=== PATIENT | male | born 1940 | race Caucasian/White ===

== ENCOUNTER 2017-12-17 16:16 | Observation (INO) | payer MEDICARE ==
[2017-12-17 16:49] LABS: #Eosinphils 0.1 thou/uL (0.0-0.7); #Lymphocytes 1.1 thou/uL (1.20-3.40); #Monocytes 2.4 thou/uL (0.11-0.59); #Neutrophils 14.2 thou/uL (1.40-6.50); %Basophils 0.2 % (0.0-1.0); %Eosinophils 0.6 % (0.0-10.0); %Lymphocytes 6.3 % (21.0-51.0); %Monocytes 13.5 % (0.0-10.0); %Neutrophils 79.4 % (42.0-75.0); Hemoglobin 13.5 g/dL (14.0-18.0); Mean Corpuscular HGB CONC 34.4 g/dL (32.0-36.0); Mean Corpuscular Hemoglobin 30.6 pg (27.0-31.0); Mean Corpuscular Volume 89.1 fL (78.0-98.0); Mean Platelet Volume 7.2 fL (7.4-10.4); Platelet Count 219 thou/uL (130-400); RBC Distribution Width 12.1 % (11.5-14.5); White Blood Cell (WBC) Count 17.8 thou/uL (4.8-10.8)
--- NOTE | 2017-12-17 16:59 | RAD ---
CHEST ONE VIEW: 12/17/17 HISTORY: Fever. Chest pain. COMPARISON: 09/17/15. FINDINGS: The cardiac silhouette is magnified by projection. Pulmonary vasculature are unremarkable. Mediastinu m midline with postoperative changes and aortic calcification. No lobar consolidation or evidence of pneumothorax. IMPRESSION: Chronic type findings are stable. No evidence of pneumothorax. POS: [facility]
[2017-12-17 17:11] LABS: ALT (SGPT) 29 U/L (8-55); AST (SGOT) 22 U/L (5-34); Albumin 3.9 g/dL (3.4-4.8); Alkaline Phosphatase 93 U/L (40-150); Anion Gap 16 mmol/L (10-20); BUN (Urea Nitrogen) 36 mg/dL (8.4-25.7); Bilirubin, Total 1.2 mg/dL (0.2-1.2); Calc. Creatinine Clearance 0 mL/min (70-130); Calcium 9.5 mg/dL (7.8-10.44); Carbon Dioxide 24 mmol/L (23-31); Chloride 97 mmol/L (98-107); Estimated GFR-MDRD 31; Globulin 3.1 g/dL (2.4-3.5); Glucose 101 mg/dL (83-110); Potassium 4.8 mmol/L (3.5-5.1); Sodium 132 mmol/L (136-145)
[2017-12-17] MEDS ORDERED: Lidocaine 1% (PF) 30 ML VIAL ONE (18:01)
--- NOTE | 2017-12-17 18:37 | RAD ---
RIGHT KNEE FOUR VIEW 12/17/17 HISTORY: Pain and fever. COMPARISON: None. FINDINGS: There is a large joint effusion. No acute displaced fracture or malalignment. Moderate patellofemoral compartment osteophyte formation. Moderate vascular calcifications. Small osteophytes in the medial and lateral tibial spines. IMPRESSION: Large joint effusion greater than would be expected for the amount of degenerative changes can be see n with crystalline arthropathy such as gout. POS: [facility]
[2017-12-17] MEDS ORDERED: Piperacillin/Tazobactam 4.5 GM VIAL ONE (20:00)
[2017-12-17] MEDS ORDERED: Colchicine 0.6 MG TAB PO SCH (20:15)
[2017-12-17 20:23] LABS: Bilirubin Negative (Negative); Blood, Urine Negative (Negative); Clarity CLEAR (Clear); Glucose, Urine (Dipstick) Negative (Negative); Leukocyte Negative (Negative); Nitrite Negative (Negative); Protein, Urine (Dipstick) Trace mg/dL (Neg-Trace); Specific Gravity, Urine 1.009 (1.002-1.036); Urobilinogen 0.2 mg/dL (0.2-1.0)
[2017-12-17 23:40] VITALS: BMI 25.4
[2017-12-18] MEDS ORDERED: Vancomycin HCl 1.5 GM in Sodium Chloride 0.9% 250 ML 300 ML IVPB SCH (01:00)
[2017-12-18] MEDS: Piperacillin/Tazobactam 2.25 GM in Sodium Chloride 0.9% 100 ML IVPB SCH ×4 (03:39→21:20)
--- NOTE | 2017-12-18 05:32 | HP ---
DATE OF ADMISSION: 12/18/2017 TIME OF EVALUATION: 7:50 p.m. CODE STATUS: DNR. PRIMARY CARE PHYSICIAN: Dr. Max Burrell at [facility]. CHIEF COMPLAINT: Fever, right knee pain. HISTORY OF PRESENT ILLNESS: This is a 77-year-old male patient with past medical history of gout, the patient came to the hospital referred by his primary care doctor and the patient was having a fever of 102.9, with no clear triggers, and the only finding was a right knee swelling. As per patient, he reported that the symptoms from the knee are similar to when he gets a gout crisis, also he has associated tenderness on that knee, the patient reported that usually gets worse due to the change in diet. The patient has no other significant symptoms, no cough, sputum production, no chest pain, no burning with urination. In ER, the tap has been done, fluid has been sent for evaluation, has been started on broad spectrum antibiotics, also on colchicine, symptoms are reported as severe. REVIEW OF SYSTEMS: Constitutional: Fever, chills, generalized weakness. Respiratory: No cough, no sputum production, no shortness of breath. Cardiovascular: No chest pain, no palpitations. No shortness of breath. Gastrointestinal: No nausea, no vomiting, no diarrhea or abdominal pain. Central nervous system: No dizziness, headache, feeling lightheaded. Genitourinary: No burning with urination. Extremities: The patient has right knee swelling and tenderness, unable to bear weight due to the pain. All other systems were reviewed and negative except for the findings mentioned above. PAST MEDICAL HISTORY: The patient reported gout, coronary artery disease, status post previous stent, prostatitis, hyperlipidemia, hypertension, previous stroke, previous NH. PAST SURGICAL HISTORY: The patient reported cholecystectomy, 6 previous stents placed, appendectomy, CABG x3, tonsillectomy. PSYCHIATRIC HISTORY: No psych history. FAMILY HISTORY: The patient reported mother with aneurysm, father with kidney problems. SOCIAL HISTORY: No alcohol, no drugs, no cigarettes. KNOWN ALLERGIES: SIMVASTATIN, ZETIA. REPORTED MEDICATIONS: Isosorbide, gabapentin, Zetia, amlodipine, furosemide, Ocuvite, carvedilol. PHYSICAL EXAMINATION: VITAL SIGNS: On presentation, heart rate 73, respiratory rate 21, temperature 101.3, oxygen saturation 93, occasionally, blood pressure 171/62. GENERAL APPEARANCE: The patient is alert, oriented, no acute distress. HEENT: Eyes: Normal conjunctivae, moist oral mucosa. Anicteric. NECK: No JVD. RESPIRATORY: Bilateral air entry. No rales, no wheezing. Symmetrical expansion. CARDIOVASCULAR: Normal rate, regular rhythm, no murmurs, no gallop, no edema. ABDOMEN: Soft, normal bowel sounds. MUSCULOSKELETAL: Baseline range of motion and strength except for the right knee. He has decreased range of motion, tenderness, inability to bear weight with his extremity. SKIN: Warm and intact. No pallor, no rash except for right knee that is swollen and red. NEUROLOGIC: Baseline sensory. No evidence of any new focal weakness. Baseline speech. Cranial nerves seem to be intact. PSYCHIATRIC: The patient is in a good mood. No anxiety, oriented, optimal judgment. LABORATORY DATA: Reviewed. The patient has a white count of 17.8 with hemoglobin 13.5, platelet count 219, neutrophils 79. Sodium 132, potassium 4.8 , chloride 97, carbon dioxide 24, anion gap 16, BUN 36, creatinine 2.06, this is about his baseline seen on previous records that were reviewed. GFR 31, glucose 101. Lactic acid 1.8, uric acid 7.6, calcium 9.5. LFTs were normal. UA was reviewed and was negative. X-ray was reviewed. The patient has chronic type findings in the chest or any other reports seen. Knee x-ray, the patient has a large joint effusion greater than would be expected for the amount of degenerative changes can be seen crystalline arthropathy such as gout. EKG was discussed with performing physician from ER. The patient had normal sinus rhythm with a rate of 71, RBBB, no evidence of any acute findings. ASSESSMENT AND PLAN: 1. Gout, patient has right knee swelling, status post needle aspiration, results showed moderate white blood count; however, no organisms were seen, this does not exclude a septic joint; however, inflammatory fluids might be from gout, patient covered with antibiotics, will need to follow final results from culture. Orthopedics will need to be consulted. 2. Systemic inflammatory response syndrome. Given leukocytosis, fever, unclear if the right knee is the source of the infection, seems inflammatory fluid could be seen in gout also, the patient reported that the knee with gout as the same symptoms that he has every time he has a crisis. The patient already covered with antibiotics, cultures to be followed.orthopedic might to be consulted for assistance in further management. 3. History of coronary artery disease, this problem is chronic, seems to be stable, we will monitor, we will treat accordingly. 4. History of chronic kidney disease, creatinine of all the symptom in previous admissions, we will monitor, need for any acute intervention at this point. 5. Hyperlipidemia, reconcile home medications, low cholesterol diet is advised. 6. Uncontrolled hypertension, presented with systolic hypertension, reconcile home medications, adjust the treatment as needed. 7. Deep venous thrombosis prophylaxis. MTDD
[2017-12-18] MEDS: traMADol HCl 50 MG TAB PO PRN ×3 (06:45→21:17)
[2017-12-18] MEDS: Aspirin 81 mg Enteric Coated Tablet PO SCH (08:47)
[2017-12-18] MEDS: Gabapentin 300 MG CAP PO SCH (08:47)
[2017-12-18] MEDS: Colchicine 0.6 MG TAB PO SCH (08:47)
[2017-12-18] MEDS: Dutasteride 0.5 MG CAP PO SCH (08:47)
[2017-12-18] MEDS: Amlodipine 10 MG TAB PO SCH (08:48)
[2017-12-18] MEDS: Carvedilol 3.125 MG TAB PO SCH ×2 (08:48→21:17)
[2017-12-18] MEDS: Clopidogrel Bisulfate 75 MG TAB PO SCH (08:48)
[2017-12-18] MEDS ORDERED: DUTASTERIDE PO SCH (09:00)
[2017-12-18] MEDS ORDERED: TAMSULOSIN HCL PO SCH (09:00)
[2017-12-18] MEDS ORDERED: Tamsulosin HCl 0.4 MG CAP PO SCH ×2 (09:00→21:00)
[2017-12-18] MEDS: COLESEVELAM HCL 3.75 GM PO SCH (09:02)
--- NOTE | 2017-12-18 10:23 | CON ---
DATE OF CONSULTATION: 12/18/2017 REQUESTING PHYSICIAN: Dr. Corbett. CONSULTING PHYSICIAN: Dr. Maycol Cheung. REASON FOR CONSULTATION: Swelling, discomfort and right knee effusion. BRIEF CLINICAL HISTORY: Mr. Painter is a 77-year-old white male who was admitted to the emergency [facility] yesterday evening to the medicine service for pain in the right knee, which he has had before. Rupa arently, the patient believes he has gout in the knee and he has been treated for this for quite some time. He called his primary care doctor and explained to him about the knee swelling and also appar ently had a fever up to 102. Their recommendation at that time was to present to the emergency room, which he did. Dr. Buck performed arthrocentesis and has obtained a specimen, sent for culture, se nsitivity, and crystal analysis. He has been empirically started on Zosyn for broad spectrum coverag e. Our service was consulted for evaluation of right knee effusion, determination of sepsis versus g out. PAST MEDICAL HISTORY: Significant for gout, coronary atherosclerosis, prostatitis, hyperlipidemia, h ypertension, and a prior myocardial infarction. PAST SURGICAL HISTORY: Cholecystectomy, cardiac stent placement x2, coronary artery bypass graft x3, tonsillectomy. MEDICATIONS: Please see medication reconciliation form. PHYSICAL EXAMINATION: Visual inspection of the right knee demonstrates the patient to have a trace e ffusion at this point. Supralateral arthrocentesis sites identified. No erythema is noted. Range o f motion is limited secondary to discomfort. 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 He is neur ovascularly intact both lower extremities. He cannot walk, bear weight on the right knee and he sits comfortably with the knee flexed to 90 degree position. IMAGING STUDIES: X-ray has been dictated by Radiologist. LABORATORY DATA: Hemogram showed white blood cell 17.8, hemoglobin 13.5, hematocrit 39.2. Chemistry panel demonstrates sodium of 132, BUN 36, creatinine 2.06. His arthrocentesis, I cannot find result s, but I do know a crystal analysis has been ordered as well as a Gram stain culture and sensitivity, and Gram stain did not demonstrate any organisms. I also added a cell count with differential to th e arthrocentesis sample. IMPRESSION: A strong suspicion for gouty arthritis, right knee. PLAN: No intervention is warranted at this point, we will observe, agree with treatment for primary gout and we will await culture and crystal analysis, follow up in the morning.
[2017-12-18 11:09] LABS: BF Color Yellow; Body Fluid Source SYNOVIAL FLUID; Clarity Cloudy/Turbid (Clear); RBC Background Count 0.007; Tube # EDTA
[2017-12-18 11:10] LABS: RBC Count-Automated 28000 /cumm; WBC/NonHematic-Auto 24800 /cumm
[2017-12-18 12:14] LABS: BF Segmented Neutrophils 82 %; Cell Count Non Hematic 15 %; Lymphocytes 4 %
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
[2017-12-18 15:12] LABS: Anion Gap 12 mmol/L (10-20); BUN (Urea Nitrogen) 30 mg/dL (8.4-25.7); Calc. Creatinine Clearance 40 mL/min (70-130); Carbon Dioxide 24 mmol/L (23-31); Chloride 102 mmol/L (98-107); Estimated GFR-MDRD 38; Glucose 169 mg/dL (83-110); Potassium 4.4 mmol/L (3.5-5.1); Sodium 134 mmol/L (136-145)
[2017-12-18] MEDS ORDERED: predniSONE 20 MG TAB PO SCH (15:30)
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
[2017-12-18] MEDS ORDERED: Vancomycin HCl 1 GM in Premix Bag 1 BAG IVPB SCH (23:59)
[2017-12-19] MEDS: traMADol HCl 50 MG TAB PO PRN ×2 (01:03→06:43)
[2017-12-19] MEDS: Piperacillin/Tazobactam 2.25 GM in Sodium Chloride 0.9% 100 ML IVPB SCH ×2 (05:01→10:24)
[2017-12-19 05:03] LABS: Anion Gap 12 mmol/L (10-20); BUN (Urea Nitrogen) 29 mg/dL (8.4-25.7); Calc. Creatinine Clearance 42 mL/min (70-130); Calcium 8.9 mg/dL (7.8-10.44); Carbon Dioxide 22 mmol/L (23-31); Chloride 102 mmol/L (98-107); Estimated GFR-MDRD 40; Glucose 224 mg/dL (83-110); Sodium 132 mmol/L (136-145)
[2017-12-19 05:12] LABS: Band 13 % (5-11); Hemoglobin 12.1 g/dL (14.0-18.0); Lymphocytes 6 % (21-51); MDiff Complete? YES; Mean Corpuscular HGB CONC 34.2 g/dL (32.0-36.0); Mean Corpuscular Hemoglobin 30.6 pg (27.0-31.0); Mean Corpuscular Volume 89.4 fL (78.0-98.0); Mean Platelet Volume 7.7 fL (7.4-10.4); Monocytes 2 % (0-10); Neutrophil 79 % (42-75); Platelet Count 200 thou/uL (130-400); RBC Distribution Width 12.2 % (11.5-14.5); Red Blood Cell (RBC) Count 3.94 mill/uL (4.70-6.10); White Blood Cell (WBC) Count 15.2 thou/uL (4.8-10.8)
[2017-12-19] MEDS ORDERED: predniSONE 20 MG TAB PO SCH (08:00)
[2017-12-19] MEDS: Gabapentin 300 MG CAP PO SCH (08:50)
[2017-12-19] MEDS: Colchicine 0.6 MG TAB PO SCH (08:50)
[2017-12-19] MEDS: Dutasteride 0.5 MG CAP PO SCH (08:50)
[2017-12-19] MEDS: Aspirin 81 mg Enteric Coated Tablet PO SCH (08:51)
[2017-12-19] MEDS: Clopidogrel Bisulfate 75 MG TAB PO SCH (08:52)
[2017-12-19] MEDS: Carvedilol 3.125 MG TAB PO SCH (08:53)
[2017-12-19] MEDS: Amlodipine 10 MG TAB PO SCH (08:53)
[2017-12-19] MEDS: COLESEVELAM HCL 3.75 GM PO SCH (08:54)
--- NOTE | 2017-12-19 11:50 | PRG ---
DATE OF SERVICE: 12/19/2017 SUBJECTIVE: This is a 77-year-old gentleman being seen for acute kidney injury. The patient denies any nausea, vomiting, or chest pain. PHYSICAL EXAMINATION: GENERAL: Patient is awake, alert. VITAL SIGNS: Afebrile, pulse 60, breathing 16, blood pressure 112/56. HEAD/NECK: Normocephalic. Atraumatic. EYES: EOMI. No deformity. EARS: Clear. No ulcers. NOSE: Intact. No lesions. MOUTH: Clear. No discharge. THROAT: Clear. No exudate. LUNGS: Clear. No crackles. CARDIAC: S1, S2. No rub. ABDOMEN: Benign. BS+. GENITALIA/RECTUM: Shipley absent. BACK/EXTREMITIES: Edema 0+ Ulcer- NEUROLOGICAL: Alert and motor intact. SKIN: Rash- Bruise- LYMPHATICS: Edema- Ulcer- LABORATORY DATA: Show hemoglobin 12.1, potassium 4, creatinine 1.6. ASSESSMENT AND RECOMMENDATIONS: 1. Acute kidney injury, improved. 2. Hypertension, stable. 3. Anemia, stable. 4. Medication based on glomerular filtration rate are appropriate. No indication for dialysis. We will sign off on this patient. Please reconsult as needed.
[2017-12-19 13:42] VITALS: BP 156/76; TEMP 97.5
--- NOTE | 2017-12-19 19:51 | DIS ---
DATE OF ADMISSION: 12/17/2017 DATE OF DISCHARGE: 12/19/2017 DISCHARGE DIAGNOSES: 1. Acute gouty arthropathy of the right knee, improved. 2. Systemic inflammatory response syndrome, noninfectious. 3. Chronic kidney disease stage 3. 4. Neutrophilic leukocytosis improved. 5. Acute kidney injury on chronic kidney disease stage 3. CONSULTATIONS: Dr. Yancey with Nephrology Service and Orthopedic Surgery service. PERTINENT LABORATORY DATA AND X-RAY FINDINGS: Sodium ranged between 132-134, creatinine ranged betwe en 1.67-2.06. Estimated GFR ranged between 31-40. Uric acid level 7.6. Lactic acid level 1.8, calc ium 9. LFTs within normal limits. CBC showed white blood cell count ranging between 15.2-17.8, hemo globin ranged between 12.1-13.5. Blood cultures x2 from 12/17/2017 showed no growth at 48 hours. Ri ght knee aspirate dated 12/17/2017 showed no growth at 48 hours. Urine culture dated 12/17/2017 show ed no growth at 24 hours. Portable chest x-ray dated 12/17/2017 showed chronic changes without acute process. Four views of the right knee dated 12/17/2017 showed large joint effusion with associated degenerative joint disease. HOSPITAL COURSE: The patient was observed on the medical floor after initially presenting with right knee pain with associated edema and fever. The patient underwent extensive evaluation including daisha in radiographs of the right knee showing a large effusion of the joint space. The patient was placed on broad spectrum IV antibiotic therapy after concern for systemic inflammatory response syndrome in a potential septic knee. The patient underwent evaluation by the Orthopedic Surgery Service, [facility] right knee aspiration showing no evidence of infectious process. The patient was noted with alessio vated uric acid level with concern for a gouty arthropathy. The patient was initiated on colchicine. In addition, he was given prednisone 40 mg daily. The patient had overall improvement and pain, de creased swelling and increased range of motion with the above therapy. The patient remained afebrile throughout the hospital course with stable vital signs noted. The patient was also noted with mild acute kidney injury in the context of known chronic kidney disease stage 3 with modification to his c urrent chronic medication regimen and overall improved renal function by the time of discharge. I frazier ve examined the patient at the time of discharge and discussed followup instructions. The patient ve rbalizes understanding and agreement, ready for discharge on 12/19/2017. DISCHARGE MEDICATIONS: 1. Amlodipine 10 mg 1 tab p.o. daily. 2. Enteric-coated aspirin 81 mg 1 tab p.o. daily. 3. Baclofen 10 mg p.o. b.i.d. 4. Carvedilol 3.125 mg p.o. b.i.d. 5. Colchicine 0.6 mg p.o. daily. 6. Ezetimibe 10 mg p.o. daily. 7. Lasix 20 mg 1 tab p.o. daily. 8. Gabapentin 600 mg p.o. b.i.d. 9. Isosorbide mononitrate 60 mg p.o. daily. 10. Childs 3 fatty acids 1 gram p.o. daily. 11. Prednisone 20 mg 2 tabs p.o. daily x 3 days, followed by 1 tab p.o. daily x 3 days, followed by half a tab p.o. daily x3 days. 12. Flomax 0.4 mg p.o. at bedtime. 13. Multivitamin 1 tab p.o. b.i.d. 14. Ambien 10 mg p.o. at bedtime. FOLLOWUP: The patient may follow up with his primary care provider, Dr. Thomas Burrell within 7 day s of discharge. CONDITION ON DISCHARGE: Stable. ACTIVITY: Ad cris, rolling walker for ambulation. DIET: Heart healthy. CODE STATUS: FULL. DISPOSITION: Home, 12/19/2017.
--- NOTE | 2017-12-21 15:50 | EKG ---
Test Reason : SEPIS Blood Pressure : / mmHG Vent. Rate : 071 BPM Atrial Rate : 071 BPM P-R Int : 160 ms QRS Dur : 152 ms QT Int : 424 ms P-R-T Axes : 032 -82 025 degrees QTc Int : 460 ms Normal sinus rhythm Left axis deviation Right bundle branch block Abnormal ECG Confirmed by RASHAWN WEEKS, TRAM ([id number]), editor magazine HECTOR MCCORMICK ([id number]) on 12/21/2017 3:49:31 PM Referred By: RASHAWN Confirmed By:TRAM MOROCHO MD
== END 2017-12-19 14:08 | disposition home or self-care (01) ==
LOC: ERS 16:16 → T4-A 23:18
PROVIDERS: ADMIT Hospitalist; ATTEND Hospitalist
DX: M10.9 Gout, unspecified (principal); R65.10 Systemic inflammatory response syndrome (SIRS) of non-infectious origin without acute organ dysfunction; I25.10 Atherosclerotic heart disease of native coronary artery without angina pectoris; E78.5 Hyperlipidemia, unspecified; I25.2 Old myocardial infarction; N41.9 Inflammatory disease of prostate, unspecified; I12.9 Hypertensive chronic kidney disease with stage 1 through stage 4 chronic kidney disease, or unspecified chronic kidney disease; N18.3 Chronic kidney disease, stage 3 (moderate); N17.9 Acute kidney failure, unspecified; D63.1 Anemia in chronic kidney disease; D72.9 Disorder of white blood cells, unspecified; Z86.73 Personal history of transient ischemic attack (TIA), and cerebral infarction without residual deficits; Z79.82 Long term (current) use of aspirin; Z79.899 Other long term (current) drug therapy; Z88.8 Allergy status to other drugs, medicaments and biological substances; Z95.5 Presence of coronary angioplasty implant and graft; Z95.1 Presence of aortocoronary bypass graft; Z66 Do not resuscitate
CPT/HCPCS: 71045; 73564; 80048 ×2; 80053; 81003; 83605; 84550; 85007; 85025; 85027; 87040; 87070; 87086; 87205; 89051; 89060; 93005; 94760; 96361; 96365; 96366 ×2; 96367; 99285; G0378; 36415; 85060; J2001; J2543; J3370; J7050; J7506

== ENCOUNTER 2018-01-06 10:18 | Inpatient (IN) | payer MEDICARE ==
[2018-01-06 11:53] LABS: Hemoglobin 13.9 g/dL (14.0-18.0); Mean Corpuscular HGB CONC 33.1 g/dL (32.0-36.0); Mean Corpuscular Hemoglobin 29.6 pg (27.0-31.0); Mean Corpuscular Volume 89.3 fL (78.0-98.0); Mean Platelet Volume 6.8 fL (7.4-10.4); Platelet Count 245 thou/uL (130-400); RBC Distribution Width 13.2 % (11.5-14.5); Red Blood Cell (RBC) Count 4.68 mill/uL (4.70-6.10); White Blood Cell (WBC) Count 18.1 thou/uL (4.8-10.8)
[2018-01-06 12:09] LABS: Acetaminophen Less than 6.0 mcg/mL (10.0-30.0); Alcohol Less than 10 mg/dL (Less than 10); CK (CPK) 614 U/L (30-200); Salicylate Less than 8.0 mg/dL (15.0-30.0)
[2018-01-06 12:11] LABS: CKMB 1.8 ng/mL (0-6.6); Troponin I 0.023 ng/mL (< 0.028)
[2018-01-06 12:13] LABS: ALT (SGPT) 68 U/L (8-55); AST (SGOT) 83 U/L (5-34); Albumin 3.7 g/dL (3.4-4.8); Alkaline Phosphatase 208 U/L (40-150); Anion Gap 13 mmol/L (10-20); BUN (Urea Nitrogen) 54 mg/dL (8.4-25.7); Bilirubin, Total 2.1 mg/dL (0.2-1.2); Calc. Creatinine Clearance 0 mL/min (70-130); Calcium 9.8 mg/dL (7.8-10.44); Carbon Dioxide 25 mmol/L (23-31); Chloride 99 mmol/L (98-107); Estimated GFR-MDRD 27; Globulin 3.7 g/dL (2.4-3.5); Glucose 193 mg/dL (83-110); Potassium 4.7 mmol/L (3.5-5.1); Protein, Total 7.4 g/dL (5.8-8.1); Sodium 132 mmol/L (136-145)
[2018-01-06 12:38] LABS: Band 3 % (5-11); Lymphocytes 10 % (21-51); MDiff Complete? YES; Monocytes 10 % (0-10); Neutrophil 77 % (42-75); RBC Morphology Normal
[2018-01-06 13:07] LABS: Bilirubin Negative (Negative); Blood, Urine Trace (Negative); Clarity CLEAR (Clear); Glucose, Urine (Dipstick) 100 mg/dL (Negative); Leukocyte Trace (Negative); Nitrite Negative (Negative); Protein, Urine (Dipstick) 100 mg/dL (Neg-Trace); Specific Gravity, Urine 1.021 (1.002-1.036)
[2018-01-06 13:15] LABS: Bacteria/HPF None Seen HPF (None Seen); Hyaline Casts/LPF 0-3 HYALINE CAST LPF (0-3 Hyaline); Pathc Cast-AUWi Flag 0.58 (0-2.49); RBC/HPF 0-3 HPF (0-3); Squamous Epithelial 0-3 HPF (0-3); WBC/HPF None Seen HPF (0-3)
[2018-01-06 13:16] LABS: Amphetamine Not Detected (NotDetected); Barbiturates Screen Not Detected (NotDetected); Benzodiazepine Screen Not Detected (NotDetected); Cocaine Metabolite Screen Not Detected (NotDetected); Medtox Control Line Valid? VALID (VALID); Medtox Reader # READER 1; Methadone Not Detected (NotDetected); Methamphetamine Not Detected (NotDetected); Opiate Screen Detected (NotDetected); Oxycodone Screen Not Detected (NotDetected); Phencyclidine (PCP) Not Detected (NotDetected); THC/Cannabinoid Screen Not Detected (NotDetected); Tricyclic Screen Not Detected (NotDetected)
[2018-01-06] MEDS ORDERED: cefTRIAXone\\ROCEPHIN 1 GM VIAL ONE (13:16)
[2018-01-06 13:18] LABS: Yeast-AUWi Flag 33.5 (0-25.0)
[2018-01-06 13:25] LABS: Yeast-All Forms None Seen HPF (None Seen)
--- NOTE | 2018-01-06 13:32 | RAD ---
PORTABLE CHEST: HISTORY: Mental status post change. COMPARISON: 12/17/17. FINDINGS: Lungs appear well aerated and clear. NO infiltrate or vascular congestion. Heart size upper normal and stable. Postop sternotomy changes are again noted. IMPRESSION: No acute process or interval change. POS: [facility]
--- NOTE | 2018-01-06 13:38 | CT ---
NONCONTRAST CT HEAD: DATE: 01/06/18. HISTORY: Altered mental status. COMPARISON: 03/17/15. FINDINGS: Again noted is decreased attenuation of the periventricular white matter which is nonspecific but lik victor m reflective of chronic small-vessel ischemic changes. There is a low-density focus again seen in the right basal ganglia likely related to remote lacunar infarction. Encephalomalacia is again seen in each occipital lobe likely related to remote areas of infarction. Remote infarctions are seen in e ach cerebellar hemisphere. There is o evidence of an acute cortical infarction, hemorrhage, mass effect, or midline shift. Diff use cerebral volume loss is present. Ventricular system is normal in size, shape, and position for t he degree of sulcal atrophy. There is mild ex vacuo dilatation of the occipital horn right lateral v entricle. Visualized paranasal sinuses and mastoid air cells are clear. Calvarial structures are intact. There has been no significant interval change when compared to the prior exam. IMPRESSION: 1. No acute intracranial abnormality is demonstrated. 2. Chronic small-vessel ischemic changes and cerebral volume los, similar to the prior exam. 3. Focal areas of encephalomalacia in each occipital lobe likely related to remote areas of infarcti on. 4. Remote lacunar infarction right basal ganglia with remote infarctions in each cerebellar hemisphe re. POS: [facility]
[2018-01-06 15:47] LABS: CO2 Tension 33.3 mmHg (35.0-45.0); O2 Tension (PaO2) 65.5 mmHg (> 70.0); pH, Arterial 7.45 (7.35-7.45)
[2018-01-06 15:48] LABS: Actual Bicarbonate (HCO3a) 22.5 mEq/L (22-28); Base Excess (BEa) -0.9 mEq/L (-2.0 to +3.0); Hemoglobin (Hb) 13.1 g/dL (14.0-18.0)
[2018-01-06 15:49] LABS: ALV-art Gradient 41.765 (0-20); Analyzer IN Cardio ER; Calcium, Ionized 1.2 mmol/L (1.12-1.30); Puncture Site LRA
[2018-01-06] MEDS ORDERED: Sodium Chloride 0.9% 1,000 ML IV SCH (16:08)
[2018-01-06] MEDS ORDERED: Acetaminophen 325 MG TAB PO PRN (16:08)
[2018-01-06] MEDS ORDERED: Ondansetron ODT 4 MG TAB SL PRN (16:08)
[2018-01-06] MEDS ORDERED: Ondansetron HCl/PF 4 MG/2 ML Vial IVP PRN (16:08)
[2018-01-06] MEDS: Ketorolac Tromethamine 30 MG/ML VIAL IVP SCH (17:15)
[2018-01-06] MEDS: Sodium Chloride 0.9% 1,000 ML IV SCH (17:16)
[2018-01-06 17:20] LABS: HBCM Index 0.06 S/CO (0-0.79); HBSAg Index 0.16 S/CO (0-0.99); Hep A IgM AB Non-Reactive (NonReactive); Hep A IgM S/CO 0.07 S/CO (0-0.79); Hep B Surf Ag Non-Reactive S/CO (NonReactive); Hep C IgG Ab Non-Reactive (NonReactive); Hep C Index 0.11 S/CO (0-0.79); Hepatitis B Core IGM Abs Non-Reactive (NonReactive)
--- NOTE | 2018-01-06 20:17 | ULT ---
ABDOMEN ULTRASOUND: HISTORY: Elevated liver function tests. COMPARISON: 05/05/2015 TECHNIQUE: Utilizing a Multi-Hertz transducer, sonographic imaging of the abdomen is performed in the longitudin al and transverse planes. FINDINGS: The examination is limited by body habitus and bowel gas. Limited evaluation of the pancreas, IVC, spleen, and kidneys. Grossly, no hydronephrosis. Both kidn eys appear to have a thinning of the cortex. The main portal vein is patent. Appropriate directional flow. Suboptimal evaluation of the aorta. The distal aorta may be prominent, measuring 2.4 cm x 1.8 cm x 2 .1 cm. The gallbladder is not assessed. Increased echogenicity to the liver may be due to hepatic steatosis or hepatocellular disease. Limit ed evaluation for hepatic masses and intrahepatic biliary dilatation. IMPRESSION: 1. Suboptimal evaluation due to bowel gas and body habitus. 2. Increased echogenicity of the liver, as described above. 3. Possible mild focal prominence of the infrarenal abdominal aorta. Better interrogation of the liver and abdomen with CT may be beneficial. POS: [facility]
[2018-01-06] MEDS ORDERED: Vancomycin HCl 1 GM in Premix Bag 1 BAG IVPB SCH ×2 (21:00→21:45)
--- NOTE | 2018-01-06 22:18 | HP ---
PRIMARY CARE PHYSICIAN: Dr. Burrell. CHIEF COMPLAINT: Altered mental status and knee and ankle pain. HISTORY OF PRESENT ILLNESS: Mr. Ureña is a pleasant 77-year-old gentleman who was brought in via EMS at his 's request after she noticed over the past few days he has been sleeping all the time and she also noted that he was having difficulty controlling his urine. She says that he also had been complaining of pain in his knees and ankles which has been fairly severe. She says that he was recen tly hospitalized about 3 weeks ago for a gout flare. At that time, he had high fever and was having pain in his knee. He was evaluated and found to have urate crystals in the joint and it was felt thanh t it was a gout flare. He was treated and released from the hospital. She also was concerned kalani leger he was given colchicine and his primary care physician changed his medications and placed him on Ul oric in place of the colchicine and she was concerned that this may have something to do with his pre sent state. Otherwise, she has not really noticed anything different. She says he has not been chec lauro his temperatures, but he did not notice any fevers or chills. He has not been having any other specific complaints other than the pain. REVIEW OF SYSTEMS: Essentially unobtainable as the patient is more or less obtunded. PAST MEDICAL HISTORY: Significant for gout, hypertension, macular degeneration and coronary artery d isease. She thinks he may be diabetic, but she is not sure. PAST SURGICAL HISTORY: He has had a coronary artery bypass. He has had several skin cancers removed . ALLERGIES: STATINS. FAMILY HISTORY: Significant for chronic kidney disease and macular degeneration as well as alcohol a buse in several family members. SOCIAL HISTORY: He is . He is a former smoker. He quit 20 years ago. He used to drink. Hi s says she thinks he used to drink too much and she says that he felt like he drinks too much as well and said it was affecting his brain and that is why he wanted to quit. He used to drink about three hard liquor drinks a day and he did this for at least 50 years. CURRENT MEDICATIONS: Include fish oil, isosorbide mononitrate extended release 60 mg daily, gabapent in 300 mg 3 tablets twice a day, Zetia 10 mg daily, amlodipine 10 mg daily, carvedilol 3.125 mg twice a day and furosemide 20 mg daily. PHYSICAL EXAMINATION: GENERAL: He is obtunded. He is arousable to severe pain, but when he is awake, he does not seem to make much sense. He appears confused. VITAL SIGNS: Blood pressure was 161/66, heart rate 87, respiratory rate of 22, temperature was 98.9. HEENT: His pupils are actually small pinpoint and slightly sluggish to reactive, unable to assess ex traocular muscles. His sclerae are somewhat pale and mildly icteric. Throat, his mucous membranes a re slightly dry. NECK: There is no adenopathy, no bruits. LUNGS: Clear to auscultation. There was no wheezing, no rales. CARDIOVASCULAR: He had a normal S1, S2. I did not appreciate an S3 or S4. No murmurs, clicks, no r ubs. ABDOMEN: Soft, positive for bowel sounds. He did have some mottled appearance of his skin. EXTREMITIES: He had swelling on dorsum of both feet up into the ankle. The right was worse than the left. There was some cyanosis on the first and second toes. He did have palpable dorsalis pedis pu lses bilaterally. NEUROLOGIC: Unable to assess. He does appear to move all of his extremities. There was no facial d ofelia and we were not able to assess for asterixis. He did have some spider angiomata on his face. LABORATORY RESULTS: His white blood cell count was 18.1, hemoglobin 13.9, hematocrit is 41.8, platel et count was 248. He had a left shift. The sodium was 132, potassium 4.7, chloride is 99, CO2 is 25 , BUN of 54, creatinine of 2.3, glucose is 193. He had a urinalysis which was essentially negative. ABG: pH was 7.447, pCO2 of 33, pO2 of 65.5. He had a urine drug screen which showed there were opi ates detected as well as acetaminophen. Plasma alcohol level was less than 10. He had a CT scan of the brain in which there were no acute abnormalities and also chest x-ray did not show any acute infi ltrates or effusions. ASSESSMENT AND PLAN: This is a 77-year-old gentleman who presents to the emergency room with two johanna or complaints. 1. Severe pain in his ankles, knees, and feet which is likely as a result of a gout flare. He has l eukocytosis; however, in review of his previous hospital admission, he had a leukocytosis as well as a fever at that time and it was proven gout flare. Therefore, it is likely that the leukocytosis on this occasion is related to gout. 2. Altered mental status. This is a little bit more unclear. It is unlikely that a gout flare woul d cause an alteration in the patient's mental status. The area on his feet again appears to be a gou t, although there is some concern that it could be cellulitis which could possibly contribute to some metabolic encephalopathy; however, the area on his feet does not appear to be severe enough to cause a metabolic encephalopathy related to a superficial cellulitis. He has a history of heavy alcohol u se in the past and his liver function test suggest that he has some ongoing or residual liver disease with his elevated transaminases and elevated bilirubin. He did have some stigmata on physical that could be associated with alcohol disease. Therefore, alcoholic encephalopathy comes in the different ial for his confused and somnolent state. Therefore, we will get a serum ammonia level to help us to sort this out. We will also get an ultrasound of the liver to look at the liver architecture. If t his proves to be nonrevealing, then the next step would be to consider a neurological evaluation and possibly getting a contrast that MRI to look at possible acute encephalitis type picture. Going forw katerin, we will continue with the antibiotics and likely this will take more than 24 hours to sort out a nd therefore we will admit him as a full admit.
[2018-01-06] MEDS: Carvedilol 3.125 MG TAB PO SCH (22:19)
[2018-01-07] MEDS ORDERED: VANCOMYCIN IVPB PRN (00:37)
[2018-01-07] MEDS ORDERED: Acetaminophen 1,000 MG in Premix Bag 1 BAG IVPB SCH (00:45)
[2018-01-07 04:24] LABS: #Eosinphils 0.1 thou/uL (0.0-0.7); #Monocytes 1.7 thou/uL (0.11-0.59); #Neutrophils 12.3 thou/uL (1.40-6.50); %Basophils 0.1 % (0.0-1.0); %Eosinophils 0.9 % (0.0-10.0); %Lymphocytes 6.8 % (21.0-51.0); %Monocytes 11.3 % (0.0-10.0); %Neutrophils 80.9 % (42.0-75.0); Hemoglobin 11.3 g/dL (14.0-18.0); Mean Corpuscular HGB CONC 34.2 g/dL (32.0-36.0); Mean Corpuscular Volume 90.5 fL (78.0-98.0); Mean Platelet Volume 6.8 fL (7.4-10.4); Platelet Count 205 thou/uL (130-400); RBC Distribution Width 13.2 % (11.5-14.5); Red Blood Cell (RBC) Count 3.67 mill/uL (4.70-6.10); White Blood Cell (WBC) Count 15.3 thou/uL (4.8-10.8)
[2018-01-07 05:28] LABS: Anion Gap 14 mmol/L (10-20); BUN (Urea Nitrogen) 59 mg/dL (8.4-25.7); Calc. Creatinine Clearance 39 mL/min (70-130); Calcium 8.9 mg/dL (7.8-10.44); Carbon Dioxide 22 mmol/L (23-31); Chloride 103 mmol/L (98-107); Estimated GFR-MDRD 26; Glucose 148 mg/dL (83-110); Potassium 4.5 mmol/L (3.5-5.1); Sodium 134 mmol/L (136-145)
[2018-01-07] MEDS: Sodium Chloride 0.9% 1,000 ML IV SCH ×2 (06:15→07:37)
[2018-01-07] MEDS: Enoxaparin Sodium 30 MG/0.3 ML SYRINGE SC SCH (07:35)
[2018-01-07] MEDS: Carvedilol 3.125 MG TAB PO SCH ×2 (07:36→20:30)
[2018-01-07] MEDS: Colchicine 0.6 MG TAB PO SCH (07:36)
[2018-01-07] MEDS: Famotidine/PF 20 mg/2ml Vial SLOW IVP SCH (09:41)
--- NOTE | 2018-01-07 12:28 | EKG ---
Test Reason : STAT Blood Pressure : / mmHG Vent. Rate : 071 BPM Atrial Rate : 071 BPM P-R Int : 166 ms QRS Dur : 146 ms QT Int : 428 ms P-R-T Axes : 033 -75 -01 degrees QTc Int : 465 ms Sinus rhythm with Premature atrial complexes Left axis deviation Right bundle branch block Abnormal ECG When compared with ECG of 17-DEC-2017 16:28, Premature atrial complexes are now Present Confirmed by HEAVEN WEEKS, SDanny ([id number]) on 01/07/2018 12:28:13 PM Referred By: [place] Confirmed By:DR. Esmer COLLADO MD
[2018-01-07] MEDS: cefTRIAXone\\ROCEPHIN 1 GM in Sodium Chloride 0.9% 100 ML IVPB SCH (12:44)
--- NOTE | 2018-01-07 16:19 | PDOC.PN ---
- Subjective Encounter Start Date: 01/07/18 Encounter Start Time: 16:17 Mr. Foster was seen today in follow-up of Altered mental status, and foot pain. He is back to his baseline level of functioning. He does not remember much from yesterday. He is still having fairly sevre pain in both ankles and feet. - Objective Resuscitation Status: Resuscitation Status FULL:Full Resuscitation MAR Reviewed: Yes Vital Signs & Weight: Vital Signs (12 hours) Temp Pulse Resp BP Pulse Ox 01/07/18 12:20 99.0 F 72 20 165/88 H 96 01/07/18 08:00 98.0 F 59 L 20 131/62 97 01/07/18 04:56 97.8 F 59 L 18 125/70 97 Weight Weight 249 lb 1.957 oz Result Diagrams: 01/07/18 04:10 01/07/18 04:10 Additional Labs: Accuchecks 01/06/18 19:52 POC Glucose 177 H Phys Exam - Physical Examination HEENT: PERRLA Respiratory: no wheezing, no rales, no rhonchi, clear to auscultation bilateral Cardiovascular: RRR, no significant murmur, no rub Gastrointestinal: soft, non-tender, positive bowel sounds Musculoskeletal: no edema + edema on both feet, and exquisite temnderness bilaterally Dx/Plan (1) Metabolic encephalopathy Code(s): G93.41 - METABOLIC ENCEPHALOPATHY Status: Acute (2) Acute gouty arthropathy Code(s): M10.9 - GOUT, UNSPECIFIED Status: Acute Comment: Continue Colchicine 0.6mg daily, continue Zosyn and Vancomycin, start Prednisone 40mg daily (3) SIRS (systemic inflammatory response syndrome) Code(s): R65.10 - SIRS OF NON-INFECTIOUS ORIGIN W/O ACUTE ORGAN DYSFUNCTION Status: Acute Comment: Continue Zosyn and Vancomycin, await final blood cx results (4) Acute kidney injury superimposed on chronic kidney disease Code(s): N17.9 - ACUTE KIDNEY FAILURE, UNSPECIFIED; N18.9 - CHRONIC KIDNEY DISEASE, UNSPECIFIED Status: Acute - Plan * Metabolic encephalopathy- ? due to severe pain, and Opiod medication- this has resolved * SIRS- I suspect this is more from Gout than cellulitis- will continue Colchicine, but due to renal insufficiency will have to monitor the dose, and unable to give Indocin or Toradol * Will de-escalate antibiotics tomorrow * I have recommended outpatient Rheumatology follow-up given the severity of his Gout * Acute on chronic kidney disease- ? etiology- His billing assistant has been consulted.
[2018-01-07] MEDS: Vancomycin HCl 1.25 GM in Sodium Chloride 0.9% 250 ML 250 ML IVPB SCH (17:13)
[2018-01-07] MEDS: Ketorolac Tromethamine 30 MG/ML VIAL IVP SCH (18:19)
[2018-01-07] MEDS ORDERED: traMADol HCl 50 MG TAB PO PRN (19:18)
[2018-01-07] MEDS: Acetaminophen 325 MG TAB PO PRN (20:30)
--- NOTE | 2018-01-08 03:22 | CON ---
DATE OF CONSULTATION: 01/07/2018 REASON FOR CONSULTATION: Acute kidney injury and chronic kidney disease and altered mentation HISTORY OF PRESENT ILLNESS: This is a 78-year-old white male with history of gout, hypertension, hea rt disease, who came to the hospital with altered mentation and knee pain and Nephrology is consulted for acute kidney injury. His baseline creatinine is around 1.7 and was found to be 2.3 and this mor deandre 2.4. The patient is getting admitted for cellulitis and getting on vancomycin. No fever, chill s, feeling slightly better. Swelling is better. PAST MEDICAL HISTORY: 1. Gout. 2. Hypertension. 3. Coronary artery disease. PAST SURGICAL HISTORY: Coronary artery bypass graft, skin cancer removal. HOME MEDICATIONS: Fish oil, isosorbide mononitrate, gabapentin, Zetia, amlodipine, carvedilol, furos emide. ALLERGIES: STATINS. SOCIAL HISTORY: No smoking, alcohol, or illicit drug abuse, a former smoker. FAMILY HISTORY: Positive for heart disease. REVIEW OF SYSTEMS: The following complete review of systems was negative, unless otherwise mentioned in the HPI or below: Constitutional: Weight loss or gain, abil ity to conduct usual activities. Skin: Rash, itching. Eyes: Double vision, pain. ENT/Mouth: Nose bleeding, neck stiffness, pain, tenderness. Cardiovascular: Palpitations, dyspnea on exertion, ort hopnea. Respiratory: Shortness of breath, wheezing, cough, hemoptysis, fever or night sweats. Judith rointestinal: Poor appetite, abdominal pain, heartburn, nausea, vomiting, constipation, or diarrhea. Genitourinary: Urgency, frequency, dysuria, nocturia. Musculoskeletal: Pain, swelling. Neurologi c/Psychiatric: Anxiety, depression. Allergy/Immunologic: Skin rash, bleeding tendency. PHYSICAL EXAMINATION: GENERAL: This is an elderly white male in no apparent distress. VITAL SIGNS: Temperature 98.0, pulse 70, respiratory rate 18, blood pressure 150/60. HEENT: Atraumatic, normocephalic. Oral mucosa is moist. NECK: Supple, no masses. CARDIOVASCULAR: S1, S2 heard. Rate and rhythm regular. RESPIRATORY: Clear. MUSCULOSKELETAL: 1+ edema. DERMATOLOGIC: No rash. NEUROLOGIC: Alert, awake. PSYCHIATRIC: Mood and affect normal. PERTINENT LABS: Hemoglobin is 11.3, potassium 4.5, BUN is 59, creatinine is 2.1. ASSESSMENT AND PLAN: 1. Acute kidney injury on chronic kidney disease stage 3. Renal function with slight worsening. Av oid NSAIDs and agree with hydration. We will monitor renal function, avoid nephrotoxins. Medically renally dose all medications. 2. Edema, controlled. 3. Hypertension. 4. Mild hyperalbuminemia. 5. Anemia, rule out any bleed. 6. Hyponatremia, mild. Plan is to monitor renal function. Avoid nephrotoxins. If not getting better we will recommend maryann l ultrasound. Continue supportive care including antibiotics and we will follow.
[2018-01-08 05:15] LABS: #Eosinphils 0.2 thou/uL (0.0-0.7); #Monocytes 1.4 thou/uL (0.11-0.59); #Neutrophils 9.9 thou/uL (1.40-6.50); %Basophils 0.2 % (0.0-1.0); %Eosinophils 1.7 % (0.0-10.0); %Lymphocytes 8.2 % (21.0-51.0); %Monocytes 10.9 % (0.0-10.0); Hemoglobin 12.1 g/dL (14.0-18.0); Mean Corpuscular Hemoglobin 27.9 pg (27.0-31.0); Mean Corpuscular Volume 90.1 fL (78.0-98.0); Mean Platelet Volume 7.4 fL (7.4-10.4); Platelet Count 260 thou/uL (130-400); RBC Distribution Width 13.3 % (11.5-14.5); Red Blood Cell (RBC) Count 4.33 mill/uL (4.70-6.10); White Blood Cell (WBC) Count 12.6 thou/uL (4.8-10.8)
[2018-01-08 05:22] LABS: Anion Gap 16 mmol/L (10-20); BUN (Urea Nitrogen) 53 mg/dL (8.4-25.7); Calc. Creatinine Clearance 48 mL/min (70-130); Calcium 9.3 mg/dL (7.8-10.44); Carbon Dioxide 20 mmol/L (23-31); Chloride 103 mmol/L (98-107); Estimated GFR-MDRD 33; Glucose 144 mg/dL (83-110); Potassium 4.2 mmol/L (3.5-5.1); Sodium 135 mmol/L (136-145)
[2018-01-08] MEDS: Enoxaparin Sodium 30 MG/0.3 ML SYRINGE SC SCH (07:59)
[2018-01-08] MEDS: Colchicine 0.6 MG TAB PO SCH (07:59)
[2018-01-08] MEDS: Carvedilol 3.125 MG TAB PO SCH ×2 (07:59→20:25)
[2018-01-08] MEDS: Sodium Chloride 0.9% 1,000 ML IV SCH ×2 (08:00→21:32)
[2018-01-08] MEDS: Famotidine/PF 20 mg/2ml Vial SLOW IVP SCH (08:31)
--- NOTE | 2018-01-08 12:15 | PDOC.PN ---
- Subjective Encounter Start Date: 01/08/18 Encounter Start Time: 12:13 Mr. Yoder was seen - Objective Resuscitation Status: Resuscitation Status FULL:Full Resuscitation Vital Signs & Weight: Vital Signs (12 hours) Temp Pulse Resp BP Pulse Ox 01/08/18 08:00 98.3 F 73 20 169/70 H 96 Weight Weight 249 lb 1.957 oz I&O: 01/07/18 01/08/18 01/09/18 06:59 06:59 06:59 Intake Total 1313 360 Output Total 150 Balance 1163 360 Result Diagrams: 01/08/18 04:15 01/08/18 04:15 Phys Exam - Physical Examination Respiratory: no wheezing, no rales, no rhonchi, clear to auscultation bilateral Cardiovascular: RRR, no significant murmur, no rub Gastrointestinal: soft, non-tender, positive bowel sounds Musculoskeletal: edema present + swelling on the dorum of the right foot, and milfd erythema, and warmth + good distal pulses Dx/Plan (1) Metabolic encephalopathy Code(s): G93.41 - METABOLIC ENCEPHALOPATHY Status: Acute (2) Acute gouty arthropathy Code(s): M10.9 - GOUT, UNSPECIFIED Status: Acute Comment: Continue Colchicine 0.6mg daily, continue Zosyn and Vancomycin, start Prednisone 40mg daily (3) SIRS (systemic inflammatory response syndrome) Code(s): R65.10 - SIRS OF NON-INFECTIOUS ORIGIN W/O ACUTE ORGAN DYSFUNCTION Status: Acute Comment: Continue Zosyn and Vancomycin, await final blood cx results (4) Acute kidney injury superimposed on chronic kidney disease Code(s): N17.9 - ACUTE KIDNEY FAILURE, UNSPECIFIED; N18.9 - CHRONIC KIDNEY DISEASE, UNSPECIFIED Status: Acute - Plan * Gout Flair- improving * Delirium- he had an episode of confusion again this morning. I suspect it is due to Tramadol- this has been discontinued * Acute on chronic kidney disease- improving * HTN- blood pressure is a bit elevated now- will re-start his home blood pressure medications.
[2018-01-08] MEDS: cefTRIAXone\\ROCEPHIN 1 GM in Sodium Chloride 0.9% 100 ML IVPB SCH (13:50)
[2018-01-08] MEDS: Vancomycin HCl 1.25 GM in Sodium Chloride 0.9% 250 ML 250 ML IVPB SCH (18:02)
[2018-01-08 18:11] LABS: Vancomycin, Trough 20.3 ug/mL
[2018-01-08] MEDS: Tamsulosin HCl 0.4 MG CAP PO SCH (20:25)
[2018-01-09] MEDS: Acetaminophen 325 MG TAB PO PRN ×4 (00:05→21:49)
[2018-01-09 05:16] LABS: #Eosinphils 0.1 thou/uL (0.0-0.7); #Lymphocytes 1.2 thou/uL (1.20-3.40); #Monocytes 1.5 thou/uL (0.11-0.59); #Neutrophils 8.8 thou/uL (1.40-6.50); %Basophils 0.1 % (0.0-1.0); %Eosinophils 1.1 % (0.0-10.0); %Lymphocytes 10.3 % (21.0-51.0); %Neutrophils 75.6 % (42.0-75.0); Hemoglobin 11.3 g/dL (14.0-18.0); Mean Corpuscular HGB CONC 33.2 g/dL (32.0-36.0); Mean Corpuscular Hemoglobin 30.4 pg (27.0-31.0); Mean Corpuscular Volume 91.6 fL (78.0-98.0); Mean Platelet Volume 7.3 fL (7.4-10.4); Platelet Count 231 thou/uL (130-400); RBC Distribution Width 13.4 % (11.5-14.5); Red Blood Cell (RBC) Count 3.71 mill/uL (4.70-6.10); White Blood Cell (WBC) Count 11.6 thou/uL (4.8-10.8)
[2018-01-09 05:27] LABS: Anion Gap 14 mmol/L (10-20); BUN (Urea Nitrogen) 38 mg/dL (8.4-25.7); Calc. Creatinine Clearance 63 mL/min (70-130); Calcium 9.1 mg/dL (7.8-10.44); Carbon Dioxide 21 mmol/L (23-31); Chloride 106 mmol/L (98-107); Estimated GFR-MDRD 44; Glucose 134 mg/dL (83-110); Potassium 3.9 mmol/L (3.5-5.1); Sodium 137 mmol/L (136-145)
[2018-01-09] MEDS: Carvedilol 3.125 MG TAB PO SCH ×2 (08:38→21:48)
[2018-01-09] MEDS: Enoxaparin Sodium 30 MG/0.3 ML SYRINGE SC SCH (08:38)
[2018-01-09] MEDS: Amlodipine 10 MG TAB PO SCH (08:38)
[2018-01-09] MEDS: Colchicine 0.6 MG TAB PO SCH (08:38)
[2018-01-09] MEDS: Famotidine/PF 20 mg/2ml Vial SLOW IVP SCH (08:59)
[2018-01-09] MEDS: Sodium Chloride 0.9% 1,000 ML IV SCH (10:30)
[2018-01-09] MEDS: cefTRIAXone\\ROCEPHIN 1 GM in Sodium Chloride 0.9% 100 ML IVPB SCH (12:47)
--- NOTE | 2018-01-09 13:27 | PDOC.PN ---
- Subjective Encounter Start Date: 01/09/18 Encounter Start Time: 13:24 Mr. Ureña is confused again. He is awake and alert, but when talking to you, he thoughts are confused, and he is not making sense. - Objective Resuscitation Status: Resuscitation Status FULL:Full Resuscitation MAR Reviewed: Yes Vital Signs & Weight: Vital Signs (12 hours) Temp Pulse Resp BP BP BP Pulse Ox 01/09/18 10:54 98.3 F 80 18 153/72 H 96 01/09/18 08:38 74 178/75 H 01/09/18 08:00 98.4 F 74 14 178/75 H 95 01/09/18 04:00 99.6 F 69 18 173/74 H 94 L Weight Weight 249 lb 1.957 oz I&O: 01/08/18 01/09/18 01/10/18 06:59 06:59 06:59 Intake Total 1313 1590 240 Output Total 150 700 Balance 1163 890 240 Result Diagrams: 01/10/18 04:06 01/10/18 04:06 Phys Exam - Physical Examination HEENT: PERRLA Respiratory: no wheezing, no rales, no rhonchi, clear to auscultation bilateral Cardiovascular: RRR, no significant murmur, no rub Gastrointestinal: soft, non-tender, positive bowel sounds Musculoskeletal: no edema Dx/Plan (1) Metabolic encephalopathy Code(s): G93.41 - METABOLIC ENCEPHALOPATHY Status: Acute (2) Acute gouty arthropathy Code(s): M10.9 - GOUT, UNSPECIFIED Status: Acute Comment: Continue Colchicine 0.6mg daily, continue Zosyn and Vancomycin, start Prednisone 40mg daily (3) SIRS (systemic inflammatory response syndrome) Code(s): R65.10 - SIRS OF NON-INFECTIOUS ORIGIN W/O ACUTE ORGAN DYSFUNCTION Status: Acute Comment: Continue Zosyn and Vancomycin, await final blood cx results (4) Acute kidney injury superimposed on chronic kidney disease Code(s): N17.9 - ACUTE KIDNEY FAILURE, UNSPECIFIED; N18.9 - CHRONIC KIDNEY DISEASE, UNSPECIFIED Status: Acute - Plan * Metabolic encephalopathy- ? etiology- the leukocytosis and renal function is improving. He has not received any Ultram, or other sedating drugs- ? early Dementia with some delirium? - Will check an MRI of the brain, and will consult Neurology * Gout flair- improved * Acute renal failure- improved * HTN- blood pressure is slightly elevated-.
--- NOTE | 2018-01-09 16:30 | PRG ---
DATE OF SERVICE: 01/09/2018 SUBJECTIVE: Patient was seen and examined at bedside and overnight events noted. Patient denies any shortness of breath or chest pain or palpitation. No history of nausea or vomitin g or diarrhea or fever or chills or cramps. OBJECTIVE: GENERAL: This is an elderly white male, in no apparent distress. VITAL SIGNS: Temperature 98.3, pulse 80, respiratory rate 18, blood pressure 153/72. HEENT: Atraumatic, normocephalic. Oral mucosa is moist. NECK: Supple. CARDIOVASCULAR: S1 and S2 heard. Rate and rhythm regular. RESPIRATORY: Clear to auscultation. GASTROINTESTINAL: Abdomen is soft. MUSCULOSKELETAL: No tenderness. No edema. DERMATOLOGIC: No skin rash. NEUROLOGIC: Alert and awake and oriented x3. No focal neurologic deficits. Moving all the extremit ies. PSYCHIATRIC: Mood and affect normal. LABORATORY DATA: Potassium is 3.9, BUN 38, creatinine is 1.5. ASSESSMENT AND PLAN: 1. Acute kidney injury on chronic kidney disease stage 3. Renal function better. 2. Edema, controlled. 3. Hypertension, stable. 4. Anemia. 5. Hyponatremia, stable. Overall, renal function is better. Avoid nephrotoxins. We will follow.
[2018-01-09 17:02] VITALS: BMI 24.0
[2018-01-09 17:24] LABS: Vancomycin, Trough 20.8 ug/mL
[2018-01-09] MEDS: Vancomycin HCl 1.25 GM in Sodium Chloride 0.9% 250 ML 250 ML IVPB SCH (18:36)
[2018-01-09] MEDS: Vancomycin HCl 1 GM in Premix Bag 1 BAG IVPB SCH (21:48)
[2018-01-09] MEDS: Tamsulosin HCl 0.4 MG CAP PO SCH (21:49)
--- NOTE | 2018-01-09 22:52 | CON ---
DATE OF CONSULTATION: 01/09/2018 CONSULTING PHYSICIAN: Hospitalist Service. REASON FOR CONSULTATION: Toxic-metabolic encephalopathy. PLAN: 1. Seroquel 100 mg at bedtime. 2. Check ammonia level and cortisol for completeness. 3. Continue current treatment of his infection and renal insufficiency. HISTORY OF PRESENT ILLNESS: Mr. Ureña is a 78-year-old gentleman with a known history of some past s troke damage. He was complaining of severe joint pain prior to admission. His noted that he wa s sleeping excessively compared to his baseline. He brought him into the hospital and he was found t o have acute renal insufficiency with a BUN of 59, creatinine 2.43. His white blood cell count was 1 8.1 with a left shift. He has been placed on broad-spectrum antibiotics. His CT scan of the brain s howed chronic ischemic changes involving the periventricular white matter as well as focal areas of e ncephalomalacia on each occipital lobe. No acute changes were noted. His vital signs have been stab le since admission. He has been afebrile. He has had some persistent confusion. He has had some vi sual hallucinations as well. His reports he is not sleeping at night since he got in the hospit al on the . PAST MEDICAL HISTORY: Hypertension, prior strokes, glaucoma, prostate enlargement. ALLERGIES: STATINS. MEDICATIONS: List was reviewed. SOCIAL HISTORY: He is , lives at home with his . Does not smoke or drink. FAMILY HISTORY: Noncontributory. REVIEW OF SYSTEMS: The patient complains of joint pain in his legs. He has no complaints of headach e, nausea, vomiting, chest pain, or shortness of breath. PHYSICAL EXAMINATION: GENERAL: He is a well-nourished elderly man lying in bed in no acute distress. VITAL SIGNS: Blood pressure 153/72, pulse 80, respirations 18, temperature 98.3. HEENT: Pupils equal. Conjunctivae clear. Oropharynx clear. Cranium, normocephalic and atraumatic. NECK: Supple. EXTREMITIES: No cyanosis present. The patient reports fairly extreme pain with manipulation of the joints of the legs. NEUROLOGIC: He was awake and cooperative. He followed commands appropriately. His speech is fluent and clear. He was only oriented to person, other than he did not know his correct age. Cranial ner ve exam did not show any focal deficits. Motor exam showed symmetric strength in the upper extremiti es. No asterixis was present. Gait was not testable. Sensation was intact to touch. Imaging and lab work were reviewed. SUMMARY: This is an elderly man who has been a bit encephalopathic since admission. He has not been sleeping, which contributes to the level of confusion. I not think that it is all reversible. Cont inue your current treatment.
[2018-01-10 04:47] LABS: #Eosinphils 0.4 thou/uL (0.0-0.7); #Lymphocytes 1.3 thou/uL (1.20-3.40); #Monocytes 1.1 thou/uL (0.11-0.59); #Neutrophils 5.6 thou/uL (1.40-6.50); %Basophils 0.5 % (0.0-1.0); %Eosinophils 4.6 % (0.0-10.0); %Lymphocytes 15.3 % (21.0-51.0); %Monocytes 12.6 % (0.0-10.0); %Neutrophils 66.9 % (42.0-75.0); Mean Corpuscular HGB CONC 34.4 g/dL (32.0-36.0); Mean Corpuscular Hemoglobin 31.2 pg (27.0-31.0); Mean Corpuscular Volume 90.7 fL (78.0-98.0); Platelet Count 273 thou/uL (130-400); RBC Distribution Width 13.6 % (11.5-14.5); Red Blood Cell (RBC) Count 3.52 mill/uL (4.70-6.10); White Blood Cell (WBC) Count 8.3 thou/uL (4.8-10.8)
[2018-01-10 04:56] LABS: Anion Gap 12 mmol/L (10-20); BUN (Urea Nitrogen) 36 mg/dL (8.4-25.7); Calc. Creatinine Clearance 42 mL/min (70-130); Carbon Dioxide 23 mmol/L (23-31); Chloride 108 mmol/L (98-107); Estimated GFR-MDRD 42; Glucose 127 mg/dL (83-110); Potassium 3.6 mmol/L (3.5-5.1); Sodium 139 mmol/L (136-145)
[2018-01-10] MEDS: Amlodipine 10 MG TAB PO SCH (07:53)
[2018-01-10] MEDS: Carvedilol 3.125 MG TAB PO SCH ×2 (07:53→21:28)
[2018-01-10] MEDS: Enoxaparin Sodium 30 MG/0.3 ML SYRINGE SC SCH (07:53)
[2018-01-10] MEDS: Colchicine 0.6 MG TAB PO SCH (07:53)
[2018-01-10] MEDS: Famotidine/PF 20 mg/2ml Vial SLOW IVP SCH (08:51)
--- NOTE | 2018-01-10 13:07 | PRG ---
DATE OF SERVICE: 01/08/2018 NEPHROLOGY PROGRESS NOTE SUBJECTIVE: Patient was seen and examined at bedside and overnight events noted. Patient denies any shortness of breath or chest pain or palpitation. No history of nausea or vomiting or diarrhea or f ever or chills or cramps. OBJECTIVE: GENERAL: This is a well-built male in no apparent distress. VITAL SIGNS: Temperature 98.3, pulse 73, respiratory rate 12, blood pressure 116/70. HEENT: Atraumatic, normocephalic. Oral mucosa is moist. NECK: Supple. CARDIOVASCULAR: S1, S2 heard. Rate and rhythm regular. RESPIRATORY: Clear to auscultation. GASTROINTESTINAL: Abdomen is soft. MUSCULOSKELETAL: No tenderness. No edema. DERMATOLOGIC: No skin rash. NEUROLOGIC: Alert and awake and oriented x3. No focal neurologic deficits. Moving all the extremiti es. PSYCHIATRIC: Mood and affect normal. LABORATORY DATA: Potassium 4.2, BUN is 53, creatinine is 1.9. ASSESSMENT AND PLAN: 1. Acute kidney injury on chronic kidney disease, better, creatinine is better. 2. Edema, controlled. 3. Hypertension. 4. Hypoalbuminemia. 5. Anemia. 6. Hyponatremia, stable. Overall, renal function is stable. Avoid nephrotoxins. We will follow. Continue supportive care.
[2018-01-10] MEDS: cefTRIAXone\\ROCEPHIN 1 GM in Sodium Chloride 0.9% 100 ML IVPB SCH (13:41)
--- NOTE | 2018-01-10 17:07 | PDOC.PN ---
- Subjective Encounter Start Date: 01/10/18 Encounter Start Time: 17:06 Mr. Ureña was seen today in follow-up. He is still confused off and on. - Objective Resuscitation Status: Resuscitation Status FULL:Full Resuscitation MAR Reviewed: Yes Vital Signs & Weight: Vital Signs (12 hours) Temp Pulse Resp BP BP Pulse Ox 01/10/18 12:00 98.0 F 70 20 147/74 H 94 L 01/10/18 07:53 77 164/72 H 01/10/18 07:46 98 F 77 20 164/72 H 95 01/10/18 07:45 98 F 77 20 95 Weight Weight 172 lb 1.6 oz I&O: 01/09/18 01/10/18 01/11/18 06:59 06:59 06:59 Intake Total 1590 1770 120 Output Total 700 Balance 890 1770 120 Result Diagrams: 01/10/18 04:06 01/10/18 04:06 Phys Exam - Physical Examination HEENT: PERRLA Respiratory: no wheezing, no rales, no rhonchi, clear to auscultation bilateral Cardiovascular: RRR, no significant murmur, no rub Gastrointestinal: soft, non-tender, positive bowel sounds Musculoskeletal: no edema Dx/Plan (1) Metabolic encephalopathy Code(s): G93.41 - METABOLIC ENCEPHALOPATHY Status: Acute (2) Acute gouty arthropathy Code(s): M10.9 - GOUT, UNSPECIFIED Status: Acute Comment: Continue Colchicine 0.6mg daily, continue Zosyn and Vancomycin, start Prednisone 40mg daily (3) SIRS (systemic inflammatory response syndrome) Code(s): R65.10 - SIRS OF NON-INFECTIOUS ORIGIN W/O ACUTE ORGAN DYSFUNCTION Status: Acute Comment: Continue Zosyn and Vancomycin, await final blood cx results (4) Acute kidney injury superimposed on chronic kidney disease Code(s): N17.9 - ACUTE KIDNEY FAILURE, UNSPECIFIED; N18.9 - CHRONIC KIDNEY DISEASE, UNSPECIFIED Status: Acute - Plan * Patient is still encephalopathic- Neurology input appreciated * Continue Seroquel in the evenings * Gout- flair has improved * Acute renal failure- improved. * HTN- blood pressure is a bit elevated, but will continue to monitor, and PRN medications as needed
[2018-01-10] MEDS: Vancomycin HCl 1 GM in Premix Bag 1 BAG IVPB SCH (21:28)
[2018-01-10] MEDS: Tamsulosin HCl 0.4 MG CAP PO SCH (21:28)
[2018-01-11] MEDS: Colchicine 0.6 MG TAB PO SCH (09:22)
[2018-01-11] MEDS: Enoxaparin Sodium 30 MG/0.3 ML SYRINGE SC SCH (09:23)
[2018-01-11] MEDS: Amlodipine 10 MG TAB PO SCH (09:23)
[2018-01-11] MEDS: Carvedilol 3.125 MG TAB PO SCH ×2 (09:23→20:15)
[2018-01-11] MEDS: Famotidine 20 MG TAB PO SCH (09:23)
--- NOTE | 2018-01-11 11:29 | EKG ---
Test Reason : Blood Pressure : / mmHG Vent. Rate : 085 BPM Atrial Rate : 085 BPM P-R Int : 154 ms QRS Dur : 144 ms QT Int : 402 ms P-R-T Axes : 024 -87 036 degrees QTc Int : 478 ms Normal sinus rhythm with sinus arrhythmia Possible Left atrial enlargement Left axis deviation Right bundle branch block Abnormal ECG Confirmed by GINGER SNYDER DO ([id number]), television news video editor HECTOR MCCORMICK ([id number]) on 01/11/2018 11:28:49 AM Referred By: Confirmed By:GINGER SNYDER DO
--- NOTE | 2018-01-11 16:07 | PDOC.PN ---
- Subjective Encounter Start Date: 01/11/18 Encounter Start Time: 16:01 Mr. Ureña was seen today in follow-up. He still has some confusion. His family believes he is a little better. - Objective Resuscitation Status: Resuscitation Status FULL:Full Resuscitation MAR Reviewed: Yes Vital Signs & Weight: Vital Signs (12 hours) Temp Pulse Resp BP BP Pulse Ox 01/11/18 11:32 121/75 01/11/18 09:23 75 169/78 H 01/11/18 08:00 98.1 F 75 20 169/78 H 94 L Weight Weight 172 lb 1.6 oz I&O: 01/10/18 01/11/18 01/12/18 06:59 06:59 06:59 Intake Total 1770 1040 Balance 1770 1040 Result Diagrams: 01/10/18 04:06 01/10/18 04:06 Phys Exam - Physical Examination HEENT: PERRLA Respiratory: no wheezing, no rales, no rhonchi, clear to auscultation bilateral Cardiovascular: RRR, no significant murmur, no rub Gastrointestinal: soft, non-tender, positive bowel sounds Musculoskeletal: no edema decreased swelling Dx/Plan (1) Metabolic encephalopathy Code(s): G93.41 - METABOLIC ENCEPHALOPATHY Status: Acute (2) Acute gouty arthropathy Code(s): M10.9 - GOUT, UNSPECIFIED Status: Acute Comment: Continue Colchicine 0.6mg daily, continue Zosyn and Vancomycin, start Prednisone 40mg daily (3) SIRS (systemic inflammatory response syndrome) Code(s): R65.10 - SIRS OF NON-INFECTIOUS ORIGIN W/O ACUTE ORGAN DYSFUNCTION Status: Acute Comment: Continue Zosyn and Vancomycin, await final blood cx results (4) Acute kidney injury superimposed on chronic kidney disease Code(s): N17.9 - ACUTE KIDNEY FAILURE, UNSPECIFIED; N18.9 - CHRONIC KIDNEY DISEASE, UNSPECIFIED Status: Acute - Plan * Gout flair- improved * Acute renal failure- improved * Will re-check BMP in AM * He is still having some difficulty walking, and his mental status has not returned to baseline- will therefore consider fpc placement vs. Rehab.
--- NOTE | 2018-01-11 17:59 | PRG ---
DATE OF SERVICE: 01/11/2018 SUBJECTIVE: Patient was seen and examined at bedside and overnight events noted. Patient denies any shortness of breath or chest pain or palpitation. No history of nausea or vomiting or diarrhea or fever or chills or cramps. OBJECTIVE: GENERAL: This is a well-built male in no apparent distress. VITAL SIGNS: Temperature 98.1, pulse 74, respiratory rate 18, blood pressure 121/75. HEENT: Atraumatic, normocephalic. Oral mucosa is moist. NECK: Supple. CARDIOVASCULAR: S1 and S2 heard. Rate and rhythm regular. RESPIRATORY: Clear to auscultation. GASTROINTESTINAL: Abdomen is soft. MUSCULOSKELETAL: No tenderness. No edema. DERMATOLOGIC: No skin rash. NEUROLOGIC: Alert and awake and oriented x3. No focal neurologic deficits. Moving all the extremit ies. PSYCHIATRIC: Mood and affect normal. LABORATORY DATA: Not done today. ASSESSMENT AND PLAN: 1. Acute kidney injury on chronic renal disease. Renal function is stable. 2. Edema. 3. Hypertension. 4. Mild hyperalbuminemia. 5. Hyponatremia, stable. Renal function is stable.
[2018-01-11 19:26] LABS: Vancomycin, Trough 19.8 ug/mL
[2018-01-11] MEDS: Vancomycin HCl 1 GM in Premix Bag 1 BAG IVPB SCH (20:14)
[2018-01-11] MEDS: Docusate 100 MG CAP PO SCH (20:15)
[2018-01-11] MEDS: Tamsulosin HCl 0.4 MG CAP PO SCH (20:15)
--- NOTE | 2018-01-11 20:21 | PRG ---
DATE OF SERVICE: 01/10/2018 SUBJECTIVE: Patient was seen and examined at bedside and overnight events noted. Patient denies any shortness of breath or chest pain or palpitation. No history of nausea or vomiting or diarrhea or fever or chills or cramps. OBJECTIVE: GENERAL: This is an elderly male, in no apparent distress. VITAL SIGNS: Temperature 99.0, pulse 77, respiratory rate 20, blood pressure 164/72. HEENT: Atraumatic, normocephalic. Oral mucosa is moist. NECK: Supple. CARDIOVASCULAR: S1, S2 heard. Rate and rhythm regular. RESPIRATORY: Clear to auscultation. GASTROINTESTINAL: Abdomen is soft. MUSCULOSKELETAL: No tenderness. No edema. DERMATOLOGIC: No skin rash. NEUROLOGIC: Alert and awake and oriented x3. No focal neurologic deficits. Moving all the extremities. PSYCHIATRIC: Mood and affect normal. LABORATORY DATA: BUN is 36, creatinine is 1.5. ASSESSMENT AND PLAN: 1. Acute kidney injury on chronic kidney disease stage 3, stable, close to his baseline. Avoid NSAIDs and nephrotoxins and monitor closely. 2. Edema, controlled. 3. Hypertension 4. Anemia fo chronic disease Overall, renal function is stable. We will follow. MTDD
[2018-01-12 06:46] LABS: #Basophils 0.1 thou/uL (0.0-0.2); #Eosinphils 0.4 thou/uL (0.0-0.7); #Lymphocytes 1.6 thou/uL (1.20-3.40); #Monocytes 1.1 thou/uL (0.11-0.59); #Neutrophils 4.8 thou/uL (1.40-6.50); %Eosinophils 4.7 % (0.0-10.0); %Lymphocytes 20.1 % (21.0-51.0); %Monocytes 13.9 % (0.0-10.0); %Neutrophils 60.3 % (42.0-75.0); Hemoglobin 12.5 g/dL (14.0-18.0); Mean Corpuscular HGB CONC 32.4 g/dL (32.0-36.0); Mean Corpuscular Hemoglobin 29.6 pg (27.0-31.0); Mean Corpuscular Volume 91.2 fL (78.0-98.0); Mean Platelet Volume 6.7 fL (7.4-10.4); Platelet Count 442 thou/uL (130-400); RBC Distribution Width 13.9 % (11.5-14.5); Red Blood Cell (RBC) Count 4.24 mill/uL (4.70-6.10); White Blood Cell (WBC) Count 7.9 thou/uL (4.8-10.8)
[2018-01-12 06:55] LABS: Anion Gap 13 mmol/L (10-20); BUN (Urea Nitrogen) 31 mg/dL (8.4-25.7); Calc. Creatinine Clearance 40 mL/min (70-130); Calcium 9.8 mg/dL (7.8-10.44); Carbon Dioxide 27 mmol/L (23-31); Chloride 105 mmol/L (98-107); Estimated GFR-MDRD 40; Glucose 123 mg/dL (83-110); Sodium 140 mmol/L (136-145)
--- NOTE | 2018-01-12 08:31 | PDOC.PN ---
- Subjective Encounter Start Date: 01/12/18 Encounter Start Time: 08:30 Mr. Ureña was seen in follow-up. He does not have any complaints. He is still a bit confused. - Objective Resuscitation Status: Resuscitation Status FULL:Full Resuscitation MAR Reviewed: Yes Vital Signs & Weight: Vital Signs (12 hours) Temp Pulse Resp BP Pulse Ox 01/12/18 08:00 98.6 F 83 20 157/85 H 96 Weight Weight 172 lb 1.6 oz I&O: 01/11/18 01/12/18 01/13/18 06:59 06:59 06:59 Intake Total 1040 1040 Balance 1040 1040 Result Diagrams: 01/12/18 05:56 01/12/18 05:56 Phys Exam - Physical Examination HEENT: PERRLA Respiratory: no wheezing, no rales, no rhonchi, clear to auscultation bilateral Cardiovascular: RRR, no significant murmur, no rub Gastrointestinal: soft, non-tender, positive bowel sounds Musculoskeletal: no edema Dx/Plan (1) Metabolic encephalopathy Code(s): G93.41 - METABOLIC ENCEPHALOPATHY Status: Acute (2) Acute gouty arthropathy Code(s): M10.9 - GOUT, UNSPECIFIED Status: Acute Comment: Continue Colchicine 0.6mg daily, continue Zosyn and Vancomycin, start Prednisone 40mg daily (3) SIRS (systemic inflammatory response syndrome) Code(s): R65.10 - SIRS OF NON-INFECTIOUS ORIGIN W/O ACUTE ORGAN DYSFUNCTION Status: Acute Comment: Continue Zosyn and Vancomycin, await final blood cx results (4) Acute kidney injury superimposed on chronic kidney disease Code(s): N17.9 - ACUTE KIDNEY FAILURE, UNSPECIFIED; N18.9 - CHRONIC KIDNEY DISEASE, UNSPECIFIED Status: Acute - Plan * Encephalopathy- slow to improve * Gout- improved- continue Colchicine * Acute on chronic kidney disease- his renal function has remained relatively stable- he is close to his baseline * Continue to encourage oral intake * PT/OT eval * [facility] screen..
[2018-01-12] MEDS: Docusate 100 MG CAP PO SCH ×2 (08:32→21:05)
[2018-01-12] MEDS: Carvedilol 3.125 MG TAB PO SCH ×2 (08:32→21:05)
[2018-01-12] MEDS: Colchicine 0.6 MG TAB PO SCH (08:32)
[2018-01-12] MEDS: Enoxaparin Sodium 30 MG/0.3 ML SYRINGE SC SCH (08:32)
[2018-01-12] MEDS: Amlodipine 10 MG TAB PO SCH (08:32)
[2018-01-12] MEDS: Famotidine 20 MG TAB PO SCH (08:32)
--- NOTE | 2018-01-12 12:27 | PRG ---
DATE OF SERVICE: 01/12/2018 SUBJECTIVE: Patient was seen and examined at bedside and overnight events noted. Patient denies any shortness of breath or chest pain or palpitation. No history of nausea or vomiting or diarrhea or f ever or chills or cramps. OBJECTIVE: GENERAL: This is a well-built male in no apparent distress. VITAL SIGNS: Temperature 96, pulse 83, respiratory rate 20, and blood pressure 157/85. HEENT: Atraumatic, normocephalic, Oral mucosa is moist. Neck: Supple. Cardiovascular: S1 and S2 heard. Rate and rhythm regular. Respiratory: Clear to auscultation. Gastrointestinal: Abdomen is soft. Musculoskeletal: No tenderness, No edema. Dermatologic: No skin rash. Neurologic: Alert and awake and oriented x3. No focal neurologic deficits. Moving all the extremit ies. Psychiatric: Mood and affect normal. LABORATORY DATA: Potassium is 5.0, BUN is 31, creatinine is 1.6. ASSESSMENT AND PLAN: 1. Acute kidney injury on chronic kidney stage 3. Renal function is stable. Advised to have good h ydration. 2. Mild hyperkalemia. Limit potassium. 3. Edema, controlled. 4. Hypertension, stable. 5. Hyponatremia, better. 6. Renal function is stable. Increase oral hydration.
[2018-01-12] MEDS: Vancomycin HCl 1 GM in Premix Bag 1 BAG IVPB SCH (20:51)
[2018-01-12] MEDS: Tamsulosin HCl 0.4 MG CAP PO SCH (21:06)
[2018-01-13] MEDS: Carvedilol 3.125 MG TAB PO SCH ×2 (08:28→20:55)
[2018-01-13] MEDS: Colchicine 0.6 MG TAB PO SCH (08:28)
[2018-01-13] MEDS: Famotidine 20 MG TAB PO SCH (08:28)
[2018-01-13] MEDS: Amlodipine 10 MG TAB PO SCH (08:28)
[2018-01-13] MEDS: Docusate 100 MG CAP PO SCH ×2 (08:28→20:55)
[2018-01-13] MEDS: Enoxaparin Sodium 30 MG/0.3 ML SYRINGE SC SCH (08:28)
--- NOTE | 2018-01-13 10:53 | PRG ---
DATE OF SERVICE: 01/13/2018 SUBJECTIVE: This is a 78-year-old gentleman being seen for acute kidney injury. The patient denied any nausea, vomiting, or chest pain. PHYSICAL EXAMINATION: GENERAL: Patient is awake, alert. VITAL SIGNS: Afebrile, pulse 75, breathing 16, blood pressure 141/79. OBJECTIVE: See above. Awake, alert, in no acute distress. GENERAL APPEARANCE AND MENTAL STATUS: Fair. HEAD/NECK: Normocephalic. Atraumatic. EYES: EOMI. No deformity. EARS: Clear. No ulcers. NOSE: Intact. No lesions. MOUTH: Clear. No discharge. THROAT: Clear. No exudate. LUNGS: Clear. No crackles. CARDIAC: S1, S2. No rub. ABDOMEN: Benign. BS+. GENITALIA/RECTUM: Shipley absent. BACK/EXTREMITIES: Edema 0+ Ulcer- NEUROLOGICAL: Alert and motor intact. SKIN: Rash- Bruise- LYMPHATICS: Edema- Ulcer- LABORATORY: Creatinine 1.6. ASSESSMENT AND RECOMMENDATIONS: 1. Acute kidney injury with chronic kidney disease, stage 3, creatinine at baseline. 2. Hypertension, stable. 3. Anemia, stable. I will sign off on this patient. Please reconsult as needed.
--- NOTE | 2018-01-13 14:30 | PDOC.PN ---
- Subjective Encounter Start Date: 01/13/18 Encounter Start Time: 14:28 Mr. Ureña was seen today in follow-up of Gout flair. He is still a bit confused , it comes and goes, but much better than on admission. - Objective Resuscitation Status: Resuscitation Status FULL:Full Resuscitation MAR Reviewed: Yes Vital Signs & Weight: Vital Signs (12 hours) Temp Pulse Resp BP Pulse Ox 01/13/18 08:28 75 01/13/18 08:00 98.6 F 75 20 94 L 01/13/18 07:55 98.6 F 75 20 158/83 H 94 L Weight Weight 172 lb 1.6 oz I&O: 01/12/18 01/13/18 01/14/18 06:59 06:59 06:59 Intake Total 1040 1410 360 Balance 1040 1410 360 Result Diagrams: 01/12/18 05:56 01/12/18 05:56 Phys Exam - Physical Examination HEENT: PERRLA Respiratory: no wheezing, no rales, no rhonchi, clear to auscultation bilateral Cardiovascular: RRR, no significant murmur, no rub Gastrointestinal: soft, non-tender, positive bowel sounds Musculoskeletal: no edema Dx/Plan (1) Metabolic encephalopathy Code(s): G93.41 - METABOLIC ENCEPHALOPATHY Status: Acute (2) Acute gouty arthropathy Code(s): M10.9 - GOUT, UNSPECIFIED Status: Acute Comment: Continue Colchicine 0.6mg daily, continue Zosyn and Vancomycin, start Prednisone 40mg daily (3) SIRS (systemic inflammatory response syndrome) Code(s): R65.10 - SIRS OF NON-INFECTIOUS ORIGIN W/O ACUTE ORGAN DYSFUNCTION Status: Acute Comment: Continue Zosyn and Vancomycin, await final blood cx results (4) Acute kidney injury superimposed on chronic kidney disease Code(s): N17.9 - ACUTE KIDNEY FAILURE, UNSPECIFIED; N18.9 - CHRONIC KIDNEY DISEASE, UNSPECIFIED Status: Acute - Plan * Gout Flair- much improved * Acute on chronic kidney injury- stable. * Continue PT/OT- he has sarah participating according to his family * Awaiting longterm transfer
[2018-01-13 19:29] LABS: Vancomycin, Trough 23.5 ug/mL
[2018-01-13] MEDS: Acetaminophen 325 MG TAB PO PRN (20:54)
[2018-01-13] MEDS: Vancomycin HCl 1 GM in Premix Bag 1 BAG IVPB SCH (20:54)
[2018-01-13] MEDS: Tamsulosin HCl 0.4 MG CAP PO SCH (20:55)
[2018-01-13] MEDS ORDERED: Vancomycin HCl 750 GM in Sodium Chloride 0.9% 250 ML 250 ML IVPB SCH (21:00)
[2018-01-14] MEDS: Famotidine 20 MG TAB PO SCH (08:13)
[2018-01-14] MEDS: Colchicine 0.6 MG TAB PO SCH (08:13)
[2018-01-14] MEDS: Amlodipine 10 MG TAB PO SCH (08:13)
[2018-01-14] MEDS: Enoxaparin Sodium 30 MG/0.3 ML SYRINGE SC SCH (08:13)
[2018-01-14] MEDS: Docusate 100 MG CAP PO SCH ×2 (08:13→20:47)
[2018-01-14] MEDS: Carvedilol 3.125 MG TAB PO SCH ×2 (08:13→20:47)
--- NOTE | 2018-01-14 14:26 | PDOC.PN ---
- Subjective Encounter Start Date: 01/14/18 Encounter Start Time: 14:23 Mr. Ureña was seen today in follow-up. He is almost back to his baseline mental status. His feet are much less painful. He stood with physical therapy. - Objective Resuscitation Status: Resuscitation Status FULL:Full Resuscitation MAR Reviewed: Yes Vital Signs & Weight: Vital Signs (12 hours) Temp Pulse Pulse Resp BP BP BP 01/14/18 11:20 70 109/70 01/14/18 08:13 70 170/84 H 01/14/18 08:00 97.6 F 70 16 01/14/18 07:35 97.6 F 70 16 170/84 H Pulse Ox 01/14/18 11:20 01/14/18 08:13 01/14/18 08:00 96 01/14/18 07:35 96 Weight Weight 172 lb 1.6 oz I&O: 01/13/18 01/14/18 01/15/18 06:59 06:59 06:59 Intake Total 1410 860 Balance 1410 860 Result Diagrams: 01/12/18 05:56 01/12/18 05:56 Phys Exam - Physical Examination HEENT: PERRLA Respiratory: no wheezing, no rales, no rhonchi, clear to auscultation bilateral Cardiovascular: RRR, no significant murmur, no rub Gastrointestinal: soft, non-tender, positive bowel sounds Musculoskeletal: no edema Dx/Plan (1) Metabolic encephalopathy Code(s): G93.41 - METABOLIC ENCEPHALOPATHY Status: Acute (2) Acute gouty arthropathy Code(s): M10.9 - GOUT, UNSPECIFIED Status: Acute Comment: Continue Colchicine 0.6mg daily, continue Zosyn and Vancomycin, start Prednisone 40mg daily (3) SIRS (systemic inflammatory response syndrome) Code(s): R65.10 - SIRS OF NON-INFECTIOUS ORIGIN W/O ACUTE ORGAN DYSFUNCTION Status: Acute Comment: Continue Zosyn and Vancomycin, await final blood cx results (4) Acute kidney injury superimposed on chronic kidney disease Code(s): N17.9 - ACUTE KIDNEY FAILURE, UNSPECIFIED; N18.9 - CHRONIC KIDNEY DISEASE, UNSPECIFIED Status: Acute - Plan * Gout flair- improved * Acute renal failure- resolved- will check a BMP in the AM * Metabolic encephalopathy- resolving * The patient's daughter was concerned that he was sleeping too much- will discontinue Seroquel * Awaiting Insurance Approval for Custodial.
[2018-01-14] MEDS: Tamsulosin HCl 0.4 MG CAP PO SCH (20:47)
[2018-01-14] MEDS ORDERED: Vancomycin HCl 750 MG in Sodium Chloride 0.9% 250 ML 250 ML IVPB SCH (21:00)
[2018-01-15 07:55] LABS: Anion Gap 16 mmol/L (10-20); BUN (Urea Nitrogen) 33 mg/dL (8.4-25.7); Calc. Creatinine Clearance 40 mL/min (70-130); Calcium 9.3 mg/dL (7.8-10.44); Carbon Dioxide 22 mmol/L (23-31); Chloride 104 mmol/L (98-107); Estimated GFR-MDRD 41; Glucose 122 mg/dL (83-110); Potassium 4.4 mmol/L (3.5-5.1); Sodium 138 mmol/L (136-145)
[2018-01-15 07:58] LABS: Band 2 % (5-11); Eosinophils 2 % (0-10); Hemoglobin 12.3 g/dL (14.0-18.0); Lymphocytes 20 % (21-51); MDiff Complete? YES; Mean Corpuscular HGB CONC 33.6 g/dL (32.0-36.0); Mean Corpuscular Hemoglobin 30.6 pg (27.0-31.0); Mean Corpuscular Volume 91.2 fL (78.0-98.0); Mean Platelet Volume 6.6 fL (7.4-10.4); Monocytes 13 % (0-10); Neutrophil 62 % (42-75); PLT Morphology Comment Appears Increased; Platelet Count 501 thou/uL (130-400); RBC Distribution Width 13.6 % (11.5-14.5); RBC Morphology Normal; Reactive Lymphocytes 1 % (0-10); Red Blood Cell (RBC) Count 4.01 mill/uL (4.70-6.10); White Blood Cell (WBC) Count 7.4 thou/uL (4.8-10.8)
[2018-01-15] MEDS: Colchicine 0.6 MG TAB PO SCH (08:33)
[2018-01-15] MEDS: Famotidine 20 MG TAB PO SCH (08:33)
[2018-01-15] MEDS: Carvedilol 3.125 MG TAB PO SCH (08:34)
[2018-01-15] MEDS: Docusate 100 MG CAP PO SCH (08:34)
[2018-01-15] MEDS: Amlodipine 10 MG TAB PO SCH (08:34)
[2018-01-15] MEDS: Enoxaparin Sodium 30 MG/0.3 ML SYRINGE SC SCH (08:35)
[2018-01-15 12:10] VITALS: BP 128/76; TEMP 98.8
--- NOTE | 2018-01-15 14:04 | DIS ---
DATE OF ADMISSION: 01/06/2018 DATE OF DISCHARGE: 01/15/2018 CALL CENTER RECRUITER: Dr. Yancey of Nephrology. FINAL DIAGNOSES: 1. Toxic metabolic encephalopathy. 2. Acute kidney injury, resolved in the context of chronic kidney disease stage 3. 3. Mildly elevated LFTs. 4. Systemic inflammatory response syndrome criteria, no infection found. 5. Gout flare. 6. Hypertension. 7. Coronary artery disease. 8. Macular degeneration. 9. Presbycusis. 10. Dyslipidemia. 11. Benign prostatic hypertrophy. 12. Remote infarctions based on brain CT and chronic small vessel ischemic changes. HISTORY OF PRESENT ILLNESS: Mr. Ureña is a 77-year-old male who presented to the emergency room by EMS due to a change in mental status. The patient had also been complaining of pain in his knees and ankles which had been fairly severe. In the emergency room, patient's presentation is concerning for SIRS, possible sepsis and encephalopathy and hospitalist called for admission. HOSPITAL COURSE: The patient was continued on broad spectrum antibiotics while following the cultures. Both blood and urine cultures were negative. During this hospitalization, it became clear that this was another gout flare, attributed to the toxic metabolic encephalopathy. The gout was treated, the flare has calmed and his mentation has improved. Patient will be discharged back to [facility] to a swing bed for rehabilitation with PT and OT. The patient is at his baseline according to his and daughter. The patient has been kept on his usual medications for elevated cholesterol, hypertension, BPH and coronary artery disease. The patient at home is on Ambien at night. He was on Seroquel while here; however, he was too somnolent. His daughter and thinks that he is sleeping well, we will hold on ordering this medication at time of transfer. It can be added back if needed. The patient reports having some diarrhea; however, none has been visualized today. He was on antibiotics, so if there is diarrhea, testing for C. difficile should be considered. MEDICATIONS: Reconciled at discharge. DISCONTINUED MEDICATIONS 1. Ambien discontinued as patient is sleeping well. 2. Prednisone discontinued as this is no longer needed. MEDICATIONS ARE CONTINUED: 1. Amlodipine 10 mg once daily. 2. Aspirin 81 mg daily. 3. Baclofen 10 mg b.i.d. 4. Carvedilol 3.125 mg b.i.d. 5. Colchicine 0.6 mg daily. 6. Zetia 10 mg daily. 7. Furosemide 20 mg daily. 8. Gabapentin 300 mg tablets 2 tablets b.i.d. 9. Isosorbide 60 mg daily. 10. Lovaza 1 gram daily. 11. Flomax 0.4 mg in the evening. 12. Ocuvite twice daily along with an Ocuvite soft gel once daily. PHYSICAL EXAMINATION: VITAL SIGNS: On day of discharge, blood pressure 158/83, temperature 98.6, pulse 75, respirations 20, saturations 94% on room air. GENERAL: He is awake, alert, responsive, in no apparent distress. LUNGS: Clear to auscultation bilateral. HEART: Normal S1, S2, regular rate and rhythm, no audible murmurs. ABDOMEN: Soft. Present bowel sounds. Nontender and nondistended. EXTREMITIES: No pitting edema. SKIN: No erythema. MUSCULOSKELETAL: No erythema of his knees or ankles. NEUROLOGIC: No focal deficits. SAMAYOA FINDINGS AND TEST RESULTS: 1. CBC; 7.4, 12.3, 36.5, 501. 2. Chemistry; 138, 4.4, 104, 22, 33, 1.64, 122. 3. Cortisol was 14.8. 4. LFTs on admission, total bilirubin 2.1, AST 83, ALT 68, alkaline phosphatase 208, total protein 7.4, albumin 3.7. 5. Urinalysis 1.021 percent protein, glucose, trace blood and leukocyte esterase. 6. Urine drug screen positive for opiates, negative for alcohol, acetaminophen , and salicylate. 7. Hepatitis panel was negative. 8. CT of the brain performed on 01/06/2018 shows no acute abnormality, chronic small vessel ischemic changes and cerebral volume loss, focal areas of encephalomalacia in the occipital lobe, likely related to remote areas of infarction, remote lacunar infarction of the right basil ganglia with remote infarctions in each cerebellar hemisphere. 9. Chest x-ray on 01/06/2018 negative for an acute process. 10. Abdominal ultrasound 01/06/2018, suboptimal evaluation, increased echogenicity of the liver. 11. Blood cultures x2 negative at 5 days. 12. Urine culture negative. FOLLOW UP: 1. Follow up with Dr. Yancey in 2 weeks for reevaluation of renal function. 2. Follow up with the primary care provider after discharge from the swing bed. DIET: Heart healthy. ACTIVITIES: As tolerated with PT and OT. CODE STATUS: FULL. DISCHARGE DISPOSITION: To swing bed at [facility]. I reviewed this hospitalization, the plan for transfer and no further antibiotics are needed, with the patient, and daughter. There were no questions or further needs at end of evaluation. Total time coordinating discharge is 35 minutes. MTDD
== END 2018-01-15 16:37 | DRG 71 ==
LOC: ERS 10:18 → OBSVTOIN 14:15 → T4-B 14:15
PROVIDERS: ADMIT Internal Medicine; ATTEND Internal Medicine
DX: G93.41 Metabolic encephalopathy (principal); R65.10 Systemic inflammatory response syndrome (SIRS) of non-infectious origin without acute organ dysfunction; N17.9 Acute kidney failure, unspecified; E87.1 Hypo-osmolality and hyponatremia; M10.9 Gout, unspecified; T40.4X5A Adverse effect of other synthetic narcotics, initial encounter; N40.0 Benign prostatic hyperplasia without lower urinary tract symptoms; I12.9 Hypertensive chronic kidney disease with stage 1 through stage 4 chronic kidney disease, or unspecified chronic kidney disease; N18.3 Chronic kidney disease, stage 3 (moderate); H91.10 Presbycusis, unspecified ear; E78.5 Hyperlipidemia, unspecified; I25.10 Atherosclerotic heart disease of native coronary artery without angina pectoris; H35.30 Unspecified macular degeneration; D63.1 Anemia in chronic kidney disease; E87.5 Hyperkalemia; I25.2 Old myocardial infarction; Z86.73 Personal history of transient ischemic attack (TIA), and cerebral infarction without residual deficits
CPT/HCPCS: 36415; 36416; 51701; 70450; 71045; 76700; 80048; 80053; 80074; 80202; 80306; 80307; 81003; 81015; 82140; 82533; 82550; 82553; 82805; 84484; 85025; 87040; 87086; 93005; 93010; 96365; 96367; A4216; G8978-GP-CL; G8979-GP-CJ; G8987-GO-CL; G8988-GO-CI; J0131; J0696; J1650; J1885; J3370; J7050; S0028

== ENCOUNTER 2018-06-04 12:23 | Inpatient (IN) | payer MEDICARE ==
[2018-06-04] MEDS ORDERED: Morphine 2 MG/ML SYRINGE ONE ×2 (13:08→21:17)
[2018-06-04] MEDS ORDERED: Lidocaine 1% (PF) 30 ML VIAL ONE (13:08)
[2018-06-04 13:11] LABS: #Lymphocytes 1.3 thou/uL (1.20-3.40); #Monocytes 2.9 thou/uL (0.11-0.59); #Neutrophils 15.2 thou/uL (1.40-6.50); %Basophils 0.1 % (0.0-1.0); %Eosinophils 0.2 % (0.0-10.0); %Lymphocytes 6.5 % (21.0-51.0); %Monocytes 14.9 % (0.0-10.0); %Neutrophils 78.4 % (42.0-75.0); Hemoglobin 14.8 g/dL (14.0-18.0); Mean Corpuscular HGB CONC 32.9 g/dL (32.0-36.0); Mean Corpuscular Hemoglobin 29.4 pg (27.0-31.0); Mean Corpuscular Volume 89.4 fL (78.0-98.0); Mean Platelet Volume 6.6 fL (7.4-10.4); Platelet Count 380 thou/uL (130-400); RBC Distribution Width 12.3 % (11.5-14.5); Red Blood Cell (RBC) Count 5.03 mill/uL (4.70-6.10); White Blood Cell (WBC) Count 19.4 thou/uL (4.8-10.8)
--- NOTE | 2018-06-04 13:22 | RAD ---
3 VIEWS RIGHT ELBOW: Date: 06/04/18 COMPARISON: None. HISTORY: Pain with no history of trauma. FINDINGS: A nonspecific elbow joint effusion is present with anterior and posterior joint capsular distention. There is no displaced fracture or evidence of dislocation seen. IMPRESSION: Nonspecific elbow joint effusion. Joint fluid can be seen on the basis of an infectious process, infl ammatory arthropathy, and/or hemorrhage. Radio-occult fracture could not be excluded if there is any history of trauma. Clinical correlation is required. POS: QIAN
[2018-06-04 13:41] LABS: ALT (SGPT) 26 U/L (8-55); Alkaline Phosphatase 98 U/L (40-150); BUN (Urea Nitrogen) 45 mg/dL (8.4-25.7); Bilirubin, Total 0.7 mg/dL (0.2-1.2); Calc. Creatinine Clearance 0 mL/min (70-130); Carbon Dioxide 21 mmol/L (23-31); Chloride 101 mmol/L (98-107); Estimated GFR-MDRD 29; Glucose 193 mg/dL (83-110); Sodium 135 mmol/L (136-145)
[2018-06-04 13:57] LABS: Potassium 4.6 mmol/L (3.5-5.1)
[2018-06-04 13:58] LABS: Globulin 4.1 g/dL (2.4-3.5); Protein, Total 8.1 g/dL (5.8-8.1)
[2018-06-04 14:04] LABS: AST (SGOT) 31 U/L (5-34)
[2018-06-04 14:10] LABS: Anion Gap 18 mmol/L (10-20)
[2018-06-04 15:12] LABS: BF Color Pink; Body Fluid Source SYNOVIAL FLUID; Clarity Cloudy/Turbid (Clear); Tube # EDTA
[2018-06-04 15:13] LABS: RBC Background Count 0.004; RBC Count-Automated 124000 /cumm; WBC/NonHematic-Auto 93200 /cumm
[2018-06-04 15:35] LABS: BF Segmented Neutrophils 92 %; Cell Count Non Hematic 8 %
[2018-06-04] MEDS ORDERED: Piperacillin/Tazobactam 4.5 GM VIAL ONE (15:41)
[2018-06-04] MEDS ORDERED: Ondansetron PF 4 MG/2 ML Vial IVP PRN (19:00)
[2018-06-04] MEDS ORDERED: Senokot S 8.6-50 MG TAB PO PRN (19:00)
[2018-06-04] MEDS ORDERED: Acetaminophen 650 MG Suppository PR PRN (19:00)
[2018-06-04 20:09] LABS: Lactic Acid 1.7 mmol/L (0.5-2.2)
--- NOTE | 2018-06-04 20:30 | HP ---
PRIMARY CARE PROVIDER Max Burrell DO CHIEF COMPLAINT: Pain. HISTORY OF PRESENT ILLNESS: Mr. Ureña is a pleasant 78-year-old gentleman, who was seen at [facility] on June 04, 2018. He reports that he has been feeling sick over the last 2 days. He reports that he is hurting all over. The pain is worse in his right elbow. He describes it as sharp, 11/10, worse with movement, accompanied by nausea. He has not been eating or drinking well over the last couple of days. He denies any fevers or chills. He denies any abdominal pain. The pain is nonradiating. REVIEW OF SYSTEMS: All other systems reviewed and found to be negative. PAST MEDICAL HISTORY: Hypertension, coronary artery disease, stroke, dyslipidemia, diet-controlled diabetes mellitus, gout, chronic kidney disease, macular degeneration, benign prostatic hypertrophy, and history of elevated liver function tests. SURGICAL HISTORY: Skin cancer excision and coronary artery bypass. ALLERGIES: STATINS. FAMILY HISTORY: Significant for chronic kidney disease and macular degeneration. SOCIAL HISTORY: The patient denies tobacco use, alcohol use, or recreational drug use. CURRENT MEDICATIONS: Doses need to be clarified, these include; 1. Isosorbide. 2. Furosemide. 3. Iron. 4. Aspirin. 5. Baclofen. 6. Gabapentin. 7. Tamsulosin. 8. Biotin. 9. Zolpidem. 10. Amlodipine. 11. Carvedilol. 12. Baclofen. 13. Gabapentin. 14. Uloric. 15. Zetia. CODE STATUS: I discussed his code status. He is DNR. PHYSICAL EXAMINATION: GENERAL: On examination, Mr. Ureña is awake and alert, not in acute distress. VITAL SIGNS: Blood pressure is 131/57, pulse 67, respiratory rate 16, and oxygen saturation 96% on 1 L of oxygen. T-max in the emergency room is 99.4 degrees Fahrenheit. EYES: No scleral icterus, no conjunctival pallor. ENT: Moist mucosal membranes, no oropharyngeal tumor or exudates. NECK: Supple, nontender, trachea is midline. RESPIRATORY: Accessory muscles of breathing are not active. Chest wall movements are symmetric bilaterally. Lungs are clear to auscultation without wheeze, rhonchi, or crepitations. CARDIOVASCULAR: S1 and S2 are heard, regular. Peripheral pulses palpable. No carotid bruit, no pericardial rub. ABDOMEN: Soft and nontender. Bowel sounds heard, no hepatomegaly, no splenomegaly. NEUROLOGIC: Cranial nerves 2 through 12 intact, deep tendon reflexes 2+. MUSCULOSKELETAL: The right elbow is swollen, tender, and erythematous. Decreased range of movement. SKIN: No rashes or subcutaneous nodules. LYMPHATIC: No cervical lymphadenopathy. PSYCHIATRIC: Normal mood, normal affect. The patient is oriented to person, place, and time. LABORATORY DATA: Mr. Ureña's labs and investigations were reviewed. He has leukocytosis with 19,400 white cells, of which 78.4% are neutrophils, normal hemoglobin, and normal platelet count. Decreased sodium of 135, normal potassium , elevated blood urea nitrogen of 45, elevated creatinine of 2.18, last known creatinine 1.49 on February 05, 2018. Unremarkable liver profile, normal lactic acid, and synovial fluid, which is cloudy with 93,200 white cells and 124,000 rbc's. Differential is pending. ASSESSMENT AND PLAN: Mr. Ureña is a pleasant 78-year-old gentleman, who was seen at [facility] on June 04, 2018. His problem list includes: 1. Arthritis: Mr. Ureña is presenting with arthritis of the right elbow. His findings are more indicative of septic arthritis. He was seen by Orthopedic Surgery Service in the emergency room and was advised surgical procedure. The patient and family did not want to have surgery at this time. In the past, there was suspicion for septic arthritis, which turned out to be gout. They would therefore like to wait and see. I will continue him on vancomycin and Zosyn, which have been started by the emergency room physician. I will also consult Infectious Disease Service for opinion and help with management. I will continue him on his colchicine at this time. 2. Hypertension: We will resume home medications once clarified, monitor vital signs and titrate antihypertensives as needed. 3. Dyslipidemia: We will continue home medications. 4. Coronary artery disease: Appears stable. 5. Acute on chronic stage 3 kidney disease: The patient is clinically dehydrated. We ill provide gentle hydration and recheck creatinine. Many thanks for allowing me to participate in your patient's care. Please feel free to contact me with any questions or concerns. LEVEL OF RISK: Moderate. LEVEL OF COMPLEXITY: Moderate. Job ID: [id number] [facility]
[2018-06-05] MEDS: Colchicine 0.6 MG TAB PO SCH ×3 (01:17→20:18)
[2018-06-05] MEDS: Heparin 5,000 UNITS/ML VIAL SC SCH ×4 (01:17→20:18)
[2018-06-05] MEDS: Sodium Chloride 0.9% 1,000 ML IV SCH ×3 (01:17→22:37)
[2018-06-05 01:20] VITALS: BMI 25.1
[2018-06-05] MEDS: Piperacillin/Tazobactam 3.375 GM in Sodium Chloride 0.9% 100 ML IVPB SCH ×4 (02:51→20:19)
[2018-06-05] MEDS: Acetaminophen 325 MG TAB PO PRN (03:52)
[2018-06-05 09:11] LABS: Anion Gap 17 mmol/L (10-20); BUN (Urea Nitrogen) 35 mg/dL (8.4-25.7); Calc. Creatinine Clearance 37 mL/min (70-130); Calcium 9.4 mg/dL (7.8-10.44); Carbon Dioxide 18 mmol/L (23-31); Chloride 107 mmol/L (98-107); Estimated GFR-MDRD 34; Glucose 156 mg/dL (83-110); Potassium 4.3 mmol/L (3.5-5.1); Sodium 138 mmol/L (136-145)
[2018-06-05 09:58] LABS: Hemoglobin 14.3 g/dL (14.0-18.0); Mean Corpuscular HGB CONC 33.1 g/dL (32.0-36.0); Mean Corpuscular Hemoglobin 29.2 pg (27.0-31.0); Mean Corpuscular Volume 88.1 fL (78.0-98.0); Mean Platelet Volume 7.4 fL (7.4-10.4); Platelet Count 330 thou/uL (130-400); RBC Distribution Width 12.2 % (11.5-14.5); Red Blood Cell (RBC) Count 4.89 mill/uL (4.70-6.10); White Blood Cell (WBC) Count 27.5 thou/uL (4.8-10.8)
[2018-06-05 09:59] LABS: Band 5 % (5-11); Lymphocytes 5 % (21-51); MDiff Complete? YES; Monocytes 15 % (0-10); Neutrophil 75 % (42-75); RBC Morphology Normal
[2018-06-05] MEDS: Morphine 2 MG/ML SYRINGE SLOW IVP PRN (13:03)
--- NOTE | 2018-06-05 13:21 | PDOC.PN ---
- Subjective Encounter Start Date: 06/05/18 Encounter Start Time: 09:20 Pt seen for followup re: right elbow arthritis. Feels better. - Objective Resuscitation Status - Order Detail: 06/04/18 19:00 Resuscitation Status Routine Resuscitation Status: DNAR: NO Resuscitation Discussed with: patient and daughter BABAR Reviewed: Yes Vital Signs & Weight: Vital Signs (12 hours) Temp Pulse Resp BP BP Pulse Ox 06/05/18 08:00 94 L 06/05/18 07:24 99.2 F 68 19 130/73 90 L 06/05/18 06:01 145/75 H 06/05/18 05:40 100 F H 06/05/18 03:00 101.3 F H 90 20 95 06/05/18 01:30 94 L Weight Weight 185 lb 1.6 oz I&O: 06/04/18 06/05/18 06/06/18 06:59 06:59 06:59 Intake Total 240 Balance 240 Result Diagrams: 06/06/18 06:26 06/06/18 08:36 Additional Labs: Labs reviewed by me Phys Exam - Physical Examination Constitutional: NAD HEENT: moist MMs, sclera anicteric, oral pharynx no lesions, 2+ tonsils Neck: no nodes, no JVD, supple, full ROM Respiratory: clear to auscultation bilateral Cardiovascular: RRR, no rub S1, S2 Gastrointestinal: soft, non-tender, no distention, positive bowel sounds R elbow swollen, erythematous Neurological: moves all 4 limbs Psychiatric: normal affect Dx/Plan (1) Arthritis of right elbow Code(s): M19.021 - PRIMARY OSTEOARTHRITIS, RIGHT ELBOW Status: Acute Comment : septic arthritis vs gout. Continue Colchicine, Uloric and IV antibiotics as below. (2) Stage 3 chronic kidney disease due to benign hypertension Code(s): I12.9 - HYPERTENSIVE CHRONIC KIDNEY DISEASE W STG 1-4/UNSP CHR KDNY; N18.3 - CHRONIC KIDNEY DISEASE, STAGE 3 (MODERATE) Status: Chronic Comment: stable (3) HTN (hypertension) Code(s): I10 - ESSENTIAL (PRIMARY) HYPERTENSION Status: Chronic Comment: controlled (4) Dyslipidemia Code(s): E78.5 - HYPERLIPIDEMIA, UNSPECIFIED Status: Chronic Comment: pt is on Praluent - Plan * . Review of Systems - Review of Systems Constitutional: fever. negative: chills, sweats, weakness, malaise Respiratory: negative: Cough, Shortness of Breath, SOB with Excertion, Pleuritic Pain, Wheezing Cardiovascular: negative: chest pain, palpitations, orthopnea, paroxysmal nocturnal dyspnea, edema, light headedness Gastrointestinal: negative: Nausea, Vomiting, Abdominal Pain, Diarrhea, Constipation, Melena, Hematochezia Musculoskeletal: Other. negative: Neck Pain, Shoulder Pain, Arm Pain, Back Pain , Hand Pain, Leg Pain, Foot Pain (right elbow pain) - Medications/Allergies Allergies/Adverse Reactions: Allergies Allergy/AdvReac Type Severity Reaction Status Date / Time Hpbdryi-Mux-Vxp Reductase Allergy Severe Verified 02/02/18 08:19 Inhibitor Medications: Current Medications Acetaminophen (Tylenol) 650 mg PO Q4H PRN PRN Reason: Headache/Fever/Mild Pain (1-3) Last Admin: 06/05/18 03:52 Dose: 650 mg Acetaminophen (Tylenol) 650 mg NC Q4H PRN PRN Reason: Headache/Fever/Mild Pain (1-3) Amlodipine Besylate (Norvasc) 10 mg PO DAILY [facility] Aspirin (Ecotrin) 81 mg PO DAILY [facility] Baclofen (Lioresal) mg PO DAILY [facility] Carvedilol (Coreg) 3.125 mg PO BID [facility] Colchicine (Colcrys) 0.6 mg PO BID [facility] Last Admin: 06/05/18 07:51 Dose: 0.6 mg Ezetimibe (Zetia) 10 mg PO DAILY [facility] Febuxostat (Uloric) mg PO DAILY [facility] Furosemide (Lasix) 20 mg PO DAILY [facility] Gabapentin (Neurontin) 900 mg PO TID [facility] Heparin Sodium (Porcine) (Heparin) 5,000 units SC TID [facility] Last Admin: 06/05/18 07:50 Dose: 5,000 units Vancomycin HCl 1 gm/ Device 200 mls @ 200 mls/hr IVPB 1700 [facility] Piperacillin Sod/Tazobactam (Sod 3.375 gm/ Sodium Chloride) 100 mls @ 200 mls/ hr IVPB 0300,0900,1500,2100 [facility] Last Admin: 06/05/18 07:51 Dose: 100 mls Sodium Chloride (Normal Saline 0.9%) 1,000 mls @ 75 mls/hr IV .[id number] [facility] Last Admin: 06/05/18 07:51 Dose: 1,000 mls Isosorbide Mononitrate (Imdur) 60 mg PO DAILY [facility] Miscellaneous Medication (Pharmacy To Dose) 1 each IVPB ONE PRN PRN Reason: Pharmacy to dose Stop: 06/14/18 19:00 Morphine Sulfate (Morphine) 2 mg SLOW IVP Q6H PRN PRN Reason: Pain Last Admin: 06/05/18 13:03 Dose: 2 mg Multivitamins/Minerals (Ocuvite With Lutein) 1 tab PO BID [facility] Non-Formulary Medication (Alirocumab [Praluent Pen]) 75 mg SQ ROUTINE [facility] Non-Formulary Medication (Biotin [Biotin]) 1 tab PO DAILY [facility] Non-Formulary Medication (Walnut-3 Acid Ethyl Esters [Lovaza]) 1 gm PO DAILY [facility] Non-Formulary Medication (Zolpidem Tartrate [Ambien]) 1 tab PO HS [facility] Ondansetron HCl (Zofran) 4 mg IVP Q6H PRN PRN Reason: Nausea/Vomiting Senna/Docusate Sodium (Senokot S) 2 tab PO BID PRN PRN Reason: Constipation Tamsulosin HCl (Flomax) mg PO HS [facility]
[2018-06-05] MEDS ORDERED: ALIROCUMAB 75 MG SQ SCH (13:30)
[2018-06-05] MEDS: Vancomycin HCl 1 GM in Premix Bag 1 BAG IVPB SCH (17:05)
[2018-06-05] MEDS: Gabapentin 300 MG CAP PO SCH (20:18)
[2018-06-05] MEDS: Vit A,C & E/Lutein/Minerals Tablet PO SCH (20:19)
[2018-06-05] MEDS: Zolpidem Tartrate 5 MG TAB PO SCH (20:19)
[2018-06-05] MEDS: Tamsulosin HCl 0.4 MG CAP PO SCH (20:19)
[2018-06-05] MEDS: Carvedilol 3.125 MG TAB PO SCH (20:19)
[2018-06-06] MEDS: Acetaminophen 325 MG TAB PO PRN (00:47)
--- NOTE | 2018-06-06 02:09 | CON ---
DATE OF CONSULTATION: REASON FOR CONSULTATION: Monoarticular arthritis. HISTORY OF PRESENT ILLNESS: A 78-year-old, who has a history of hypertension, coronary artery disease, prior CVA, type 2 diabetes, and gout with frequent flares, who was brought in due to polyarticular pain and pain in the right elbow for the past few days. No cough. No shortness of breath or chest pain. No back pain. No abdominal symptoms. No diarrhea. No genitourinary symptoms. No neurological symptoms. PAST MEDICAL HISTORY: Hypertension, coronary artery disease, CVA, dyslipidemia, type 2 diabetes, gout, polyarticular involvement, renal insufficiency, macular degeneration, BPH, and LFT elevation. ALLERGIES: STATINS. FAMILY HISTORY: Renal insufficiency. SOCIAL HISTORY: Never smoker. I think he lives in [place]. CURRENT MEDICATIONS: 1. Tylenol. 2. Norvasc. 3. Ecotrin. 4. Lioresal. 5. Coreg. 6. Colchicine. 7. Zetia. 8. Uloric. 9. Gabapentin. 10. Heparin. 11. Imdur. 12. Morphine. 13. Alirocumab. 15. Zosyn. 16. Vancomycin. PHYSICAL EXAMINATION: VITAL SIGNS: T-max 101.3, blood pressure 170/70, pulse 78, respirations 17, and O2 saturation 92%. SKIN: Not remarkable. No lymphadenopathy. Ocular movements conjugate. Oral cavity unremarkable. NECK: Supple. No jugular venous distention. LUNGS: Symmetric. Clear breath sounds. HEART: S1 and S2. Regular rate. No S3 or S4. ABDOMEN: Soft, nondistended, nontender. No ascites. No bladder distention. EXTREMITIES: Some limitation of range of motion in right elbow with moderate swelling, some tenderness in the right and left ankles as well. His strength in the extremities is symmetric. NEUROLOGIC: His cognitive function appears to be intact. LABORATORY DATA: White cell count 19.4 and now 27.5, hemoglobin 14, platelets 330, and 75% neutrophils. Chemistry with a creatinine of 1.9, which is down from admission. Liver profile normal. Albumin 4.0. Synovial fluid from the elbow with 93,[address] The path review with urate crystals, numerous acute inflammatory cells, and the cultures are still pending. The Gram stain from the joint fluid showed no organisms seen. ASSESSMENT: 1. Hypertension. 2. Coronary artery disease, cerebrovascular accident, and type 2 diabetes. 3. Gout, polyarticular. 4. Neutrophilia. 5. Fever. DISCUSSION: Differential diagnosis includes polyarticular gout, which can be associated with fever and neutrophilia, mostly mature neutrophils versus a superimposed infection. The presence of gout has been documented by the presence of crystals in the synovial fluid, but he may have superimposed infection, although I believe that he has a case of polyarticular gout without superimposed infectious process. If the cultures are negative by tomorrow, we will discharge on colchicine plus a tapering dose of corticosteroids. Job ID: [id number] [facility]
[2018-06-06] MEDS: Piperacillin/Tazobactam 3.375 GM in Sodium Chloride 0.9% 100 ML IVPB SCH ×4 (02:19→22:06)
[2018-06-06 07:25] LABS: #Lymphocytes 1.5 thou/uL (1.20-3.40); #Monocytes 2.9 thou/uL (0.11-0.59); #Neutrophils 20.1 thou/uL (1.40-6.50); %Basophils 0.1 % (0.0-1.0); %Eosinophils 0.1 % (0.0-10.0); %Monocytes 11.6 % (0.0-10.0); %Neutrophils 82.1 % (42.0-75.0); Hemoglobin 12.8 g/dL (14.0-18.0); Mean Corpuscular HGB CONC 33.9 g/dL (32.0-36.0); Mean Corpuscular Hemoglobin 29.6 pg (27.0-31.0); Mean Corpuscular Volume 87.5 fL (78.0-98.0); Mean Platelet Volume 7.6 fL (7.4-10.4); Platelet Count 343 thou/uL (130-400); Red Blood Cell (RBC) Count 4.31 mill/uL (4.70-6.10); White Blood Cell (WBC) Count 24.5 thou/uL (4.8-10.8)
[2018-06-06] MEDS: Vit A,C & E/Lutein/Minerals Tablet PO SCH ×2 (08:33→22:05)
[2018-06-06] MEDS: Gabapentin 300 MG CAP PO SCH ×2 (08:33→22:05)
[2018-06-06] MEDS: Furosemide 20 MG TAB PO SCH (08:33)
[2018-06-06] MEDS: Baclofen 10 MG TAB PO SCH (08:33)
[2018-06-06] MEDS: Fish Oil 1,000 MG CAP PO SCH (08:33)
[2018-06-06] MEDS: Aspirin 81 mg Enteric Coated Tablet PO SCH (08:33)
[2018-06-06] MEDS: Ezetimibe 10 MG TAB PO SCH (08:33)
[2018-06-06] MEDS: Colchicine 0.6 MG TAB PO SCH ×2 (08:33→22:05)
[2018-06-06] MEDS: Amlodipine 10 MG TAB PO SCH (08:34)
[2018-06-06] MEDS: Heparin 5,000 UNITS/ML VIAL SC SCH ×3 (08:34→22:06)
[2018-06-06] MEDS: Carvedilol 3.125 MG TAB PO SCH ×2 (08:34→22:06)
[2018-06-06] MEDS ORDERED: BIOTIN PO SCH (09:00)
[2018-06-06 10:03] LABS: Chloride 105 mmol/L (98-107); Sodium 135 mmol/L (136-145)
[2018-06-06 10:04] LABS: Calcium 9.4 mg/dL (7.8-10.44); Glucose 140 mg/dL (83-110)
[2018-06-06 10:06] LABS: Anion Gap 16 mmol/L (10-20); Carbon Dioxide 18 mmol/L (23-31)
[2018-06-06 10:08] LABS: Calc. Creatinine Clearance 43 mL/min (70-130); Estimated GFR-MDRD 40
[2018-06-06 10:09] LABS: BUN (Urea Nitrogen) 33 mg/dL (8.4-25.7)
[2018-06-06] MEDS: Febuxostat 40 MG TAB PO SCH (11:09)
[2018-06-06] MEDS: Sodium Chloride 0.9% 1,000 ML IV SCH ×2 (11:13→15:10)
--- NOTE | 2018-06-06 12:51 | PDOC.PN ---
- Subjective Encounter Start Date: 06/06/18 Encounter Start Time: 08:20 Pt seen for followup re: acute metabolic encephalopathy. Denies chest pain or shortness of breath. Right elbow pain improved. Pt mildly confused. - Objective Resuscitation Status - Order Detail: 06/04/18 19:00 Resuscitation Status Routine Resuscitation Status: DNAR: NO Resuscitation Discussed with: patient and daughter BABAR Reviewed: Yes Vital Signs & Weight: Vital Signs (12 hours) Temp Pulse Resp BP BP Pulse Ox 06/06/18 08:34 73 172/83 H 06/06/18 07:37 97.5 F L 73 18 172/83 H 90 L 06/06/18 05:02 98.1 F Weight Weight 185 lb 1.6 oz I&O: 06/05/18 06/06/18 06/07/18 06:59 06:59 06:59 Intake Total 480 Balance 480 Result Diagrams: 06/06/18 06:26 06/06/18 08:36 Additional Labs: labs reviewed by me Phys Exam - Physical Examination Constitutional: NAD HEENT: moist MMs Neck: supple Respiratory: clear to auscultation bilateral Cardiovascular: RRR Gastrointestinal: soft R elbow and R knee swelling Neurological: moves all 4 limbs Psychiatric: normal affect, A&O x 3 Deviation from normal: Pt oriented x3 but also confused, reports he was in an office last night Dx/Plan (1) Acute metabolic encephalopathy Code(s): G93.41 - METABOLIC ENCEPHALOPATHY Status: Acute Comment: Etiology unclear, ? infection vs other causes. (2) Arthritis of right elbow Code(s): M19.021 - PRIMARY OSTEOARTHRITIS, RIGHT ELBOW Status: Acute Comment : Continue Colchicine, Uloric and IV antibiotics. (3) Stage 3 chronic kidney disease due to benign hypertension Code(s): I12.9 - HYPERTENSIVE CHRONIC KIDNEY DISEASE W STG 1-4/UNSP CHR KDNY; N18.3 - CHRONIC KIDNEY DISEASE, STAGE 3 (MODERATE) Status: Chronic Comment: stable (4) HTN (hypertension) Code(s): I10 - ESSENTIAL (PRIMARY) HYPERTENSION Status: Chronic Comment: controlled (5) Dyslipidemia Code(s): E78.5 - HYPERLIPIDEMIA, UNSPECIFIED Status: Chronic Comment: continue Praluent - Plan * . Review of Systems - Review of Systems Respiratory: negative: Cough, Shortness of Breath, SOB with Excertion, Pleuritic Pain, Wheezing Cardiovascular: negative: chest pain, palpitations, orthopnea, paroxysmal nocturnal dyspnea, edema, light headedness - Medications/Allergies Allergies/Adverse Reactions: Allergies Allergy/AdvReac Type Severity Reaction Status Date / Time Zcibirt-Cjd-Acu Reductase Allergy Severe Verified 02/02/18 08:19 Inhibitor Medications: Current Medications Acetaminophen (Tylenol) 650 mg PO Q4H PRN PRN Reason: Headache/Fever/Mild Pain (1-3) Last Admin: 06/06/18 00:47 Dose: 650 mg Acetaminophen (Tylenol) 650 mg MT Q4H PRN PRN Reason: Headache/Fever/Mild Pain (1-3) Amlodipine Besylate (Norvasc) 10 mg PO DAILY [facility] Last Admin: 06/06/18 08:34 Dose: 10 mg Aspirin (Ecotrin) 81 mg PO DAILY [facility] Last Admin: 06/06/18 08:33 Dose: 81 mg Baclofen (Lioresal) 10 mg PO DAILY [facility] Last Admin: 06/06/18 08:33 Dose: 10 mg Carvedilol (Coreg) 3.125 mg PO BID [facility] Last Admin: 06/06/18 08:34 Dose: 3.125 mg Colchicine (Colcrys) 0.6 mg PO BID [facility] Last Admin: 06/06/18 08:33 Dose: 0.6 mg Ezetimibe (Zetia) 10 mg PO DAILY [facility] Last Admin: 06/06/18 08:33 Dose: 10 mg Febuxostat (Uloric) 40 mg PO DAILY [facility] Last Admin: 06/06/18 11:09 Dose: 40 mg Fish Oil (Fish Oil) 1,000 mg PO DAILY [facility] Last Admin: 06/06/18 08:33 Dose: 1,000 mg Furosemide (Lasix) 20 mg PO DAILY [facility] Last Admin: 06/06/18 08:33 Dose: 20 mg Gabapentin (Neurontin) 900 mg PO BID [facility] Last Admin: 06/06/18 08:33 Dose: 900 mg Heparin Sodium (Porcine) (Heparin) 5,000 units SC TID [facility] Last Admin: 06/06/18 08:34 Dose: 5,000 units Vancomycin HCl 1 gm/ Device 200 mls @ 200 mls/hr IVPB 1700 [facility] Last Admin: 06/05/18 17:05 Dose: 200 mls Piperacillin Sod/Tazobactam (Sod 3.375 gm/ Sodium Chloride) 100 mls @ 200 mls/ hr IVPB 0300,0900,1500,2100 [facility] Last Admin: 06/06/18 08:34 Dose: 100 mls Sodium Chloride (Normal Saline 0.9%) 1,000 mls @ 75 mls/hr IV .[id number] [facility] Last Admin: 06/06/18 11:13 Dose: Not Given Isosorbide Mononitrate (Imdur) 60 mg PO DAILY [facility] Last Admin: 06/06/18 08:34 Dose: 60 mg Miscellaneous Medication (Pharmacy To Dose) 1 each IVPB ONE PRN PRN Reason: Pharmacy to dose Stop: 06/14/18 19:00 Morphine Sulfate (Morphine) 2 mg SLOW IVP Q6H PRN PRN Reason: Pain Last Admin: 06/05/18 13:03 Dose: 2 mg Multivitamins/Minerals (Ocuvite With Lutein) 1 tab PO BID [facility] Last Admin: 06/06/18 08:33 Dose: 1 tab Non-Formulary Medication (Alirocumab [Praluent Pen]) 75 mg SQ Q14D [facility] Ondansetron HCl (Zofran) 4 mg IVP Q6H PRN PRN Reason: Nausea/Vomiting Senna/Docusate Sodium (Senokot S) 2 tab PO BID PRN PRN Reason: Constipation Tamsulosin HCl (Flomax) 0.4 mg PO [facility] Last Admin: 06/05/18 20:19 Dose: 0.4 mg Zolpidem Tartrate (Ambien) 10 mg PO [facility] Last Admin: 06/05/18 20:19 Dose: 10 mg
[2018-06-06 16:11] LABS: Vancomycin, Trough 6.8 ug/mL
[2018-06-06] MEDS: Vancomycin HCl 1 GM in Premix Bag 1 BAG IVPB SCH (17:41)
[2018-06-06] MEDS: Vancomycin HCl 1.5 GM in Sodium Chloride 0.9% 250 ML 300 ML IVPB SCH (18:07)
[2018-06-06] MEDS: Zolpidem Tartrate 5 MG TAB PO SCH (22:05)
[2018-06-06] MEDS: Tamsulosin HCl 0.4 MG CAP PO SCH (22:06)
--- NOTE | 2018-06-07 00:26 | CON ---
DATE OF CONSULTATION: NEPHROLOGY CONSULTATION REASON FOR CONSULTATION: Elevated creatinine. The patient was seen for . HISTORY OF PRESENT ILLNESS: The patient is a very pleasant 78-year-old gentleman being seen in the [facility], who was admitted for monoarticular arthritis and was treated with antibiotics. The patient's creatinine runs in the 1.6 to 1.7 and increased to 2.1 and is dragging 2 to 1.6. The patient denies headache, numbness, tingling, fever, or chills. PAST MEDICAL HISTORY: Significant for hypertension, coronary artery disease, CVA, chronic kidney disease stage 3, macular degeneration, BPH, LFT elevation. MEDICATIONS: Home medication list reviewed. Hospital medication list reviewed. ALLERGIES: REVIEWED. REVIEW OF SYSTEMS: A 15-point review of systems was performed and was negative except for positives noted above. NECK: No swelling or lumps. NOSE: No epistaxis or discharge. EYES: No diplopia or pain. MUSCULOSKELETAL: No joint pain. NEUROPSYCHIATRIC SYSTEMS: No suicidal ideation. No ideation. SKIN: Denies any rash or ulcer. CONSTITUTIONAL: No fever or chills. OBJECTIVE: GENERAL: The patient is awake, alert, in no acute distress. VITAL SIGNS: Afebrile, pulse 70, breathing 16, and blood pressure 137/70. GENERAL APPEARANCE AND MENTAL STATUS: Fair. HEAD/NECK: Normocephalic. Atraumatic. EYES: EOMI. No deformity. EARS: Clear. No ulcers. NOSE: Intact. No lesions. MOUTH: Clear. No discharge. THROAT: Clear. No exudate. LUNGS: Clear. No crackles. CARDIAC: S1, S2. No rub. ABDOMEN: Benign. Bowel sounds positive. GENITALIA/RECTUM: Shipley absent. BACK/EXTREMITIES: Edema 0+. NEUROLOGICAL: Alert and motor intact. LABORATORY: Labs show creatinine 1.6. ASSESSMENT AND PLAN: 1. Acute kidney injury with chronic kidney disease 2. 2. Hypertension, stable. 3. Anemia, stable. 4. Chronic kidney disease stage 3, no indication for dialysis. 5. I will follow this patient as an outpatient. Job ID: [id number]
[2018-06-07] MEDS: Piperacillin/Tazobactam 3.375 GM in Sodium Chloride 0.9% 100 ML IVPB SCH ×4 (03:07→20:05)
[2018-06-07 06:15] LABS: #Eosinphils 0.2 thou/uL (0.0-0.7); #Lymphocytes 1.4 thou/uL (1.20-3.40); #Monocytes 1.6 thou/uL (0.11-0.59); #Neutrophils 12.5 thou/uL (1.40-6.50); %Basophils 0.1 % (0.0-1.0); %Eosinophils 1.3 % (0.0-10.0); %Lymphocytes 8.7 % (21.0-51.0); %Neutrophils 79.9 % (42.0-75.0); Hemoglobin 12.6 g/dL (14.0-18.0); Mean Corpuscular HGB CONC 32.2 g/dL (32.0-36.0); Mean Corpuscular Hemoglobin 28.4 pg (27.0-31.0); Mean Corpuscular Volume 88.1 fL (78.0-98.0); Mean Platelet Volume 7.2 fL (7.4-10.4); Platelet Count 372 thou/uL (130-400); Red Blood Cell (RBC) Count 4.43 mill/uL (4.70-6.10); White Blood Cell (WBC) Count 15.7 thou/uL (4.8-10.8)
[2018-06-07 06:37] LABS: Anion Gap 12 mmol/L (10-20); BUN (Urea Nitrogen) 34 mg/dL (8.4-25.7); Calc. Creatinine Clearance 45 mL/min (70-130); Calcium 8.9 mg/dL (7.8-10.44); Carbon Dioxide 22 mmol/L (23-31); Chloride 107 mmol/L (98-107); Estimated GFR-MDRD 42; Glucose 117 mg/dL (83-110); Potassium 3.8 mmol/L (3.5-5.1); Sodium 137 mmol/L (136-145)
[2018-06-07] MEDS: Gabapentin 300 MG CAP PO SCH ×2 (08:15→20:06)
[2018-06-07] MEDS: Furosemide 20 MG TAB PO SCH (08:15)
[2018-06-07] MEDS: Heparin 5,000 UNITS/ML VIAL SC SCH ×3 (08:16→20:07)
[2018-06-07] MEDS: Ezetimibe 10 MG TAB PO SCH (08:16)
[2018-06-07] MEDS: Aspirin 81 mg Enteric Coated Tablet PO SCH (08:16)
[2018-06-07] MEDS: Baclofen 10 MG TAB PO SCH (08:16)
[2018-06-07] MEDS: Amlodipine 10 MG TAB PO SCH (08:16)
[2018-06-07] MEDS: Colchicine 0.6 MG TAB PO SCH ×2 (08:16→20:06)
[2018-06-07] MEDS: Fish Oil 1,000 MG CAP PO SCH (08:16)
[2018-06-07] MEDS: Carvedilol 3.125 MG TAB PO SCH ×2 (08:16→20:06)
[2018-06-07] MEDS: Vit A,C & E/Lutein/Minerals Tablet PO SCH ×2 (08:16→20:06)
[2018-06-07] MEDS: Febuxostat 40 MG TAB PO SCH ×2 (10:33→12:18)
--- NOTE | 2018-06-07 13:06 | PDOC.PN ---
- Subjective Encounter Start Date: 06/07/18 Encounter Start Time: 13:04 Patient seen and examined, no new issues or complaints, at bedside, all questions answered. - Objective Resuscitation Status - Order Detail: 06/04/18 19:00 Resuscitation Status Routine Resuscitation Status: DNAR: NO Resuscitation Discussed with: patient and daughter Vital Signs & Weight: Vital Signs (12 hours) Temp Pulse Resp BP BP Pulse Ox 06/07/18 09:00 99 06/07/18 08:20 98.4 F 72 18 138/74 99 06/07/18 08:16 67 138/74 06/07/18 05:35 94 L Weight Weight 185 lb 1.6 oz I&O: 06/06/18 06/07/18 06/08/18 06:59 06:59 06:59 Intake Total 480 1200 Output Total 850 Balance 480 350 Result Diagrams: 06/07/18 05:50 06/07/18 05:50 Phys Exam - Physical Examination Constitutional: NAD HEENT: PERRLA, moist MMs, sclera anicteric Neck: no nodes, no JVD, supple Respiratory: no wheezing, no rales, no rhonchi Cardiovascular: RRR, no significant murmur, no rub Gastrointestinal: soft, non-tender, no distention Musculoskeletal: pulses present, edema present (trace) Dx/Plan (1) Acute metabolic encephalopathy Code(s): G93.41 - METABOLIC ENCEPHALOPATHY Status: Acute Comment: Etiology unclear, ? infection vs other causes. (2) Arthritis of right elbow Code(s): M19.021 - PRIMARY OSTEOARTHRITIS, RIGHT ELBOW Status: Acute Comment : Continue Colchicine, Uloric and IV antibiotics. (3) HTN (hypertension) Code(s): I10 - ESSENTIAL (PRIMARY) HYPERTENSION Status: Chronic Comment: controlled (4) Stage 3 chronic kidney disease due to benign hypertension Code(s): I12.9 - HYPERTENSIVE CHRONIC KIDNEY DISEASE W STG 1-4/UNSP CHR KDNY; N18.3 - CHRONIC KIDNEY DISEASE, STAGE 3 (MODERATE) Status: Chronic Comment: stable (5) Stroke Code(s): I63.9 - CEREBRAL INFARCTION, UNSPECIFIED Status: Acute - Plan * continue current plan of care no changes * consults to CM to arrange for inpatient rehab * DC plans in 24-48hrs once inpatient rehab arranged and patient cleared form renal and ID perspective * case and plan d/w patient and at length, they understand and agree with this plan.
[2018-06-07] MEDS: Sodium Chloride 0.9% 1,000 ML IV SCH ×2 (13:16→14:29)
--- NOTE | 2018-06-07 14:17 | PRG ---
DATE OF SERVICE: 06/07/2018 SUBJECTIVE: A 78-year-old gentleman being seen for acute kidney injury. The patient denies any nausea, vomiting, or chest pain. OBJECTIVE: CONSTITUTIONAL: On examination, the patient is awake and alert. VITAL SIGNS: Temperature afebrile, pulse 72, breathing is 16, and blood pressure 132/74. GENERAL APPEARANCE AND MENTAL STATUS: Fair. HEAD/NECK: Normocephalic. Atraumatic. EYES: EOMI. No deformity. EARS: Clear. No ulcers. NOSE: Intact. No lesions. MOUTH: Clear. No discharge. THROAT: Clear. No exudate. LUNGS: Clear. No crackles. CARDIAC: S1, S2. No rub. ABDOMEN: Benign. Bowel sounds positive. GENITALIA/RECTUM: Shipley absent. BACK/EXTREMITIES: Edema 0+. NEUROLOGICAL: Alert and motor intact. LABORATORY DATA: Hemoglobin 12.6. Creatinine 1.5. ASSESSMENT AND PLAN: 1. Acute kidney injury, . 2. Hypertension, stable. 3. Anemia, stable. 4. I will sign off on this patient. Please reconsult as needed. Job ID: [id number]
[2018-06-07] MEDS: Vancomycin HCl 1.5 GM in Sodium Chloride 0.9% 250 ML 300 ML IVPB SCH (17:33)
[2018-06-07] MEDS: Morphine 2 MG/ML SYRINGE SLOW IVP PRN (17:35)
[2018-06-07] MEDS: Zolpidem Tartrate 5 MG TAB PO SCH (20:06)
[2018-06-07] MEDS: Tamsulosin HCl 0.4 MG CAP PO SCH (20:06)
[2018-06-08] MEDS: Piperacillin/Tazobactam 3.375 GM in Sodium Chloride 0.9% 100 ML IVPB SCH ×5 (03:37→20:30)
[2018-06-08] MEDS: Sodium Chloride 0.9% 1,000 ML IV SCH ×3 (03:43→16:16)
[2018-06-08] MEDS: Amlodipine 10 MG TAB PO SCH (08:11)
[2018-06-08] MEDS: Ezetimibe 10 MG TAB PO SCH (08:11)
[2018-06-08] MEDS: Vit A,C & E/Lutein/Minerals Tablet PO SCH ×2 (08:11→20:30)
[2018-06-08] MEDS: Colchicine 0.6 MG TAB PO SCH ×2 (08:11→20:30)
[2018-06-08] MEDS: Furosemide 20 MG TAB PO SCH (08:11)
[2018-06-08] MEDS: Gabapentin 300 MG CAP PO SCH ×2 (08:11→20:30)
[2018-06-08] MEDS: Heparin 5,000 UNITS/ML VIAL SC SCH ×3 (08:12→20:31)
[2018-06-08] MEDS: Fish Oil 1,000 MG CAP PO SCH (08:12)
[2018-06-08] MEDS: Aspirin 81 mg Enteric Coated Tablet PO SCH (08:12)
[2018-06-08] MEDS: Carvedilol 3.125 MG TAB PO SCH ×2 (08:12→20:31)
[2018-06-08] MEDS: Baclofen 10 MG TAB PO SCH (08:12)
[2018-06-08] MEDS: Febuxostat 40 MG TAB PO SCH ×2 (09:51→11:20)
--- NOTE | 2018-06-08 09:56 | PDOC.PN ---
- Subjective Encounter Start Date: 06/08/18 Encounter Start Time: 09:54 Patient seen and examined, no major events overnight, no family at bedside. - Objective Resuscitation Status - Order Detail: 06/04/18 19:00 Resuscitation Status Routine Resuscitation Status: DNAR: NO Resuscitation Discussed with: patient and daughter Vital Signs & Weight: Vital Signs (12 hours) Temp Pulse Resp BP BP Pulse Ox 06/08/18 09:03 98.3 F 66 20 165/75 H 95 06/08/18 09:00 95 06/08/18 08:11 65 165/75 H Weight Weight 185 lb 1.6 oz I&O: 06/07/18 06/08/18 06/09/18 06:59 06:59 06:59 Intake Total 3585 Output Total 2950 Balance 635 Result Diagrams: 06/07/18 05:50 06/07/18 05:50 Phys Exam - Physical Examination Constitutional: NAD HEENT: PERRLA, moist MMs, sclera anicteric Neck: no nodes, no JVD, supple Respiratory: no wheezing, no rales, no rhonchi Cardiovascular: no significant murmur, no rub tachycardic Gastrointestinal: soft, non-tender, no distention Musculoskeletal: pulses present, edema present Dx/Plan (1) Acute metabolic encephalopathy Code(s): G93.41 - METABOLIC ENCEPHALOPATHY Status: Acute Comment: Etiology unclear, ? infection vs other causes. (2) Arthritis of right elbow Code(s): M19.021 - PRIMARY OSTEOARTHRITIS, RIGHT ELBOW Status: Acute Comment : Continue Colchicine, Uloric and IV antibiotics. (3) HTN (hypertension) Code(s): I10 - ESSENTIAL (PRIMARY) HYPERTENSION Status: Chronic Comment: controlled (4) Stage 3 chronic kidney disease due to benign hypertension Code(s): I12.9 - HYPERTENSIVE CHRONIC KIDNEY DISEASE W STG 1-4/UNSP CHR KDNY; N18.3 - CHRONIC KIDNEY DISEASE, STAGE 3 (MODERATE) Status: Chronic Comment: stable (5) Stroke Code(s): I63.9 - CEREBRAL INFARCTION, UNSPECIFIED Status: Acute - Plan * continue current plan of care * pending placement at [facility] * DC once arranged * case and plan d/w patient at length, he understood and agreed with this plan, no family at bedside.
--- NOTE | 2018-06-08 13:45 | PDOC.EVN ---
Event Note - Event Note Event Note: DC summary dictated #[id number]
[2018-06-08] MEDS: Morphine 2 MG/ML SYRINGE SLOW IVP PRN (13:51)
[2018-06-08] MEDS: Vancomycin HCl 1.5 GM in Sodium Chloride 0.9% 250 ML 300 ML IVPB SCH (17:39)
[2018-06-08] MEDS: Zolpidem Tartrate 5 MG TAB PO SCH (20:31)
[2018-06-08] MEDS: Tamsulosin HCl 0.4 MG CAP PO SCH (20:31)
--- NOTE | 2018-06-08 21:15 | DIS ---
DATE OF ADMISSION: 06/04/2018 DATE OF DISCHARGE: 06/08/2018 ADMITTING DIAGNOSES: The patient's admitting complaints are: 1. Pain in the right elbow. 2. History of hypertension. 3. History of coronary artery disease. 4. History of stroke. 5. History of dyslipidemia. 6. History of diabetes. 7. History of gout. 8. History of chronic kidney disease. 9. History of macular degeneration. 10. History of benign prostatic hypertrophy. 11. History of elevated liver function test. DISCHARGE DIAGNOSES: 1. Right elbow pain due to gouty arthritis flare. 2. Otherwise, history of hypertension. 3. Coronary artery disease. 4. Stroke. 5. Dyslipidemia. 6. Diabetes mellitus. 7. Gout. 8. Chronic kidney disease. 9. Macular degeneration. 10. Benign prostatic hypertrophy. 11. History of elevated liver function test, stable. HOSPITAL COURSE: This is a 78-year-old male, who is admitted to the Internal Medicine team, who is also very closely followed by Nephrology as well as ID to have him evaluated for his pain in his right elbow. The patient had workup done with joint fluid analysis drainage and was found to have gouty arthritis and likely to be septic arthritis. The patient at point of time of discharge was prepared for discharge to [facility]. Once arrangements were made, the patient at point of time of discharge and white count was trending downwards as well as renal function that was improving. The patient was given colchicine at point of time of discharge and was advised to follow up within 1 week with his PCP and take all medications as directed. CONDITION: Stable. Arrangements were made, unable to go home, so he is going to go to [facility] for further management, care, and treatment. Case and plan discussed with the patient at length, he understood and agreed with this plan. No family at bedside. DISPOSITION: [facility]. MEDICATIONS: See MAR. ACTIVITY: As tolerated with assistance as appropriate or needed. DIET: Low-fat, low-calorie, high-fiber diet. CONDITION: Stable. PROGNOSIS: Guarded. FOLLOWUP: Follow up with PCP within 1 week. Case and plan again discussed with the patient at length, he understood and agreed with this plan. Job ID: [id number]
[2018-06-09] MEDS: Piperacillin/Tazobactam 3.375 GM in Sodium Chloride 0.9% 100 ML IVPB SCH ×2 (03:09→09:00)
[2018-06-09] MEDS: Sodium Chloride 0.9% 1,000 ML IV SCH ×2 (06:11→09:00)
[2018-06-09] MEDS: Baclofen 10 MG TAB PO SCH (08:56)
[2018-06-09] MEDS: Vit A,C & E/Lutein/Minerals Tablet PO SCH (08:57)
[2018-06-09] MEDS: Gabapentin 300 MG CAP PO SCH (08:57)
[2018-06-09] MEDS: Febuxostat 40 MG TAB PO SCH (08:57)
[2018-06-09] MEDS: Furosemide 20 MG TAB PO SCH (08:57)
[2018-06-09] MEDS: Fish Oil 1,000 MG CAP PO SCH (08:58)
[2018-06-09] MEDS: Colchicine 0.6 MG TAB PO SCH (08:58)
[2018-06-09] MEDS: Ezetimibe 10 MG TAB PO SCH (08:58)
[2018-06-09] MEDS: Amlodipine 10 MG TAB PO SCH (08:59)
[2018-06-09] MEDS: Aspirin 81 mg Enteric Coated Tablet PO SCH (08:59)
[2018-06-09] MEDS: Carvedilol 3.125 MG TAB PO SCH (08:59)
[2018-06-09] MEDS: Heparin 5,000 UNITS/ML VIAL SC SCH ×2 (09:00→15:05)
[2018-06-09] MEDS: Morphine 2 MG/ML SYRINGE SLOW IVP PRN (09:16)
--- NOTE | 2018-06-09 14:25 | PDOC.PN ---
- Subjective Encounter Start Date: 06/09/18 Encounter Start Time: 09:40 Doing fairly well. He still has some pain in the left elbow and left hand/ fingers. Ready to transfer to rehab facility. - Objective Resuscitation Status - Order Detail: 06/04/18 19:00 Resuscitation Status Routine Resuscitation Status: DNAR: NO Resuscitation Discussed with: patient and daughter Vital Signs & Weight: Vital Signs (12 hours) Temp Pulse Resp BP BP Pulse Ox 06/09/18 09:20 92 L 06/09/18 08:59 62 162/75 H 06/09/18 07:31 98.9 F 62 18 162/75 H 92 L Weight Weight 185 lb 1.6 oz I&O: 06/08/18 06/09/18 06/10/18 06:59 06:59 06:59 Intake Total 3585 3280 Output Total 2950 750 Balance 635 2530 Result Diagrams: 06/07/18 05:50 06/07/18 05:50 Phys Exam - Physical Examination Constitutional: NAD Respiratory: no wheezing, no rales, no rhonchi, clear to auscultation bilateral Cardiovascular: RRR, no significant murmur, no rub Gastrointestinal: soft, non-tender, no distention, positive bowel sounds Musculoskeletal: no edema Right elbow inflammation and right index MCP joint inflammation. Psychiatric: normal affect, A&O x 3 Dx/Plan (1) Acute gouty arthropathy Code(s): M10.9 - GOUT, UNSPECIFIED Status: Resolved Comment: Continue Colchicine 0.6mg daily, continue Zosyn and Vancomycin, start Prednisone 40mg daily (2) History of stroke Code(s): Z86.73 - PRSNL HX OF TIA (TIA), AND CEREB INFRC W/O RESID DEFICITS Status: Acute (3) Dyslipidemia Code(s): E78.5 - HYPERLIPIDEMIA, UNSPECIFIED Status: Chronic Comment: continue Praluent (4) HTN (hypertension) Code(s): I10 - ESSENTIAL (PRIMARY) HYPERTENSION Status: Chronic Comment: controlled (5) CKD (chronic kidney disease), stage III Code(s): N18.3 - CHRONIC KIDNEY DISEASE, STAGE 3 (MODERATE) Status: Chronic Comment: Avoid nephrotoxic meds and limit contrast exposure (6) Physical deconditioning Code(s): R53.81 - OTHER MALAISE Status: Chronic - Plan * Continue colchicine. Appears to be helping. * Stop abx as there is not evidence of infection. * Change to oral pain meds (Tramadol) * Stable for transfer to SNF rehab, but now awaiting insurance approval.
[2018-06-09] MEDS ORDERED: traMADol HCl 50 MG TAB PO PRN (14:29)
[2018-06-09 18:02] VITALS: BP 161/71; TEMP 98.2
--- NOTE | 2018-06-10 23:27 | CON ---
DATE OF CONSULTATION: 06/04/2018 BRIEF HISTORY OF PRESENT ILLNESS: Mr. Ureña is a pleasant 78-year-old gentleman, who is examined in the emergency room at [facility] with his daughter at bedside. The patient reports not feeling well for approximately 2 days prior to presenting to the emergency room with worsening pain in the right elbow, as well as pain in his ankles. The patient does have an extensive history of gout and at this time does feel as though his musculoskeletal symptoms are consistent with gout. While in the emergency room, the ER physician performed an aspirate of the elbow and labs were obtained. These labs were remarkable for a white count of 19.4 and on fluid inspection from the aspirate, it was found to have 93,000 white cells. With these findings, it was felt that he probably had a septic elbow and as such, Orthopedic consultation requested. The patient reports that 2 days ago, he had a diet that he believes set off his gout. He reports that he has been hospitalized previously with high white blood cell counts and fevers and has only proven to be gout with no evidence of septic joint. PAST MEDICAL HISTORY: Remarkable for history of gout, hypertension, coronary artery disease, stroke, dyslipidemia, macular degeneration, BPH. PAST SURGICAL HISTORY: Includes skin cancer and coronary artery bypass. MEDICATIONS: Include, 1. Isosorbide. 2. Furosemide. 3. Iron. 4. Aspirin. 5. Baclofen. 6. Gabapentin. 7. Tamsulosin. 8. Biotin. 9. Zolpidem. 10. Amlodipine. 11. Carvedilol. 12. Zetia. ALLERGIES: TO STATINS. FAMILY HISTORY: Noncontributory. SOCIAL HISTORY: Denies tobacco, alcohol, or drug use. REVIEW OF SYSTEMS: He does report some low-grade fevers over the last two days. He denies chest pain or shortness of breath. Denies numbness or tingling in the upper extremity. PHYSICAL EXAMINATION: VITAL SIGNS: The patient's temperature in the emergency room is 99.4 with a heart rate of 67, respiratory rate of 16, and blood pressure 131/57. HEENT: Atraumatic, normocephalic. HEART: Shows a regular rate and rhythm without murmur. LUNGS: Clear to auscultation with good breath sounds. ABDOMEN: Benign. MUSCULOSKELETAL: Remarkable for a right elbow with range of motion from 30 degrees to approximately 80 degrees with pain. He was found to have increased warmth, but no obvious redness. Distal neurovascular exam is intact in this extremity. Also of note, both ankles are sore with range of motion from neutral to approximately 20 degrees of plantar flexion but with this motion, he does have some discomfort as well as some increased warmth within the joints. LABORATORY DATA: He was found to have a white count of 19.4, hematocrit of 45, and 380,000 platelets. The elbow is remarkable for 93,000 white cells. Crystal analysis is pending. ASSESSMENT: A 78-year-old gentleman with subacute onset of right elbow pain with 93,000 white cells on aspirin, as well as an elevated peripheral white count. PLAN: Today, I have had a lengthy discussion with the patient and his daughter. They are firmly of the belief that this is a gouty flare that he has had similar episodes in the past. I discussed with the patient and his daughter that I am very concerned given the elevated white blood cell count, as well as the elevated white cells in the aspirate that this might indeed be a septic joint. At this time, they really do not wish to proceed with any surgical intervention. As such, we will start the patient empirically on antibiotics, now that aspirin has been obtained and we will follow him closely. He will be n.p.o. after midnight. If we get any cultures back that are positive, we will then be able to more acutely and quickly proceed to the operating room. Today, I discussed with the patient and his daughter that if indeed this is a septic joint and we delay treatment, it could result in further degenerative changes within the elbow. They appear to understand and are comfortable with our plan of waiting for final culture results. Job ID: [id number]
--- NOTE | 2018-06-11 00:34 | DIS ---
DATE OF ADMISSION: 06/04/2018 DATE OF DISCHARGE: 06/09/2018 DISCHARGE DIAGNOSES: 1. Acute gouty arthropathy of the right elbow. 2. Hypertension. 3. Chronic kidney disease, stage 3. 4. History of cerebrovascular accident. 5. Dyslipidemia. 6. Physical deconditioning. HISTORY OF PRESENT ILLNESS: This patient is a 78-year-old male, who presents to the emergency department reporting fairly severe generalized pain with localization primarily in the right elbow area. There was some evidence of substantial inflammation, some leukocytosis and fever concerning for the possibility of infection. The patient was seen in the emergency room by Orthopedics, who also was concerned about possible infection and recommended drainage of the area. The patient had similar episodes previously that were thought to be infectious and turned out only to be gouty arthropathy. Therefore, he opted to wait. HOSPITAL COURSE: The patient was admitted and started on broad-spectrum antibiotics. Infectious Disease was consulted, as well as Nephrology. The Infectious Disease doctor felt that the patient most likely had acute gouty arthropathy without an infectious component. Cultures were watched for 48 hours and once those resulted as negative, the patient was felt to be stable for discharge off antibiotics. The patient's arthritis had caused some substantial debility and he felt as though he would benefit from some rehab. The patient had requested out for a rehab bed and was ultimately accepted to the [facility] swing bed program. The patient will be transferred to that facility. For more details on the discharge plan, see the dictated discharge summary from 06/08/2018. PHYSICAL EXAMINATION: VITAL SIGNS: On the day of discharge, temperature 98.2, pulse 68, respirations 18, O2 saturation 94% on room air, and BP 161/71. GENERAL APPEARANCE: Age-appropriate male, in no distress. He is awake, alert, oriented, pleasant, and cooperative. HEART: Regular rate and rhythm. LUNGS: Clear. EXTREMITIES: Right elbow has appropriate superficial dressing. Extremities are warm and dry. DISCHARGE ACTIVITY: As tolerated. He will be on a heart-healthy diet. DISCHARGE MEDICATIONS: Include, 1. Colchicine 0.6 mg b.i.d. 2. We will resume his usual home Lasix, amlodipine, Imdur, Lovaza, gabapentin, carvedilol, aspirin, Ocuvite, ezetimibe, tamsulosin, biotin, baclofen, zolpidem, Uloric, Praluent. FOLLOWUP: He will see the physician at the [facility] bed program and he should follow up with his PCP after discharge from there. He can return to the hospital should he have any problems prior to that followup. Job ID: [id number]
[2018-06-18] MEDS ORDERED: ALIROCUMAB 75 MG SQ SCH (09:00)
== END 2018-06-09 16:51 | DRG 554 ==
LOC: ERS 12:23 → ERHOLD 17:15 → T4-B 06-05 00:52
PROVIDERS: ADMIT Internal Medicine; ATTEND Internal Medicine
DX: M10.021 Idiopathic gout, right elbow (principal); N17.9 Acute kidney failure, unspecified; M19.021 Primary osteoarthritis, right elbow; I12.9 Hypertensive chronic kidney disease with stage 1 through stage 4 chronic kidney disease, or unspecified chronic kidney disease; N18.3 Chronic kidney disease, stage 3 (moderate); E78.5 Hyperlipidemia, unspecified; I25.10 Atherosclerotic heart disease of native coronary artery without angina pectoris; E11.22 Type 2 diabetes mellitus with diabetic chronic kidney disease; M10.9 Gout, unspecified; N40.0 Benign prostatic hyperplasia without lower urinary tract symptoms; D72.0 Genetic anomalies of leukocytes; D63.1 Anemia in chronic kidney disease; Z86.73 Personal history of transient ischemic attack (TIA), and cerebral infarction without residual deficits
CPT/HCPCS: 20605; 36415; 80048; 80053; 80202; 82945; 83605; 84157; 84560; 85025; 85060; 85652; 87040; 87070; 87205; 89051; 96361; 96365; 96367; 96372; 96375; 96376; G8978-GP-CM; G8979-GP-CK; J0131; J1644; J2001; J2270; J2543; J3370; J7050

== ENCOUNTER 2018-08-26 00:27 | Emergency (ER) | payer MEDICARE ==
[2018-08-26 01:41] LABS: Bilirubin Negative (Negative); Blood, Urine Negative (Negative); Clarity CLOUDY (Clear); Glucose, Urine (Dipstick) Negative (Negative); Leukocyte Negative (Negative); Nitrite Negative (Negative); Protein, Urine (Dipstick) 100 mg/dL (Neg-Trace); Specific Gravity, Urine 1.011 (1.002-1.036)
[2018-08-26 01:43] LABS: Bacteria/HPF None Seen HPF (None Seen); Hyaline Casts/LPF 0-3 HYALINE CAST LPF (0-3 Hyaline); RBC/HPF 0-3 HPF (0-3); Squamous Epithelial None Seen HPF (0-3); WBC/HPF None Seen HPF (0-3)
[2018-08-26 01:50] LABS: Eosinophils 2 % (0-10); Hemoglobin 11.8 g/dL (14.0-18.0); Lymphocytes 20 % (21-51); MDiff Complete? YES; Mean Corpuscular HGB CONC 32.9 g/dL (32.0-36.0); Mean Corpuscular Hemoglobin 29.7 pg (27.0-31.0); Mean Corpuscular Volume 90.2 fL (78.0-98.0); Mean Platelet Volume 7.4 fL (7.4-10.4); Monocytes 9 % (0-10); Neutrophil 68 % (42-75); Platelet Count 281 thou/uL (130-400); Platelet Morphology Comment Appears Adequate; RBC Distribution Width 14.7 % (11.5-14.5); Red Blood Cell (RBC) Count 3.97 mill/uL (4.70-6.10); White Blood Cell (WBC) Count 15.8 thou/uL (4.8-10.8)
[2018-08-26 01:53] LABS: ALT (SGPT) 33 U/L (8-55); AST (SGOT) 36 U/L (5-34); Albumin 3.6 g/dL (3.4-4.8); Alkaline Phosphatase 129 U/L (40-150); Anion Gap 13 mmol/L (10-20); BUN (Urea Nitrogen) 35 mg/dL (8.4-25.7); Bilirubin, Total 0.9 mg/dL (0.2-1.2); Calc. Creatinine Clearance 0 mL/min (70-130); Calcium 9.1 mg/dL (7.8-10.44); Carbon Dioxide 21 mmol/L (23-31); Chloride 100 mmol/L (98-107); Estimated GFR-MDRD 39; Globulin 2.8 g/dL (2.4-3.5); Glucose 128 mg/dL (83-110); Potassium 4.3 mmol/L (3.5-5.1); Protein, Total 6.4 g/dL (5.8-8.1); Sodium 130 mmol/L (136-145)
[2018-08-26] MEDS ORDERED: Acetaminophen 500 MG TAB ONE (02:50)
[2018-08-26] MEDS ORDERED: cefTRIAXone\\ROCEPHIN 1 GM VIAL ONE (03:46)
--- NOTE | 2018-08-26 08:21 | RAD ---
CHEST 1 VIEW: Date: 08/26/18 HISTORY: Altered mental status. COMPARISON: Radiograph dated 06/24/18. FINDINGS: Lungs are hypoinflated with vascular crowding. No pneumothorax. No large effusion. No acute osseous a bnormality. Multiple midline sternotomy wires. IMPRESSION: Low lung volumes with vascular crowding and bibasilar atelectasis. No acute intrathoracic abnormality . POS: [facility]
--- NOTE | 2018-08-26 09:06 | CT ---
PRELIMINARY REPORT/[facility]/EMERGENTY AFTER-HOURS PROCEDURE CT Abdomen and Pelvis With Contrast EXAM DATE/TIME: 08/26/2018 2:35 AM CLINICAL HISTORY: 78 years old, male; Pain; Abdominal pain; Generalized; Prior surgery; Patient HX: Er 10; M78 presents to ed for fall/ams. PT complains of dysuria, hematuria, urinary frequency. PT also complains of abdo butch pain (generalized). Surgical history of cholecystectomy, surgical history of appendectomy TECHNIQUE: Axial computed tomography images of the abdomen and pelvis with intravenous contrast. Coronal reforma tted images were created and reviewed. COMPARISON: No relevant prior studies available. FINDINGS: Lower thorax: Mild posterior dependent atelectasis. ABDOMEN: Liver: Normal. Gallbladder and bile ducts: Gallbladder is surgically absent. Pancreas: Normal. Spleen: Normal. Adrenals: Normal. Kidneys and ureters: Bilateral simple renal cysts. Nonobstructive right nephrolithiasis. Stomach and bowel: Normal. Appendix: Appendix is surgically absent. PELVIS: Bladder: Moderate urinary bladder distention. Reproductive: Prostate gland is enlarged, measuring approximately 4.8 cm in AP diameter. ABDOMEN and PELVIS: Intraperitoneal space: Normal. No free air. No significant fluid collection. Bones/joints: Changes of prior sternotomy. Soft tissues: Small fat containing umbilical hernia. Vasculature: Atherosclerotic disease of the visualized distal thoracic aorta. Atherosclerotic disease of the abdominal aorta and iliac arteries, with 3 cm saccular infrarenal abdominal aortic aneurysm, without leakage or rupture. Lymph nodes: Normal. No enlarged lymph nodes. IMPRESSION: No acute abdominal or pelvic abnormality. Thank you for allowing us to participate in the care of your patient. Dictated and Authenticated by: Ru Williamson MD 08/26/2018 2:50 AM Central Time ([place] & [place]) FINAL REPORT CT ABDOMEN AND PELVIS WITH CONTRAST: Date: 08/26/18 HISTORY: Diverticulitis. COMPARISON: CT abdomen and pelvis from 2016. FINDINGS/IMPRESSION: Findings and impression are concordant with the preliminary report by Kaleb. 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 POS: [facility]
--- NOTE | 2018-08-26 09:12 | CT ---
PRELIMINARY REPORT/[facility]/EMERGENTY AFTER-HOURS PROCEDURE CT Head Without Contrast EXAM DATE/TIME: 08/26/2018 1:36 AM CLINICAL HISTORY: 78 years old, male; Signs and symptoms; Altered mental status/memory loss; Patient HX: Er 10; PT with transient episodes of confusion x 2 months. Worse tonight than usual. Fall yesterday, hit head, no l oc. TECHNIQUE: Axial computed tomography images of the head/brain without contrast. COMPARISON: No relevant prior studies available. FINDINGS: Brain: Scattered areas of hypoattenuation, likely chronic small vessel ischemic change, demyelination , or gliosis. Areas of encephalomalacia within the occipital lobes bilaterally as well as the bilater al cerebellum. Old lacunar infarctions within the basal ganglia bilaterally. No mass, hemorrhage, or acute infarction. Ventricles: Normal. Bones/joints: Normal. Sinuses: Normal as visualized. Mastoid air cells: Normal as visualized. Soft tissues: Unremarkable. Vasculature: Atherosclerotic vascular calcifications. IMPRESSION: No acute intracranial abnormality. Thank you for allowing us to participate in the care of your patient. Dictated and Authenticated by: Ru Williamson MD 08/26/2018 2:46 AM Central Time ([place] & [place]) FINAL REPORT CT BRAIN WITHOUT CONTRAST: I agree with the preliminary report given by Dr. Ru Williamson of [facility]. No significant interval change is seen since exam of 02-01-18. POS: OFF
[2018-08-26] MEDS ORDERED: ISOVUE-370 76%-LOCM 1 ML ONE (11:23)
--- NOTE | 2018-08-30 09:27 | EKG ---
Test Reason : AMS Blood Pressure : / mmHG Vent. Rate : 076 BPM Atrial Rate : 076 BPM P-R Int : 176 ms QRS Dur : 152 ms QT Int : 424 ms P-R-T Axes : 033 -86 017 degrees QTc Int : 477 ms Normal sinus rhythm Left axis deviation Right bundle branch block Abnormal ECG Confirmed by NU MARQUEZ ([id number]), newspaper or periodical editor HECTOR MCCORMICK ([id number]) on 08/30/2018 9:27:04 AM Referred By: Confirmed By:NU MARQUEZ
== END 2018-08-26 04:10 | disposition home or self-care (01) ==
LOC: ERS 00:27
DX: J18.9 Pneumonia, unspecified organism (principal); I25.10 Atherosclerotic heart disease of native coronary artery without angina pectoris; E78.5 Hyperlipidemia, unspecified; M10.9 Gout, unspecified; I12.0 Hypertensive chronic kidney disease with stage 5 chronic kidney disease or end stage renal disease; N18.6 End stage renal disease; I25.2 Old myocardial infarction; Z87.891 Personal history of nicotine dependence; Z79.82 Long term (current) use of aspirin; Z79.891 Long term (current) use of opiate analgesic; Z79.899 Other long term (current) drug therapy; W19.XXXA Unspecified fall, initial encounter
CPT/HCPCS: 36415; 70450; 71045; 74177; 80053; 81003; 81015; 82140; 83605; 83880; 84484; 85025; 87040; 87086; 87804; 93005; 96361; 96365; J0696; Q9966

== ENCOUNTER 2019-04-04 22:30 | Inpatient (IN) | payer MEDICARE ==
[~2019-04-04 22:30] MED LIST: ISOVUE-370 76%-LOCM 1 ML ONE
[2019-04-05 00:02] LABS: Anion Gap 18 mmol/L (10-20); BUN (Urea Nitrogen) 29 mg/dL (8.4-25.7); Calc. Creatinine Clearance 0 mL/min (70-130); Calcium 9.2 mg/dL (7.8-10.44); Carbon Dioxide 18 mmol/L (23-31); Chloride 90 mmol/L (98-107); Estimated GFR-MDRD 36; Glucose 138 mg/dL (83-110); Potassium 4.1 mmol/L (3.5-5.1); Sodium 122 mmol/L (136-145)
[2019-04-05] MEDS ORDERED: Acetaminophen 650 MG/20.3 ML UDCUP PO PRN (01:47)
[2019-04-05] MEDS ORDERED: Bisacodyl 5 MG TAB PO PRN (01:47)
[2019-04-05] MEDS ORDERED: CCU Electrolyte Replacement 1 EACH IVPB ONE (01:47)
[2019-04-05] MEDS ORDERED: Insulin Regular 300 UNITS/3 ML VIAL SC PRN (01:47)
[2019-04-05] MEDS ORDERED: PHOS-NAK 1 PKT PACK PO PRN ×2 (01:49)
[2019-04-05] MEDS ORDERED: Potassium Chloride 20 MEQ TAB PO PRN (01:49)
[2019-04-05] MEDS ORDERED: Magnesium 2 GM/50 ML 2 GM in Premix Bag 1 BAG IVPB PRN (01:49)
[2019-04-05] MEDS ORDERED: Magnesium Oxide 400 MG TAB PO PRN ×2 (01:49)
[2019-04-05] MEDS ORDERED: Potassium Phosphate 12 MMOL in Sodium Chloride 0.9% 250 ML 250 ML IV PRN (01:49)
[2019-04-05] MEDS ORDERED: Potassium Chloride 40 MEQ in Premix Bag 1 BAG IVPB PRN (01:49)
[2019-04-05] MEDS ORDERED: Potassium Phosphate 9 MMOL in Sodium Chloride 0.9% 100 ML IVPB PRN (01:49)
[2019-04-05] MEDS ORDERED: Potassium Phosphate 15 MMOL in Sodium Chloride 0.9% 250 ML 250 ML IV PRN (01:49)
[2019-04-05] MEDS ORDERED: Potassium Chloride 40 MEQ in Sodium Chloride 0.9% 250 ML 250 ML IVPB PRN (01:49)
[2019-04-05] MEDS ORDERED: CCU ELECTROLYTE REPLACEMENT PROTOCOL FS PRN (01:49)
[2019-04-05] MEDS ORDERED: Sodium Chloride 3% 100 ML IVPB SCH ×2 (02:30→03:00)
[2019-04-05] MEDS ORDERED: cefTRIAXone\\ROCEPHIN 2 GM in Sodium Chloride 0.9% 100 ML IVPB SCH (03:00)
[2019-04-05] MEDS ORDERED: Vancomycin HCl 1.5 GM in Sodium Chloride 0.9% 250 ML 300 ML IVPB SCH (03:00)
[2019-04-05] MEDS: cefTRIAXone\\ROCEPHIN 2 GM in Sodium Chloride 0.9% 100 ML IVPB SCH ×2 (03:20→15:51)
--- NOTE | 2019-04-05 04:18 | HP ---
CHIEF COMPLAINT: Altered mental status. HISTORY OF PRESENT ILLNESS: The patient is an 79-year-old male, who initially presented to [facility] with slurred speech and change in mental status. According to the patient's , the patient has been feeling well and has not been having any issues. However, today, they went to a school reunion, had some [place] food, came home, felt tired, so and took a nap and around 45 minutes later, when the woke up, he was slurring and appeared very confused than what he was before going into his nap. At this time, the patient was brought into the [facility] ER and given his symptoms of slurred speech and based on his NIH score, he was given tPA. The patient was then also found to have a sodium of 124. Per the notes, there was communication between the [facility] physician, and Neurosurgery was on-call for intervention at that time. They decided to transfer the patient over to our facility for further evaluation. The patient continues to be completely altered. We went ahead and did a CTA and at this time also the on-call intervention Neurosurgery reviewed the scans and stated no intervention. The patient's labs were checked and noted to have worsening sodium of 122 from the baseline of 124. At this time, Nephrology was consulted in regard to possibly starting the patient on 3% given his change in mental status. PAST MEDICAL HISTORY: The patient has a history of CVAs; however, has never received tPA. He has significant history of gout. He has macular degeneration, BPH, chronic kidney disease stage 3, dyslipidemia, CAD, hypertension, and diabetes. PAST SURGICAL HISTORY: He has had skin cancer excisions and CABG. ALLERGIES: HE IS ALLERGIC TO STATINS. FAMILY HISTORY: Chronic kidney disease and macular degeneration. MEDICATIONS: Currently, the family does not have his medications list. SOCIAL HISTORY: There is no history of smoking, alcohol, or drug use per family. However, the family states that he does have a living will, which states he is a DNR. However, at this time, they wanted to see how he does for 24 hours, keep him as a full code for now. REVIEW OF SYSTEMS: Unable to obtain. PHYSICAL EXAMINATION: VITAL SIGNS: Are as of the following; his temperature is 98.8, his heart rate is 99, his blood pressure is 180/70, respirations are 18. GENERAL: He is awake. He is nonresponsive. Earlier, he was saying words such as "I am sorry"; however, upon my evaluation, he is nonverbal. HEENT: Pupils are equal and reactive to light. CV: S1 and S2 present. No murmurs, rubs, or gallops. LUNGS: Clear to auscultation. No rhonchi or wheezes noted. ABDOMEN: Soft and nontender. Bowel sounds are present x2. EXTREMITIES: No edema. Pedal pulses are present x2. NEUROLOGIC: The patient is able to move all 4 extremities. However, mentally he is unable to verbalize anything or follow commands. He has very nonpurposeful movements. SKIN: He has significant bruising into bilateral upper extremities. LABORATORY RESULTS: WBCs of 8.5, hemoglobin of 12.04, hematocrit of 35.0, platelets of 241. Chemistry; sodium of initially 124, now at 122, potassium of 4.1, BUN of 29, creatinine of 1.83. His bicarb is 18. Urine collection is still pending. DIAGNOSTIC STUDIES: He did have a chest x-ray and a CT brain. The official reads are not yet available. The CT head initially was negative and the CTA did not show any acute thrombus. ASSESSMENT AND PLAN: The patient is a very unfortunate 79-year-old male, who presents to the hospital initially with slurred speech. 1. Acute metabolic encephalopathy. The patient is completely altered at this time, unknown etiology. This happened very abruptly. He has not been feeling unwell for the past week. There is no new addition of any medications. There was no travel, nothing that could explain his current presentation. I did ask the family who was at the bedside. I had extensive detailed conversations and they stated that he has been doing well; however, today after his nap, he just was very very altered, and was slurring. Stroke is definitely a possibility. We will get an MRI brain, CTA was negative. CT brain was negative; however, given the patient's symptoms, he was given tPA at [facility]. We will do an MRI brain. We will consult Neurosurgery. Infectious etiology is also a possibility; however, the patient has had no fevers and also the patient has no leukocytosis. However, I will just prophylactically give him some antibiotics to cover for possible meningitis. I am unable to do any additional testing given his recent tPA. I have explained to the family that my testing are limited given the fact that he received tPA. 2. Hyponatremia. This could also be contributing to his acute metabolic encephalopathy. His baseline is around 135 to 130. His current one was 122. This definitely could be causing his change in mentation; however, so abruptly is unlikely. I have spoken with the Nephrology and has started the patient on 3%, which he will get; however, again we radio station engineer the dilemma of rechecking his BMP given the fact that he recently received tPA. I have conveyed this to the patient's family. 3. Chronic kidney disease. We will continue to monitor. 4. Mild acidosis. He is probably hyperventilating. However, in this case, again, I cannot get an ABG given his recent tPA use. We will put him on some nasal cannula and Pulmonology has been consulted. 5. Deep venous thrombosis prophylaxis. The patient recently got tPA. Unable to do so. The patient's overall prognosis is very guarded. I have talked with the family, they stated that he does have a living will that states that he is a DNAR. However, they would like to monitor the patient for the next 24 hours and see if his outcomes or his mental status changes. Job ID: [id number]
[2019-04-05 05:42] LABS: Bacteria/HPF None Seen HPF (None Seen); Bilirubin Negative (Negative); Blood, Urine 2+ (Negative); Clarity Clear (Clear); Glucose, Urine (Dipstick) Normal (Negative); Leukocyte Negative Leu/uL (Negative); Nitrite Negative (Negative); Protein, Urine (Dipstick) 100 mg/dL (Neg-Trace); Squamous Epithelial None Seen HPF (0-3); Urobilinogen Normal mg/dL (Less than 2); WBC/HPF 0-3 HPF (0-3)
[2019-04-05 05:45] LABS: Urine Culture Reflex No No
[2019-04-05] MEDS: Ampicillin 2 GM in Sodium Chloride 0.9% 100 ML IVPB SCH ×3 (06:24→17:37)
[2019-04-05 07:10] LABS: Anion Gap 17 mmol/L (10-20); BUN (Urea Nitrogen) 37 mg/dL (8.4-25.7); Calc. Creatinine Clearance 29 mL/min (70-130); Calcium 8.5 mg/dL (7.8-10.44); Carbon Dioxide 15 mmol/L (23-31); Chloride 96 mmol/L (98-107); Estimated GFR-MDRD 31; Glucose 186 mg/dL (83-110); Potassium 5.3 mmol/L (3.5-5.1); Sodium 123 mmol/L (136-145)
[2019-04-05] MEDS: Acyclovir Sodium 1,000 MG in Sodium Chloride 0.9% 250 ML 250 ML IVPB SCH ×3 (07:23→22:46)
[2019-04-05] MEDS ORDERED: Admixture Fee 1 EACH in Sodium Chloride 3% 100 ML FS SCH (08:45)
[2019-04-05] MEDS ORDERED: FLU VACC TS2019-20(65YR UP)/PF 180 MCG/0.5 ML SYRINGE IM ONE (09:00)
--- NOTE | 2019-04-05 09:31 | RAD ---
RADIOGRAPH CHEST 1 VIEW: DATE: 04/05/2019 HISTORY: 79-year-old male with altered mental status. Concern for aspiration. FINDINGS: There are no airspace densities, pulmonary edema, pneumothorax, or cardiomegaly. The lateral costophr enic angles are sharp. Mild chronic changes at left base. Sternotomy wires. No interval change compared to 08/25/2018. IMPRESSION: 1. No acute cardiopulmonary findings. 2. Previous open-heart surgery.
--- NOTE | 2019-04-05 09:49 | CT ---
PRELIMINARY REPORT/[facility]/EMERGENCY AFTER HOURS PROCEDURE: PROCEDURE INFORMATION: Exam: CT Angiography Head Without And With Contrast Exam date and time: 04/05/2019 12:49 AM Clinical history: 79 years old, male; Other: AMS; Patient HX: Er 4. M79 presents to the ED from [facility] ED for evaluation of CVA. Per the pt's medical record tpa was administered at [facility]. Pt's w akhil reports he woke up from a nap at approximately 1730 today and was confused. reports he has h ad several previous strokes but has never received tpa before. reports he takes a baby asa daily but denies taking any other blood thinners. ; Additional info: *pt combative for scan, constantly mo ving TECHNIQUE: Imaging protocol: Computed tomographic angiography of the head without and with intravenous contrast. 3D rendering: MIP reconstructed images were created and reviewed. COMPARISON: No relevant prior studies available. FINDINGS: Right internal carotid artery: Unremarkable. Intracranial segment is patent with no significant steno sis. No aneurysm. Right anterior cerebral artery: Unremarkable. No occlusion or significant stenosis. No aneurysm. Right middle cerebral artery: Unremarkable. No occlusion or significant stenosis. No aneurysm. Right posterior cerebral artery: Unremarkable. No occlusion or significant stenosis. No aneurysm. Right vertebral artery: Unremarkable. No occlusion or significant stenosis. No aneurysm. Left internal carotid artery: Unremarkable. Intracranial segment is patent with no significant stenos is. No aneurysm. Left anterior cerebral artery: Unremarkable. No occlusion or significant stenosis. No aneurysm. Left middle cerebral artery: Unremarkable. No occlusion or significant stenosis. No aneurysm. Left posterior cerebral artery: Unremarkable. No occlusion or significant stenosis. No aneurysm. Left vertebral artery: Unremarkable. No occlusion or significant stenosis. No aneurysm. Basilar artery: Unremarkable. No occlusion or significant stenosis. No aneurysm. HEAD: Brain: Old infarcts seen in the bilateral cerebellum, bilateral occipital lobes and bilateral basal ganglia. Ventricles: Normal. No ventriculomegaly. Bones/joints: Unremarkable. No acute fracture. Sinuses: Visualized sinuses are normal. No fluid levels. Mastoid air cells: Visualized mastoids are normal. No mastoid effusion. Soft tissues: Unremarkable. IMPRESSION: Multiple old infarcts. No acute findings. FINDINGS: VASCULATURE: Right common carotid artery: Unremarkable. No stenosis. No dissection or occlusion. Right internal carotid artery: Unremarkable extracranial segment. No stenosis. No dissection or occlusion. Right external carotid artery: Unremarkable. No occlusion or stenosis of the origin. Right vertebral artery: Unremarkable. No stenosis. No dissection or occlusion. Left common carotid artery: Unremarkable. No stenosis. No dissection or occlusion. Left internal carotid artery: Unremarkable extracranial segment. No stenosis. No dissection or occlusion. Left external carotid artery: Unremarkable. No occlusion or stenosis of the origin. Left vertebral artery: Unremarkable. No stenosis. No dissection or occlusion. Subclavian arteries: There is an aberrant right subclavian artery. No stenosis. NECK: Bones/joints: Multilevel advanced facet arthropathy. Soft tissues: Normal. No significant soft tissue swelling. IMPRESSION: No evidence of hemodynamically significant carotid stenosis based on NASCET imaging crite maria fernanda. COMMENT: Reference per NASCET criteria for degree of stenosis: Mild: less than 50% stenosis. Moderate: 50- 69% stenosis. Severe: 70-94% stenosis. Near occlusion: 95-99% stenosis. Thank you for allowing us to participate in the care of your patient. Dictated and Authenticated by: Annelise Canseco MD 04/05/2019 1:31 AM Central Time ([place] & [place]) FINAL REPORT CTA HEAD AND NECK WITH AND WITHOUT CONTRAST: Axial tomograms obtianed through the head iwthout contrast. CTA of head and neck performed with mult iplanar reconstructions and 3D postprocessing. No significant stenosis or occlusion identified. Noncontrast CT head shows old infarcts and ischemic change. I am in agreement with the preliminary report.
--- NOTE | 2019-04-05 09:49 | CON ---
DATE OF CONSULTATION: 04/05/2019 CONSULTING PHYSICIAN: Rosamaria Garcia MD REASON FOR CONSULTATION: Hyponatremia. REASON FOR ADMISSION: Altered mentation. HISTORY OF PRESENT ILLNESS: This is an 79-year-old male with history of CVAs, macular degeneration, CKD, hyperlipidemia, and hypertension, came to the hospital with altered mentation. The patient was doing well and apparently went to eat out and came back to have a nap and woke up with slurred speech and confusion and was brought to the hospital, was found to have sodium of 122, outside. There was also concern for stroke and he was given tPA and he was also started on IV fluids. Repeat sodium dropped to 122 from 124 and I was consulted. The patient remains confused, not able to give a good history. No family members are available. PAST MEDICAL HISTORY: Positive for CVA, BPH, CKD, hyperlipidemia, hypertension, and diabetes. PAST SURGICAL HISTORY: Skin cancer removal and CABG. HOME MEDICATIONS: 1. Uloric. 2. Flomax. 3. Lovaza. 4. Imdur. 5. Carvedilol. 6. Aspirin. ALLERGIES: TO STATIN. SOCIAL HISTORY: No smoking, alcohol, or illicit drug abuse. FAMILY HISTORY: No history of any kidney disease. REVIEW OF SYSTEMS: Could not be obtained due to altered mentation. PHYSICAL EXAMINATION: GENERAL: Reveals a well-built male, in mild distress. VITAL SIGNS: Temperature 101.5, pulse 91, respiratory rate 20, and blood pressure 160/61. HEENT: Atraumatic. NECK: Supple. CARDIOVASCULAR: S1 and S2 heard. RESPIRATORY: Clear. GASTROINTESTINAL: Abdomen is soft. MUSCULOSKELETAL: No edema. DERMATOLOGIC: No skin rash. NEUROLOGICAL: Confusion, altered mentation. LABORATORY DATA: Sodium is 123, potassium 5.3, BUN is 37, and creatinine is 2.1. ASSESSMENT AND PLAN: 1. Acute kidney injury. We will monitor for now. Avoid nephrotoxins. 2. Hyponatremia. Plan is to give 3% saline, but we were not able to have frequent monitoring of sodium due to his tPA and cannot have lab sticks for next 24 hours, which complicates the case. 3. Recent tPA use, which complicate his case. 4. Hypochloremia. 5. Acidosis. 6. Elevated BUN. 7. Altered mentation. 8. 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 We will check urine studies and we will follow. 9. Hyperkalemia. Limit potassium intake, most likely from hemolysis. Job ID: [id number]
--- NOTE | 2019-04-05 09:58 | CON ---
DATE OF CONSULTATION: HISTORY OF PRESENT ILLNESS: Inocencio Ureña, who was brought in yesterday from [facility] after he presented there with altered mental status. Somewhere down the line, he was given tPA after his CT head and his CT angio did not show apparently any evidence of ongoing obvious hemorrhage. , who brought him to the ER in [facility] states he was getting more confused, though I reviewed several of his medical records in the hospital, he had confusion before. He has had several CAT scans in the past, which had been negative. His blood pressure was 177/100 in the ER and saturations are 98% on room air and respiratory rate 18. Unable to give any verbal communication. He was given tPA and bolus and transferred here. Apparently, according to his , he has had multiple strokes in the past. Never had tPA. He takes aspirin every day. PAST MEDICAL HISTORY: His past medical history is outlined pertinent for chronic renal failure, CVA, arthritis, probably dementia, visual problems, and degeneration. PAST SURGICAL HISTORY: Previous surgeries; gallbladder, multiple stents, appendix, bypass surgery, and tonsillectomy. SOCIAL HISTORY: No alcohol or tobacco abuse. MEDICATIONS: His list of medicine from home includes; 1. Aspirin. 2. Coreg 3.125. 3. ISMO 60. 4. Amlodipine 5. 5. Flomax. 6. Ambien. 7. Uloric. ALLERGIES: STATINS APPARENTLY. PHYSICAL EXAMINATION: GENERAL: He is lying on his left side. He has some blood dripping out of his mouth. Unresponsive. He is stiff. VITAL SIGNS: Temperature is 101.5, blood pressure 162/65, respirations 18, and pulse 80. CHEST: No wheezing or crackles. CARDIAC: Normal S1 and S2. No gallops. ABDOMEN: No masses. LABORATORY DATA: White count 8000, H and H 12 and 35, and platelet count is 241. Sodium is 124 and BUN and creatinine at 37 and 2.1. Urine is negative. He had some mar cultures done. ASSESSMENT AND PLAN: Metabolic encephalopathy, status post tPA for presumed stroke. Febrile illness, admitting doctor has started on multiple antibiotics for possibly meningitis, though he is unable to have LP done because of his recent tPA. Chronic renal failure, previous cerebrovascular accident and previous coronary artery disease. No tobacco abuse. At this stage, comfort care. I agree with trying to get a lumbar puncture. Though, I doubt this is meningitis. He has always had history of confusion, which is getting worse, probably he has evidence of worsening dementia. His CSF shows pleocytosis. Consider Infectious Disease. Pulmonary/Critical Care will follow while in the ICU. We will discuss with family as they arrive. A 70 minutes consultation, 50 minutes direct patient care. Job ID: [id number]
--- NOTE | 2019-04-05 11:32 | PDOC.HOSPP ---
- Subjective Encounter Date: 04/05/19 Encounter Time: 11:30 Subjective: Mr. Ureña was seen today in follow-up of encephalopathy, and acute CVA. He is awake but does not follow commands. He is a bit fidgety. - Objective Vital Signs & Weight: Vital Signs (12 hours) Temp Pulse Resp Pulse Ox 04/05/19 11:00 99.0 F 04/05/19 07:00 101.5 F H 04/05/19 06:00 100.5 F H 04/05/19 05:00 102.2 F H 04/05/19 04:00 94 L 04/05/19 03:09 95 04/05/19 02:50 102.1 F H 100 22 H 94 L 04/05/19 01:47 95 Weight Weight 162 lb 0.636 oz Most Recent Monitor Data Heart Rate from ECG 92 NIBP 128/78 NIBP BP-Mean 94 Respiration from ECG 19 SpO2 95 I&O: 04/04/19 04/05/19 04/06/19 06:59 06:59 06:59 Intake Total 433.5 Output Total 125 280 Balance 308.5 -280 Result Diagrams: 04/05/19 06:45 Hospitalist ROS - Medication Medications: Active Medications Generic Name Dose Route Start Last Admin Trade Name Freq PRN Reason Stop Dose Admin Ceftriaxone Sodium 2 gm/ 100 mls @ 200 mls/hr 04/05/19 03:00 04/05/19 03:20 Sodium Chloride IVPB 100 mls 0300,1500 ERASTO Administration Acyclovir Sodium 1,000 mg/ 270 mls @ 269.925 mls/hr 04/05/19 07:00 04/05/19 07:23 Sodium Chloride IVPB 270 mls 0700,1500,2300 ERASTO Administration Ampicillin Sodium 2 gm/ Sodium 100 mls @ 200 mls/hr 04/05/19 06:00 04/05/19 06:24 Chloride IVPB 100 mls Q6HR ERASTO Administration Miscellaneous Medication 1 100 mls @ 25 mls/hr 04/05/19 08:45 04/05/19 09:39 each/ Sodium Chloride FS 04/05/19 12:44 100 mls .Q4H ERASTO Administration Sodium Chloride 10 ml 04/05/19 09:00 04/05/19 10:28 Flush - Normal Saline IVF Not Given Q12HR ERASTO - Exam Eye: PERRL, anicteric sclera Heart: RRR, no murmur, no gallops, no rubs, normal peripheral pulses Respiratory: CTAB, no wheezes, no rales, no ronchi, normal chest expansion Gastrointestinal: soft, non-tender, non-distended, normal bowel sounds Extremities: 1+ LE edema (bruising in both upper extremities, and edema in both upper extremities) Neurological: no weakness, speech deficit (aphasic) Psychiatric: not oriented Hosp A/P (1) Acute CVA (cerebrovascular accident) Code(s): I63.9 - CEREBRAL INFARCTION, UNSPECIFIED Status: Acute (2) CKD (chronic kidney disease), stage III Code(s): N18.3 - CHRONIC KIDNEY DISEASE, STAGE 3 (MODERATE) Status: Chronic (3) Dyslipidemia Code(s): E78.5 - HYPERLIPIDEMIA, UNSPECIFIED Status: Chronic (4) HTN (hypertension) Code(s): I10 - ESSENTIAL (PRIMARY) HYPERTENSION Status: Chronic (5) Hyponatremia Code(s): E87.1 - HYPO-OSMOLALITY AND HYPONATREMIA Status: Acute - Plan * Acute CVA s/p TPA- he has not demonstrated any clinical evidence of neurological decline * Due to agitation and recent TPA ( fear for head injury) may need to postpone the MRI until tomorrow * Fever and Encephalopathy- he is on antibiotic coverage to Meningitis- will consult ID * HTN- blood pressure is beginning to stabilize * DM- continue SSI * Hyponatremia- work-up is in progress- Nephrology managing- he is currently on hypertonic saline infusion * Chronic kidney disease- will monitor
--- NOTE | 2019-04-05 11:50 | CON ---
DATE OF TELEMEDICINE CONSULTATION: 04-05-19 CHIEF COMPLAINT: Acute stroke. HISTORY OF PRESENT ILLNESS: Most of the history was obtained from the chart and the patient is completely unresponsive to give us any medical history. Per chart, the patient went to [facility] ED for evaluation of CVA and he became agitated. He received IV tPA, where he had an advanced scoring of NIH Stroke Scale and the ED physician contacted Dr. Horton and the patient was not considered an interventional candidate at that time and he was given IV tPA. The patient currently is resting, has been in the CCU since admission and the patient was unable to get CT angiogram and he also had hyponatremia and CT angiogram here did not show any thrombus and therefore not a candidate for interventional procedure. The patient has some skin bleeding since administration of tPA per nursing staff. PREVIOUS MEDICAL HISTORY: As per chart is positive for CVA, benign prostatic hypertrophy, chronic kidney disease, hyperlipidemia, hypertension, diabetes, and macular degeneration. PAST SURGICAL HISTORY: Skin cancer removal and coronary artery bypass graft. MEDICATIONS: He is on at home; 1. Uloric. 2. Flomax. 3. Lovaza. 4. Imdur. 5. Carvedilol. 6. Aspirin. ALLERGIES: HE IS ALLERGIC TO STATIN. SOCIAL HISTORY: Nonsmoker. No alcohol. Lives with his . FAMILY HISTORY: Negative for any stroke per chart. REVIEW OF SYSTEMS: Unable to obtain due to his mental status. PHYSICAL EXAMINATION: VITAL SIGNS: Blood pressure 136/77, temperature 99, and heart rate 92. GENERAL: There was just limited examination due to patient's lack of awareness of his surroundings. He had significant bruising and bleeding from his arms due to thinning of skin and the patient is turned to the right side and sleeping, curled up, refuses to move and he is also unable to cooperate. CHEST: Clear. CARDIOVASCULAR: S1 and S2 heard. NEUROLOGICAL: Limited neurological examination due to mental status. Higher intellectual functions. He is not oriented. He is unable to follow any commands. He is not interactive at all and curls up and sleeps. It is difficult to work with him due to lack of interaction with surroundings. He does have spontaneous movement bilaterally in upper and lower extremities, right side moves more than the left. DTRs are also difficult to assess due to flexed positioning of the patient. LABORATORY DATA: White count 8.5, hemoglobin 12.4, hematocrit 35, and platelet count 241. ESR 62. Chemistry; sodium 123, potassium 5.3, chloride 96, bicarb 15, BUN 37, creatinine 2.10, and glucose 186. TSH is 0.86. Urinalysis is negative. Urine tox screen was not tested at this time. IMAGING DATA: The patient's CT upper [place] was performed yesterday on 04/04/2019. Findings show no stenosis in the arterial circulation, no occlusion was detected. IMPRESSION AND PLAN: The patient is an 79-year-old man with acute stroke. CT angiogram is negative. He is pending MRI, but stays curled up to the right. It is difficult to interact with the patient and also position him per nurses. His examination shows poor mental status and he is somewhat obtunded. He has bleeding from his arms, likely secondary to tPA. At this time, he is hyponatremic and hyponatremia is likely contributing to his mental status. At this time, it is difficult to assess the degree of weakness from the CVA. I will request Dr. Ortez again to come back and see him tomorrow. Treatment recommendations, please follow an acute CVA IV tPA protocol. He also needs full stroke workup including echocardiogram. I am hoping once his sodium levels are normalized, he will have improvement in his mental status. Job ID: [id number] [facility]
[2019-04-05] MEDS: Sodium Chloride 0.9% 1,000 ML IV SCH ×2 (14:06→18:34)
[2019-04-05] MEDS ORDERED: Pantoprazole 40 MG VIAL IVP SCH (21:45)
[2019-04-05 22:50] LABS: INR-International Normal Ratio 1.2
[2019-04-05 23:08] LABS: ALT (SGPT) 55 U/L (8-55); AST (SGOT) 138 U/L (5-34); Albumin 3.5 g/dL (3.4-4.8); Alkaline Phosphatase 70 U/L (40-110); Anion Gap 14 mmol/L (10-20); BUN (Urea Nitrogen) 45 mg/dL (8.4-25.7); Bilirubin, Total 0.5 mg/dL (0.2-1.2); Calc. Creatinine Clearance 24 mL/min (70-130); Calcium 8.5 mg/dL (7.8-10.44); Carbon Dioxide 19 mmol/L (23-31); Chloride 97 mmol/L (98-107); Estimated GFR-MDRD 25; Globulin 2.3 g/dL (2.4-3.5); Glucose 146 mg/dL (83-110); Protein, Total 5.8 g/dL (5.8-8.1); Sodium 126 mmol/L (136-145)
[2019-04-05 23:12] LABS: Band 8 % (5-11); Hemoglobin 15.2 g/dL (14.0-18.0); Lymphocytes 3 % (21-51); MDiff Complete? YES; Mean Corpuscular HGB CONC 35.5 g/dL (32.0-36.0); Mean Corpuscular Hemoglobin 31.4 pg (27.0-31.0); Mean Corpuscular Volume 88.5 fL (78.0-98.0); Mean Platelet Volume 7.1 fL (7.4-10.4); Monocytes 4 % (0-10); Neutrophil 85 % (42-75); Platelet Count 201 thou/uL (130-400); Platelet Morphology Comment Appears Adequate; RBC Distribution Width 13.3 % (11.5-14.5); RBC Morphology Normal; Red Blood Cell (RBC) Count 4.85 mill/uL (4.70-6.10)
[2019-04-06] MEDS: Ampicillin 2 GM in Sodium Chloride 0.9% 100 ML IVPB SCH ×4 (00:54→19:22)
[2019-04-06] MEDS: cefTRIAXone\\ROCEPHIN 2 GM in Sodium Chloride 0.9% 100 ML IVPB SCH ×2 (03:23→15:49)
[2019-04-06] MEDS: Vancomycin HCl 1 GM in Premix Bag 1 BAG IVPB SCH (04:28)
[2019-04-06 06:10] LABS: ALT (SGPT) 56 U/L (8-55); AST (SGOT) 137 U/L (5-34); Albumin 3.4 g/dL (3.4-4.8); Alkaline Phosphatase 74 U/L (40-110); Anion Gap 20 mmol/L (10-20); BUN (Urea Nitrogen) 46 mg/dL (8.4-25.7); Bilirubin, Total 0.4 mg/dL (0.2-1.2); Calc. Creatinine Clearance 24 mL/min (70-130); Calcium 8.1 mg/dL (7.8-10.44); Carbon Dioxide 12 mmol/L (23-31); Chloride 99 mmol/L (98-107); Estimated GFR-MDRD 24; Globulin 2.4 g/dL (2.4-3.5); Glucose 166 mg/dL (83-110); Potassium 4.5 mmol/L (3.5-5.1); Protein, Total 5.8 g/dL (5.8-8.1); Sodium 126 mmol/L (136-145)
[2019-04-06 06:21] LABS: Hemoglobin 15.4 g/dL (14.0-18.0)
[2019-04-06 06:25] LABS: INR-International Normal Ratio 1.1; Prothrombin Time 14.5 SEC (12.0-14.7)
[2019-04-06 09:03] LABS: #Basophils 0.1 thou/uL (0.0-0.2); #Eosinphils 0.1 thou/uL (0.0-0.7); #Lymphocytes 0.7 thou/uL (1.20-3.40); #Monocytes 1.8 thou/uL (0.11-0.59); #Neutrophils 21.2 thou/uL (1.40-6.50); %Basophils 0.3 % (0.0-1.0); %Eosinophils 0.4 % (0.0-10.0); %Lymphocytes 3.1 % (21.0-51.0); %Monocytes 7.6 % (0.0-10.0); %Neutrophils 88.7 % (42.0-75.0); Hemoglobin 14.6 g/dL (14.0-18.0); Mean Corpuscular HGB CONC 34.9 g/dL (32.0-36.0); Mean Corpuscular Hemoglobin 31.1 pg (27.0-31.0); Mean Corpuscular Volume 89.2 fL (78.0-98.0); Mean Platelet Volume 7.3 fL (7.4-10.4); Platelet Count 188 thou/uL (130-400); RBC Distribution Width 13.2 % (11.5-14.5); White Blood Cell (WBC) Count 23.9 thou/uL (4.8-10.8)
[2019-04-06] MEDS: Acyclovir Sodium 1,000 MG in Sodium Chloride 0.9% 250 ML 250 ML IVPB SCH (09:28)
[2019-04-06] MEDS: Pantoprazole 40 MG VIAL IVP SCH ×2 (09:30→22:03)
--- NOTE | 2019-04-06 09:34 | CT ---
PRELIMINARY REPORT/[facility]/EMERGENCY AFTER HOURS PROCEDURE: PROCEDURE INFORMATION: Exam: CT Head Without Contrast Exam date and time: 04/06/2019 5:58 AM Clinical history: 79 years old, male; Screening exam; Patient HX: S/P tpa TECHNIQUE: Imaging protocol: Computed tomography of the head without contrast. COMPARISON: CTA Angio Head W WO Con 04/05/2019 12:49 AM FINDINGS: Brain: Multifocal areas of encephalomalacia bilateral occipital and cerebellar are not significantly changed. There are multiple small hypodensities in the basal ganglia, consistent with remote lacunar infarctions. No evidence of mass, hemorrhage, or acute infarction. Ventricles: No ventriculomegaly. Bones/joints: No acute fracture. Sinuses: Visualized sinuses are unremarkable. No fluid levels. Mastoid air cells: Visualized mastoid air cells are well aerated. Soft tissues: Unremarkable. IMPRESSION: No acute intracranial abnormality. Thank you for allowing us to participate in the care of your patient. Dictated and Authenticated by: Emmie Vincent MD 04/06/2019 6:19 AM Central Time ([place] & [place]) FINAL REPORT HEAD CT WITHOUT CONTRAST: Date: 04/06/19 COMPARISON: 08/26/18. HISTORY: Status post TPA. FINDINGS: No parenchymal hemorrhage or extra-axial hematoma. No midline shift. Stable encephalomalacia and glio sis and bilateral occipital lobes and bilateral cerebellar hemispheres. IMPRESSION: This report is in agreement with the preliminary report by Kaleb. No acute intracranial process. POS: DAVID
--- NOTE | 2019-04-06 10:13 | PRG ---
DATE OF SERVICE: 04/06/2019 SUBJECTIVE: An 79-year-old gentleman being seen for acute kidney injury. The patient remains confused. OBJECTIVE: See above. On examination, the patient is resting. VITAL SIGNS: Afebrile, pulse 83, breathing 16, blood pressure 138/70. GENERAL APPEARANCE AND MENTAL STATUS: Fair. HEAD/NECK: Normocephalic. Atraumatic. EYES: EOMI. No deformity. EARS: Clear. No ulcers. NOSE: Intact. No lesions. MOUTH: Clear. No discharge. THROAT: Clear. No exudate. LUNGS: Clear. No crackles. CARDIAC: S1, S2. No rub. ABDOMEN: Benign. Bowel sounds positive. GENITALIA/RECTUM: Shipley absent. BACK/EXTREMITIES: Edema 0+. NEUROLOGICAL: The patient has altered mentation. SKIN: LYMPHATICS: LABORATORY DATA: Labs show sodium 126, creatinine 2.5. ASSESSMENT AND PLAN: 1. Acute kidney injury with chronic kidney disease stage 4, multifactorial. 2. Hypertension, stable. 3. Hyponatremia due to renal failure. I would recommend stopping IV fluids if the sodium goes . 4. Medication based on GFR appropriate. 5. History of cerebrovascular accident. Job ID: [id number]
[2019-04-06] MEDS ORDERED: Aspirin 300 MG Suppository PR SCH (11:00)
[2019-04-06] MEDS: hydrALAZINE 20 MG/ML VIAL SLOW IVP PRN ×2 (11:28→16:21)
[2019-04-06 12:36] LABS: Hemoglobin 13.9 g/dL (14.0-18.0)
[2019-04-06 14:56] LABS: T4 6.2 ug/dL (4.87-11.72)
[2019-04-06] MEDS: Sodium Chloride 0.9% 1,000 ML IV SCH (15:46)
--- NOTE | 2019-04-06 17:55 | PDOC.HOSPP ---
- Subjective Encounter Date: 04/06/19 Encounter Time: 11:00 Subjective: Mr. Ureña was seen today in follow-up of metabolic encephalopathy. He is much more alert, and answering some simple questions appropriately. He is following commands. - Objective Vital Signs & Weight: Vital Signs (12 hours) Temp Pulse Resp BP Pulse Ox 04/06/19 17:00 97.4 F L 185/78 H 04/06/19 16:21 90 04/06/19 15:41 90 20 196/117 H 95 04/06/19 14:15 96 F L 04/06/19 12:23 95.7 F L 04/06/19 11:33 76 16 209/100 H 98 04/06/19 11:28 76 04/06/19 07:50 83 16 160/78 H 98 Weight Weight 162 lb 0.636 oz Most Recent Monitor Data Heart Rate from ECG 82 NIBP 118/93 NIBP BP-Mean 101 Respiration from ECG 21 SpO2 95 I&O: 04/05/19 04/06/19 04/07/19 06:59 06:59 06:59 Intake Total 433.5 1209 Output Total 125 183 Balance 308.5 1026 Result Diagrams: 04/06/19 12:28 04/06/19 05:12 Additional Labs: Accuchecks 04/06/19 04/06/19 04/06/19 13:44 12:34 05:49 POC Glucose 198 H 215 H 197 H 04/06/19 00:55 POC Glucose 131 H Hospitalist ROS - Medication Medications: Active Medications Generic Name Dose Route Start Last Admin Trade Name Freq PRN Reason Stop Dose Admin Hydralazine HCl 10 mg 04/06/19 10:41 04/06/19 16:21 Apresoline SLOW IVP 10 mg Q4H PRN Administration SBP Greater Than 170 Ceftriaxone Sodium 2 gm/ 100 mls @ 200 mls/hr 04/05/19 03:00 04/06/19 15:49 Sodium Chloride IVPB 100 mls 0300,1500 ERASTO Administration Vancomycin HCl 1 gm/ Device 200 mls @ 200 mls/hr 04/06/19 04:00 04/06/19 04: 28 IVPB 200 mls Q24HR@0400 ERASTO Administration Ampicillin Sodium 2 gm/ Sodium 100 mls @ 200 mls/hr 04/05/19 06:00 04/06/19 13:53 Chloride IVPB 100 mls Q6HR ERASTO Administration Sodium Chloride 1,000 mls @ 50 mls/hr 04/05/19 14:00 04/06/19 15:46 Normal Saline 0.9% IV Not Given .Q20H ERASTO Acyclovir Sodium 700 mg/ 114 mls @ 113.968 mls/hr 04/06/19 12:00 04/06/19 12: 07 Sodium Chloride IVPB 114 mls 1200,2359 ERASTO Administration Pantoprazole Sodium 40 mg 04/06/19 09:00 04/06/19 09:30 Protonix IVP 40 mg Q12HR ERASTO Administration Sodium Chloride 10 ml 04/05/19 09:00 04/06/19 09:29 Flush - Normal Saline IVF 10 ml Q12HR ERASTO Administration - Exam Eye: PERRL, anicteric sclera Heart: RRR, no murmur, no gallops, no rubs, normal peripheral pulses Respiratory: CTAB, no wheezes, no rales, no ronchi, normal chest expansion, no tachypnea, normal percussion Gastrointestinal: soft, non-tender, non-distended, normal bowel sounds, no palpable masses, no hepatomegaly, no splenomegaly Extremities: no cyanosis, no clubbing, no edema Skin: normal turgor Hosp A/P (1) Acute CVA (cerebrovascular accident) Code(s): I63.9 - CEREBRAL INFARCTION, UNSPECIFIED Status: Acute (2) CKD (chronic kidney disease), stage III Code(s): N18.3 - CHRONIC KIDNEY DISEASE, STAGE 3 (MODERATE) Status: Chronic (3) Dyslipidemia Code(s): E78.5 - HYPERLIPIDEMIA, UNSPECIFIED Status: Chronic (4) HTN (hypertension) Code(s): I10 - ESSENTIAL (PRIMARY) HYPERTENSION Status: Chronic (5) Hyponatremia Code(s): E87.1 - HYPO-OSMOLALITY AND HYPONATREMIA Status: Acute - Plan * Acute CVA s/p TPA- no significant change overnight * Await further recommendations from Neurology * Fever and Encephalopathy- he is on antibiotic coverage to Meningitis- ID has bee consulted * HTN- blood pressure is elevated- will add a catapres patch, and continue PRN medication * DM- continue SSI * Hyponatremia- work-up is in progress- Nephrology managing- he is currently on hypertonic saline infusion * Chronic kidney disease- will monitor
[2019-04-06 18:11] LABS: Hemoglobin 13.4 g/dL (14.0-18.0)
[2019-04-06] MEDS ORDERED: cloNIDine 0.2mg/24 Hour PATCH TD SCH (20:00)
[2019-04-06] MEDS: Dextrose 5 % And 0.9 % NaCl 1,000 ML IV SCH (20:03)
[2019-04-07] MEDS: Ampicillin 2 GM in Sodium Chloride 0.9% 100 ML IVPB SCH ×3 (01:40→12:49)
[2019-04-07] MEDS: cefTRIAXone\\ROCEPHIN 2 GM in Sodium Chloride 0.9% 100 ML IVPB SCH ×3 (02:58→18:52)
[2019-04-07 04:16] LABS: #Eosinphils 0.2 thou/uL (0.0-0.7); #Lymphocytes 0.9 thou/uL (1.20-3.40); #Monocytes 2.4 thou/uL (0.11-0.59); #Neutrophils 15.6 thou/uL (1.40-6.50); %Basophils 0.2 % (0.0-1.0); %Eosinophils 1.2 % (0.0-10.0); %Lymphocytes 4.7 % (21.0-51.0); %Monocytes 12.4 % (0.0-10.0); %Neutrophils 81.5 % (42.0-75.0); Hemoglobin 12.3 g/dL (14.0-18.0); Mean Corpuscular HGB CONC 35.1 g/dL (32.0-36.0); Mean Corpuscular Hemoglobin 31.3 pg (27.0-31.0); Mean Corpuscular Volume 89.1 fL (78.0-98.0); Mean Platelet Volume 7.6 fL (7.4-10.4); Platelet Count 144 thou/uL (130-400); RBC Distribution Width 13.5 % (11.5-14.5); Red Blood Cell (RBC) Count 3.95 mill/uL (4.70-6.10); White Blood Cell (WBC) Count 19.2 thou/uL (4.8-10.8)
[2019-04-07 04:53] LABS: Vancomycin, Trough 21.8 ug/mL
[2019-04-07 04:55] LABS: ALT (SGPT) 45 U/L (8-55); AST (SGOT) 76 U/L (5-34); Alkaline Phosphatase 69 U/L (40-110); Anion Gap 17 mmol/L (10-20); BUN (Urea Nitrogen) 45 mg/dL (8.4-25.7); Bilirubin, Total 0.5 mg/dL (0.2-1.2); Calc. Creatinine Clearance 23 mL/min (70-130); Calcium 8.5 mg/dL (7.8-10.44); Carbon Dioxide 17 mmol/L (23-31); Chloride 104 mmol/L (98-107); Estimated GFR-MDRD 23; Globulin 2.3 g/dL (2.4-3.5); Glucose 109 mg/dL (83-110); Potassium 3.7 mmol/L (3.5-5.1); Protein, Total 5.3 g/dL (5.8-8.1); Sodium 134 mmol/L (136-145)
[2019-04-07] MEDS: Vancomycin HCl 1 GM in Premix Bag 1 BAG IVPB SCH (05:05)
[2019-04-07] MEDS ORDERED: Lorazepam 2 MG/ML VIAL SLOW IVP SCH (08:45)
[2019-04-07] MEDS: Dextrose 5 % And 0.9 % NaCl 1,000 ML IV SCH ×2 (09:34→21:54)
[2019-04-07] MEDS: Pantoprazole 40 MG VIAL IVP SCH ×2 (09:34→21:54)
[2019-04-07] MEDS: Aspirin 300 MG Suppository PR SCH (09:34)
--- NOTE | 2019-04-07 10:24 | PRG ---
DATE OF SERVICE: 04/07/2019 SUBJECTIVE: An 79-year-old gentleman, being seen for acute kidney injury. The patient is confused. OBJECTIVE: CONSTITUTIONAL: The patient is resting. VITAL SIGNS: Afebrile, pulse 83, breathing 16, and blood pressure 159/82. GENERAL APPEARANCE AND MENTAL STATUS: Fair. HEAD/NECK: Normocephalic. Atraumatic. EYES: EOMI. No deformity. EARS: Clear. No ulcers. NOSE: Intact. No lesions. MOUTH: Clear. No discharge. THROAT: Clear. No exudate. LUNGS: Clear. No crackles. CARDIAC: S1, S2. No rub. ABDOMEN: Benign. Bowel sounds positive. GENITALIA/RECTUM: Shipley absent. BACK/EXTREMITIES: Edema 0+. NEUROLOGICAL: The patient is confused. SKIN: LYMPHATICS: LABORATORY DATA: Labs show creatinine 2.6. ASSESSMENT AND PLAN: 1. Acute kidney injury with chronic kidney disease, stage 4. No indication for dialysis. 2. Hypertension, stable. 3. Anemia, stable. 4. Altered mentation. Management per primary team. Job ID: [id number]
[2019-04-07] MEDS ORDERED: Vancomycin HCl 750 MG in Sodium Chloride 0.9% 250 ML 250 ML IVPB SCH ×3 (12:00→18:00)
--- NOTE | 2019-04-07 13:15 | MRI ---
MRI OF BRAIN WITHOUT CONTRAST: INDICATION: Mental status change. Possible stroke. COMPARISON: Correlation is made to a CT performed yesterday. Correlation is also made to a prior MRI from 018. FINDINGS: Cortical volume loss. Moderately severe chronic ischemic white matter changes are again noted. Ther e is no evidence of restricted diffusion. No evidence of acute infarct or mass. Areas of old infarcts with encephalomalacia are again noted in both cerebellar hemispheres and both o ccipital lobes. There is surrounding gliosis at these sites similar to the prior exam. Intracranial internal carotid arteries and cerebral arteries show flow voids. IMPRESSION: 1. No evidence of acute infarct. 2. Cortical atrophy and moderately severe chronic ischemic change with areas of old infarcts. No ac nury change from the prior MRI. POS: DAVID
--- NOTE | 2019-04-07 13:17 | PDOC.HOSPP ---
- Subjective Encounter Date: 04/07/19 Encounter Time: 11:00 Subjective: Mr. Ureña was seen today in follow-up of encephalopathy. He is a bit more alert , but still not able to speak clearly, nor follow commands. - Objective Vital Signs & Weight: Vital Signs (12 hours) Temp Pulse Pulse Resp BP BP Pulse Ox 04/07/19 12:47 97.5 F L 86 18 200/92 H 99 04/07/19 09:45 84 189/119 H 04/07/19 09:43 84 189/119 H 04/07/19 08:07 97.8 F 83 16 202/95 H 93 L 04/07/19 08:00 93 L 04/07/19 06:48 95 04/07/19 03:45 98.4 F 92 18 159/80 H 95 Weight Admit Weight 162 lb 0.636 oz Weight 164 lb 8 oz Most Recent Monitor Data Heart Rate from ECG 82 NIBP 118/93 NIBP BP-Mean 101 Respiration from ECG 21 SpO2 95 I&O: 04/06/19 04/07/19 04/08/19 06:59 06:59 06:59 Intake Total 1209 800 Output Total 183 Balance 1026 800 Result Diagrams: 04/07/19 04:09 04/07/19 04:09 Additional Labs: Accuchecks 04/07/19 04/07/19 04/06/19 06:36 00:01 18:49 POC Glucose 122 H 123 H 142 H 04/06/19 13:44 POC Glucose 198 H Hospitalist ROS - Medication Medications: Active Medications Generic Name Dose Route Start Last Admin Trade Name Abigail PRN Reason Stop Dose Admin Aspirin 300 mg 04/07/19 09:00 04/07/19 09:34 Aspirin [place] 300 mg DAILY ERASTO Administration Clonidine 0.2 mg 04/06/19 20:00 04/06/19 22:02 Iggdpytf-Aro-9 TD 0.2 mg Q7DAYS@2000 ERASTO Administration Hydralazine HCl 10 mg 04/06/19 10:41 04/06/19 16:21 Apresoline SLOW IVP 10 mg Q4H PRN Administration SBP Greater Than 170 Ceftriaxone Sodium 2 gm/ 100 mls @ 200 mls/hr 04/05/19 03:00 04/07/19 02:58 Sodium Chloride IVPB 100 mls 0300,1500 ERASTO Administration Dextrose/Sodium Chloride 1,000 mls @ 75 mls/hr 04/06/19 18:00 04/07/19 09:34 D5 0.9% Ns IV 1,000 mls .[id number] ERASTO Administration Pantoprazole Sodium 40 mg 04/06/19 09:00 04/07/19 09:34 Protonix IVP 40 mg Q12HR ERASTO Administration Sodium Chloride 10 ml 04/05/19 09:00 04/07/19 10:11 Flush - Normal Saline IVF 10 ml Q12HR ERASTO Administration - Exam Eye: PERRL, anicteric sclera Heart: RRR, no murmur, no gallops, no rubs, normal peripheral pulses Respiratory: CTAB, no wheezes, no rales, no ronchi, normal chest expansion Gastrointestinal: soft, non-tender, non-distended, normal bowel sounds, no palpable masses, no hepatomegaly, no splenomegaly Neurological: no weakness, speech deficit (aphasic, unable to assess orientation , and a bit agitated) Hosp A/P (1) Acute CVA (cerebrovascular accident) Code(s): I63.9 - CEREBRAL INFARCTION, UNSPECIFIED Status: Acute (2) CKD (chronic kidney disease), stage III Code(s): N18.3 - CHRONIC KIDNEY DISEASE, STAGE 3 (MODERATE) Status: Chronic (3) Dyslipidemia Code(s): E78.5 - HYPERLIPIDEMIA, UNSPECIFIED Status: Chronic (4) HTN (hypertension) Code(s): I10 - ESSENTIAL (PRIMARY) HYPERTENSION Status: Chronic (5) Hyponatremia Code(s): E87.1 - HYPO-OSMOLALITY AND HYPONATREMIA Status: Acute - Plan * Acute CVA s/p TPA- no evidence of bleed by CT scan * Fever and Encephalopathy- he is on antibiotic coverage to Meningitis- ID has bee consulted- plan is for LP today * HTN- blood pressure is elevated- continue Catapres patch and will add Labeatolol * DM- continue SSI - blood glucose is stable * Hyponatremia- resolved * Acute kidney injury- discussed with Dr. Yancey
[2019-04-07] MEDS ORDERED: Ampicillin 2 GM in Sodium Chloride 0.9% 100 ML IVPB SCH (14:00)
--- NOTE | 2019-04-07 14:04 | RAD ---
LUMBAR PUNCTURE WITH FLUOROSCOPIC GUIDANCE: HISTORY: Altered mental status. EXPOSURE: 0.4 minutes, 61.6 mcg/m2. FINDINGS: Initial judge clerk radiograph demonstrates 5 lumbar type vertebra. The L2-L3 level was deemed appropriate. The skin was prepped and draped in sterile fashion. 1% lidocaine, buffered with sodium bicarbonate, was used for local anesthesia. Under fluoroscopic guidance, 22-gauge spinal needle was a dvanced into the CSF space. A total 5 cc of clear CSF was administered. TECHNIQUE: Consent was obtained to perform a lumbar puncture with fluoroscopic guidance. The L2-L3 level was kalani med appropriate. Skin was prepped in sterile fashion. 1% lidocaine, buffered with sodium bicarbonate used for local anesthesia. Using a 22-gauge spinal needle, a total of 5 cc of clear CSF w as collected. Patient tolerated the procedure well. No immediate or postprocedure complications. IMPRESSION: Successful lumbar puncture with fluoroscopic guidance. Transcribed Date/Time: 04/07/2019 2:16 PM
--- NOTE | 2019-04-07 14:11 | EEG ---
Referring Physician: No LOPEZ EEG # [id number] TEST TYPE: ROUTINE PORTABLE INPATIENT REPORT: AN EEG USING THE INTERNATIONAL TEN-TWENTY SYSTEM OF ELECTRODE PLACEMENT WAS PERFORMED. The best waking background is a low amplitude 7 hertz theta frequency. Muscle and movement artifact were present through large portions of the record. No epileptiform features were seen. Photic stimulation was unremarkable. IMPRESSION: THIS IS AN ABNORMAL STUDY FOR THE FINDINGS OF MILD DIFFUSE SLOWING. Beet Topper: HANG Director Of Acquisitions: EEG.DIAN ROD
[2019-04-07 14:57] LABS: CSF Source CSF; Clarity Clear (Clear); Tube # 4
[2019-04-07] MEDS: Labetalol HCl 100 MG/20 ML VIAL SLOW IVP PRN (15:42)
--- NOTE | 2019-04-07 18:41 | CT ---
CT CHEST WITHOUT CONTRAST CLINICAL INDICATION: Fever and altered mental status. Abnormal lung exam. COMPARISON: None FINDINGS: Aorta: Prominent vascular calcifications are seen in the thoracic aorta as well as involving the carmine nary arteries. 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 Lack of intravenous contrast does limit sensitivity for evaluation of the vascular structures. Lungs: Trace bilateral pleural effusions are present. Patchy parenchymal densities are seen at each l [place] base posteriorly greater on the left. While these findings could be related to atelectasis, developing pneumonia or aspiration pneumonitis at the left lung base is a possibility. A calcified gr anuloma is seen in the right middle lobe and right upper lobe. No noncalcified pulmonary nodule or mass is visualized. Mediastinum: Limited by lack of intravenous contrast, but no definite enlarged lymph nodes are seen. Thyroid gland: Grossly normal nonenhanced CT appearance. Osseous structures: Multilevel degenerative changes are seen in the thoracic spine. Postsurgical chen ges related to median sternotomy and CABG are noted. Chest wall: No abnormality visualized. Upper abdomen: Postcholecystectomy changes are noted. Vascular calcifications are seen in the upper a bdomen. A nonobstructing calculus is seen in the superior pole and midportion right kidney each measuring approximately 3 mm. There is suggestion of mild renal cortical scarring as well. IMPRESSION: 1. Patchy bibasilar densities most likely attributable to atelectasis. However, pneumonia or aspirati on pneumonitis left lung base cannot be entirely excluded, and clinical correlation is recommended. Follow-up evaluation is also suggested to ensure resolution. 2. Prominent vascular calcifications with evidence of prior CABG. 3. Nonobstructing right renal calculi.
--- NOTE | 2019-04-07 22:19 | CON ---
DATE OF CONSULTATION: 04/07/2019 CONSULTING PHYSICIAN: Hospitalist Service. IMPRESSION: Persistent encephalopathy of uncertain etiology. PLAN: 1. Continue supportive measures. 2. Discontinue acyclovir. 3. Seroquel 25 mg at night as needed for agitation. HISTORY OF PRESENT ILLNESS: Mr. Ureña is an 79-year-old gentleman who presented with an acute confusional state. He has had this in the past associated with urinary tract infection. He was initially evaluated by Neurology on admission and workup was undertaken. His initial CT scan of the brain showed old areas of ischemia involving the right occipital lobe and left cerebellar hemisphere. He had elevated white count as well as an elevated BUN and creatinine. He was started on broad-spectrum antibiotics. He has not had any fever. No seizure activity was witnessed. He had an EEG done which showed some diffuse slowing without any epileptiform features. MRI of the brain was done, which did not reveal any acute abnormalities. He had a followup MRI done today which again only showed some chronic white matter and cortical ischemic changes. He had a lumbar puncture done yesterday which was essentially normal. He received some sedation prior to my evaluation. He continued to be lethargic and poorly responsive to stimulation. PAST MEDICAL HISTORY: Otherwise positive for stroke and confusional states. ALLERGIES: STATINS AND SOME TYPES OF BLOOD PRESSURE MEDICATION. SOCIAL HISTORY: No tobacco or alcohol. FAMILY HISTORY: Unremarkable. REVIEW OF SYSTEMS: Not obtainable. PHYSICAL EXAMINATION: GENERAL: He is a tall, elderly man, lying in bed, in no acute distress. HEENT: Pupils are equal. Conjunctivae are clear. Oropharynx is clear. NECK: Supple. SKIN: Multiple areas of ecchymosis are present. NEUROLOGIC: He is lethargic and partially opens his eyes to stimulation. He remains nonverbal. He has a symmetric appearing face. The tone appears to be symmetric in the extremities. No unusual movements are noted. SUMMARY: This is an 79-year-old gentleman with some persistent encephalopathy for the last several days. Definitive cause has not been identified. I would start weaning antibiotics and antiviral medication to rule that out as potential confounding factor. He otherwise appears to be without any acute neurologic deficit that would preclude him from improving. Job ID: [id number]
--- NOTE | 2019-04-08 00:15 | CON ---
DATE OF CONSULTATION: 04/07/2019 REASON FOR CONSULTATION: Altered mental status. HISTORY OF PRESENT ILLNESS: This is an 79-year-old patient, who has a history of coronary artery disease, prior stents, hyperlipidemia, hypertension, whom I had seen in the past because of gout. He also had a CVA x2 and stage 4 to 5 renal disease. The patient was brought because of facial droop on April 04 on the right side. He had difficulty with ambulation and speech was impaired. The symptoms were more localized to the right side of the face and right arm as well as right leg. He was alert, but could not speak. The symptom onset was sudden. The patient had administration of Activase per protocol after CT scan and after the bolus, there was more movement in the right arm and right leg, but he did have profound neglect and persistent aphasia. Here in the hospital, he is receiving insulin and pantoprazole. He developed a temperature elevation of 102 on April 05 and he was started on broad-spectrum antimicrobial coverage. He had a brain MRI performed on 04/07, but it showed no evidence of acute infarct. There was evidence of cortical atrophy and severe chronic ischemic change in areas of old infarcts, but no change from prior MRI. He had a chest x-ray on the , which showed no acute cardiopulmonary findings. The patient had a CT angio with contrast and it did not show any areas of obstruction. He has been seen by Dr. Makc, Neurology and the impression was hyponatremia contributing to mental status, difficult to assess the weakness from acute CVA. TPA protocol was recommended and a full stroke evaluation recommended. The patient's white cell count was 8.5 on April 04, has gone up to 19.2. Creatinine was 1.83 and is up to 2.67 at this time. BUN is up to 45 and sodium is up to 134. Albumin 3.0. Currently, Mr. Ureña is obtunded. He will establish eye contact briefly, but does not answer questions and does not follow commands. He will fall asleep immediately following stimulation. According to the nurse, he had some soft stool, but not much. No seizure activity witnessed. PAST MEDICAL HISTORY: Prior CVAs, coronary artery disease with prior stenting, hyperlipidemia, hypertension, gout, macular degeneration, and CKD, stage 4. PAST SURGICAL HISTORY: Cholecystectomy, appendectomy, bypass graft surgery. SOCIAL HISTORY: No alcoholic beverage use. No drug use. Former smoker, quit about 10 years before. FAMILY HISTORY: Abdominal aneurysm. ALLERGIES: STATINS. CURRENT MEDICATIONS: Include the broad-spectrum antimicrobial coverage, labetalol p.r.n., pantoprazole, insulin, ceftriaxone, acyclovir. PHYSICAL EXAMINATION: VITAL SIGNS: T-max 102.2 on the . He has been afebrile since. Blood pressure 195/128, pulse 88, respirations 12, O2 saturation 95%. SKIN: No areas of skin breakdown. The patient has a peripheral IV access. He is voiding in the diaper. No lymphadenopathy. HEENT: His ocular movements are conjugate. Slight conjunctival hyperemia. Nasal passages are patent. Oral cavity difficult to examine due to the lack of cooperation. NECK: Supple. No jugular vein distention. LUNGS: Diminished breath sounds at bases, S1, S2. Regular rate. Soft aortic murmur. No S3. ABDOMEN: Soft, not distended or tender. No ascites. No bladder distention. MUSCULOSKELETAL: No joint inflammatory activity noted. He withdraws upon plantar stimulation right side, but no clonus is noted. LABORATORY DATA: Sodium 134, creatinine 2.67, AST 76, ALT 45, alkaline phosphatase 69. Urinalysis 0 to 3 wbc's. CSF with nucleated cells. No differential was done. Protein was only 60. ASSESSMENT: Coronary artery disease and prior cerebrovascular accidents with acute onset of right-sided paresis, having been treated with tPA elsewhere and then transferred here. There was no conclusive evidence of a new cerebrovascular accident, although that was a possibility. He developed fever following admission and the differential diagnosis includes pneumonia, thromboembolism. The intraabdominal inflammatory process appears to be less likely. No evidence of peripheral IV access inflammatory change. CUSHION ASSEMBLER infection is unlikely. Discontinue the antiviral drug. Consider a CT of chest without contrast to evaluate for possible pneumonia. He is at risk for development of C difficile and lying complications, mostly peripheral IV access complications, but not apparent at this time. Duplex ultrasound of lower extremities. Job ID: [id number] [facility]
[2019-04-08] MEDS: Labetalol HCl 100 MG/20 ML VIAL SLOW IVP PRN ×4 (00:17→23:10)
[2019-04-08] MEDS: Dextrose 5 % And 0.9 % NaCl 1,000 ML IV SCH ×2 (04:34→22:53)
[2019-04-08 04:49] LABS: ALT (SGPT) 40 U/L (8-55); AST (SGOT) 57 U/L (5-34); Albumin 2.8 g/dL (3.4-4.8); Alkaline Phosphatase 70 U/L (40-110); Anion Gap 12 mmol/L (10-20); BUN (Urea Nitrogen) 40 mg/dL (8.4-25.7); Bilirubin, Total 0.5 mg/dL (0.2-1.2); Calc. Creatinine Clearance 26 mL/min (70-130); Calcium 8.5 mg/dL (7.8-10.44); Carbon Dioxide 20 mmol/L (23-31); Chloride 109 mmol/L (98-107); Estimated GFR-MDRD 27; Globulin 2.3 g/dL (2.4-3.5); Glucose 141 mg/dL (83-110); Potassium 3.4 mmol/L (3.5-5.1); Protein, Total 5.1 g/dL (5.8-8.1); Sodium 138 mmol/L (136-145)
[2019-04-08] MEDS: cefTRIAXone\\ROCEPHIN 2 GM in Sodium Chloride 0.9% 100 ML IVPB SCH ×2 (05:36→19:15)
--- NOTE | 2019-04-08 07:58 | ULT ---
BILATERAL UPPER EXTREMITY VENOUS DOPPLER ULTRASOUND: HISTORY: Fever, hypoxemia, CVA, bilateral lower extremity edema TECHNIQUE: Grayscale color-flow and spectral Doppler imaging of the deep venous systems of the upper extremities was performed bilaterally. FINDINGS: There is good flow, compression and normal spectral waveforms in the internal jugular, subclavian, ax illary, brachial, radial, ulnar, basilic and cephalic veins on both sides. IMPRESSION: No evidence of DVT in either upper extremity.
--- NOTE | 2019-04-08 08:30 | PRG ---
DATE OF SERVICE: 04/08/2019 SUBJECTIVE: An 79-year-old gentleman, being seen for acute kidney injury. The patient denies any nausea, vomiting, or chest pain. The patient is still nonverbal. OBJECTIVE: See above. The patient is resting. VITAL SIGNS: Afebrile, pulse 71, breathing 16, and blood pressure 174/84. GENERAL APPEARANCE AND MENTAL STATUS: Fair. HEAD/NECK: Normocephalic. Atraumatic. EYES: EOMI. No deformity. EARS: Clear. No ulcers. NOSE: Intact. No lesions. MOUTH: Clear. No discharge. THROAT: Clear. No exudate. LUNGS: Clear. No crackles. CARDIAC: S1, S2. No rub. ABDOMEN: Benign. Bowel sounds positive. GENITALIA/RECTUM: Shipley absent. BACK/EXTREMITIES: Edema 0+. NEUROLOGICAL: Alert and motor intact. SKIN: LYMPHATICS: LABORATORY DATA: Labs reviewed. ASSESSMENT AND PLAN: 1. Chronic kidney disease, stage 4 with acute kidney injury, stable. 2. Acute tubular necrosis, stable. 3. Hypertension, stable. 4. Hypokalemia. Recommend 20 mEq of potassium. 5. Metabolic acidosis, improved. No indication for dialysis. Job ID: [id number]
[2019-04-08] MEDS: Sodium Chloride 0.9% (PF) 10 ML VIAL FS PRN (09:19)
[2019-04-08] MEDS: Aspirin 300 MG Suppository PR SCH (09:19)
[2019-04-08] MEDS: Pantoprazole 40 MG VIAL IVP SCH ×2 (09:20→21:08)
[2019-04-08 11:25] LABS: #Eosinphils 0.9 thou/uL (0.0-0.7); #Monocytes 1.5 thou/uL (0.11-0.59); #Neutrophils 9.5 thou/uL (1.40-6.50); %Basophils 0.4 % (0.0-1.0); %Eosinophils 6.7 % (0.0-10.0); %Lymphocytes 7.9 % (21.0-51.0); %Monocytes 11.5 % (0.0-10.0); %Neutrophils 73.5 % (42.0-75.0); Hemoglobin 11.4 g/dL (14.0-18.0); Mean Corpuscular HGB CONC 34.2 g/dL (32.0-36.0); Mean Corpuscular Volume 90.7 fL (78.0-98.0); Mean Platelet Volume 7.9 fL (7.4-10.4); Platelet Count 133 thou/uL (130-400); RBC Distribution Width 13.6 % (11.5-14.5); Red Blood Cell (RBC) Count 3.69 mill/uL (4.70-6.10); White Blood Cell (WBC) Count 12.9 thou/uL (4.8-10.8)
--- NOTE | 2019-04-08 11:47 | PDOC.HOSPP ---
- Subjective Encounter Date: 04/08/19 Encounter Time: 11:46 Subjective: Mr. Ureña was seen today in follow-up of metabolic encephalopathy. He has not improved much in the past few days. - Objective Vital Signs & Weight: Vital Signs (12 hours) Temp Pulse Resp BP BP Pulse Ox 04/08/19 07:59 94 L 04/08/19 07:34 97.4 F L 71 18 174/84 H 94 L 04/08/19 05:12 165/101 H 04/08/19 04:26 180/79 H 04/08/19 04:24 81 196/130 H 04/08/19 04:00 98.3 F 77 15 94 L 04/08/19 03:04 202/93 H 04/08/19 00:17 81 196/130 H 04/08/19 00:00 98.2 F 79 13 196/130 H 93 L Weight Admit Weight 162 lb 0.636 oz Weight 162 lb 9.6 oz Most Recent Monitor Data Heart Rate from ECG 82 NIBP 118/93 NIBP BP-Mean 101 Respiration from ECG 21 SpO2 95 I&O: 04/07/19 04/08/19 04/09/19 06:59 06:59 06:59 Intake Total 800 700 Output Total 2 Balance 800 698 Result Diagrams: 04/08/19 11:09 04/08/19 04:10 Additional Labs: Accuchecks 04/08/19 04/08/19 04/07/19 05:53 00:04 17:21 POC Glucose 138 H 113 H 125 H Hospitalist ROS - Medication Medications: Active Medications Generic Name Dose Route Start Last Admin Trade Name Abigail PRN Reason Stop Dose Admin Aspirin 300 mg 04/07/19 09:00 04/08/19 09:19 Aspirin [place] 300 mg DAILY ERASTO Administration Clonidine 0.2 mg 04/06/19 20:00 04/06/19 22:02 Zozaugrs-Jus-2 TD 0.2 mg Q7DAYS@2000 ERASTO Administration Dextrose/Sodium Chloride 1,000 mls @ 75 mls/hr 04/06/19 18:00 04/08/19 04:34 D5 0.9% Ns IV 1,000 mls .[id number] ERASTO Administration Ceftriaxone Sodium 2 gm/ 100 mls @ 200 mls/hr 04/07/19 18:00 04/08/19 05:36 Sodium Chloride IVPB 100 mls 0600,1800 ERASTO Administration Labetalol HCl 20 mg 04/07/19 13:19 04/08/19 04:24 Normodyne SLOW IVP 4 ml Q4H PRN Administration SBP Greater Than 170 Pantoprazole Sodium 40 mg 04/06/19 09:00 04/08/19 09:20 Protonix IVP 40 mg Q12HR ERASTO Administration Sodium Chloride 10 ml 04/05/19 09:00 04/08/19 09:20 Flush - Normal Saline IVF 10 ml Q12HR ERASTO Administration Sodium Chloride 10 ml 04/05/19 21:44 04/08/19 09:19 Normal Saline Pf FS 10 ml PRN PRN Administration RECONSTITUTION - Exam Eye: PERRL Heart: RRR, no murmur, no gallops, no rubs, normal peripheral pulses Respiratory: CTAB, no wheezes, no rales, no ronchi, normal chest expansion Gastrointestinal: soft, non-tender, non-distended, normal bowel sounds, no palpable masses, no hepatomegaly Extremities: no cyanosis, no edema Hosp A/P (1) Acute CVA (cerebrovascular accident) Code(s): I63.9 - CEREBRAL INFARCTION, UNSPECIFIED Status: Acute (2) CKD (chronic kidney disease), stage III Code(s): N18.3 - CHRONIC KIDNEY DISEASE, STAGE 3 (MODERATE) Status: Chronic (3) Dyslipidemia Code(s): E78.5 - HYPERLIPIDEMIA, UNSPECIFIED Status: Chronic (4) HTN (hypertension) Code(s): I10 - ESSENTIAL (PRIMARY) HYPERTENSION Status: Chronic (5) Hyponatremia Code(s): E87.1 - HYPO-OSMOLALITY AND HYPONATREMIA Status: Acute (6) Gout Code(s): M10.9 - GOUT, UNSPECIFIED Status: Chronic - Plan * Fever and Encephalopathy- Unclear etiology- ID has been consulted and 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 It is interested that he had a similar presentation about a year ago which was due to a gout flare. Will check a uric acid level, and consider placing him on a short course of Colchine * Will also start a low dose Gabapentin, as he could be withdrawing from this * HTN- now that he has been cleared for a diet, will re-start some of his home medications * DM- continue SSI - blood glucose is stable * Hyponatremia- resolved * Acute kidney injury- discussed with Dr. Yancey
[2019-04-08] MEDS ORDERED: Colchicine 0.6 MG TAB PO SCH (21:00)
[2019-04-08] MEDS: Carvedilol 3.125 MG TAB PO SCH (21:07)
[2019-04-08] MEDS: Tamsulosin HCl 0.4 MG CAP PO SCH (21:07)
[2019-04-08] MEDS: Gabapentin 100 MG CAP PO SCH (21:07)
[2019-04-08] MEDS ORDERED: Colchicine 0.3 MG TAB PO SCH (21:15)
[2019-04-09] MEDS: Labetalol HCl 100 MG/20 ML VIAL SLOW IVP PRN (04:03)
[2019-04-09 06:55] LABS: ALT (SGPT) 48 U/L (8-55); AST (SGOT) 49 U/L (5-34); Albumin 2.7 g/dL (3.4-4.8); Alkaline Phosphatase 77 U/L (40-110); Anion Gap 9 mmol/L (10-20); BUN (Urea Nitrogen) 35 mg/dL (8.4-25.7); Bilirubin, Total 0.5 mg/dL (0.2-1.2); Calc. Creatinine Clearance 31 mL/min (70-130); Calcium 8.3 mg/dL (7.8-10.44); Carbon Dioxide 23 mmol/L (23-31); Chloride 112 mmol/L (98-107); Estimated GFR-MDRD 32; Globulin 2.3 g/dL (2.4-3.5); Glucose 147 mg/dL (83-110); Potassium 3.2 mmol/L (3.5-5.1); Sodium 141 mmol/L (136-145)
[2019-04-09] MEDS: cefTRIAXone\\ROCEPHIN 2 GM in Sodium Chloride 0.9% 100 ML IVPB SCH ×2 (07:21→18:14)
[2019-04-09] MEDS: Colchicine 0.3 MG TAB PO SCH ×2 (09:11→22:10)
[2019-04-09] MEDS: Aspirin 81 mg Enteric Coated Tablet PO SCH (09:12)
[2019-04-09] MEDS: Pantoprazole 40 MG VIAL IVP SCH ×2 (09:12→22:12)
[2019-04-09] MEDS: Gabapentin 100 MG CAP PO SCH ×2 (09:12→22:11)
[2019-04-09] MEDS: Carvedilol 3.125 MG TAB PO SCH ×2 (09:12→22:12)
[2019-04-09] MEDS: Amlodipine 10 MG TAB PO SCH (09:12)
--- NOTE | 2019-04-09 10:24 | PDOC.HOSPP ---
- Subjective Encounter Date: 04/09/19 Encounter Time: 10:22 Subjective: Mr. Ureña was seen today in follow-up of encephalopathy. He is awake and alert today, and answering questions. He tells me today that his knee is hurting on the right. He also says that he is very thirsty. - Objective Vital Signs & Weight: Vital Signs (12 hours) Temp Pulse Resp BP BP Pulse Ox 04/09/19 09:12 61 193/78 H 04/09/19 07:52 98.2 F 61 16 175/75 H 93 L 04/09/19 06:00 158/79 H 04/09/19 04:03 65 189/81 H 04/09/19 03:50 98.1 F 65 14 184/82 H 95 04/09/19 00:00 61 161/80 H 04/08/19 23:35 99.2 F 86 12 186/80 H 94 L 04/08/19 23:10 67 186/84 H Weight Admit Weight 162 lb 0.636 oz Weight 160 lb 9.6 oz Most Recent Monitor Data Heart Rate from ECG 82 NIBP 118/93 NIBP BP-Mean 101 Respiration from ECG 21 SpO2 95 I&O: 04/08/19 04/09/19 04/10/19 06:59 06:59 06:59 Intake Total 700 1190 Output Total 2 Balance 698 1190 Result Diagrams: 04/08/19 11:09 04/09/19 06:17 Additional Labs: Accuchecks 04/09/19 04/08/19 04/08/19 06:02 23:53 17:10 POC Glucose 142 H 163 H 144 H 04/08/19 11:44 POC Glucose 140 H Hospitalist ROS - Medication Medications: Active Medications Generic Name Dose Route Start Last Admin Trade Name Freq PRN Reason Stop Dose Admin Amlodipine Besylate 5 mg 04/09/19 09:00 04/09/19 09:12 Norvasc PO 5 mg DAILY ERASTO Administration Aspirin 81 mg 04/09/19 09:00 04/09/19 09:12 Ecotrin PO 81 mg DAILY ERASTO Administration Carvedilol 3.125 mg 04/08/19 21:00 04/09/19 09:12 Coreg PO 3.125 mg BID ERASTO Administration Clonidine 0.2 mg 04/06/19 20:00 04/06/19 22:02 Dtghoxkb-Kdl-6 TD 0.2 mg Q7DAYS@2000 ERASTO Administration Colchicine 0.3 mg 04/09/19 09:00 04/09/19 09:11 Colcrys PO 0.3 mg BID ERASTO Administration Gabapentin 100 mg 04/08/19 21:00 04/09/19 09:12 Neurontin PO 100 mg BID ERASTO Administration Dextrose/Sodium Chloride 1,000 mls @ 75 mls/hr 04/06/19 18:00 04/08/19 22:53 D5 0.9% Ns IV 1,000 mls .[id number] ERASTO Administration Ceftriaxone Sodium 2 gm/ 100 mls @ 200 mls/hr 04/07/19 18:00 04/09/19 07:21 Sodium Chloride IVPB 100 mls 0600,1800 ERASTO Administration Isosorbide Mononitrate 60 mg 04/09/19 09:00 04/09/19 09:12 Imdur PO 60 mg DAILY ERASTO Administration Labetalol HCl 20 mg 04/07/19 13:19 04/09/19 04:03 Normodyne SLOW IVP 4 ml Q4H PRN Administration SBP Greater Than 170 Pantoprazole Sodium 40 mg 04/06/19 09:00 04/09/19 09:12 Protonix IVP 40 mg Q12HR ERASTO Administration Sodium Chloride 10 ml 04/05/19 09:00 04/09/19 09:13 Flush - Normal Saline IVF 10 ml Q12HR ERASTO Administration Sodium Chloride 10 ml 04/05/19 02:48 04/09/19 04:05 Flush - Normal Saline IVF 10 ml PRN PRN Administration Saline Flush Sodium Chloride 10 ml 04/05/19 21:44 04/08/19 09:19 Normal Saline Pf FS 10 ml PRN PRN Administration RECONSTITUTION Tamsulosin HCl 0.4 mg 04/08/19 21:00 04/08/19 21:07 Flomax PO 0.4 mg HS ERASTO Administration - Exam Eye: PERRL, anicteric sclera Heart: RRR, no murmur, no gallops, no rubs Respiratory: CTAB, no wheezes, no rales, no ronchi, normal chest expansion, no tachypnea, normal percussion Gastrointestinal: soft, non-tender, non-distended, normal bowel sounds, no palpable masses Extremities: no cyanosis, no edema (except on the right knee, which is erythematous and swollen, and tender to palpation) Hosp A/P (1) Acute CVA (cerebrovascular accident) Code(s): I63.9 - CEREBRAL INFARCTION, UNSPECIFIED Status: Acute (2) CKD (chronic kidney disease), stage III Code(s): N18.3 - CHRONIC KIDNEY DISEASE, STAGE 3 (MODERATE) Status: Chronic (3) Dyslipidemia Code(s): E78.5 - HYPERLIPIDEMIA, UNSPECIFIED Status: Chronic (4) HTN (hypertension) Code(s): I10 - ESSENTIAL (PRIMARY) HYPERTENSION Status: Chronic (5) Hyponatremia Code(s): E87.1 - HYPO-OSMOLALITY AND HYPONATREMIA Status: Acute (6) Gout Code(s): M10.9 - GOUT, UNSPECIFIED Status: Chronic - Plan * Fever and Encephalopathy- Possibly due to a gout flare. He had a similar presentation a year ago,- will continue Colchicine * Gout- continue Colchicine, and will re-start Uloric in a day or two * Continue a low dose of Gabapentin * HTN- will re-start his blood pressure medications * DM- continue SSI - blood glucose is stable * Hyponatremia- resolved * Acute kidney injury- improving
--- NOTE | 2019-04-09 11:23 | PRG ---
DATE OF SERVICE: 04/09/2019 SUBJECTIVE: This is an 79-year-old gentleman, being seen for acute kidney injury. The patient denied any nausea, vomiting, or chest pain. OBJECTIVE: See above. The patient is awake and alert. GENERAL APPEARANCE AND MENTAL STATUS: Fair. VITAL SIGNS: Afebrile, pulse 61, breathing 16, and blood pressure 158/79. HEAD/NECK: Normocephalic. Atraumatic. EYES: EOMI. No deformity. EARS: Clear. No ulcers. NOSE: Intact. No lesions. MOUTH: Clear. No discharge. THROAT: Clear. No exudate. LUNGS: Clear. No crackles. CARDIAC: S1, S2. No rub. ABDOMEN: Benign. Bowel sounds positive. GENITALIA/RECTUM: Shipley absent. BACK/EXTREMITIES: Edema 0+. NEUROLOGICAL: Alert and motor intact. SKIN: LYMPHATICS: LABORATORY DATA: Reviewed. ASSESSMENT AND PLAN: 1. Stage 3, chronic kidney disease, stable. 2. Acute kidney injury, due to acute tubular necrosis, improved. 3. Hypertension, stable. 4. Hypokalemia. Recommend aggressive potassium replacement. 5. Medication based on GFR appropriate. Job ID: [id number]
[2019-04-09] MEDS ORDERED: Dextrose 5 % And 0.9 % NaCl 1,000 ML IV SCH (17:47)
[2019-04-09] MEDS: Dextrose 5 % And 0.9 % NaCl 1,000 ML IV SCH (17:59)
[2019-04-09] MEDS: Tamsulosin HCl 0.4 MG CAP PO SCH (22:11)
[2019-04-10 04:58] LABS: #Lymphocytes 1.2 thou/uL (1.20-3.40); #Monocytes 1.5 thou/uL (0.11-0.59); #Neutrophils 6.8 thou/uL (1.40-6.50); %Basophils 0.4 % (0.0-1.0); %Eosinophils 9.1 % (0.0-10.0); %Lymphocytes 11.4 % (21.0-51.0); %Monocytes 14.1 % (0.0-10.0); %Neutrophils 65.1 % (42.0-75.0); Hemoglobin 9.7 g/dL (14.0-18.0); Mean Corpuscular HGB CONC 34.4 g/dL (32.0-36.0); Mean Corpuscular Hemoglobin 31.6 pg (27.0-31.0); Mean Corpuscular Volume 91.6 fL (78.0-98.0); Mean Platelet Volume 7.7 fL (7.4-10.4); Platelet Count 155 thou/uL (130-400); RBC Distribution Width 13.7 % (11.5-14.5); Red Blood Cell (RBC) Count 3.07 mill/uL (4.70-6.10); White Blood Cell (WBC) Count 10.5 thou/uL (4.8-10.8)
[2019-04-10 05:25] LABS: ALT (SGPT) 90 U/L (8-55); AST (SGOT) 84 U/L (5-34); Albumin 2.7 g/dL (3.4-4.8); Alkaline Phosphatase 113 U/L (40-110); Anion Gap 12 mmol/L (10-20); BUN (Urea Nitrogen) 33 mg/dL (8.4-25.7); Bilirubin, Total 0.5 mg/dL (0.2-1.2); Calc. Creatinine Clearance 31 mL/min (70-130); Calcium 8.4 mg/dL (7.8-10.44); Carbon Dioxide 22 mmol/L (23-31); Chloride 116 mmol/L (98-107); Estimated GFR-MDRD 34; Globulin 2.4 g/dL (2.4-3.5); Glucose 107 mg/dL (83-110); Potassium 3.9 mmol/L (3.5-5.1); Protein, Total 5.1 g/dL (5.8-8.1); Sodium 146 mmol/L (136-145)
[2019-04-10] MEDS: cefTRIAXone\\ROCEPHIN 2 GM in Sodium Chloride 0.9% 100 ML IVPB SCH (05:51)
[2019-04-10] MEDS ORDERED: Dextrose 5% in Water 1,000 ML IV SCH (08:30)
[2019-04-10] MEDS: Amlodipine 10 MG TAB PO SCH (09:14)
[2019-04-10] MEDS: Carvedilol 3.125 MG TAB PO SCH (09:19)
[2019-04-10] MEDS: Aspirin 81 mg Enteric Coated Tablet PO SCH (09:19)
[2019-04-10] MEDS: Gabapentin 100 MG CAP PO SCH (09:20)
[2019-04-10] MEDS: Sodium Chloride 0.9% (PF) 10 ML VIAL FS PRN (09:24)
[2019-04-10] MEDS: Pantoprazole 40 MG VIAL IVP SCH (09:24)
[2019-04-10] MEDS: Colchicine 0.3 MG TAB PO SCH (09:32)
[2019-04-10 12:03] VITALS: BMI 23.0
[2019-04-10] MEDS ORDERED: methylPREDNISolone Sod Succ 40 MG VIAL IVP SCH (14:30)
--- NOTE | 2019-04-10 14:51 | PRG ---
DATE OF SERVICE: 04/10/2019 SUBJECTIVE: This is an 79-year-old gentleman, being seen for acute kidney injury. The patient denied any nausea, vomiting, or chest pain. OBJECTIVE: CONSTITUTIONAL: On exam, the patient is awake and alert. VITAL SIGNS: Afebrile, pulse 58, breathing 16, and blood pressure 150/62. GENERAL APPEARANCE AND MENTAL STATUS: Fair. HEAD/NECK: Normocephalic. Atraumatic. EYES: EOMI. No deformity. EARS: Clear. No ulcers. NOSE: Intact. No lesions. MOUTH: Clear. No discharge. THROAT: Clear. No exudate. LUNGS: Clear. No crackles. CARDIAC: S1, S2. No rub. ABDOMEN: Benign. Bowel sounds positive. GENITALIA/RECTUM: Shipley absent. BACK/EXTREMITIES: Edema 0+. NEUROLOGICAL: Alert and motor intact. SKIN: LYMPHATICS: LABORATORY DATA: Hemoglobin 9.7. Creatinine 1.9. ASSESSMENT AND PLAN: 1. Acute kidney injury, improved. 2. Hypertension, stable. 3. Anemia, stable. 4. Hypernatremia. We will start free water. Recheck sodium at 1:00 p.m. Medications based on glomerular filtration rate are appropriate. No indication for dialysis. Job ID: [id number]
[2019-04-10 14:58] LABS: Anion Gap 12 mmol/L (10-20); BUN (Urea Nitrogen) 31 mg/dL (8.4-25.7); Calc. Creatinine Clearance 32 mL/min (70-130); Carbon Dioxide 22 mmol/L (23-31); Chloride 112 mmol/L (98-107); Estimated GFR-MDRD 35; Glucose 137 mg/dL (83-110); Potassium 3.6 mmol/L (3.5-5.1); Sodium 142 mmol/L (136-145)
[2019-04-10 15:36] VITALS: TEMP 98.4
--- NOTE | 2019-04-10 17:46 | PDOC.HOSPP ---
- Subjective Encounter Date: 04/10/19 Encounter Time: 11:00 Subjective: Mr. Ureña continues to improve. He was seen in follow-up of encephalopathy. He does complain of pain in his right knee. - Objective Vital Signs & Weight: Vital Signs (12 hours) Temp Pulse Resp BP BP Pulse Ox 04/10/19 15:35 98.4 F 65 18 154/71 H 94 L 04/10/19 12:00 97.8 F 58 L 18 150/62 H 92 L 04/10/19 09:14 69 176/82 H 04/10/19 08:45 93 L 04/10/19 07:57 98.9 F 69 16 176/82 H 93 L Weight Admit Weight 162 lb 0.636 oz Weight 160 lb 9.6 oz Most Recent Monitor Data Heart Rate from ECG 82 NIBP 118/93 NIBP BP-Mean 101 Respiration from ECG 21 SpO2 95 I&O: 04/09/19 04/10/19 04/11/19 06:59 06:59 06:59 Intake Total 1190 Output Total 300 Balance 1190 -300 Result Diagrams: 04/10/19 04:28 04/10/19 14:20 Additional Labs: Accuchecks 04/10/19 04/10/19 04/09/19 12:08 06:05 23:20 POC Glucose 140 H 105 134 H 04/09/19 18:42 POC Glucose 144 H Hospitalist ROS - Medication Medications: Active Medications Generic Name Dose Route Start Last Admin Trade Name Freq PRN Reason Stop Dose Admin Amlodipine Besylate 5 mg 04/09/19 09:00 04/10/19 09:14 Norvasc PO 5 mg DAILY ERASTO Administration Aspirin 81 mg 04/09/19 09:00 04/10/19 09:19 Ecotrin PO 81 mg DAILY ERASTO Administration Carvedilol 3.125 mg 04/08/19 21:00 04/10/19 09:19 Coreg PO 3.125 mg BID ERASTO Administration Clonidine 0.2 mg 04/06/19 20:00 04/06/19 22:02 [id number] TD 0.2 mg [id number] ERASTO Administration Colchicine 0.3 mg 04/09/19 09:00 04/10/19 09:32 Colcrys PO 0.3 mg BID ERASTO Administration Gabapentin 100 mg 04/08/19 21:00 04/10/19 09:20 Neurontin PO 100 mg BID ERASTO Administration Ceftriaxone Sodium 2 gm/ 100 mls @ 200 mls/hr 04/07/19 18:00 04/10/19 05:51 Sodium Chloride IVPB 100 mls 0600,1800 ERASTO Administration Dextrose/Water 1,000 mls @ 75 mls/hr 04/10/19 08:30 04/10/19 09:44 D5w IV 1,000 mls .[id number] ERASTO Administration Isosorbide Mononitrate 60 mg 04/09/19 09:00 04/10/19 09:22 Imdur PO 60 mg DAILY ERASTO Administration Labetalol HCl 20 mg 04/07/19 13:19 04/09/19 04:03 Normodyne SLOW IVP 4 ml Q4H PRN Administration SBP Greater Than 170 Sodium Chloride 10 ml 04/05/19 09:00 04/10/19 09:44 Flush - Normal Saline IVF 10 ml Q12HR ERASTO Administration Sodium Chloride 10 ml 04/05/19 21:44 04/10/19 09:24 Normal Saline Pf FS 10 ml PRN PRN Administration RECONSTITUTION Tamsulosin HCl 0.4 mg 04/08/19 21:00 04/09/19 22:11 Flomax PO 0.4 mg HS ERASTO Administration - Exam Eye: PERRL Heart: RRR, no murmur, no gallops, no rubs, normal peripheral pulses Respiratory: CTAB, no wheezes, no rales, no ronchi, normal chest expansion Gastrointestinal: soft, non-tender, non-distended, normal bowel sounds, no palpable masses Extremities: no cyanosis, no clubbing, no edema (+ erythema on the right knee, no induration, + tender to palpation) Psychiatric: normal affect, oriented to person, oriented to place Hosp A/P (1) Acute CVA (cerebrovascular accident) Code(s): I63.9 - CEREBRAL INFARCTION, UNSPECIFIED Status: Acute (2) CKD (chronic kidney disease), stage III Code(s): N18.3 - CHRONIC KIDNEY DISEASE, STAGE 3 (MODERATE) Status: Chronic (3) Dyslipidemia Code(s): E78.5 - HYPERLIPIDEMIA, UNSPECIFIED Status: Chronic (4) HTN (hypertension) Code(s): I10 - ESSENTIAL (PRIMARY) HYPERTENSION Status: Chronic (5) Hyponatremia Code(s): E87.1 - HYPO-OSMOLALITY AND HYPONATREMIA Status: Acute (6) Gout Code(s): M10.9 - GOUT, UNSPECIFIED Status: Chronic - Plan * Encephalopathy- improving * Gout- continue Colchicine, and will re-start Uloric in a day or two * Continue a low dose of Gabapentin- and titrate up as his mental status improves * HTN- will re-start his blood pressure medications * DM- continue SSI - blood glucose is stable * Hyponatremia- resolved * Acute kidney injury- stable * He is stable for transfer to group home
[2019-04-10 18:19] VITALS: BP 163/74
[2019-04-13] MEDS ORDERED: cloNIDine 0.2mg/24 Hour PATCH TD SCH (18:30)
--- NOTE | 2019-04-14 07:53 | DIS ---
DATE OF ADMISSION: 04/05/2019 DATE OF DISCHARGE: 04/10/2019 DISCHARGE DISPOSITION: custodial facility. DISCHARGE DIAGNOSES: 1. Acute metabolic encephalopathy thought to be due to a gout flare. 2. Hyponatremia. 3. Coronary artery disease. 4. Hypertension. 5. Diabetes mellitus type 2. 6. Chronic kidney disease stage 3. 7. History of previous cerebrovascular accident. 8. Gout. DISCHARGE MEDICATIONS: 1. Gabapentin 300 mg twice daily. 2. Colchicine 0.3 mg daily. 3. Ambien 5 mg at bedtime. 4. Flomax 0.4 mg at bedtime. 5. Imdur 60 mg daily. 6. Uloric 40 mg daily. 7. Carvedilol 3.125 mg twice a day. 8. Baclofen 10 mg daily. 9. Aspirin 81 mg daily. 10. Amlodipine 5 mg daily. 11. Praluent 75 mg as directed. IMAGING AND PROCEDURES DURING THE ADMISSION: The patient had tPA administration. The patient had a CT scan of the abdomen and pelvis, which was negative for any acute abnormalities. The patient had an MRI of the brain showing no acute infarct. There was some cortical atrophy and ischemic changes consistent with old infarct. The patient had a CT scan of the chest showing some patchy basilar infiltrates, which was thought to be atelectasis. CODE STATUS: Full code. ALLERGIES: STATINS. HOSPITAL COURSE: Mr. Ureña is a pleasant 79-year-old gentleman who was admitted to the hospital after he had presented to the emergency room with confusion and slurred speech. He was brought in by family. There was concern that he may have an acute stroke; therefore, tPA was given. He was then transferred to our facility post tPA. He continued to remain encephalopathic. He also developed a fever. For this reason, ID was consulted. Neurology was also consulted due to the concern for acute CVA. Given his fever and confusion, an LP was done once it was safe to be done post tPA. This was essentially negative for any evidence of cerebral infection. Infection was completely ruled out and he was taken off all antibiotics by Dr. Evans. In review of his records, it was noted that he had a similar presentation where infection was suspected and he had confusion and that had actually been due to a gout flare. For this reason, colchicine was started and the patient actually improved the following day and this is when it was noted that he developed a painful, swollen, red knee. The patient also had hyponatremia which was corrected during this hospital stay as well and was seen by his grizzlyman. At the time of discharge, the patient was much more awake, alert, oriented to person and place. He was able to converse with simple conversations, had been up with physical therapy and following commands and is being discharged to the senior living facility for further treatment. Job ID: [id number]
== END 2019-04-10 18:05 | DRG 64 ==
LOC: ERS 22:30 → CCU 04-05 03:06 → 2SE 04-05 22:28
PROVIDERS: ADMIT Internal Medicine; ATTEND Internal Medicine
PROC: 009U3ZX Drainage of Spinal Canal, Percutaneous Approach, Diagnostic (ICD-10-PCS; principal; 2019-04-07)
PROC: B01BZZZ Fluoroscopy of Spinal Cord (ICD-10-PCS; 2019-04-07)
DX: I63.9 Cerebral infarction, unspecified (principal); G93.41 Metabolic encephalopathy; N17.0 Acute kidney failure with tubular necrosis; R40.2123 Coma scale, eyes open, to pain, at hospital admission; R40.2213 Coma scale, best verbal response, none, at hospital admission; E87.1 Hypo-osmolality and hyponatremia; E87.0 Hyperosmolality and hypernatremia; N18.4 Chronic kidney disease, stage 4 (severe); E87.2 Acidosis; I25.10 Atherosclerotic heart disease of native coronary artery without angina pectoris; D64.9 Anemia, unspecified; E78.00 Pure hypercholesterolemia, unspecified; E87.6 Hypokalemia; N40.0 Benign prostatic hyperplasia without lower urinary tract symptoms; E11.22 Type 2 diabetes mellitus with diabetic chronic kidney disease; E87.8 Other disorders of electrolyte and fluid balance, not elsewhere classified; R40.2353 Coma scale, best motor response, localizes pain, at hospital admission; E87.5 Hyperkalemia; I12.9 Hypertensive chronic kidney disease with stage 1 through stage 4 chronic kidney disease, or unspecified chronic kidney disease; R47.81 Slurred speech; H35.30 Unspecified macular degeneration; M10.9 Gout, unspecified; Z90.49 Acquired absence of other specified parts of digestive tract; Z86.73 Personal history of transient ischemic attack (TIA), and cerebral infarction without residual deficits; Z95.5 Presence of coronary angioplasty implant and graft; Z95.1 Presence of aortocoronary bypass graft; I25.2 Old myocardial infarction; Z90.89 Acquired absence of other organs; Z88.8 Allergy status to other drugs, medicaments and biological substances; Z92.82 Status post administration of tPA (rtPA) in a different facility within the last 24 hours prior to admission to current facility; Z79.82 Long term (current) use of aspirin; Z79.899 Other long term (current) drug therapy
CPT/HCPCS: 36415; 36416; 62270; 70450; 70496; 70498; 70551; 71045; 71250; 80048; 80053; 80202; 81001; 82274; 82533; 82607; 82945; 83930; 83935; 84157; 84300; 84436; 84550; 85014; 85018; 85025; 85610; 86850; 86900; 86901; 87070; 87205; 89051; 93970; 95816; 95819; C9113; J0133; J0290; J0360; J0696; J2060; J2920; J2997; J3370; J3490; J7050; J7131; Q9966

== ENCOUNTER 2019-04-19 11:13 | Inpatient (IN) | payer MEDICARE ==
[~2019-04-19 11:13] MED LIST changes: +Heparin 10,000 UNITS/1 ML VIAL ONE; -ISOVUE-370 76%-LOCM 1 ML ONE
[2019-04-19] MEDS ORDERED: Ondansetron PF 4 MG/2 ML Vial IVP PRN (13:22)
[2019-04-19] MEDS ORDERED: HYDROcodone/Acetaminophen 5/325 mg Tablet PO PRN (13:22)
[2019-04-19] MEDS ORDERED: Calcium Carbonate 500 MG ChewTAB PO PRN (13:22)
[2019-04-19] MEDS ORDERED: Ondansetron ODT 4 MG TAB PO PRN (13:22)
[2019-04-19] MEDS ORDERED: Loperamide HCl 2 MG CAP PO PRN (13:22)
[2019-04-19] MEDS ORDERED: HYDROcodone/Acetaminophen 7.5/325 mg Tablet PO PRN (13:22)
[2019-04-19] MEDS ORDERED: diphenhydrAMINE 25 MG CAP PO PRN (13:29)
[2019-04-19] MEDS ORDERED: Labetalol HCl 100 MG/20 ML VIAL SLOW IVP PRN (13:29)
[2019-04-19] MEDS ORDERED: Benzonatate 100 MG CAP PO PRN (13:29)
[2019-04-19] MEDS ORDERED: Docusate 100 MG CAP PO PRN (13:29)
[2019-04-19] MEDS ORDERED: Heparin 5,000 UNITS/ML VIAL SC SCH (15:00)
[2019-04-19] MEDS: Sodium Chloride 0.9% 1,000 ML IV SCH ×2 (16:17→20:39)
--- NOTE | 2019-04-19 17:05 | PDOC.HHP ---
Hospitalist HPI - History of Present Illness GEORGIA on CKD History of Present Illness: 79-year-old gentleman with past medical history of chronic kidney disease, CAD with CABG, multiple strokes, hypertension, hyperlipidemia, gout, and diabetes mellitus presents with acute kidney injury. Patient was recently discharged from [facility] on 04/11/2019 to swing bed for long term facility in [facility]. Over the past several days patient has been feeling more dehydrated. Confused at times. Lab work revealed that the patient had a profound kidney injury with a creatinine escalating from his baseline level of 1.8/2 up to a level of 4.8. Patient was transferred for higher level of care and nephrology consultation. I find the patient on the medical unit with telemetry he is laying flat embed in no apparent distress. Patient's and family are at bedside and able to aid in history. Patient is alert and oriented to self, he knows he is in [facility], he knows the hospital by name, he knows the year, however he is not sure why he is in the hospital. I inform the patient that he is in the hospital for worsening of kidney function and he states oh yes that's correct. Patient denies pain. He is breathing well on room air. There is no acute distress and vitals are stable. Patient was before having symptoms of gout with the right knee, though he states that gout is no longer bothering him, though he does have osteoarthritis in this knee as well. The right knee has no erythema, no cellulitis, no swelling or joint effusion. I discussed the case with nephrology who started IV fluids, renal ultrasound to rule out obstruction, and maximum medical management. If the patient does not respond to maximum medical management the next step would be hemodialysis. 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: reports: CVA, TIA Musculoskeletal: reports: Osteoarthritis, Other (Gout) Renal/: reports: Chronic renal insuff, Acute renal failure Endocrine: reports: Diabetes Dermatology: reports: Other (Skin cancer excision) - Past Surgical History Past Surgical History: reports: CABG - Family History Family History: reports: hypertension - Social History Smoking Status: Former smoker Tobacco Type: cigarettes Alcohol: reports: None (Former daily etoh for 50 years) Drugs: reports: none Living Situation: With Family Domestic Violence: Negative Activity level: uses cane/walker - Exam General Appearance: NAD, awake alert Eye: PERRL, anicteric sclera ENT: normocephalic atraumatic, moist mucosa Neck: supple, symmetric, no lymphadenopathy Heart: no murmur, no gallops, no rubs Respiratory: CTAB, no wheezes, no rales, no ronchi, normal chest expansion Gastrointestinal: soft, non-tender, non-distended, no guarding, no rigidity Extremities: 1+ LE edema Skin: no lesions, no rashes Neurological: cranial nerve grossly intact, normal sensation to touch, no focal deficits Musculoskeletal: generalized weakness Psychiatric: normal affect, A&O x 3 Hospitalist Results - Radiology Interpretation CT scan - head Status: image reviewed by la Hospitalist H&P A/P - Problem (1) [place] (acute kidney injury) Code(s): N17.9 - ACUTE KIDNEY FAILURE, UNSPECIFIED Status: Acute (2) Dehydration Code(s): E86.0 - DEHYDRATION Status: Acute (3) History of stroke Code(s): Z86.73 - PRSNL HX OF TIA (TIA), AND CEREB INFRC W/O RESID DEFICITS Status: Chronic (4) CKD (chronic kidney disease), stage III Code(s): N18.3 - CHRONIC KIDNEY DISEASE, STAGE 3 (MODERATE) Status: Chronic (5) Dyslipidemia Code(s): E78.5 - HYPERLIPIDEMIA, UNSPECIFIED Status: Chronic (6) Gout Code(s): M10.9 - GOUT, UNSPECIFIED Status: Chronic (7) HTN (hypertension) Code(s): I10 - ESSENTIAL (PRIMARY) HYPERTENSION Status: Chronic (8) Muscular deconditioning Code(s): R29.898 - OTH SYMPTOMS AND SIGNS INVOLVING THE MUSCULOSKELETAL SYSTEM Status: Chronic (9) Physical deconditioning Code(s): R53.81 - OTHER MALAISE Status: Chronic (10) Stage 3 chronic kidney disease due to benign hypertension Code(s): I12.9 - HYPERTENSIVE CHRONIC KIDNEY DISEASE W STG 1-4/UNSP CHR KDNY; N18.3 - CHRONIC KIDNEY DISEASE, STAGE 3 (MODERATE) Status: Chronic (11) Acute gouty arthropathy Code(s): M10.9 - GOUT, UNSPECIFIED Status: Resolved (12) Acute kidney injury superimposed on chronic kidney disease Code(s): N17.9 - ACUTE KIDNEY FAILURE, UNSPECIFIED; N18.9 - CHRONIC KIDNEY DISEASE, UNSPECIFIED Status: Resolved - Plan Plan: Plan: admit to medical unit with telemetry nephrology consultation, recommendations appreciated IV fluid resuscitation renal ultrasound to rule out obstruction baseline creatinine 1.8/2.0, has now trended up to 4.8 if patient does not respond to medical management the next step will be hemodialysis CT scan of the head recently demonstrated no acute intracranial pathology though there is evidence of old CVA and encephalon relation continue home medications as able blood pressure control blood sugar control
[2019-04-19 17:28] LABS: Creatinine, Urine 83.16 mg/dL (63-166)
[2019-04-19] MEDS ORDERED: HumaLOG 300 UNITS/3 ML VIAL SC PRN ×2 (17:34)
[2019-04-19] MEDS ORDERED: Dextrose 50% Abboject 50 ML SYRINGE SLOW IVP PRN (17:34)
[2019-04-19] MEDS ORDERED: Dextrose 5% in Water 1,000 ML IV PRN (17:34)
[2019-04-19] MEDS: Zolpidem Tartrate 5 MG TAB PO SCH (20:40)
[2019-04-19] MEDS: Vit A,C & E/Lutein/Minerals Tablet PO SCH (20:40)
[2019-04-19] MEDS: Tamsulosin HCl 0.4 MG CAP PO SCH (20:40)
[2019-04-19] MEDS: Heparin 5,000 UNITS/ML VIAL SC SCH (20:40)
[2019-04-19] MEDS: Carvedilol 3.125 MG TAB PO SCH (20:41)
[2019-04-19] MEDS ORDERED: Gabapentin 300 MG CAP PO SCH (21:00)
[2019-04-19] MEDS ORDERED: Colchicine 0.3 MG TAB PO SCH (21:00)
[2019-04-19] MEDS ORDERED: Famotidine 20 MG TAB PO SCH (21:00)
[2019-04-20 04:59] LABS: #Basophils 0.1 thou/uL (0.0-0.2); #Eosinphils 0.8 thou/uL (0.0-0.7); #Lymphocytes 2.1 thou/uL (1.20-3.40); #Monocytes 1.1 thou/uL (0.11-0.59); #Neutrophils 4.5 thou/uL (1.40-6.50); %Basophils 1.1 % (0.0-1.0); %Eosinophils 9.9 % (0.0-10.0); %Lymphocytes 24.1 % (21.0-51.0); %Monocytes 12.3 % (0.0-10.0); %Neutrophils 52.7 % (42.0-75.0); Hemoglobin 9.4 g/dL (14.0-18.0); Mean Corpuscular HGB CONC 32.4 g/dL (32.0-36.0); Mean Corpuscular Hemoglobin 31.1 pg (27.0-31.0); Platelet Count 462 thou/uL (130-400); RBC Distribution Width 15.4 % (11.5-14.5); Red Blood Cell (RBC) Count 3.03 mill/uL (4.70-6.10); White Blood Cell (WBC) Count 8.5 thou/uL (4.8-10.8)
[2019-04-20] MEDS: Sodium Chloride 0.9% 1,000 ML IV SCH (05:16)
[2019-04-20 06:30] LABS: Anion Gap 16 mmol/L (10-20); BUN (Urea Nitrogen) 42 mg/dL (8.4-25.7); Calc. Creatinine Clearance 13 mL/min (70-130); Carbon Dioxide 16 mmol/L (23-31); Chloride 111 mmol/L (98-107); Estimated GFR-MDRD 11; Glucose 110 mg/dL (83-110); Potassium 4.1 mmol/L (3.5-5.1); Sodium 139 mmol/L (136-145)
--- NOTE | 2019-04-20 08:15 | CON ---
DATE OF CONSULTATION: 04/19/2019 CONSULTING PHYSICIAN: Dr. Perez. REASON FOR CONSULT: Acute kidney injury on chronic kidney disease. REASON FOR ADMISSION: Abnormal labs. HISTORY OF PRESENT ILLNESS: This is an 79-year-old white male with history of hypertension, CKD, CVA, diabetes, hyponatremia, who was recently discharged from the hospital and was monitored at the [facility] and was found to have elevated creatinine. The patient's creatinine was around 1.8 on 04/10/2019. In one week, it increased up to 4.9, 4.8. Per family, the patient was not having good p.o. intake and was probably dehydrated. He was given IV fluids yesterday, but no improvement in renal function and he was sent back over here. The patient denies any problem with urination. No nausea or vomiting. No abdominal pain. No chest pain. No fever or chills. PAST MEDICAL HISTORY: Positive for hypertension, CKD, coronary artery disease, CVA, hyperlipidemia, diabetes, gout, acute kidney injury, hypokalemia, macular degeneration, BPH. PAST SURGICAL HISTORY: Coronary artery bypass, skin cancer removal. HOME MEDICATIONS: Multiple and include Flomax, biotin, amlodipine, Ambien, Uloric ALLERGIES: STATIN. SOCIAL HISTORY: No smoking, alcohol, or illicit drug abuse. FAMILY HISTORY: No history of kidney disease. REVIEW OF SYSTEMS: CONSTITUTIONAL: Negative for weight loss or gain, ability to conduct usual activities. SKIN: Negative for rash, itching. EYES: Negative for double vision, pain. ENT/MOUTH: Negative for nose bleeding, neck stiffness, pain, tenderness. CARDIOVASCULAR: Negative for palpitations, dyspnea on exertion, orthopnea. RESPIRATORY: Negative for shortness of breath, wheezing, cough, hemoptysis, fever or night sweats. GASTROINTESTINAL: Negative for poor appetite, abdominal pain, heartburn, nausea, vomiting, constipation, or diarrhea. GENITOURINARY: Negative for urgency, frequency, dysuria, nocturia. MUSCULOSKELETAL: Negative for pain, swelling. NEUROLOGIC/PSYCHIATRIC: Negative for anxiety, depression. ALLERGY/IMMUNOLOGIC: Negative for skin rash, bleeding tendency. PHYSICAL EXAMINATION: GENERAL: This is a well-built male, in no apparent distress. VITAL SIGNS: Temperature 96.2, pulse 65, respiratory rate 17, blood pressure 150/72. HEENT: Atraumatic, normocephalic. Oral mucosa is moist. NECK: Supple. CVS: S1 and S2 heard, rate and rhythm regular. RESPIRATORY: Clear. GI: Abdomen is soft. MUSCULOSKELETAL: No tenderness. No edema. DERMATOLOGIC: No skin rash. NEUROLOGIC: Alert and awake. PSYCHIATRIC: Mood and affect normal. LABORATORY DATA: Sodium is 130, potassium 4.6, BUN is 43, creatinine is 4.9, hemoglobin is 9.8. ASSESSMENT AND PLAN: 1. Acute kidney injury on chronic kidney disease. Continue IV hydration at 70 mL/h. We will check renal ultrasound. We will also stop colchicine and also adjust the medications based on the renal function and avoid nephrotoxins . 2. Hypertension. We will titrate medication. 3. Edema, controlled. 4. Anemia. Monitor and rule out iron deficiency. 5. We will stop colchicine. Renally dose heparin and avoid nephrotoxins and continue hydration as tolerated. Check renal ultrasound. We will monitor. We will also check urine studies. We will follow. Thank you for the consult. Job ID: [id number]
[2019-04-20] MEDS ORDERED: [Biotin] 10,000 MCG PO SCH (09:00)
[2019-04-20] MEDS ORDERED: Sodium Bicarbonate 150 MEQ in Dextrose 5% in Water 1,000 ML IV SCH (10:00)
[2019-04-20] MEDS: Heparin 5,000 UNITS/ML VIAL SC SCH ×2 (10:06→21:56)
--- NOTE | 2019-04-20 10:08 | ULT ---
ULTRASOUND RETROPERITONEUM COMPLETE: (RENAL) 04/20/2019 HISTORY: An 79-year-old male with acute kidney injury; rule out obstruction. COMPARISON: 02/03/2018 FINDINGS: The urinary bladder is distended. Previously demonstrated mural thickening appears less prominent on the current study. There is no hydronephrosis bilaterally. There is thinning of the bilateral renal c ortex. A small amount of free fluid is visualized in the left upper quadrant of abdominal cavity. The right kidney measures 9 x 4.5 x 5.5 cm. The left kidney measures 9 x 5 x 2.5 cm. No hydronephrosi s. Again noted is the approximately 2 cm cyst parapelvic cyst at the lower pole of the right kidney. There is a new finding of a 0.7 cm hyperechoic focus at the right renal mid pole with shadowing. IMPRESSION: 1. No hydronephrosis. 2. Right nephrolithiasis (calculus of kidney). 3. Right renal cyst. 4. Small volume of ascites. 5. Thin renal parenchyma. JN R POS: CET
--- NOTE | 2019-04-20 11:33 | PRG ---
DATE OF SERVICE: 04/20/2019 SUBJECTIVE: The patient is very lethargic this morning and somnolent. OBJECTIVE: GENERAL: This is an elderly male, very lethargic. VITAL SIGNS: Temperature 97.8, pulse 72, respiratory rate 16, blood pressure 147/65. Musculoskeletal : No tenderness, No edema HEENT: Atraumatic normocephalic Neck: Supple Cardiovascular: S1S2 heard, Rate and rhythm regular Respiratory: Clear to auscultation Gastrointestinal: Abdomen is soft Dermatologic : No skin rash Neurologic: somnolent Psychiatric: Mood and affect normal LABORATORY DATA: Potassium 4.1, BUN is 42, and creatinine is 5.09. ASSESSMENT AND PLAN: 1. Acute kidney injury, worsening, and somnolent now with most likely uremia. Plan is to start on dialysis. Family is agreeable. 2. Acidosis, getting worse. 3. Anemia. 4. Edema, controlled. 5. Hypertension, stable. 6. Altered mentation, most likely uremic. We will follow. We will consult Surgery for PICC line. Job ID: [id number] [facility]
--- NOTE | 2019-04-20 11:40 | PDOC.HOSPP ---
- Subjective Subjective: Seen and examined. Very somnolent this morning. Renal function continues to worsen. Alter mental status likely secondary to worsening renal function. Nephrology planning for dialysis. - Objective Vital Signs & Weight: Vital Signs (12 hours) Temp Pulse Resp BP Pulse Ox 04/20/19 03:43 97.8 F 72 16 146/65 H 95 Weight Weight 172 lb 8 oz I&O: 04/19/19 04/20/19 04/21/19 06:59 06:59 06:59 Intake Total 840 Output Total 350 Balance 490 Result Diagrams: 04/20/19 04:24 04/20/19 06:05 Additional Labs: Accuchecks 04/20/19 04/20/19 04/19/19 10:08 06:08 20:27 POC Glucose 97 122 H 132 H 04/19/19 18:14 POC Glucose 149 H Radiology Reviewed by me: Yes Hospitalist ROS - Review of Systems All other systems reviewed; all pertinent +/- noted in HPI/Subj - Medication Medications: Active Medications Generic Name Dose Route Start Last Admin Trade Name Abigail PRN Reason Stop Dose Admin Carvedilol 3.125 mg 04/19/19 21:00 04/19/19 20:41 Coreg PO 3.125 mg BID ERASTO Administration Heparin Sodium (Porcine) 5,000 units 04/19/19 21:00 04/20/19 10:06 Heparin SC 5,000 units BID ERASTO Administration Sodium Bicarbonate 150 meq/ 1,150 mls @ 75 mls/hr 04/20/19 10:00 04/20/19 10: 44 Dextrose/Water IV 04/20/19 12:00 1,150 mls NOW ERASTO Administration Multivitamins/Minerals 1 tab 04/19/19 21:00 04/19/19 20:40 Ocuvite With Lutein PO 1 tab BID ERASTO Administration Tamsulosin HCl 0.4 mg 04/19/19 21:00 04/19/19 20:40 Flomax PO 0.4 mg HS ERASTO Administration Zolpidem Tartrate 10 mg 04/19/19 21:00 04/19/19 20:40 Ambien PO 10 mg HS ERASTO Administration - Exam General Appearance: NAD Eye: anicteric sclera ENT: normocephalic atraumatic, moist mucosa Neck: supple, symmetric, no lymphadenopathy Heart: no murmur, no gallops, no rubs Respiratory: CTAB, no wheezes, no rales, no ronchi Gastrointestinal: soft, non-tender, non-distended, no palpable masses Extremities: 1+ LE edema Skin: no lesions, no rashes Neurological: cranial nerve grossly intact, no focal deficits Musculoskeletal: generalized weakness Psychiatric: somnolent Hosp A/P (1) [place] (acute kidney injury) Code(s): N17.9 - ACUTE KIDNEY FAILURE, UNSPECIFIED Status: Acute (2) Dehydration Code(s): E86.0 - DEHYDRATION Status: Acute (3) History of stroke Code(s): Z86.73 - PRSNL HX OF TIA (TIA), AND CEREB INFRC W/O RESID DEFICITS Status: Chronic (4) CKD (chronic kidney disease), stage III Code(s): N18.3 - CHRONIC KIDNEY DISEASE, STAGE 3 (MODERATE) Status: Chronic (5) Dyslipidemia Code(s): E78.5 - HYPERLIPIDEMIA, UNSPECIFIED Status: Chronic (6) Gout Code(s): M10.9 - GOUT, UNSPECIFIED Status: Chronic (7) HTN (hypertension) Code(s): I10 - ESSENTIAL (PRIMARY) HYPERTENSION Status: Chronic (8) Muscular deconditioning Code(s): R29.898 - OTH SYMPTOMS AND SIGNS INVOLVING THE MUSCULOSKELETAL SYSTEM Status: Chronic (9) Physical deconditioning Code(s): R53.81 - OTHER MALAISE Status: Chronic (10) Stage 3 chronic kidney disease due to benign hypertension Code(s): I12.9 - HYPERTENSIVE CHRONIC KIDNEY DISEASE W STG 1-4/UNSP CHR KDNY; N18.3 - CHRONIC KIDNEY DISEASE, STAGE 3 (MODERATE) Status: Chronic (11) Acute gouty arthropathy Code(s): M10.9 - GOUT, UNSPECIFIED Status: Resolved (12) Acute kidney injury superimposed on chronic kidney disease Code(s): N17.9 - ACUTE KIDNEY FAILURE, UNSPECIFIED; N18.9 - CHRONIC KIDNEY DISEASE, UNSPECIFIED Status: Resolved - Plan Plan: medical unit with telemetry nephrology consultation, recommendations appreciated HD catheter to be placed hemodialysis to be initiated per nephrology renal ultrasound is not demonstrate any obstruction or pyelonephritis CT scan of the head does not demonstrate any acute intracranial pathology, old CVA and chronic white matter changes continue home medications as able blood pressure control blood sugar control patient is a do not resuscitate/to not intubate we will honor his wishes.
[2019-04-20] MEDS: Amlodipine 10 MG TAB PO SCH (11:51)
[2019-04-20] MEDS: Carvedilol 3.125 MG TAB PO SCH ×2 (11:51→21:56)
[2019-04-20] MEDS: Aspirin 81 mg Enteric Coated Tablet PO SCH (11:51)
[2019-04-20] MEDS: Febuxostat 40 MG TAB PO SCH (11:52)
[2019-04-20] MEDS: Vit A,C & E/Lutein/Minerals Tablet PO SCH ×2 (11:52→21:55)
[2019-04-20 12:21] LABS: HBSAg Index 0.16 S/CO (0-0.99); Hep B Core Total Ab Non-Reactive (NonReactive); Hep B Core Total Index 0.05 S/CO (0-0.79); Hep B Surf Ag Non-Reactive S/CO (NonReactive); Hep C IgG Ab Non-Reactive (NonReactive); Hep C Index 0.08 S/CO (0-0.79)
[2019-04-20 12:28] LABS: HBSAB Concentration 183.33 mIU/mL; Hep B Surf AB Reactive (NonReactive)
--- NOTE | 2019-04-20 15:15 | OP ---
DATE OF PROCEDURE: 04/20/2019 PREOPERATIVE DIAGNOSES: End-stage renal disease, uremic, in need of acute dialysis access. POSTOPERATIVE DIAGNOSES: End-stage renal disease, uremic, in need of acute dialysis access. PROCEDURE PERFORMED: Right femoral vein Trialysis catheter. ANESTHESIA: 1% Xylocaine. DESCRIPTION OF PROCEDURE: With the patient at bedside, right groin was clipped of hair, prepared with ChloraPrep and draped in routine fashion. Trocar catheter was cannulated in the femoral vein. J-wire was threaded and trocar catheter was removed. Skin site was enlarged sharply. Small or medium size dilators were placed with J-wire into the femoral vein and removed. Distal port of the Trialysis catheter was placed with J-wire into the femoral vein. J-wire was removed. Catheter was secured with 2 interrupted sutures of 3-0 nylon. Each port aspirated blood and flushed with heparinized saline solution. Sterile dressing was applied. The patient tolerated the procedure well. Job ID: [id number]
--- NOTE | 2019-04-20 15:30 | ULT ---
ULTRASOUND VESSEL MAPPING FOR DIALYSIS ACCESS: HISTORY: ESRD. FINDINGS: Very limited examination. The left upper extremity was poorly seen. There is thrombus, nonocclusive n oted in the mid portion of the left cephalic vein, at the level of the antecubital region. RIGHT CEPHALIC VEIN SIZE FROM PROXIMAL TO DISTAL: 1.9 mm 2.5 mm 2.9 mm 2.5 mm 1.0 mm 1.1 mm 2.6 mm RIGHT BASILIC VEIN SIZE FROM PROXIMAL TO DISTAL: Unable to evaluate Unable to evaluate 1.6 mm 1.3 mm 1.1 mm 0.9 mm RIGHT BRACHIAL ARTERY: 6.9 mm RIGHT RADIAL ARTERY: 3.9 mm RIGHT ULNAR ARTERY: 3.1 mm The left side was unable to be adequately evaluated for venous size. LEFT BRACHIAL ARTERY: 5.7 mm LEFT RADIAL ARTERY: 3.3 mm LEFT ULNAR ARTERY: 3.1 mm POS: [facility]
--- NOTE | 2019-04-20 19:49 | CON ---
DATE OF CONSULTATION: SUBJECTIVE: Inocencio Ureña is an 79-year-old male patient, I have been asked to see regarding end-stage renal disease. He has a long history of chronic kidney disease, followed by Dr. Yancey. The patient has a history of diabetes and hypertension. He is being admitted in the hospital since 04/19/2019, Dr. Reyes has seen him. The patient is lethargic, noncommunicative. BUN 42, creatinine 5.09, carbon dioxide 16, GFR 11. I have been asked to see him regarding placement of a temporary dialysis catheter. He is a DNR. ALLERGIES: STATINS. TOBACCO: None. ALCOHOL: Rarely. PAST SURGICAL HISTORY: Coronary artery bypass grafting, laparoscopic cholecystectomy. MEDICATIONS: At home, 1. Flomax. 2. Biotin. 3. Baclofen. 4. Amlodipine. 5. Ambien. 6. Uloric acid. 7. Ocuvite. 8. Aspirin. 9. Lovaza. 10. Gabapentin. 11. Carvedilol. 12. Colchicine. In the hospital, he has been placed on Imodium, hydrocodone, and sliding scale insulin. His glucoses have been normal. REVIEW OF SYSTEMS: Not possible. PHYSICAL EXAMINATION: VITAL SIGNS: Height 5 feet 11 inches, weight 172 pounds, 24 BMI. HEAD, EARS, EYES, NOSE, AND THROAT: Unremarkable. LUNGS: Rhonchi at base. CARDIAC: Regular rate and rhythm. ABDOMEN: Soft and nontender. EXTREMITIES: Palpable radial pulses bilaterally. Peripheral edema, hands, ankles, and legs. LABORATORY DATA: As noted above. Hemoglobin 9, white count 8.5. 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 ASSESSMENT AND PLAN: End-stage renal disease. Plan placement of temporary hemodialysis catheter. We will order vein mapping. Place orders to avoid blood draws above his wrist. He may need a cuffed tunneled dialysis catheter in the days or weeks to come. I will be out of town this week, but available next week to place one if necessary or Dr. Stephens will be around this week if needed or necessary sooner. Job ID: [id number]
[2019-04-20] MEDS: Famotidine 20 MG TAB PO SCH (21:56)
[2019-04-20] MEDS: Tamsulosin HCl 0.4 MG CAP PO SCH (21:56)
[2019-04-21] MEDS: Melatonin 3 MG TAB PO PRN ×2 (00:20→20:39)
[2019-04-21] MEDS: Zolpidem Tartrate 5 MG TAB PO SCH ×2 (02:01→20:40)
[2019-04-21 10:52] LABS: Anion Gap 12 mmol/L (10-20); BUN (Urea Nitrogen) 24 mg/dL (8.4-25.7); Calc. Creatinine Clearance 16 mL/min (70-130); Calcium 7.8 mg/dL (7.8-10.44); Carbon Dioxide 27 mmol/L (23-31); Chloride 103 mmol/L (98-107); Estimated GFR-MDRD 14; Glucose 140 mg/dL (83-110); Potassium 3.7 mmol/L (3.5-5.1); Sodium 138 mmol/L (136-145)
[2019-04-21] MEDS ORDERED: Heparin 10,000 UNITS/ 10 ML VIAL ONE (11:11)
--- NOTE | 2019-04-21 13:29 | PRG ---
DATE OF SERVICE: 04/21/2019 SUBJECTIVE: Patient was seen and examined at bedside and overnight events noted. Patient denies any shortness of breath or chest pain or palpitation. No history of nausea or vomiting or diarrhea or fever or chills or cramps. OBJECTIVE: GENERAL: This is an elderly while male, in no apparent distress. VITAL SIGNS: Temperature 98.4. Heart rate 70. Respiratory rate 20. Blood pressure 157/77. HEENT: Atraumatic, normocephalic. Oral mucosa is moist NECK: Supple. CARDIOVASCULAR: S1, S2 heard. Rate and rhythm regular. RESPIRATORY: Clear to auscultation. GASTROINTESTINAL: Abdomen is soft. MUSCULOSKELETAL: No tenderness. No edema. DERMATOLOGIC: No skin rash. NEUROLOGIC: Alert and awake and oriented X3. No focal neurologic deficits. Moving all the extremities. PSYCHIATRIC: Mood and affect normal. LABORATORY DATA: Potassium is 3.7, BUN is 24, and creatinine is 4.1. ASSESSMENT AND PLAN: 1. Acute kidney injury on chronic kidney disease. Renal function is better. We will repeat another session of dialysis. 2. Edema, controlled. 3. Hypertension. 4. Anemia. 5. Acidosis. Overall labs looks good. We will have another session of dialysis for 2 hours and we will continue to monitor. Job ID: [id number]
[2019-04-21] MEDS: Heparin 5,000 UNITS/ML VIAL SC SCH ×2 (13:38→20:39)
[2019-04-21] MEDS: Amlodipine 10 MG TAB PO SCH (13:42)
[2019-04-21] MEDS: Aspirin 81 mg Enteric Coated Tablet PO SCH (13:42)
[2019-04-21] MEDS: Vit A,C & E/Lutein/Minerals Tablet PO SCH ×2 (13:43→20:39)
[2019-04-21] MEDS: Carvedilol 3.125 MG TAB PO SCH ×2 (13:43→20:39)
[2019-04-21] MEDS: Febuxostat 40 MG TAB PO SCH (13:43)
--- NOTE | 2019-04-21 15:38 | PQF ---
REGINAANTONIO LUDWIG [id number] CLINICAL DOCUMENTATION IMPROVEMENT CLARIFICATION FORM: ICD-10 Updated PLEASE DO AN ADDENDUM TO THE PROGRESS NOTE WITH ANY DOCUMENTATION UPDATES OR ADDITIONS AND CARRY THROUGH TO DC SUMMARY. THANK YOU. DATE: 04/23/19 ATTN: Dr. Doran, Please exercise your independent, professional judgment in responding to the clarification form. Clinical indicators are provided on the bottom of this form for your review Please check appropriate box(s): [ ] Encephalopathy: Type: [ XX ] Acute [ ] Subacute [ ] Chronic Etiology: [ XX] Metabolic [ ] Unspecified [ ] in the setting of underlying dementia [ XX ] Other (please specify) Secondary to uremia from acute renal failure. [ ] Transient Alteration of Awareness [ ] Other diagnosis [ ] Unable to determine In addition, please specify: Present on Admission (POA): [ XX ] Yes [ ] No [ ] Unable to determine For continuity of documentation, please document condition throughout progress notes and discharge summary. Thank You. CLINICAL INDICATORS - SIGNS / SYMPTOMS / LABS / RESULTS AND LOCATION IN EMR Altered mental status / confusion improving once cause is corrected (acute)--> 04/20 (Espinoza): "very somnolent this morning. Renal function continues to worsen. Alter mental status likely secondary to worsening renal function." Metabolic / electrolyte abnormality--> 04/21 Vasudev: acidosis; 04/20 bun 42, creat 5.09, GFR 11, CO2 16; 04/21 bun 24, creat 4.13, GFR 14 per lab RISK FACTORS / RESULTS AND LOCATION IN EMR [place] on CKD(04/19 IM:Espinoza) 04/20 JUANA: ESRD TREATMENTS / RESULTS AND LOCATION IN EMR Renal consult 04/19 orders 04/20 Right femoral trialysis catheter placed per OP note(Juana) 04/21 Hemodialysis session per orders (This form is maintained as a part of the permanent medical record) 2014 [employer]. All Rights Reserved Susu Kay RN, BSN, CCDS [email or web address]
[2019-04-21] MEDS: Famotidine 20 MG TAB PO SCH (20:39)
[2019-04-21] MEDS: Tamsulosin HCl 0.4 MG CAP PO SCH (20:39)
--- NOTE | 2019-04-21 21:48 | CON ---
DATE OF CONSULTATION: This is a followup note. HISTORY OF PRESENT ILLNESS: Mr. Ureña has been readmitted because of worsening renal function. He has had a Trialysis catheter placed in the right groin. I had seen him recently in mid March, when he presented with a history of coronary artery disease, prior stents, hyperlipidemia, hypertension, and he also had a history of gout, prior CVA x2, and stage 4 to 5 renal disease. I saw him this time because of altered mental status and he had been treated with tPA for a new onset of right-sided paresis, but no conclusive evidence of new CVA was found. He had some fever on admission. The workup completed included CT of chest, which showed patchy bibasilar densities, probably atelectasis but aspiration pneumonia was not ruled out. He also had a venogram completed, which showed negative for deep vein thrombosis, looks like they were done in the upper extremities for some reason. So now, he was returned back to the hospital because of evidence of worsening renal function and he has a little bit of confusion but I think that he is at his baseline as noted in the physical exam. He has some headaches intermittently. Denies any visual symptoms. No dyspnea or chest pain. No abdominal pain. He could not state urinary output very well. PAST MEDICAL HISTORY: Includes coronary artery disease, prior CVA, and gout. PAST SURGICAL HISTORY: He had a bypass graft surgery in the past. FAMILY HISTORY: Hypertension. SOCIAL HISTORY: He is a former smoker. ALLERGY HISTORY: Statins. CURRENT MEDICATIONS: Include, 1. Tylenol. 2. Orland. 3. DuoNeb. 4. Norvasc. 5. Ecotrin. 6. Lioresal. 7. Tessalon. 8. Tums. 9. Coreg. 10. Benadryl. 11. Colace. 12. Pepcid. 13. Uloric. 14. Insulin. 15. Imdur. 16. Normodyne. 17. Melatonin. 18. Zofran. 19. Flomax. 20. Ambien. PHYSICAL EXAMINATION: VITAL SIGNS: He has been afebrile since admission. BP 170/77, pulse 72, respirations 18, and O2 saturation 92% to 95%. GENERAL: He is awake. He establishes eye contact. He is a bit confused. He knows he is in the hospital, could not tell me the date, follows commands with some difficulty. Speech is little bit slurred. Ocular movements are conjugate. No areas of skin breakdown. Peripheral IV access. He has his triple-lumen in the right groin position and is voiding in the urinal. HEENT: Oral cavity with numerous missing teeth. NECK: Supple. No jugular vein distention. LUNGS: Symmetric. Clear breath sounds. HEART: S1 and S2, regular rate. ABDOMEN: Soft, not distended. EXTREMITIES: Has marked tenderness in the right knee area with limitation in range of motion. Pulses are 1+ in dorsalis pedis. He seems to be moving extremities similarly well, although he is diffusely weak. NEUROLOGIC: He is awake, oriented times self. He knows he is in the hospital, could not tell me which. He did not know the date. LABORATORY DATA: White cell count 8.7, hemoglobin 9.4, and platelets 462. Creatinine 4.13. Sodium 138. The last uric acid was 6.7 from April 08. ASSESSMENT AND DISCUSSION: History of prior cerebrovascular accidents, coronary artery disease, and gout, recent admission with potential recurrent cerebrovascular accident and had transient fever. CT of chest showed some basilar findings, which could reflect atelectasis or early pneumonitis, but now there is evidence of gouty arthropathy and has a most likely reason for the right knee inflammatory changes. He has been started on hemodialysis, and he will need anti-inflammatory treatment for the right knee. I guess this could be done with adjusted dose of colchicine for his renal function. I do not believe that there is evidence to suggest any infectious process at this point in time. Job ID: [id number]
--- NOTE | 2019-04-21 22:13 | PDOC.HOSPP ---
- Subjective Subjective: Doing ok. No complaints. Did tolerate the dialysis today. Did not feel great , but managed. - Objective Vital Signs & Weight: Vital Signs (12 hours) Temp Pulse Pulse Pulse Resp BP BP 04/21/19 15:35 98.1 F 72 18 04/21/19 14:06 75 90 167/75 H 185/81 H 04/21/19 13:42 98.2 F 77 20 BP Pulse Ox 04/21/19 15:35 170/77 H 92 L 04/21/19 14:06 04/21/19 13:42 180/79 H 20 L Weight Admit Weight 162 lb Weight 172 lb 8 oz I&O: 04/20/19 04/21/19 04/22/19 06:59 06:59 06:59 Intake Total 616 369 9141 Output Total 350 Balance 809 252 0720 Result Diagrams: 04/20/19 04:24 04/21/19 10:10 Additional Labs: Accuchecks 04/21/19 04/21/19 04/21/19 20:09 16:42 06:00 POC Glucose 126 H 109 113 H Hospitalist ROS - Medication Medications: Active Medications Generic Name Dose Route Start Last Admin Trade Name Freq PRN Reason Stop Dose Admin Amlodipine Besylate 10 mg 04/20/19 09:00 04/21/19 13:42 Norvasc PO 10 mg DAILY ERASTO Administration Aspirin 81 mg 04/20/19 09:00 04/21/19 13:42 Ecotrin PO 81 mg DAILY ERASTO Administration Carvedilol 3.125 mg 04/19/19 21:00 04/21/19 20:39 Coreg PO 3.125 mg BID ERASTO Administration Famotidine 20 mg 04/20/19 21:00 04/21/19 20:39 Pepcid PO 20 mg QPM ERASTO Administration Febuxostat 40 mg 04/20/19 09:00 04/21/19 13:43 Uloric PO 40 mg DAILY ERASTO Administration Heparin Sodium (Porcine) 5,000 units 04/19/19 21:00 04/21/19 20:39 Heparin SC 5,000 units BID ERASTO Administration Isosorbide Mononitrate 60 mg 04/20/19 09:00 04/21/19 13:42 Imdur PO 60 mg DAILY ERASTO Administration Melatonin 3 mg 04/19/19 13:29 11/05/19 20:39 Melatonin PO 3 mg HSPRN PRN Administration Insomnia Multivitamins/Minerals 1 tab 04/19/19 21:00 04/21/19 20:39 Ocuvite With Lutein PO 1 tab BID ERASTO Administration Tamsulosin HCl 0.4 mg 04/19/19 21:00 04/21/19 20:39 Flomax PO 0.4 mg HS ERASTO Administration Zolpidem Tartrate 10 mg 04/19/19 21:00 04/21/19 20:40 Ambien PO Not Given HS ERASTO - Exam General Appearance: NAD, awake alert Heart: RRR, no murmur, no gallops, no rubs, normal peripheral pulses Respiratory: CTAB, no wheezes, no rales, no ronchi, normal chest expansion, no tachypnea, normal percussion Gastrointestinal: soft, non-tender, non-distended, normal bowel sounds, no palpable masses, no hepatomegaly, no splenomegaly, no bruit Skin: normal turgor Hosp A/P (1) [place] (acute kidney injury) Code(s): N17.9 - ACUTE KIDNEY FAILURE, UNSPECIFIED Status: Acute (2) Dyslipidemia Code(s): E78.5 - HYPERLIPIDEMIA, UNSPECIFIED Status: Chronic (3) Gout Code(s): M10.9 - GOUT, UNSPECIFIED Status: Chronic (4) HTN (hypertension) Code(s): I10 - ESSENTIAL (PRIMARY) HYPERTENSION Status: Chronic (5) History of stroke Code(s): Z86.73 - PRSNL HX OF TIA (TIA), AND CEREB INFRC W/O RESID DEFICITS Status: Chronic (6) Physical deconditioning Code(s): R53.81 - OTHER MALAISE Status: Chronic (7) Acute gouty arthropathy Code(s): M10.9 - GOUT, UNSPECIFIED Status: Resolved - Plan Appreciate ID recs. Trialysis catheter placed and HD initiated. Manage gout. Will likely need to return to rehab on discharge.
[2019-04-22] MEDS: Vit A,C & E/Lutein/Minerals Tablet PO SCH ×2 (08:21→20:39)
[2019-04-22] MEDS: Carvedilol 3.125 MG TAB PO SCH ×2 (08:21→20:39)
[2019-04-22] MEDS: Amlodipine 10 MG TAB PO SCH (08:21)
[2019-04-22] MEDS: Heparin 5,000 UNITS/ML VIAL SC SCH ×2 (08:21→20:38)
[2019-04-22] MEDS: Febuxostat 40 MG TAB PO SCH (08:21)
[2019-04-22] MEDS: Aspirin 81 mg Enteric Coated Tablet PO SCH (08:21)
--- NOTE | 2019-04-22 12:37 | PRG ---
DATE OF SERVICE: 04/22/2019 SUBJECTIVE: An 79-year-old gentleman is being seen for acute kidney injury, dialysis dependent. The patient denies any nausea, vomiting, or chest pain. OBJECTIVE: GENERAL: The patient is awake and alert. VITAL SIGNS: Afebrile, pulse 75, breathing at 16, blood pressure was 133/60. GENERAL APPEARANCE AND MENTAL STATUS: Fair. HEAD/NECK: Normocephalic. Atraumatic. EYES: EOMI. No deformity. EARS: Clear. No ulcers. NOSE: Intact. No lesions. MOUTH: Clear. No discharge. THROAT: Clear. No exudate. LUNGS: Clear. No crackles. CARDIAC: S1, S2. No rub. ABDOMEN: Benign. Bowel sounds positive. GENITALIA/RECTUM: Shipley absent. BACK/EXTREMITIES: Edema 0+. NEUROLOGICAL: Alert and motor intact. SKIN: LYMPHATICS: LABORATORY DATA: Reviewed. ASSESSMENT: 1. Stage 6 chronic kidney disease. Plan dialysis tomorrow. 2. Hypertensive, stable. 3. Anemia, stable. 4. Uremia, improved. Job ID: [id number]
--- NOTE | 2019-04-22 14:32 | PDOC.HOSPP ---
- Subjective Subjective: Doing very well. Knee feels much better overall. No pain. Good ROM - Objective Vital Signs & Weight: Vital Signs (12 hours) Temp Pulse Resp BP Pulse Ox 04/22/19 11:30 97.9 F 64 18 133/62 94 L 04/22/19 07:00 98.5 F 69 18 160/74 H 94 L 04/22/19 03:49 98.5 F 68 18 151/72 H 92 L Weight Admit Weight 172 lb 8 oz Weight 172 lb 8 oz I&O: 04/21/19 04/22/19 04/23/19 06:59 06:59 06:59 Intake Total 300 1200 Balance 300 1200 Result Diagrams: 04/20/19 04:24 04/21/19 10:10 Additional Labs: Accuchecks 04/22/19 04/22/19 04/21/19 10:45 05:16 20:09 POC Glucose 124 H 75 126 H 04/21/19 16:42 POC Glucose 109 Hospitalist ROS - Medication Medications: Active Medications Generic Name Dose Route Start Last Admin Trade Name Freq PRN Reason Stop Dose Admin Amlodipine Besylate 10 mg 04/20/19 09:00 04/22/19 08:21 Norvasc PO 10 mg DAILY ERASTO Administration Aspirin 81 mg 04/20/19 09:00 04/22/19 08:21 Ecotrin PO 81 mg DAILY ERASTO Administration Carvedilol 3.125 mg 04/19/19 21:00 04/22/19 08:21 Coreg PO 3.125 mg BID ERASTO Administration Famotidine 20 mg 04/20/19 21:00 04/21/19 20:39 Pepcid PO 20 mg QPM ERASTO Administration Febuxostat 40 mg 04/20/19 09:00 04/22/19 08:21 Uloric PO 40 mg DAILY ERASTO Administration Heparin Sodium (Porcine) 5,000 units 04/19/19 21:00 04/22/19 08:21 Heparin SC 5,000 units BID ERASTO Administration Isosorbide Mononitrate 60 mg 04/20/19 09:00 04/22/19 08:21 Imdur PO 60 mg DAILY ERASTO Administration Melatonin 3 mg 04/19/19 13:29 04/21/19 20:39 Melatonin PO 3 mg HSPRN PRN Administration Insomnia Multivitamins/Minerals 1 tab 04/19/19 21:00 04/22/19 08:21 Ocuvite With Lutein PO 1 tab BID ERASTO Administration Tamsulosin HCl 0.4 mg 04/19/19 21:00 04/21/19 20:39 Flomax PO 0.4 mg HS ERASTO Administration Zolpidem Tartrate 10 mg 04/19/19 21:00 04/21/19 20:40 Ambien PO Not Given HS ERASTO - Exam General Appearance: NAD, awake alert Neck: supple, symmetric, no JVD, no thyromegaly, no lymphadenopathy, no carotid bruit Heart: RRR, no murmur, no gallops, no rubs, normal peripheral pulses Respiratory: CTAB, no wheezes, no rales, no ronchi, normal chest expansion, no tachypnea, normal percussion Gastrointestinal: soft, non-tender, non-distended, normal bowel sounds, no palpable masses, no hepatomegaly, no splenomegaly, no bruit Extremities: no cyanosis, no clubbing, no edema Extremities - other findings: Right knee looks fairly normal. Skin: normal turgor Musculoskeletal: normal tone, normal strength, no muscle wasting Hosp A/P (1) [place] (acute kidney injury) Code(s): N17.9 - ACUTE KIDNEY FAILURE, UNSPECIFIED Status: Acute (2) Dyslipidemia Code(s): E78.5 - HYPERLIPIDEMIA, UNSPECIFIED Status: Chronic (3) Gout Code(s): M10.9 - GOUT, UNSPECIFIED Status: Chronic (4) HTN (hypertension) Code(s): I10 - ESSENTIAL (PRIMARY) HYPERTENSION Status: Chronic (5) History of stroke Code(s): Z86.73 - PRSNL HX OF TIA (TIA), AND CEREB INFRC W/O RESID DEFICITS Status: Chronic (6) Physical deconditioning Code(s): R53.81 - OTHER MALAISE Status: Chronic (7) Acute gouty arthropathy Code(s): M10.9 - GOUT, UNSPECIFIED Status: Resolved - Plan Appreciate ID recs. Trialysis catheter placed and HD initiated. Manage gout. Appears that the acute gouty arthropathy has resolved. Will likely need to return to rehab on discharge. HD again tomorrow. May be able to DC after that.
[2019-04-22] MEDS: Famotidine 20 MG TAB PO SCH (20:39)
[2019-04-22] MEDS: Tamsulosin HCl 0.4 MG CAP PO SCH (20:39)
[2019-04-22] MEDS: Zolpidem Tartrate 5 MG TAB PO SCH (23:15)
--- NOTE | 2019-04-23 12:13 | PRG ---
DATE OF SERVICE: 04/23/2019 SUBJECTIVE: An 79-year-old gentleman, being seen for end-stage kidney disease. The patient denied any nausea, vomiting, or chest pain. OBJECTIVE: See above. Awake, alert, in no acute distress. VITAL SIGNS: Afebrile, pulse 74, breathing 16, blood pressure 162/74. GENERAL APPEARANCE AND MENTAL STATUS: Fair. HEAD/NECK: Normocephalic. Atraumatic. EYES: EOMI. No deformity. EARS: Clear. No ulcers. NOSE: Intact. No lesions. MOUTH: Clear. No discharge. THROAT: Clear. No exudate. LUNGS: Clear. No crackles. CARDIAC: S1, S2. No rub. ABDOMEN: Benign. Bowel sounds positive. GENITALIA/RECTUM: Shipley absent. BACK/EXTREMITIES: Edema 0+. NEUROLOGICAL: Alert and motor intact. SKIN: LYMPHATICS: LABORATORY DATA: Reviewed. ASSESSMENT AND PLAN: 1. Chronic kidney disease, stage 6. Plan dialysis. We will check labs today. 2. Hypertension, stable. 3. Anemia, stable. Medication based on GFR appropriate. Job ID: [id number]
[2019-04-23] MEDS: Acetaminophen 325 MG TAB PO PRN (13:02)
[2019-04-23] MEDS: Vit A,C & E/Lutein/Minerals Tablet PO SCH ×2 (13:04→21:10)
[2019-04-23] MEDS: Aspirin 81 mg Enteric Coated Tablet PO SCH (13:05)
[2019-04-23] MEDS: Amlodipine 10 MG TAB PO SCH (13:05)
[2019-04-23] MEDS: Carvedilol 3.125 MG TAB PO SCH ×2 (13:06→21:10)
[2019-04-23] MEDS: Heparin 5,000 UNITS/ML VIAL SC SCH ×2 (13:06→21:10)
[2019-04-23] MEDS: Febuxostat 40 MG TAB PO SCH (13:06)
[2019-04-23] MEDS ORDERED: Tuberculin PPD 0.1 ML VIAL I-DERMAL SCH (14:00)
--- NOTE | 2019-04-23 21:00 | PDOC.HOSPP ---
- Subjective Subjective: Doing well. Tolerated dialysis well. Understands that the plan will be to continue HD. - Objective Vital Signs & Weight: Vital Signs (12 hours) Temp Pulse Resp BP BP Pulse Ox 04/23/19 15:20 98.3 F 73 18 161/70 H 93 L 04/23/19 14:17 160/74 H 04/23/19 12:55 73 159/89 H 04/23/19 11:30 98.1 F 73 18 159/75 H 94 L Weight Admit Weight 172 lb 8 oz Weight 180 lb 1.883 oz I&O: 04/22/19 04/23/19 04/24/19 06:59 06:59 06:59 Intake Total 1200 1440 970 Output Total 300 250 Balance 1200 1140 720 Result Diagrams: 04/20/19 04:24 04/21/19 10:10 Additional Labs: Accuchecks 04/23/19 04/23/19 04/23/19 20:19 16:36 05:26 POC Glucose 79 85 83 04/22/19 20:10 POC Glucose 119 H Hospitalist ROS - Medication Medications: Active Medications Generic Name Dose Route Start Last Admin Trade Name Freq PRN Reason Stop Dose Admin Acetaminophen 650 mg 04/19/19 13:22 04/23/19 13:02 Tylenol PO 650 mg Q4H PRN Administration Headache/Fever/Mild Pain (1-3) Amlodipine Besylate 10 mg 04/20/19 09:00 04/23/19 13:05 Norvasc PO 10 mg DAILY ERASTO Administration Aspirin 81 mg 04/20/19 09:00 04/23/19 13:05 Ecotrin PO 81 mg DAILY ERASTO Administration Carvedilol 3.125 mg 04/19/19 21:00 04/23/19 13:06 Coreg PO Not Given BID ERASTO Famotidine 20 mg 04/20/19 21:00 04/22/19 20:39 Pepcid PO 20 mg QPM ERASTO Administration Febuxostat 40 mg 04/20/19 09:00 04/23/19 13:06 Uloric PO 40 mg DAILY ERASTO Administration Heparin Sodium (Porcine) 5,000 units 04/19/19 21:00 04/23/19 13:06 Heparin SC Not Given BID ERASTO Isosorbide Mononitrate 60 mg 04/20/19 09:00 04/23/19 13:05 Imdur PO 60 mg DAILY ERASTO Administration Melatonin 3 mg 04/19/19 13:29 04/21/19 20:39 Melatonin PO 3 mg HSPRN PRN Administration Insomnia Multivitamins/Minerals 1 tab 04/19/19 21:00 04/23/19 13:04 Ocuvite With Lutein PO 1 tab BID ERASTO Administration Tamsulosin HCl 0.4 mg 04/19/19 21:00 04/22/19 20:39 Flomax PO 0.4 mg HS ERASTO Administration Zolpidem Tartrate 10 mg 04/19/19 21:00 04/22/19 23:15 Ambien PO Not Given HS ERASTO - Exam General Appearance: NAD, awake alert Heart: RRR, no murmur, no gallops, no rubs, normal peripheral pulses Respiratory: CTAB, no wheezes, no rales, no ronchi, normal chest expansion, no tachypnea, normal percussion Gastrointestinal: soft, non-tender, non-distended, normal bowel sounds, no palpable masses, no hepatomegaly, no splenomegaly, no bruit Skin: normal turgor, no lesions, no rashes Musculoskeletal: normal tone, normal strength, no muscle wasting Psychiatric: normal affect, normal behavior Psychiatric - other findings: Confused. Thinks there are birds in the room. Hosp A/P (1) [place] (acute kidney injury) Code(s): N17.9 - ACUTE KIDNEY FAILURE, UNSPECIFIED Status: Acute (2) Dyslipidemia Code(s): E78.5 - HYPERLIPIDEMIA, UNSPECIFIED Status: Chronic (3) Gout Code(s): M10.9 - GOUT, UNSPECIFIED Status: Chronic (4) HTN (hypertension) Code(s): I10 - ESSENTIAL (PRIMARY) HYPERTENSION Status: Chronic (5) History of stroke Code(s): Z86.73 - PRSNL HX OF TIA (TIA), AND CEREB INFRC W/O RESID DEFICITS Status: Chronic (6) Physical deconditioning Code(s): R53.81 - OTHER MALAISE Status: Chronic (7) Acute gouty arthropathy Code(s): M10.9 - GOUT, UNSPECIFIED Status: Resolved - Plan Trialysis catheter placed and HD initiated. Appears that the acute gouty arthropathy has resolved. Will likely need to return to rehab on discharge. Discussed with Dr. Yancey. HD will continue. May be able to DC after that.
[2019-04-23] MEDS: Famotidine 20 MG TAB PO SCH (21:10)
[2019-04-23] MEDS: Tamsulosin HCl 0.4 MG CAP PO SCH (21:10)
[2019-04-23] MEDS: Melatonin 3 MG TAB PO PRN (21:10)
[2019-04-23] MEDS: Zolpidem Tartrate 5 MG TAB PO SCH (23:06)
[2019-04-24 04:48] LABS: Hemoglobin 8.1 g/dL (14.0-18.0)
[2019-04-24 05:06] LABS: Anion Gap 16 mmol/L (10-20); BUN (Urea Nitrogen) 12 mg/dL (8.4-25.7); Calc. Creatinine Clearance 17 mL/min (70-130); Calcium 7.9 mg/dL (7.8-10.44); Carbon Dioxide 25 mmol/L (23-31); Chloride 100 mmol/L (98-107); Estimated GFR-MDRD 15; Glucose 67 mg/dL (83-110); Potassium 4.2 mmol/L (3.5-5.1); Sodium 137 mmol/L (136-145)
[2019-04-24] MEDS: Acetaminophen 325 MG TAB PO PRN ×2 (08:01→20:15)
[2019-04-24] MEDS: Febuxostat 40 MG TAB PO SCH (08:01)
[2019-04-24] MEDS: Carvedilol 3.125 MG TAB PO SCH ×2 (08:01→20:01)
[2019-04-24] MEDS: Vit A,C & E/Lutein/Minerals Tablet PO SCH ×2 (08:01→20:01)
[2019-04-24] MEDS: Aspirin 81 mg Enteric Coated Tablet PO SCH (08:01)
[2019-04-24] MEDS: Heparin 5,000 UNITS/ML VIAL SC SCH ×2 (08:01→20:01)
[2019-04-24] MEDS: Amlodipine 10 MG TAB PO SCH (08:01)
--- NOTE | 2019-04-24 10:50 | RAD ---
CHEST 1 VIEW: Date: 04/24/19 HISTORY: Fever. COMPARISON: 04/05/19. FINDINGS: There is blunting of both costophrenic angles with minimal cardiomegaly. Postop midline sternotomy. T here is some bilateral vascular congestion with increased interstitial and alveolar markings in the r ight and left lower lobe, more so on the left side. This raises concern for bilateral lower lobe atel ectasis and/or pneumonia, particularly in the left base. Correlate clinically. IMPRESSION: New bibasilar parenchymal changes, more so in the left lower lobe, concerning for atelectasis and/or pneumonia. Bilateral pleural effusions. Mild bilateral vascular congestion. Correlate clinically and suggest short-term follow-up. POS: [facility]
--- NOTE | 2019-04-24 12:05 | PRG ---
DATE OF SERVICE: 04/24/2019 SUBJECTIVE: An 79-year-old gentleman is being seen for end-stage renal disease. The patient denied any nausea, vomiting, or chest pain. OBJECTIVE: GENERAL: The patient is awake and alert. VITAL SIGNS: The patient is febrile at 101.2, pulse 87, breathing 16, blood pressure 152/67. GENERAL APPEARANCE AND MENTAL STATUS: Fair. HEAD/NECK: Normocephalic. Atraumatic. EYES: EOMI. No deformity. EARS: Clear. No ulcers. NOSE: Intact. No lesions. MOUTH: Clear. No discharge. THROAT: Clear. No exudate. LUNGS: Clear. No crackles. CARDIAC: S1, S2. No rub. ABDOMEN: Benign. Bowel sounds positive. GENITALIA/RECTUM: Shipley absent. BACK/EXTREMITIES: Edema 0+. NEUROLOGICAL: Alert and motor intact. SKIN: LYMPHATICS: LABORATORY DATA: Reviewed. ASSESSMENT: 1. Stage 6 chronic kidney disease. Plan dialysis tomorrow. 2. Hypertension, stable. 3. Anemia, stable. 4. The patient's GFR does not seem to be appropriate. Job ID: [id number]
[2019-04-24] MEDS ORDERED: Vancomycin HCl 1 GM in Premix Bag 1 BAG IVPB SCH (12:45)
--- NOTE | 2019-04-24 14:24 | PRG ---
DATE OF SERVICE: 04/24/2019 SUBJECTIVE: Lying on his right lateral decubitus. He is sleepy, easily arousable and oriented times self only. He denied any respiratory symptoms. Indicated he was having some pain in the suprapubic area. OBJECTIVE: VITAL SIGNS: Had a temperature elevation of 101.2 this morning. BP 115/55. HEENT: Ocular movements conjugate. LUNGS: Clear to auscultation and percussion. HEART: S1, S2, regular rate. ABDOMEN: Soft with no evidence of bladder distention. No organomegaly. No ascites. Mild tenderness in the suprapubic area. EXTREMITIES: Right knee is quite painful to range of motion and palpation. LABORATORY DATA: White cell count has not been repeated. Hemoglobin 8.1. Creatinine 3.98, which is improved from admission. Chest x-ray from this morning with bibasilar parenchymal changes, pleural effusions, and mild bilateral vascular congestion. ASSESSMENT: History of prior cerebrovascular accident; coronary artery disease, transient fever with recurrence now, bibasilar lung changes, gout with acute gout in the right knee, likely hemodialysis recently started through a catheter. Catheter is located in the right femoral region. DISCUSSION: The concern with catheter-associated bacteremia is present and will need to be ruled out with blood cultures, which needs to be repeated. Chest x-ray shows some bibasilar findings, which are nonspecific, gout still could be an issue here. Repeat CBC, blood cultures x2. If fever returns, we will have to start broad-spectrum coverage empirically. Job ID: [id number]
[2019-04-24 14:47] LABS: Bilirubin Negative (Negative); Blood, Urine Negative (Negative); Clarity Clear (Clear); Glucose, Urine (Dipstick) Normal (Negative); Leukocyte 25 Leu/uL (Negative); Nitrite Negative (Negative); Protein, Urine (Dipstick) 100 mg/dL (Neg-Trace); RBC/HPF 0-3 HPF (0-3); Squamous Epithelial 0-3 HPF (0-3); Urobilinogen Normal mg/dL (Less than 2)
[2019-04-24 14:50] LABS: Bacteria/HPF 1+ HPF (None Seen)
--- NOTE | 2019-04-24 16:58 | PDOC.HOSPP ---
- Subjective Subjective: Doing well today. Has not seen the birds in the room today, but is still fairly firm on the idea that they were there. Told his about them yesterday as well. His only concern is that he has to be on HD. He does say that it is not nearly as bad as he and anticipated. His says she has noticed a couple of drops of blood on his scrotum with diaper changes. - Objective Vital Signs & Weight: Vital Signs (12 hours) Temp Pulse Pulse Pulse Resp BP BP 04/24/19 16:10 04/24/19 15:58 98.4 F 77 21 H 04/24/19 14:07 78 70 143/66 H 135/63 04/24/19 11:49 99.1 F 67 16 04/24/19 07:55 101.2 F H 87 18 BP Pulse Ox 04/24/19 16:10 94 L 04/24/19 15:58 156/67 H 90 L 04/24/19 14:07 04/24/19 11:49 115/55 L 94 L 04/24/19 07:55 164/72 H 93 L Weight Admit Weight 172 lb 8 oz Weight 171 lb 8.314 oz I&O: 04/23/19 04/24/19 04/25/19 06:59 06:59 06:59 Intake Total 1440 1170 Output Total 300 250 Balance 1140 920 Result Diagrams: 04/24/19 04:20 04/24/19 04:20 Additional Labs: Accuchecks 04/24/19 04/24/19 04/23/19 10:46 05:20 20:19 POC Glucose 84 75 79 Hospitalist ROS - Medication Medications: Active Medications Generic Name Dose Route Start Last Admin Trade Name Freq PRN Reason Stop Dose Admin Acetaminophen 650 mg 04/19/19 13:22 04/24/19 08:01 Tylenol PO 650 mg Q4H PRN Administration Headache/Fever/Mild Pain (1-3) Amlodipine Besylate 10 mg 04/20/19 09:00 04/24/19 08:01 Norvasc PO 10 mg DAILY ERASTO Administration Aspirin 81 mg 04/20/19 09:00 04/24/19 08:01 Ecotrin PO 81 mg DAILY ERASTO Administration Carvedilol 3.125 mg 04/19/19 21:00 04/24/19 08:01 Coreg PO 3.125 mg BID ERASTO Administration Famotidine 20 mg 04/20/19 21:00 04/23/19 21:10 Pepcid PO 20 mg QPM ERASTO Administration Febuxostat 40 mg 04/20/19 09:00 04/24/19 08:01 Uloric PO 40 mg DAILY ERASTO Administration Heparin Sodium (Porcine) 5,000 units 04/19/19 21:00 04/24/19 08:01 Heparin SC 5,000 units BID ERASTO Administration Isosorbide Mononitrate 60 mg 04/20/19 09:00 04/24/19 08:01 Imdur PO 60 mg DAILY ERASTO Administration Melatonin 3 mg 04/19/19 13:29 04/23/19 21:10 Melatonin PO 3 mg HSPRN PRN Administration Insomnia Multivitamins/Minerals 1 tab 04/19/19 21:00 04/24/19 08:01 Ocuvite With Lutein PO 1 tab BID ERASTO Administration Tamsulosin HCl 0.4 mg 04/19/19 21:00 04/23/19 21:10 Flomax PO 0.4 mg HS ERASTO Administration Zolpidem Tartrate 10 mg 04/19/19 21:00 04/23/19 23:06 Ambien PO Not Given HS ERASTO - Exam General Appearance: NAD, awake alert Heart: RRR, no murmur, no gallops, no rubs, normal peripheral pulses Respiratory: CTAB, no wheezes, no rales, no ronchi, normal chest expansion, no tachypnea, normal percussion Gastrointestinal: soft, non-tender, non-distended, normal bowel sounds, no palpable masses, no hepatomegaly, no splenomegaly, no bruit Extremities: no cyanosis, no clubbing, no edema Skin: normal turgor, no lesions, no rashes Skin - other findings: Very small scratch on the left anterior scrotum. Hosp A/P (1) [place] (acute kidney injury) Code(s): N17.9 - ACUTE KIDNEY FAILURE, UNSPECIFIED Status: Acute (2) Dyslipidemia Code(s): E78.5 - HYPERLIPIDEMIA, UNSPECIFIED Status: Chronic (3) Gout Code(s): M10.9 - GOUT, UNSPECIFIED Status: Chronic (4) HTN (hypertension) Code(s): I10 - ESSENTIAL (PRIMARY) HYPERTENSION Status: Chronic (5) History of stroke Code(s): Z86.73 - PRSNL HX OF TIA (TIA), AND CEREB INFRC W/O RESID DEFICITS Status: Chronic (6) Physical deconditioning Code(s): R53.81 - OTHER MALAISE Status: Chronic (7) Acute gouty arthropathy Code(s): M10.9 - GOUT, UNSPECIFIED Status: Resolved - Plan Trialysis catheter placed and HD initiated. Appears that the acute gouty arthropathy has resolved. Will likely need to return to rehab on discharge. Discussed with Dr. Yancey. HD will continue. Febrile today. Dr. Evans following. CXR non-specific. Blood cultures pending. Discussed with Dr. Yancey. He will dose Vanc until cultures are back.
[2019-04-24] MEDS: Famotidine 20 MG TAB PO SCH (20:01)
[2019-04-24] MEDS: Zolpidem Tartrate 5 MG TAB PO SCH (20:01)
[2019-04-24] MEDS: Melatonin 3 MG TAB PO PRN (20:01)
[2019-04-24] MEDS: Tamsulosin HCl 0.4 MG CAP PO SCH (20:02)
[2019-04-25 04:42] LABS: Anion Gap 11 mmol/L (10-20); BUN (Urea Nitrogen) 22 mg/dL (8.4-25.7); Calc. Creatinine Clearance 12 mL/min (70-130); Calcium 8.1 mg/dL (7.8-10.44); Carbon Dioxide 28 mmol/L (23-31); Chloride 101 mmol/L (98-107); Estimated GFR-MDRD 10; Glucose 134 mg/dL (83-110); Potassium 3.9 mmol/L (3.5-5.1); Sodium 136 mmol/L (136-145)
[2019-04-25] MEDS: Acetaminophen 325 MG TAB PO PRN ×3 (08:32→20:53)
[2019-04-25] MEDS ORDERED: Heparin 10,000 UNITS/ 10 ML VIAL ONE (10:00)
[2019-04-25] MEDS ORDERED: Vancomycin HCl 1 GM in Premix Bag 1 BAG IVPB SCH (10:15)
--- NOTE | 2019-04-25 10:24 | PDOC.HOSPP ---
- Subjective Encounter Date: 04/25/19 Encounter Time: 09:21 Subjective: 79 y/o male with multiple comorbidities including multiple CVAs with recent TPA treatment, CKD3/4, CAD s/p CABG, DM, gout and others, recently discharged to [facility] now readmitted due to acute increase in creat associated with confusion. Patient is now on HD for [place] on CKD. Still confused. Had fever yesterxday and was started on antibiotics. - Objective Vital Signs & Weight: Vital Signs (12 hours) Temp Pulse Resp BP Pulse Ox 04/25/19 07:40 100.7 F H 90 15 173/72 H 92 L 04/25/19 03:55 100.4 F H 73 20 168/71 H 93 L 04/24/19 23:56 97.5 F L 116 H 20 152/69 H 92 L Weight Admit Weight 172 lb 8 oz Weight 171 lb 4.787 oz I&O: 04/24/19 04/25/19 04/26/19 06:59 06:59 06:59 Intake Total 1170 1650 Output Total 250 Balance 920 1650 Result Diagrams: 04/24/19 04:20 04/25/19 03:55 Additional Labs: Accuchecks 04/25/19 04/24/19 04/24/19 05:31 20:32 16:57 POC Glucose 127 H 136 H 154 H 04/24/19 10:46 POC Glucose 84 Hospitalist ROS - Medication Medications: Active Medications Generic Name Dose Route Start Last Admin Trade Name Freq PRN Reason Stop Dose Admin Acetaminophen 650 mg 04/19/19 13:22 04/25/19 08:32 Tylenol PO 650 mg Q4H PRN Administration Headache/Fever/Mild Pain (1-3) Amlodipine Besylate 10 mg 04/20/19 09:00 04/24/19 08:01 Norvasc PO 10 mg DAILY ERASTO Administration Aspirin 81 mg 04/20/19 09:00 04/24/19 08:01 Ecotrin PO 81 mg DAILY ERASTO Administration Carvedilol 3.125 mg 04/19/19 21:00 04/24/19 20:01 Coreg PO 3.125 mg BID ERASTO Administration Famotidine 20 mg 04/20/19 21:00 04/24/19 20:01 Pepcid PO 20 mg QPM ERASTO Administration Febuxostat 40 mg 04/20/19 09:00 04/24/19 08:01 Uloric PO 40 mg DAILY ERASTO Administration Heparin Sodium (Porcine) 5,000 units 04/19/19 21:00 04/24/19 20:01 Heparin SC 5,000 units BID ERASTO Administration Isosorbide Mononitrate 60 mg 04/20/19 09:00 04/24/19 08:01 Imdur PO 60 mg DAILY ERASTO Administration Melatonin 3 mg 04/19/19 13:29 04/24/19 20:01 Melatonin PO 3 mg HSPRN PRN Administration Insomnia Multivitamins/Minerals 1 tab 04/19/19 21:00 04/24/19 20:01 Ocuvite With Lutein PO 1 tab BID ERASTO Administration Tamsulosin HCl 0.4 mg 04/19/19 21:00 04/24/19 20:02 Flomax PO 0.4 mg HS ERASTO Administration Zolpidem Tartrate 10 mg 04/19/19 21:00 04/24/19 20:01 Ambien PO 10 mg HS ERASTO Administration - Exam General - other findings: sleepy. no distress Eye: anicteric sclera ENT: normocephalic atraumatic Neck: supple, no JVD Heart: RRR Respiratory: no wheezes, no ronchi, normal chest expansion Respiratory - other findings: fair air entry bilaterally Gastrointestinal: soft, non-tender, non-distended, normal bowel sounds Extremities: no cyanosis, no edema Neurological: cranial nerve grossly intact Psychiatric: oriented to person Hosp A/P (1) Fever Code(s): R50.9 - FEVER, UNSPECIFIED Status: Acute (2) Acute gouty arthropathy Code(s): M10.9 - GOUT, UNSPECIFIED Status: Resolved (3) CKD (chronic kidney disease), stage III Code(s): N18.3 - CHRONIC KIDNEY DISEASE, STAGE 3 (MODERATE) Status: Chronic (4) Acute kidney injury superimposed on chronic kidney disease Code(s): N17.9 - ACUTE KIDNEY FAILURE, UNSPECIFIED; N18.9 - CHRONIC KIDNEY DISEASE, UNSPECIFIED Status: Resolved (5) Chronic diastolic heart failure Code(s): I50.32 - CHRONIC DIASTOLIC (CONGESTIVE) HEART FAILURE Status: Acute (6) Acute metabolic encephalopathy Code(s): G93.41 - METABOLIC ENCEPHALOPATHY Status: Acute (7) Gout Code(s): M10.9 - GOUT, UNSPECIFIED Status: Chronic (8) HTN (hypertension) Code(s): I10 - ESSENTIAL (PRIMARY) HYPERTENSION Status: Chronic - Plan Empirical antibiotic to continue. awaiting blood cultures. HD as per Nephrology ID following. Continue other supportive care.
--- NOTE | 2019-04-25 12:15 | PRG ---
DATE OF SERVICE: 04/25/2019 SUBJECTIVE: An 79-year-old gentleman is being seen for end-stage renal disease. The patient denied any nausea, vomiting, or chest pain. OBJECTIVE: Constitutional: The patient is awake and alert. VITAL SIGNS: Afebrile, pulse 75, breathing 16, and blood pressure was 173/72. GENERAL APPEARANCE AND MENTAL STATUS: Fair. HEAD/NECK: Normocephalic. Atraumatic. EYES: EOMI. No deformity. EARS: Clear. No ulcers. NOSE: Intact. No lesions. MOUTH: Clear. No discharge. THROAT: Clear. No exudate. LUNGS: Clear. No crackles. CARDIAC: S1, S2. No rub. ABDOMEN: Benign. Bowel sounds positive. GENITALIA/RECTUM: Shipley absent. BACK/EXTREMITIES: Edema 0+. NEUROLOGICAL: Alert and motor intact. SKIN: LYMPHATICS: LABORATORY DATA: Reviewed. ASSESSMENT AND PLAN: Stage 6 chronic kidney disease, plan dialysis. Hypertension, stable. Anemia, stable. Sepsis management per primary team negative. Job ID: [id number]
[2019-04-25] MEDS: Carvedilol 3.125 MG TAB PO SCH ×2 (13:26→20:51)
[2019-04-25] MEDS: Aspirin 81 mg Enteric Coated Tablet PO SCH (13:26)
[2019-04-25] MEDS: Amlodipine 10 MG TAB PO SCH (13:26)
[2019-04-25] MEDS: Vit A,C & E/Lutein/Minerals Tablet PO SCH ×2 (13:26→20:52)
[2019-04-25] MEDS: Febuxostat 40 MG TAB PO SCH (13:27)
[2019-04-25] MEDS: Heparin 5,000 UNITS/ML VIAL SC SCH ×2 (13:27→20:51)
[2019-04-25] MEDS: Famotidine 20 MG TAB PO SCH (20:51)
[2019-04-25] MEDS: Tamsulosin HCl 0.4 MG CAP PO SCH (20:52)
[2019-04-25] MEDS: Zolpidem Tartrate 5 MG TAB PO SCH (20:52)
[2019-04-25] MEDS ORDERED: Cefepime 2 GM in Sodium Chloride 0.9% 100 ML IVPB SCH (21:15)
[2019-04-25] MEDS ORDERED: Naproxen 500 MG TAB PO SCH (21:30)
[2019-04-25] MEDS: READ PPD TEST SITE PO SCH (23:31)
[2019-04-26 07:09] LABS: ALT (SGPT) 22 U/L (8-55); AST (SGOT) 22 U/L (5-34); Albumin 2.5 g/dL (3.4-4.8); Alkaline Phosphatase 112 U/L (40-110); Anion Gap 12 mmol/L (10-20); BUN (Urea Nitrogen) 17 mg/dL (8.4-25.7); Bilirubin, Total 0.6 mg/dL (0.2-1.2); CRP (Inflammatory) 28.24 mg/dL (= or < 0.5); Calc. Creatinine Clearance 0 mL/min (70-130); Calcium 7.8 mg/dL (7.8-10.44); Carbon Dioxide 28 mmol/L (23-31); Chloride 100 mmol/L (98-107); Estimated GFR-MDRD 15; Globulin 2.9 g/dL (2.4-3.5); Glucose 110 mg/dL (83-110); Potassium 3.8 mmol/L (3.5-5.1); Protein, Total 5.4 g/dL (5.8-8.1); Sodium 136 mmol/L (136-145)
[2019-04-26 08:07] LABS: Hemoglobin 7.5 g/dL (14.0-18.0); Mean Corpuscular HGB CONC 32.8 g/dL (32.0-36.0); Mean Corpuscular Volume 94.5 fL (78.0-98.0); Mean Platelet Volume 7.7 fL (7.4-10.4); Platelet Count 368 thou/uL (130-400); RBC Distribution Width 14.5 % (11.5-14.5); Red Blood Cell (RBC) Count 2.42 mill/uL (4.70-6.10)
[2019-04-26 08:08] LABS: Band 5 % (5-11); Eosinophils 2 % (0-10); Lymphocytes 19 % (21-51); MDiff Complete? YES; Monocytes 8 % (0-10); Neutrophil 66 % (42-75); Platelet Morphology Comment Appears Adequate
[2019-04-26] MEDS ORDERED: Vancomycin HCl 1.25 GM in Sodium Chloride 0.9% 250 ML 250 ML IVPB SCH (08:45)
[2019-04-26] MEDS ORDERED: Vancomycin HCl 750 MG in Sodium Chloride 0.9% 250 ML 250 ML IVPB SCH (08:45)
[2019-04-26] MEDS ORDERED: Vancomycin HCl 500 MG in Sodium Chloride 0.9% 100 ML IVPB SCH (08:45)
[2019-04-26] MEDS ORDERED: HOLD VANCOMYCIN FOR LEVEL >20 FS SCH (08:45)
[2019-04-26] MEDS ORDERED: Vancomycin Sliding Scale 1 EACH FS ONE (08:45)
[2019-04-26] MEDS ORDERED: Vancomycin HCl 1 GM in Premix Bag 1 BAG IVPB SCH (08:45)
[2019-04-26] MEDS: Carvedilol 3.125 MG TAB PO SCH ×2 (09:49→20:22)
[2019-04-26] MEDS: Heparin 5,000 UNITS/ML VIAL SC SCH ×2 (09:49→20:22)
[2019-04-26] MEDS: Febuxostat 40 MG TAB PO SCH (09:49)
[2019-04-26] MEDS: Amlodipine 10 MG TAB PO SCH (09:49)
[2019-04-26] MEDS: Vit A,C & E/Lutein/Minerals Tablet PO SCH ×2 (09:49→20:22)
[2019-04-26] MEDS: Aspirin 81 mg Enteric Coated Tablet PO SCH (09:49)
--- NOTE | 2019-04-26 10:35 | PDOC.HOSPP ---
- Subjective Encounter Date: 04/26/19 Encounter Time: 08:37 Subjective: 79 y/o male with multiple comorbidities including multiple CVAs with recent TPA treatment, CKD3/4, CAD s/p CABG, DM, gout and others, recently discharged to [facility] now readmitted due to acute increase in creat associated with confusion. Patient is now on HD for [place] on CKD. Still confused. Still having intermittent fever. Fever seems to be related to dialysis treatment - Objective Vital Signs & Weight: Vital Signs (12 hours) Temp Pulse Resp BP Pulse Ox 04/26/19 09:49 72 04/26/19 03:24 98.5 F 64 16 141/67 H 94 L 04/25/19 23:34 98.6 F 64 18 128/63 90 L Weight Admit Weight 172 lb 8 oz Weight 170 lb 6.677 oz I&O: 04/25/19 04/26/19 04/27/19 06:59 06:59 06:59 Intake Total 1650 1600 Balance 1650 1600 Result Diagrams: 04/26/19 06:00 04/26/19 06:00 Additional Labs: Accuchecks 04/26/19 04/25/19 04/25/19 05:35 20:35 16:52 POC Glucose 120 H 104 131 H 04/25/19 13:21 POC Glucose 87 Hospitalist ROS - Medication Medications: Active Medications Generic Name Dose Route Start Last Admin Trade Name Freq PRN Reason Stop Dose Admin Acetaminophen 650 mg 04/19/19 13:22 04/25/19 20:53 Tylenol PO 650 mg Q4H PRN Administration Headache/Fever/Mild Pain (1-3) Amlodipine Besylate 10 mg 04/20/19 09:00 04/26/19 09:49 Norvasc PO 10 mg DAILY ERASTO Administration Aspirin 81 mg 04/20/19 09:00 04/26/19 09:49 Ecotrin PO 81 mg DAILY ERASTO Administration Carvedilol 3.125 mg 04/19/19 21:00 04/26/19 09:49 Coreg PO 3.125 mg BID ERASTO Administration Famotidine 20 mg 04/20/19 21:00 04/25/19 20:51 Pepcid PO 20 mg QPM ERASTO Administration Febuxostat 40 mg 04/20/19 09:00 04/26/19 09:49 Uloric PO 40 mg DAILY ERASTO Administration Heparin Sodium (Porcine) 5,000 units 04/19/19 21:00 04/26/19 09:49 Heparin SC 5,000 units BID ERASTO Administration Isosorbide Mononitrate 60 mg 04/20/19 09:00 04/26/19 09:49 Imdur PO 60 mg DAILY ERASTO Administration Melatonin 3 mg 04/19/19 13:29 04/24/19 20:01 Melatonin PO 3 mg HSPRN PRN Administration Insomnia Multivitamins/Minerals 1 tab 04/19/19 21:00 04/26/19 09:49 Ocuvite With Lutein PO 1 tab BID ERASTO Administration Read Ppd Test Site 0 each 04/25/19 14:00 04/25/19 23:31 PO 04/26/19 23:59 Not Given 1400 ERASTO Tamsulosin HCl 0.4 mg 04/19/19 21:00 04/25/19 20:52 Flomax PO 0.4 mg HS ERASTO Administration Zolpidem Tartrate 10 mg 04/19/19 21:00 04/25/19 20:52 Ambien PO 10 mg HS ERASTO Administration - Exam General Appearance: awake alert Eye: anicteric sclera ENT: normocephalic atraumatic Neck: supple, symmetric, no JVD Heart: RRR Respiratory: no wheezes, no ronchi, normal chest expansion, no tachypnea Gastrointestinal: soft, non-tender, non-distended, normal bowel sounds Gastrointestinal - other findings: Right groin dialysis catheter noted Extremities: no edema Skin - other findings: no erythema noted Neurological: cranial nerve grossly intact, no focal deficits Neurological - other findings: confused. Psychiatric: oriented to person Hosp A/P (1) Fever Code(s): R50.9 - FEVER, UNSPECIFIED Status: Acute (2) Acute gouty arthropathy Code(s): M10.9 - GOUT, UNSPECIFIED Status: Resolved (3) Acute kidney injury superimposed on chronic kidney disease Code(s): N17.9 - ACUTE KIDNEY FAILURE, UNSPECIFIED; N18.9 - CHRONIC KIDNEY DISEASE, UNSPECIFIED Status: Resolved (4) CKD (chronic kidney disease), stage III Code(s): N18.3 - CHRONIC KIDNEY DISEASE, STAGE 3 (MODERATE) Status: Chronic (5) Chronic diastolic heart failure Code(s): I50.32 - CHRONIC DIASTOLIC (CONGESTIVE) HEART FAILURE Status: Acute (6) Acute metabolic encephalopathy Code(s): G93.41 - METABOLIC ENCEPHALOPATHY Status: Acute (7) Gout Code(s): M10.9 - GOUT, UNSPECIFIED Status: Chronic (8) HTN (hypertension) Code(s): I10 - ESSENTIAL (PRIMARY) HYPERTENSION Status: Chronic (9) Dementia Code(s): F03.90 - UNSPECIFIED DEMENTIA WITHOUT BEHAVIORAL DISTURBANCE Status: Acute - Plan Empirical antibiotic broadened with addition of cefepime to vancomycin awaiting blood cultures. Antipyretics for fever HD as per Nephrology ID following. Continue other supportive care.
--- NOTE | 2019-04-26 13:39 | PRG ---
DATE OF SERVICE: 04/26/2019 SUBJECTIVE: An 79-year-old gentleman being seen for end-stage renal disease. The patient denied any nausea, vomiting, or chest pain. OBJECTIVE: CONSTITUTIONAL: The patient is awake and alert. VITAL SIGNS: Afebrile, pulse 69, breathing 16, and blood pressure 170/65. GENERAL APPEARANCE AND MENTAL STATUS: Fair. HEAD/NECK: Normocephalic. Atraumatic. EYES: EOMI. No deformity. EARS: Clear. No ulcers. NOSE: Intact. No lesions. MOUTH: Clear. No discharge. THROAT: Clear. No exudate. LUNGS: Clear. No crackles. CARDIAC: S1, S2. No rub. ABDOMEN: Benign. Bowel sounds positive. GENITALIA/RECTUM: Shipley absent. BACK/EXTREMITIES: Edema 0+. NEUROLOGICAL: Alert and motor intact. SKIN: LYMPHATICS: LABORATORY DATA: Reviewed. ASSESSMENT AND PLAN: 1. Stage 6 chronic kidney disease. Continue dialysis. 2. Hypertension, stable. 3. Anemia. We will plan transfusion tomorrow with dialysis. Medication based on GFR appropriate. Outpatient dialysis has been setup. Job ID: [id number]
--- NOTE | 2019-04-26 15:25 | PRG ---
DATE OF SERVICE: 04/26/2019 SUBJECTIVE: The patient is back to his baseline mental status. Still with marked pain in the right knee. No respiratory symptoms. No diarrhea. Voiding in the urinal. T-max 101.5 yesterday at 3 p.m. He has been restarted on broad-spectrum antimicrobial coverage. OBJECTIVE: GENERAL: He is oriented times self and place, recognized his . HEENT: Ocular movements conjugate. LUNGS: Symmetric, clear breath sounds. HEART: S1, S2, regular rate. ABDOMEN: Soft, not distended or tender. No ascites. No bladder distention. EXTREMITIES: Marked tenderness on range of motion of the right knee on palpation. LABORATORY DATA: White cell count 16,000, hemoglobin 7.5, platelets 368. Creatinine 3.95. All blood cultures negative thus far. ASSESSMENT AND DISCUSSION: Cerebrovascular accident in the past, coronary artery disease, fever with recurrence, bacteremia almost ruled out. Blood culture, final, negative. I would again consider recrudescence of gout as the more likely scenario. Consider starting colchicine dose adjusted for renal function. Job ID: [id number]
[2019-04-26] MEDS: READ PPD TEST SITE PO SCH (19:19)
[2019-04-26] MEDS: Zolpidem Tartrate 5 MG TAB PO SCH (20:22)
[2019-04-26] MEDS: Tamsulosin HCl 0.4 MG CAP PO SCH (20:22)
[2019-04-26] MEDS: Famotidine 20 MG TAB PO SCH (20:22)
[2019-04-26] MEDS: Cefepime 0.5 GM in Sodium Chloride 0.9% 100 ML IVPB SCH (20:23)
[2019-04-27 06:06] LABS: Albumin 2.4 g/dL (3.4-4.8); Anion Gap 12 mmol/L (10-20); BUN (Urea Nitrogen) 29 mg/dL (8.4-25.7); BUN/Creatinine Ratio 6.02; Calc. Creatinine Clearance 13 mL/min (70-130); Calcium 7.7 mg/dL (7.8-10.44); Carbon Dioxide 28 mmol/L (23-31); Chloride 101 mmol/L (98-107); Estimated GFR-MDRD 12; Glucose 90 mg/dL (83-110); Phosphorus 3.2 mg/dL (2.3-4.7); Potassium 3.8 mmol/L (3.5-5.1); Sodium 137 mmol/L (136-145)
[2019-04-27] MEDS: Febuxostat 40 MG TAB PO SCH (10:13)
[2019-04-27] MEDS: Carvedilol 3.125 MG TAB PO SCH ×2 (10:13→20:02)
[2019-04-27] MEDS: Aspirin 81 mg Enteric Coated Tablet PO SCH (10:13)
[2019-04-27] MEDS: Amlodipine 10 MG TAB PO SCH (10:13)
[2019-04-27] MEDS: Heparin 5,000 UNITS/ML VIAL SC SCH ×2 (10:13→20:03)
[2019-04-27] MEDS: Vit A,C & E/Lutein/Minerals Tablet PO SCH ×2 (10:14→20:02)
[2019-04-27] MEDS ORDERED: CEFAZOLIN 2 GM in Premix Bag 1 BAG IVPB SCH (11:15)
--- NOTE | 2019-04-27 11:15 | PRG ---
DATE OF SERVICE: 04/27/2019 SUBJECTIVE: Patient was seen and examined at bedside and overnight events noted. Patient denies any shortness of breath or chest pain or palpitation. No history of nausea or vomiting or diarrhea or fever or chills or cramps. OBJECTIVE: GENERAL: This is an elderly male, in no apparent distress. VITAL SIGNS: Temperature 98.6. Heart rate 63. Respiratory rate 16. Blood pressure 136/62. HEENT: Atraumatic, normocephalic. Oral mucosa is moist NECK: Supple. CARDIOVASCULAR: S1, S2 heard. Rate and rhythm regular. RESPIRATORY: Clear to auscultation. GASTROINTESTINAL: Abdomen is soft. MUSCULOSKELETAL: No tenderness. No edema. DERMATOLOGIC: No skin rash. NEUROLOGIC: Alert and awake and oriented X3. No focal neurologic deficits. Moving all the extremities. PSYCHIATRIC: Mood and affect normal. LABORATORY DATA: Potassium is 3.8, BUN is 29, and creatinine is 4.8. ASSESSMENT AND PLAN: 1. Acute Kidney Injury on Chronic Kidney Disease Stage 3 - dialysis dependent. will continue dialysis as tolerated. 2. Edema. 3. Hypertension. 4. Anemia. I had a detailed discussion with the family and they want to continue with dialysis. Currently, they want to continue on a trial basis and okay with long-term access placement. Consult Dr. Talamantes for tunneled dialysis catheter and possible fistula placement. We will continue to follow. We will check labs in the morning. Plan is to continue on dialysis Saturday, , and Saturday as tolerated. Follow with Case Management for outpatient placement. Job ID: [id number] [facility]
--- NOTE | 2019-04-27 11:26 | PDOC.HOSPP ---
- Subjective Encounter Date: 04/27/19 Encounter Time: 09:25 Subjective: 79 y/o male with multiple comorbidities including multiple CVAs with recent TPA treatment, CKD3/4, CAD s/p CABG, DM, gout and others, recently discharged to [facility] now readmitted due to acute increase in creat associated with confusion. Patient is now on HD for [place] on CKD. Sleeping most of the days but more awake today. Still confused. No fever in the last 36 hours. - Objective Vital Signs & Weight: Vital Signs (12 hours) Temp Pulse Resp BP Pulse Ox 04/27/19 07:42 64 16 136/62 95 04/27/19 03:19 98.6 F 66 16 119/56 L 94 L Weight Admit Weight 172 lb 8 oz Weight 167 lb 8 oz I&O: 04/26/19 04/27/19 04/28/19 06:59 06:59 06:59 Intake Total 1600 670 Output Total 0 Balance 1600 670 Result Diagrams: 04/26/19 06:00 04/27/19 05:35 Additional Labs: Accuchecks 04/27/19 04/27/19 04/26/19 10:41 05:10 20:00 POC Glucose 91 107 140 H 04/26/19 04/26/19 16:31 10:36 POC Glucose 157 H 105 Hospitalist ROS - Medication Medications: Active Medications Generic Name Dose Route Start Last Admin Trade Name Freq PRN Reason Stop Dose Admin Acetaminophen 650 mg 04/19/19 13:22 04/25/19 20:53 Tylenol PO 650 mg Q4H PRN Administration Headache/Fever/Mild Pain (1-3) Amlodipine Besylate 10 mg 04/20/19 09:00 04/27/19 10:13 Norvasc PO 10 mg DAILY ERASTO Administration Aspirin 81 mg 04/20/19 09:00 04/27/19 10:13 Ecotrin PO 81 mg DAILY ERASTO Administration Carvedilol 3.125 mg 04/19/19 21:00 04/27/19 10:13 Coreg PO 3.125 mg BID ERASTO Administration Famotidine 20 mg 04/20/19 21:00 04/26/19 20:22 Pepcid PO 20 mg QPM ERASTO Administration Febuxostat 40 mg 04/20/19 09:00 04/27/19 10:13 Uloric PO 40 mg DAILY ERASTO Administration Heparin Sodium (Porcine) 5,000 units 04/19/19 21:00 04/27/19 10:13 Heparin SC 5,000 units BID ERASTO Administration Cefepime HCl 0.5 gm/ Sodium 100 mls @ 200 mls/hr 04/26/19 21:00 04/26/19 20: 23 Chloride IVPB 100 mls 2100 ERASTO Administration Isosorbide Mononitrate 60 mg 04/20/19 09:00 04/27/19 10:14 Imdur PO 60 mg DAILY ERASTO Administration Melatonin 3 mg 04/19/19 13:29 04/24/19 20:01 Melatonin PO 3 mg HSPRN PRN Administration Insomnia Multivitamins/Minerals 1 tab 04/19/19 21:00 04/27/19 10:14 Ocuvite With Lutein PO 1 tab BID ERASTO Administration Tamsulosin HCl 0.4 mg 04/19/19 21:00 04/26/19 20:22 Flomax PO 0.4 mg HS ERASTO Administration Zolpidem Tartrate 10 mg 04/19/19 21:00 04/26/19 20:22 Ambien PO 10 mg HS ERASTO Administration - Exam General - other findings: lethargic. Eye: anicteric sclera ENT: normocephalic atraumatic Neck: symmetric Heart: RRR Respiratory: no wheezes, no rales, no ronchi, normal chest expansion Gastrointestinal: soft, non-tender, non-distended, normal bowel sounds Extremities: no cyanosis, no edema Neurological: cranial nerve grossly intact, no focal deficits Neurological - other findings: Oriented to person. Answers simple question and commands. confused Hosp A/P (1) Fever Code(s): R50.9 - FEVER, UNSPECIFIED Status: Acute (2) Acute gouty arthropathy Code(s): M10.9 - GOUT, UNSPECIFIED Status: Resolved (3) Acute kidney injury superimposed on chronic kidney disease Code(s): N17.9 - ACUTE KIDNEY FAILURE, UNSPECIFIED; N18.9 - CHRONIC KIDNEY DISEASE, UNSPECIFIED Status: Resolved (4) CKD (chronic kidney disease), stage III Code(s): N18.3 - CHRONIC KIDNEY DISEASE, STAGE 3 (MODERATE) Status: Chronic (5) Chronic diastolic heart failure Code(s): I50.32 - CHRONIC DIASTOLIC (CONGESTIVE) HEART FAILURE Status: Acute (6) Acute metabolic encephalopathy Code(s): G93.41 - METABOLIC ENCEPHALOPATHY Status: Acute (7) Gout Code(s): M10.9 - GOUT, UNSPECIFIED Status: Chronic (8) HTN (hypertension) Code(s): I10 - ESSENTIAL (PRIMARY) HYPERTENSION Status: Chronic (9) Dementia Code(s): F03.90 - UNSPECIFIED DEMENTIA WITHOUT BEHAVIORAL DISTURBANCE Status: Acute - Plan antibiotic as per ID. Cultures so far negative. Antipyretics for fever Will start colchicine if patient spike temp again. HD as per Nephrology ID following. Continue other supportive care. palliative care consult. D/W spouse and daughter.
--- NOTE | 2019-04-27 12:25 | PRG ---
DATE OF SERVICE: 04/27/2019 SUBJECTIVE: Mr. Ureña is doing well today. His mental status is improved. The family is uncertain whether they want to commit to long-term dialysis and would prefer at this time to place a hemodialysis catheter and central line. If his mental status continues to improve such that they want to continue dialysis long-term, we can place a right arm fistula. His left arm cephalic vein is thrombosed due to iatrogenic IV access left antecubital. We would avoid all IVs in his arms and protect his right arm vein for future access in case he needs it. Job ID: [id number]
--- NOTE | 2019-04-27 13:47 | PDOC.PALCO ---
Palliative Care Consult - Consult Details Requesting Physician: Dr Grant Reason for Consult: goals of care, family support Family Members Present: and patient daughter Mariaa - Pertinent HPI 79 year old male who has been residing at his private home with his until this recent admission. Recent hospitalization with discharge to swing bed . Onset of dehydration and weakness, admitted to [facility] for higher level of care. - Social History Smoking Status: Former smoker Smoking: quit greater than 1 year Alcohol Use: none Drug Use History: none Living Situation: - Medications MAR Reviewed: Yes - Allergies Allergies/Adverse Reactions: Allergies Allergy/AdvReac Type Severity Reaction Status Date / Time Rmcpvps-Msm-Nwb Reductase Allergy Severe Verified 04/19/19 12:26 Inhibitor - Subjective Sleeping, difficult to arouse, returns to sleep state. - Objective Vital Signs: Vital Signs - Most Recent Temp Pulse Resp BP Pulse Ox 97.8 F 68 18 133/60 95 04/27/19 12:00 04/27/19 12:00 04/27/19 12:00 04/27/19 12:00 04/27/19 12:00 Palliative Performance Scale: 30 - Physical Exam Constitutional: confusion HEENT: moist MMs, sclera anicteric Respiratory: clear to auscultation bilateral, unlabored breathing Cardiovascular: RRR Gastrointestinal: soft, no distention, positive bowel sounds Musculoskeletal: pulses present, edema present Deviation from normal: Arthritic changes to joints Neurological: moves all 4 limbs Deviation from normal: Oriented to self, confusion. Skin: cap refill <2 seconds - Problem List (1) Palliative care encounter Code(s): Z51.5 - ENCOUNTER FOR PALLIATIVE CARE Current Visit: Yes Status: Acute (2) CKD (chronic kidney disease), stage III Code(s): N18.3 - CHRONIC KIDNEY DISEASE, STAGE 3 (MODERATE) Current Visit: No Status: Chronic (3) Muscular deconditioning Code(s): R29.898 - OTH SYMPTOMS AND SIGNS INVOLVING THE MUSCULOSKELETAL SYSTEM Current Visit: No Status: Chronic (4) Physical deconditioning Code(s): R53.81 - OTHER MALAISE Current Visit: No Status: Chronic - Plan/Recommendations Plan: Visited with family at length. He dated his for five years, they have been 58 years. They have elected to forgo the permanent dialysis catheter and opted for a hemodialysis cath with central line, transitioning to permanent cath if needed. *Patient was alert this morning, hopeful that this afternoon he will again have improved cognition. If so the is planning on and encouraged to discuss with patient his wishes specifically in relation to dialysis and intermediate frame tender aspect. *If patient is able they are hopeful he will transfer to [facility] and be transported for dialysis. *Family stated that comfort is important and they are just waiting to see how the next 24-48 hours unfolds. Palliative Care will continue to follow to support patient/family and facilitate goals of care. [60] minutes spent on this encounter with >50% of the time in counseling and coordination of care. Thank you for this very appropriate consult.
[2019-04-27] MEDS: Acetaminophen 325 MG TAB PO PRN (15:54)
--- NOTE | 2019-04-27 17:00 | EKG ---
Test Reason : Blood Pressure : / mmHG Vent. Rate : 073 BPM Atrial Rate : 073 BPM P-R Int : 164 ms QRS Dur : 136 ms QT Int : 506 ms P-R-T Axes : 031 -80 -12 degrees QTc Int : 557 ms Poor data quality, interpretation may be adversely affected Sinus rhythm with Premature supraventricular complexes Possible Left atrial enlargement Left axis deviation Right bundle branch block Nonspecific ST-T changes Abnormal ECG When compared with ECG of 26-AUG-2018 00:50, Significant changes have occurred Confirmed by DR. No STEWART (3) on 04/27/2019 4:59:49 PM Referred By: OBI Confirmed By:DR. No STEWART
[2019-04-27] MEDS: Cefepime 0.5 GM in Sodium Chloride 0.9% 100 ML IVPB SCH (19:58)
[2019-04-27] MEDS: Tamsulosin HCl 0.4 MG CAP PO SCH (20:02)
[2019-04-27] MEDS: Zolpidem Tartrate 5 MG TAB PO SCH (20:02)
[2019-04-27] MEDS: Famotidine 20 MG TAB PO SCH (20:02)
[2019-04-28 06:08] LABS: Anion Gap 14 mmol/L (10-20); BUN (Urea Nitrogen) 32 mg/dL (8.4-25.7); Calc. Creatinine Clearance 12 mL/min (70-130); Calcium 7.9 mg/dL (7.8-10.44); Carbon Dioxide 26 mmol/L (23-31); Chloride 100 mmol/L (98-107); Estimated GFR-MDRD 10; Glucose 90 mg/dL (83-110); Potassium 3.8 mmol/L (3.5-5.1); Sodium 136 mmol/L (136-145)
[2019-04-28] MEDS ORDERED: Heparin 10,000 UNITS/1 ML VIAL ONE (06:41)
[2019-04-28] MEDS ORDERED: Bupivacaine HCl 0.5%/Epinephrine 1:200,000/PF 30 ml Vial ONE (06:41)
[2019-04-28] MEDS ORDERED: Sodium Chloride 0.9% 10 ML ONE (06:41)
[2019-04-28] MEDS ORDERED: Lidocaine 2% PF 5 ML VIAL ONE (06:41)
[2019-04-28] MEDS ORDERED: traMADol HCl 50 MG TAB PO PRN (07:19)
[2019-04-28] MEDS ORDERED: Sodium Chloride 0.9% 20 ML ONE (07:54)
--- NOTE | 2019-04-28 08:32 | PRG ---
DATE OF SERVICE: 04/28/2019 SUBJECTIVE: Patient was seen and examined at bedside and overnight events noted. Patient denies any shortness of breath or chest pain or palpitation. No history of nausea or vomiting or diarrhea or fever or chills or cramps. OBJECTIVE: GENERAL: This is an elderly male in no apparent distress. VITAL SIGNS: Temperature 98.2. Heart rate 62. Respiratory rate 18. Blood pressure 131/60. HEENT: Atraumatic, normocephalic. Oral mucosa is moist NECK: Supple. CARDIOVASCULAR: S1, S2 heard. Rate and rhythm regular. RESPIRATORY: Clear to auscultation. GASTROINTESTINAL: Abdomen is soft. MUSCULOSKELETAL: No tenderness. No edema. DERMATOLOGIC: No skin rash. NEUROLOGIC: Alert and awake and oriented X3. No focal neurologic deficits. Moving all the extremities. PSYCHIATRIC: Mood and affect normal. LABORATORY DATA: Potassium 3.8, BUN is 32 from 29, and creatinine is 5.5. ASSESSMENT AND PLAN: 1. Acute kidney injury on chronic kidney disease stage 3, dialysis dependent. Plan is to continue on dialysis. No signs of renal recovery. Labs are getting worse in between dialysis. 2. Edema, remove fluid with dialysis as tolerated. 3. History of hypertension. 4. Anemia. 5. Family decided to proceed with dialysis access. Appreciate help from Surgery for access placement. We will continue dialysis as tolerated and closely monitor renal function. Job ID: [id number]
--- NOTE | 2019-04-28 09:02 | RAD ---
FRONTAL VIEW CHEST: COMPARISON: 04/24/2019. INDICATION: Central line placement. FINDINGS: There is a tunneled vascular catheter from a right internal jugular approach with tip overlying the r ight atrium. No postprocedural pneumothorax is seen. There is bibasilar density more notable on the left with obscuration of the left hemidiaphragm. Prominence of pulmonary vasculature. There is an extrinsic lead overlying the right upper extremity and chest. This may be extrinsic to t he patient. Correlate clinically. IMPRESSION: 1. Tunneled right side vascular catheter is in place. No postprocedural pneumothorax. 2. Bibasilar densities, left greater than right, which may be on the basis of pleural fluid with adj acent atelectasis and/or developing pneumonia. POS: TPC
--- NOTE | 2019-04-28 09:39 | OP ---
DATE OF PROCEDURE: 04/28/2019 PREOPERATIVE DIAGNOSES: End-stage renal disease, poor IV access. POSTOPERATIVE DIAGNOSES: End-stage renal disease, poor IV access with inability to the place left internal jugular central line. PROCEDURES PERFORMED: Placement of right IJ cuffed tunneled hemodialysis catheter, AngioDynamics precurved, ultrasound and fluoroscopy use. Placement of left femoral vein triple-lumen catheter. ANESTHESIA: TIVA, local 0.5% Marcaine with epinephrine, 30 mL mixed with 2% Xylocaine, 10 mL. DESCRIPTION OF PROCEDURE: The patient was taken to the operating room where under intravenous sedation, neck and chest were prepared with ChloraPrep and draped in routine fashion. Local anesthetic was infiltrated in the skin and subcutaneous tissue about the operative site. Using ultrasound guidance, right internal jugular vein was accessed with trocar catheter, J-wire threaded. The left internal jugular vein accessed with a J-wire, would not thread outflow, thus this was abandoned. A stab incision was made over the right chest. Using the tunneling device, the pre-curved AngioDynamics cuffed-tunneled hemodialysis catheter tunneled between 2 incisions, placed in the fabric cuff beneath the skin exit site and catheter secured with 2 interrupted sutures of 3-0 nylon and sterile dressing applied. Small and medium size dilators placed with J-wire into the internal jugular vein and removed. Dilator and Peel-Away sheath placed with J-wire in superior vena cava and dilator and J-wire removed, catheter placed with the Peel-Away sheath. Peel-Away sheath removed. Fluoroscopically, catheter noted to be in good position as the platysma was approximated with 4-0 Monocryl, skin with subdermal 4-0 Monocryl and [place] glue applied. Each port aspirated blood and flushed with heparinized saline solution 1000 units of heparin per mL indicating volume per port. Left groin was clipped of hair, prepared with ChloraPrep and draped in routine fashion. Seldinger technique used to place a triple-lumen catheter and secured with 3-0 nylon suture removing the J-wire. Each port aspirated blood, flushed with saline solution and the patient tolerated the procedure well. Job ID: [id number]
[2019-04-28] MEDS: Febuxostat 40 MG TAB PO SCH (10:24)
[2019-04-28] MEDS: Aspirin 81 mg Enteric Coated Tablet PO SCH (10:25)
[2019-04-28] MEDS: Carvedilol 3.125 MG TAB PO SCH ×2 (10:25→20:32)
[2019-04-28] MEDS: Vit A,C & E/Lutein/Minerals Tablet PO SCH ×2 (10:25→20:36)
[2019-04-28] MEDS: Heparin 5,000 UNITS/ML VIAL SC SCH ×2 (10:25→20:33)
[2019-04-28] MEDS: Amlodipine 10 MG TAB PO SCH (10:25)
[2019-04-28] MEDS: Acetaminophen 500 MG TAB PO PRN (10:26)
[2019-04-28] MEDS ORDERED: PROPOFOL 200 MG/20 ML VIAL ONE (10:46)
[2019-04-28] MEDS ORDERED: Heparin 10,000 UNITS/ 10 ML VIAL ONE (11:11)
--- NOTE | 2019-04-28 14:05 | PDOC.HOSPP ---
- Subjective Encounter Date: 04/28/19 Encounter Time: 08:47 Subjective: 79 y/o male with multiple comorbidities including multiple CVAs with recent TPA treatment, CKD3/4, CAD s/p CABG, DM, gout and others, recently discharged to [facility] now readmitted due to acute increase in creat associated with confusion. Patient is now on HD for [place] on CKD. was awake and conversational yesterday. sleepy today after TDC placement. Fever has defervesced. - Objective Vital Signs & Weight: Vital Signs (12 hours) Temp Pulse Resp BP Pulse Ox 04/28/19 12:00 98.3 F 80 16 118/57 L 94 L 04/28/19 08:37 82 16 145/67 H 94 L 04/28/19 04:00 97.9 F 68 18 131/60 93 L Weight Admit Weight 172 lb 8 oz Weight 170 lb 5 oz I&O: 04/27/19 04/28/19 04/29/19 06:59 06:59 06:59 Intake Total 670 710 Output Total 0 200 Balance 670 510 Result Diagrams: 04/26/19 06:00 04/28/19 04:23 Additional Labs: Accuchecks 04/28/19 04/28/19 04/27/19 10:26 05:43 20:24 POC Glucose 103 92 133 H 04/27/19 15:19 POC Glucose 135 H Hospitalist ROS - Medication Medications: Active Medications Generic Name Dose Route Start Last Admin Trade Name Freq PRN Reason Stop Dose Admin Acetaminophen 1,000 mg 04/28/19 07:19 04/28/19 10:26 Tylenol PO 1,000 mg Q6H PRN Administration Moderate to Severe Pain (6-10) Amlodipine Besylate 10 mg 04/20/19 09:00 04/28/19 10:25 Norvasc PO 10 mg DAILY ERASTO Administration Aspirin 81 mg 04/20/19 09:00 04/28/19 10:25 Ecotrin PO 81 mg DAILY ERASTO Administration Carvedilol 3.125 mg 04/19/19 21:00 04/28/19 10:25 Coreg PO 3.125 mg BID ERASTO Administration Famotidine 20 mg 04/20/19 21:00 04/27/19 20:02 Pepcid PO 20 mg QPM ERASTO Administration Febuxostat 40 mg 04/20/19 09:00 04/28/19 10:24 Uloric PO 40 mg DAILY ERASTO Administration Heparin Sodium (Porcine) 5,000 units 04/19/19 21:00 04/28/19 10:25 Heparin SC 5,000 units BID ERASTO Administration Isosorbide Mononitrate 60 mg 04/20/19 09:00 04/28/19 10:25 Imdur PO 60 mg DAILY ERASTO Administration Melatonin 3 mg 04/19/19 13:29 04/24/19 20:01 Melatonin PO 3 mg HSPRN PRN Administration Insomnia Multivitamins/Minerals 1 tab 04/19/19 21:00 04/28/19 10:25 Ocuvite With Lutein PO 1 tab BID ERASTO Administration Tamsulosin HCl 0.4 mg 04/19/19 21:00 04/27/19 20:02 Flomax PO 0.4 mg HS ERASTO Administration Zolpidem Tartrate 10 mg 04/19/19 21:00 04/27/19 20:02 Ambien PO 10 mg HS ERASTO Administration - Exam General - other findings: sleeping but arousable Eye: anicteric sclera ENT: normocephalic atraumatic Neck: supple Heart: RRR Respiratory: no wheezes, no rales, no ronchi, normal chest expansion Gastrointestinal: soft, non-tender, non-distended, normal bowel sounds Extremities: no cyanosis, no edema Neurological: cranial nerve grossly intact Hosp A/P (1) Fever Code(s): R50.9 - FEVER, UNSPECIFIED Status: Acute (2) Acute gouty arthropathy Code(s): M10.9 - GOUT, UNSPECIFIED Status: Resolved (3) Acute kidney injury superimposed on chronic kidney disease Code(s): N17.9 - ACUTE KIDNEY FAILURE, UNSPECIFIED; N18.9 - CHRONIC KIDNEY DISEASE, UNSPECIFIED Status: Resolved (4) CKD (chronic kidney disease), stage III Code(s): N18.3 - CHRONIC KIDNEY DISEASE, STAGE 3 (MODERATE) Status: Chronic (5) Chronic diastolic heart failure Code(s): I50.32 - CHRONIC DIASTOLIC (CONGESTIVE) HEART FAILURE Status: Acute (6) Acute metabolic encephalopathy Code(s): G93.41 - METABOLIC ENCEPHALOPATHY Status: Acute (7) Gout Code(s): M10.9 - GOUT, UNSPECIFIED Status: Chronic (8) HTN (hypertension) Code(s): I10 - ESSENTIAL (PRIMARY) HYPERTENSION Status: Chronic (9) Dementia Code(s): F03.90 - UNSPECIFIED DEMENTIA WITHOUT BEHAVIORAL DISTURBANCE Status: Acute - Plan Start low dose colchicine 0.3 mg weekly Off antibiotic as per ID. Cultures so far negative. HD as per Nephrology ID following. Continue other supportive care. palliative care consult. D/W spouse and daughter. Get rehab screen.
[2019-04-28 14:24] LABS: #Eosinphils 0.6 thou/uL (0.0-0.7); #Lymphocytes 1.2 thou/uL (1.20-3.40); #Monocytes 0.5 thou/uL (0.11-0.59); #Neutrophils 6.1 thou/uL (1.40-6.50); %Basophils 0.4 % (0.0-1.0); %Eosinophils 7.6 % (0.0-10.0); %Monocytes 5.5 % (0.0-10.0); %Neutrophils 72.6 % (42.0-75.0); Hemoglobin 6.1 g/dL (14.0-18.0); Mean Corpuscular HGB CONC 32.9 g/dL (32.0-36.0); Mean Corpuscular Volume 94.1 fL (78.0-98.0); Mean Platelet Volume 7.2 fL (7.4-10.4); Platelet Count 343 thou/uL (130-400); RBC Distribution Width 14.3 % (11.5-14.5); Red Blood Cell (RBC) Count 1.98 mill/uL (4.70-6.10); White Blood Cell (WBC) Count 8.4 thou/uL (4.8-10.8)
[2019-04-28 14:43] LABS: Anion Gap 11 mmol/L (10-20); BUN (Urea Nitrogen) 25 mg/dL (8.4-25.7); Calc. Creatinine Clearance 15 mL/min (70-130); Calcium 7.5 mg/dL (7.8-10.44); Carbon Dioxide 29 mmol/L (23-31); Chloride 102 mmol/L (98-107); Estimated GFR-MDRD 14; Glucose 121 mg/dL (83-110); Potassium 3.9 mmol/L (3.5-5.1); Sodium 138 mmol/L (136-145)
[2019-04-28 14:53] LABS: #Eosinphils 1.1 thou/uL (0.0-0.7); #Lymphocytes 1.3 thou/uL (1.20-3.40); #Neutrophils 9.3 thou/uL (1.40-6.50); %Basophils 0.2 % (0.0-1.0); %Eosinophils 8.5 % (0.0-10.0); %Lymphocytes 10.5 % (21.0-51.0); %Monocytes 8.1 % (0.0-10.0); %Neutrophils 72.7 % (42.0-75.0); Hemoglobin 6.3 g/dL (14.0-18.0); Mean Corpuscular HGB CONC 32.6 g/dL (32.0-36.0); Mean Corpuscular Hemoglobin 30.5 pg (27.0-31.0); Mean Corpuscular Volume 93.5 fL (78.0-98.0); Platelet Count 374 thou/uL (130-400); RBC Distribution Width 14.3 % (11.5-14.5); Red Blood Cell (RBC) Count 2.05 mill/uL (4.70-6.10); White Blood Cell (WBC) Count 12.8 thou/uL (4.8-10.8)
[2019-04-28] MEDS: EPOETIN ALFA-EPBX (ESRD) 10,000 UNIT/ML VIAL IVP SCH (15:58)
--- NOTE | 2019-04-28 18:18 | PRG ---
DATE OF SERVICE: 04/28/2019 CONSULTING PHYSICIAN: Hospitalist Service. SUBJECTIVE: Mr. Ureña has continued to require hemodialysis. He was apparently quite responsive yesterday. His reports that he seemed fairly close to his normal baseline level of responsiveness. He was taken to the OR today for placement of his dialysis catheters. He has been very lethargic postoperatively. He had underwent 2 hours of dialysis. His hemoglobin is around 6 according to the dialysis nurse. He has not been very verbal. OBJECTIVE: His eye movements are intact. He localizes to voice. He would not speak or follow any commands. His tone appears to be symmetric. No abnormal movements were seen. SUMMARY: Mr. Ureña has improved quite a bit from his initial encephalopathy. Unfortunately, he currently has continued renal failure. He seems to be adjusting to the situation metabolically. His lethargy today, I suspect, is related to medication; hopefully, will be better tomorrow. Job ID: [id number]
[2019-04-28] MEDS: Colchicine 0.6 MG TAB PO SCH (18:45)
[2019-04-28] MEDS: Tamsulosin HCl 0.4 MG CAP PO SCH (20:30)
[2019-04-28] MEDS: Famotidine 20 MG TAB PO SCH (20:33)
[2019-04-28] MEDS: Zolpidem Tartrate 5 MG TAB PO SCH (20:36)
[2019-04-28] MEDS ORDERED: Colchicine 0.6 MG TAB PO SCH (21:00)
[2019-04-29 05:21] LABS: #Basophils 0.1 thou/uL (0.0-0.2); #Eosinphils 1.6 thou/uL (0.0-0.7); #Lymphocytes 2.6 thou/uL (1.20-3.40); #Monocytes 1.9 thou/uL (0.11-0.59); #Neutrophils 8.9 thou/uL (1.40-6.50); %Basophils 0.6 % (0.0-1.0); %Eosinophils 10.5 % (0.0-10.0); %Lymphocytes 17.2 % (21.0-51.0); %Monocytes 12.4 % (0.0-10.0); %Neutrophils 59.3 % (42.0-75.0); Hemoglobin 7.8 g/dL (14.0-18.0); Mean Corpuscular HGB CONC 32.8 g/dL (32.0-36.0); Mean Corpuscular Hemoglobin 30.3 pg (27.0-31.0); Mean Corpuscular Volume 92.4 fL (78.0-98.0); Mean Platelet Volume 7.5 fL (7.4-10.4); Platelet Count 445 thou/uL (130-400); RBC Distribution Width 14.8 % (11.5-14.5); Red Blood Cell (RBC) Count 2.56 mill/uL (4.70-6.10)
[2019-04-29 06:05] LABS: Albumin 2.7 g/dL (3.4-4.8); Anion Gap 15 mmol/L (10-20); BUN (Urea Nitrogen) 16 mg/dL (8.4-25.7); BUN/Creatinine Ratio 4.66; Calc. Creatinine Clearance 19 mL/min (70-130); Calcium 7.9 mg/dL (7.8-10.44); Carbon Dioxide 26 mmol/L (23-31); Chloride 101 mmol/L (98-107); Estimated GFR-MDRD 17; Glucose 153 mg/dL (83-110); Phosphorus 1.4 mg/dL (2.3-4.7); Potassium 4.3 mmol/L (3.5-5.1); Sodium 138 mmol/L (136-145)
[2019-04-29] MEDS: Vit A,C & E/Lutein/Minerals Tablet PO SCH ×2 (10:52→20:44)
[2019-04-29] MEDS: Aspirin 81 mg Enteric Coated Tablet PO SCH (10:52)
[2019-04-29] MEDS: Amlodipine 10 MG TAB PO SCH (10:52)
[2019-04-29] MEDS: Carvedilol 3.125 MG TAB PO SCH ×2 (10:53→20:44)
[2019-04-29] MEDS: PHOS-NAK 1 PKT PACK PO SCH ×3 (10:54→20:44)
[2019-04-29] MEDS: Febuxostat 40 MG TAB PO SCH (10:54)
--- NOTE | 2019-04-29 10:56 | PRG ---
DATE OF SERVICE: 04/29/2019 SUBJECTIVE: Patient was seen and examined at bedside and overnight events noted. Patient denies any shortness of breath or chest pain or palpitation. No history of nausea or vomiting or diarrhea or fever or chills or cramps. OBJECTIVE: GENERAL: This is a well-built male, in no apparent distress. VITAL SIGNS: Temperature 98.4. Heart rate 75. Respiratory rate 16. Blood pressure 162/70. HEENT: Atraumatic, normocephalic. Oral mucosa is moist NECK: Supple. CARDIOVASCULAR: S1, S2 heard. Rate and rhythm regular. RESPIRATORY: Clear to auscultation. GASTROINTESTINAL: Abdomen is soft. MUSCULOSKELETAL: No tenderness. No edema. DERMATOLOGIC: No skin rash. NEUROLOGIC: Alert and awake and oriented X3. No focal neurologic deficits. Moving all the extremities. PSYCHIATRIC: Mood and affect normal. LABORATORY DATA: Potassium 4.3, BUN is 16, and creatinine is 3.4. ASSESSMENT AND PLAN: 1. Acute kidney injury on chronic kidney disease, stage 3, dialysis dependent. We will continue on dialysis as tolerated. 2. Edema. We will remove fluid if tolerated. 3. History of hypertension. 4. Anemia. 5. Altered mentation, better, less likely uremia, most likely delirium. We will continue close monitoring. Plan discussed with Dr. Grant and family in detail. We will follow. Follow with Case Management for outpatient placement. Job ID: [id number]
[2019-04-29] MEDS: Heparin 5,000 UNITS/ML VIAL SC SCH ×2 (12:54→20:44)
[2019-04-29] MEDS: Baclofen 10 MG TAB PO PRN (17:48)
--- NOTE | 2019-04-29 19:30 | PDOC.HOSPP ---
- Subjective Encounter Date: 04/29/19 Encounter Time: 19:25 Subjective: 79 y/o male with multiple comorbidities including multiple CVAs with recent TPA treatment, CKD3/4, CAD s/p CABG, DM, gout and others, recently discharged to [facility] bed now readmitted due to acute increase in creat associated with confusion. Patient is now on HD for [place] on CKD. Reportedly was more awake and conversational on 04/27/2019. Awake while being fed but seem to be having vusual hallucinations and not making much sense today. - Objective Vital Signs & Weight: Vital Signs (12 hours) Temp Pulse Resp BP Pulse Ox 04/29/19 16:00 97.9 F 74 20 154/67 H 95 04/29/19 12:00 98.8 F 73 18 144/61 H 90 L 04/29/19 07:55 98.4 F 75 16 162/70 H 97 Weight Admit Weight 172 lb 8 oz Weight 171 lb 1.259 oz Most Recent Monitor Data Heart Rate from ECG 71 NIBP 141/67 Respiration from ECG 18 I&O: 04/28/19 04/29/19 04/30/19 06:59 06:59 06:59 Intake Total 710 1140 Output Total 200 1500 Balance 510 -360 Result Diagrams: 04/29/19 04:45 04/29/19 04:45 Additional Labs: Accuchecks 04/29/19 04/29/19 04/29/19 16:40 10:24 05:55 POC Glucose 119 H 122 H 149 H 04/28/19 20:06 POC Glucose 166 H Hospitalist ROS - Medication Medications: Active Medications Generic Name Dose Route Start Last Admin Trade Name Freq PRN Reason Stop Dose Admin Acetaminophen 1,000 mg 04/28/19 07:19 04/28/19 10:26 Tylenol PO 1,000 mg Q6H PRN Administration Moderate to Severe Pain (6-10) Amlodipine Besylate 10 mg 04/20/19 09:00 04/29/19 10:52 Norvasc PO 10 mg DAILY ERASTO Administration Aspirin 81 mg 04/20/19 09:00 04/29/19 10:52 Ecotrin PO 81 mg DAILY ERASTO Administration Baclofen 10 mg 04/19/19 13:20 04/29/19 17:48 Lioresal PO 10 mg BIDPRN PRN Administration Muscle Spasm Carvedilol 3.125 mg 04/19/19 21:00 04/29/19 10:53 Coreg PO 3.125 mg BID ERASTO Administration Colchicine 0.3 mg 04/28/19 14:00 04/28/19 18:45 Colchicine PO Not Given Tu [facility] Epoetin Jonathan-epbx 10,000 unit 04/28/19 15:30 04/28/19 15:58 Retacrit IVP 10,000 unit TTHSA ERASTO Administration Famotidine 20 mg 04/20/19 21:00 04/28/19 20:33 Pepcid PO 20 mg QPM ERASTO Administration Febuxostat 40 mg 04/20/19 09:00 04/29/19 10:54 Uloric PO 40 mg DAILY ERASTO Administration Heparin Sodium (Porcine) 5,000 units 04/19/19 21:00 04/29/19 12:54 Heparin SC 5,000 units BID ERASTO Administration Isosorbide Mononitrate 60 mg 04/20/19 09:00 04/29/19 10:53 Imdur PO 60 mg DAILY ERASTO Administration Melatonin 3 mg 04/19/19 13:29 04/24/19 20:01 Melatonin PO 3 mg HSPRN PRN Administration Insomnia Miscellaneous Medication 1 pkt 04/29/19 09:00 04/29/19 17:49 Phos-Nak PO 04/29/19 21:01 1 pkt TID ERASTO Administration Multivitamins/Minerals 1 tab 04/19/19 21:00 04/29/19 10:52 Ocuvite With Lutein PO 1 tab BID ERASTO Administration Tamsulosin HCl 0.4 mg 04/19/19 21:00 04/28/19 20:30 Flomax PO 0.4 mg HS [facility] Administration Zolpidem Tartrate 10 mg 04/19/19 21:00 04/28/19 20:36 Ambien PO Not Given HS [facility] - Exam General - other findings: Awake but confused Eye: anicteric sclera ENT: normocephalic atraumatic Neck: supple, symmetric, no JVD Heart: RRR Respiratory: no wheezes, no rales, no ronchi, normal chest expansion Gastrointestinal: soft, non-tender, non-distended, normal bowel sounds Extremities: no cyanosis, no edema Neurological: cranial nerve grossly intact, no focal deficits Psychiatric: oriented to person Psychiatric - other findings: confused Hosp A/P (1) Acute metabolic encephalopathy Code(s): G93.41 - METABOLIC ENCEPHALOPATHY Status: Acute (2) Fever Code(s): R50.9 - FEVER, UNSPECIFIED Status: Acute (3) Acute gouty arthropathy Code(s): M10.9 - GOUT, UNSPECIFIED Status: Resolved (4) Acute kidney injury superimposed on chronic kidney disease Code(s): N17.9 - ACUTE KIDNEY FAILURE, UNSPECIFIED; N18.9 - CHRONIC KIDNEY DISEASE, UNSPECIFIED Status: Resolved (5) CKD (chronic kidney disease), stage III Code(s): N18.3 - CHRONIC KIDNEY DISEASE, STAGE 3 (MODERATE) Status: Chronic (6) Chronic diastolic heart failure Code(s): I50.32 - CHRONIC DIASTOLIC (CONGESTIVE) HEART FAILURE Status: Acute (7) Gout Code(s): M10.9 - GOUT, UNSPECIFIED Status: Chronic (8) HTN (hypertension) Code(s): I10 - ESSENTIAL (PRIMARY) HYPERTENSION Status: Chronic (9) Dementia Code(s): F03.90 - UNSPECIFIED DEMENTIA WITHOUT BEHAVIORAL DISTURBANCE Status: Acute - Plan Continue supportive care HD as per Nephrology Continue other supportive care. palliative care consult. D/W spouse and daughter. Awaiting placement
[2019-04-29] MEDS: Omega-3 Acid Ethyl Esters [Lovaza] 1 GM PO SCH (20:33)
[2019-04-29] MEDS: Tamsulosin HCl 0.4 MG CAP PO SCH (20:43)
[2019-04-29] MEDS: Famotidine 20 MG TAB PO SCH (20:44)
[2019-04-29] MEDS: Zolpidem Tartrate 5 MG TAB PO SCH (20:44)
[2019-04-30] MEDS: Vit A,C & E/Lutein/Minerals Tablet PO SCH ×2 (09:29→22:26)
[2019-04-30] MEDS: Heparin 5,000 UNITS/ML VIAL SC SCH ×2 (09:30→22:25)
[2019-04-30] MEDS: Aspirin 81 mg Enteric Coated Tablet PO SCH (09:30)
[2019-04-30] MEDS: Febuxostat 40 MG TAB PO SCH (09:30)
[2019-04-30] MEDS: Amlodipine 10 MG TAB PO SCH (09:30)
[2019-04-30] MEDS: Carvedilol 3.125 MG TAB PO SCH ×2 (09:30→22:27)
--- NOTE | 2019-04-30 09:32 | PRG ---
DATE OF SERVICE: 04/30/2019 SUBJECTIVE: Patient was seen and examined at bedside and overnight events noted. Patient denies any shortness of breath or chest pain or palpitation. No history of nausea or vomiting or diarrhea or fever or chills or cramps. OBJECTIVE: GENERAL: This is a well-built male, in no apparent distress. VITAL SIGNS: Temperature 97.6. Heart rate 77. Respiratory rate 18. Blood pressure 114/69. HEENT: Atraumatic, normocephalic. Oral mucosa is moist NECK: Supple. CARDIOVASCULAR: S1, S2 heard. Rate and rhythm regular. RESPIRATORY: Clear to auscultation. GASTROINTESTINAL: Abdomen is soft. MUSCULOSKELETAL: No tenderness. No edema. DERMATOLOGIC: No skin rash. NEUROLOGIC: Slightly confused. PSYCHIATRIC: Mood and affect normal. LABORATORY DATA: Not done today. ASSESSMENT AND PLAN: 1. [place] on CKD Stage 3 - HD dependent. Continue on dialysis as tolerated. 2. Edema. Remove fluid. 3. History of hypertension. 4. Anemia. 5. Altered mentation. Monitor labs closely and continue dialysis as tolerated. Job ID: [id number] [facility]
[2019-04-30 10:13] LABS: Albumin 2.8 g/dL (3.4-4.8); Anion Gap 15 mmol/L (10-20); BUN (Urea Nitrogen) 21 mg/dL (8.4-25.7); BUN/Creatinine Ratio 4.39; Calc. Creatinine Clearance 13 mL/min (70-130); Calcium 8.2 mg/dL (7.8-10.44); Carbon Dioxide 28 mmol/L (23-31); Chloride 101 mmol/L (98-107); Estimated GFR-MDRD 12; Glucose 104 mg/dL (83-110); Potassium 4.5 mmol/L (3.5-5.1); Sodium 139 mmol/L (136-145)
[2019-04-30] MEDS: EPOETIN ALFA-EPBX (ESRD) 10,000 UNIT/ML VIAL IVP SCH (12:15)
--- NOTE | 2019-04-30 12:37 | PDOC.HOSPP ---
- Subjective Encounter Date: 04/30/19 Encounter Time: 12:35 Subjective: 79 y/o male with multiple comorbidities including multiple CVAs with recent TPA treatment, CKD3/4, CAD s/p CABG, DM, gout and others, recently discharged to [facility] bed now readmitted due to acute increase in creat associated with confusion. Patient is now on HD for [place] on CKD. Reportedly was more awake and conversational on 04/27/2019. Sleeping but arousable. Reportedly was very awake and conversational with family last night. for HD today. - Objective Vital Signs & Weight: Vital Signs (12 hours) Temp Pulse Resp BP Pulse Ox 04/30/19 09:30 77 04/30/19 08:45 98.8 F 83 18 140/66 95 04/30/19 03:37 97.6 F 77 18 141/69 H 93 L Weight Admit Weight 172 lb 8 oz Weight 164 lb 3.91 oz Most Recent Monitor Data Heart Rate from ECG 71 NIBP 141/67 Respiration from ECG 18 I&O: 04/29/19 04/30/19 05/01/19 06:59 06:59 06:59 Intake Total 1140 Output Total 1500 200 Balance -360 -200 Result Diagrams: 04/29/19 04:45 04/30/19 09:06 Additional Labs: Accuchecks 04/30/19 04/29/19 04/29/19 05:48 20:32 16:40 POC Glucose 117 H 143 H 119 H Hospitalist ROS - Medication Medications: Active Medications Generic Name Dose Route Start Last Admin Trade Name Freq PRN Reason Stop Dose Admin Acetaminophen 1,000 mg 04/28/19 07:19 04/28/19 10:26 Tylenol PO 1,000 mg Q6H PRN Administration Moderate to Severe Pain (6-10) Amlodipine Besylate 10 mg 04/20/19 09:00 04/30/19 09:30 Norvasc PO 10 mg DAILY ERASTO Administration Aspirin 81 mg 04/20/19 09:00 04/30/19 09:30 Ecotrin PO 81 mg DAILY ERASTO Administration Baclofen 10 mg 04/19/19 13:20 04/29/19 17:48 Lioresal PO 10 mg BIDPRN PRN Administration Muscle Spasm Carvedilol 3.125 mg 04/19/19 21:00 04/30/19 09:30 Coreg PO 3.125 mg BID ERASTO Administration Colchicine 0.3 mg 04/28/19 14:00 04/28/19 18:45 Colchicine PO Not Given Tu [facility] Epoetin Jonathan-epbx 10,000 unit 04/28/19 15:30 04/30/19 12:15 Retacrit IVP 10,000 unit TTHSA ERASTO Administration Famotidine 20 mg 04/20/19 21:00 04/29/19 20:44 Pepcid PO 20 mg QPM ERASTO Administration Febuxostat 40 mg 04/20/19 09:00 04/30/19 09:30 Uloric PO 40 mg DAILY ERASTO Administration Heparin Sodium (Porcine) 5,000 units 04/19/19 21:00 04/30/19 09:30 Heparin SC 5,000 units BID ERASTO Administration Isosorbide Mononitrate 60 mg 04/20/19 09:00 04/30/19 09:30 Imdur PO 60 mg DAILY ERASTO Administration Melatonin 3 mg 04/19/19 13:29 04/24/19 20:01 Melatonin PO 3 mg HSPRN PRN Administration Insomnia Multivitamins/Minerals 1 tab 04/19/19 21:00 04/30/19 09:29 Ocuvite With Lutein PO 1 tab BID ERASTO Administration Tamsulosin HCl 0.4 mg 04/19/19 21:00 04/29/19 20:43 Flomax PO 0.4 mg HS ERASTO Administration Zolpidem Tartrate 10 mg 04/19/19 21:00 04/29/19 20:44 Ambien PO 10 mg HS ERASTO Administration - Exam General - other findings: sleeping but arousable Eye: anicteric sclera ENT: normocephalic atraumatic Neck: symmetric, no JVD Heart: RRR Respiratory: no wheezes, no rales, no ronchi, normal chest expansion Gastrointestinal: soft, non-tender, non-distended, normal bowel sounds Extremities: no cyanosis, no edema Neurological: cranial nerve grossly intact, no focal deficits Psychiatric: oriented to person Hosp A/P (1) Acute metabolic encephalopathy Code(s): G93.41 - METABOLIC ENCEPHALOPATHY Status: Acute (2) Fever Code(s): R50.9 - FEVER, UNSPECIFIED Status: Acute (3) Acute gouty arthropathy Code(s): M10.9 - GOUT, UNSPECIFIED Status: Resolved (4) Acute kidney injury superimposed on chronic kidney disease Code(s): N17.9 - ACUTE KIDNEY FAILURE, UNSPECIFIED; N18.9 - CHRONIC KIDNEY DISEASE, UNSPECIFIED Status: Resolved (5) CKD (chronic kidney disease), stage III Code(s): N18.3 - CHRONIC KIDNEY DISEASE, STAGE 3 (MODERATE) Status: Chronic (6) Chronic diastolic heart failure Code(s): I50.32 - CHRONIC DIASTOLIC (CONGESTIVE) HEART FAILURE Status: Acute (7) Gout Code(s): M10.9 - GOUT, UNSPECIFIED Status: Chronic (8) HTN (hypertension) Code(s): I10 - ESSENTIAL (PRIMARY) HYPERTENSION Status: Chronic (9) Dementia Code(s): F03.90 - UNSPECIFIED DEMENTIA WITHOUT BEHAVIORAL DISTURBANCE Status: Acute - Plan Continue supportive care HD as per Nephrology Awaiting placement.
[2019-04-30] MEDS ORDERED: Heparin 10,000 UNITS/ 10 ML VIAL ONE (13:00)
[2019-04-30 15:00] LABS: Anion Gap 15 mmol/L (10-20); BUN (Urea Nitrogen) 22 mg/dL (8.4-25.7); Calc. Creatinine Clearance 13 mL/min (70-130); Calcium 8.3 mg/dL (7.8-10.44); Carbon Dioxide 27 mmol/L (23-31); Chloride 102 mmol/L (98-107); Estimated GFR-MDRD 12; Glucose 98 mg/dL (83-110); Potassium 4.5 mmol/L (3.5-5.1); Sodium 139 mmol/L (136-145)
[2019-04-30] MEDS: Acetaminophen 500 MG TAB PO PRN (15:35)
[2019-04-30] MEDS: Zolpidem Tartrate 5 MG TAB PO SCH (22:25)
[2019-04-30] MEDS: Tamsulosin HCl 0.4 MG CAP PO SCH (22:26)
[2019-04-30] MEDS: Famotidine 20 MG TAB PO SCH (22:26)
[2019-05-01 04:51] LABS: Albumin 2.6 g/dL (3.4-4.8); Anion Gap 9 mmol/L (10-20); BUN (Urea Nitrogen) 13 mg/dL (8.4-25.7); Calc. Creatinine Clearance 20 mL/min (70-130); Calcium 8.1 mg/dL (7.8-10.44); Carbon Dioxide 31 mmol/L (23-31); Chloride 104 mmol/L (98-107); Estimated GFR-MDRD 19; Glucose 120 mg/dL (83-110); Potassium 4.4 mmol/L (3.5-5.1); Sodium 140 mmol/L (136-145)
[2019-05-01 08:20] LABS: Hemoglobin 6.8 g/dL (14.0-18.0); Mean Corpuscular HGB CONC 33.9 g/dL (32.0-36.0); Mean Corpuscular Hemoglobin 31.8 pg (27.0-31.0); Mean Corpuscular Volume 93.6 fL (78.0-98.0); Mean Platelet Volume 6.8 fL (7.4-10.4); Platelet Count 490 thou/uL (130-400); RBC Distribution Width 15.5 % (11.5-14.5); Red Blood Cell (RBC) Count 2.13 mill/uL (4.70-6.10); White Blood Cell (WBC) Count 18.6 thou/uL (4.8-10.8)
[2019-05-01] MEDS: Heparin 5,000 UNITS/ML VIAL SC SCH ×2 (08:39→21:46)
[2019-05-01] MEDS: Amlodipine 10 MG TAB PO SCH (08:39)
[2019-05-01] MEDS: Vit A,C & E/Lutein/Minerals Tablet PO SCH ×2 (08:39→21:46)
[2019-05-01] MEDS: Aspirin 81 mg Enteric Coated Tablet PO SCH (08:39)
[2019-05-01] MEDS: Carvedilol 3.125 MG TAB PO SCH ×2 (08:39→21:46)
[2019-05-01] MEDS: Febuxostat 40 MG TAB PO SCH (08:39)
--- NOTE | 2019-05-01 10:44 | PRG ---
DATE OF SERVICE: 05/01/2019 SUBJECTIVE: Patient was seen and examined at bedside and overnight events noted. Patient denies any shortness of breath or chest pain or palpitation. No history of nausea or vomiting or diarrhea or fever or chills or cramps. OBJECTIVE: GENERAL: This is a well-built male, in no acute distress. VITAL SIGNS: Temperature 99.7. Heart rate 75. Respiratory rate 18. Blood pressure 140/65. HEENT: Atraumatic, normocephalic. Oral mucosa is moist NECK: Supple. CARDIOVASCULAR: S1, S2 heard. Rate and rhythm regular. RESPIRATORY: Clear to auscultation. GASTROINTESTINAL: Abdomen is soft. MUSCULOSKELETAL: No tenderness. No edema. DERMATOLOGIC: No skin rash. NEUROLOGIC: Alert and awake and oriented X3. No focal neurologic deficits. Moving all the extremities. PSYCHIATRIC: Mood and affect normal. LABORATORY DATA: Potassium is 4.4, BUN is 13, and creatinine is 3.17. ASSESSMENT AND PLAN: 1. Acute kidney injury on chronic kidney disease, dialysis dependent. 2. Edema, remove fluid. 3. Hypertension. 4. Anemia, monitor. 5. Altered mentation. Plan to continue on dialysis as tolerated. We will follow. Job ID: [id number]
[2019-05-01 11:28] LABS: Iron 22 ug/dL (65-175); Iron Binding Capacity, Total 140 mcg/dL (261-462)
--- NOTE | 2019-05-01 12:34 | PDOC.HOSPP ---
- Subjective Encounter Date: 05/01/19 Encounter Time: 08:32 Subjective: 79 y/o male with multiple comorbidities including multiple CVAs with recent TPA treatment, CKD3/4, CAD s/p CABG, DM, gout and others, recently discharged to [facility] now readmitted due to acute increase in creat associated with confusion. Patient is now on HD for [place] on CKD. Reportedly was more awake and conversational on 04/27/2019. Sleeping but arousable. Still with waxing and waning mental status. - Objective Vital Signs & Weight: Vital Signs (12 hours) Temp Pulse Resp BP Pulse Ox 05/01/19 12:00 98.6 F 87 16 130/61 94 L 05/01/19 04:00 99.7 F H 75 18 140/65 94 L Weight Admit Weight 172 lb 8 oz Weight 161 lb 6.054 oz Most Recent Monitor Data Heart Rate from ECG 71 NIBP 141/67 Respiration from ECG 18 I&O: 04/30/19 05/01/19 05/02/19 06:59 06:59 06:59 Intake Total 940 Output Total 200 Balance -200 940 Result Diagrams: 05/01/19 10:43 05/01/19 04:09 Additional Labs: Accuchecks 05/01/19 05/01/19 04/30/19 10:30 05:55 20:16 POC Glucose 121 H 116 H 180 H Hospitalist ROS - Medication Medications: Active Medications Generic Name Dose Route Start Last Admin Trade Name Freq PRN Reason Stop Dose Admin Acetaminophen 1,000 mg 04/28/19 07:19 04/30/19 15:35 Tylenol PO 1,000 mg Q6H PRN Administration Moderate to Severe Pain (6-10) Amlodipine Besylate 10 mg 04/20/19 09:00 05/01/19 08:39 Norvasc PO 10 mg DAILY ERASTO Administration Aspirin 81 mg 04/20/19 09:00 05/01/19 08:39 Ecotrin PO 81 mg DAILY ERASTO Administration Baclofen 10 mg 04/19/19 13:20 04/29/19 17:48 Lioresal PO 10 mg BIDPRN PRN Administration Muscle Spasm Carvedilol 3.125 mg 04/19/19 21:00 05/01/19 08:39 Coreg PO 3.125 mg BID ERASTO Administration Colchicine 0.3 mg 04/28/19 14:00 04/28/19 18:45 Colchicine PO Not Given Tu [facility] Epoetin Jonathan-epbx 10,000 unit 04/28/19 15:30 04/30/19 12:15 Retacrit IVP 10,000 unit TTHSA ERASTO Administration Famotidine 20 mg 04/20/19 21:00 04/30/19 22:26 Pepcid PO 20 mg QPM ERASTO Administration Febuxostat 40 mg 04/20/19 09:00 05/01/19 08:39 Uloric PO 40 mg DAILY ERASTO Administration Heparin Sodium (Porcine) 5,000 units 04/19/19 21:00 05/01/19 08:39 Heparin SC 5,000 units BID ERASTO Administration Isosorbide Mononitrate 60 mg 04/20/19 09:00 05/01/19 08:39 Imdur PO 60 mg DAILY ERASTO Administration Melatonin 3 mg 04/19/19 13:29 04/24/19 20:01 Melatonin PO 3 mg HSPRN PRN Administration Insomnia Multivitamins/Minerals 1 tab 04/19/19 21:00 05/01/19 08:39 Ocuvite With Lutein PO 1 tab BID ERASTO Administration Tamsulosin HCl 0.4 mg 04/19/19 21:00 04/30/19 22:26 Flomax PO 0.4 mg HS ERASTO Administration Zolpidem Tartrate 10 mg 04/19/19 21:00 04/30/19 22:25 Ambien PO 10 mg HS ERASTO Administration - Exam General - other findings: sleeping but arousable and conversation. Eye: anicteric sclera ENT: normocephalic atraumatic Neck: supple, symmetric, no JVD Heart: RRR, murmur present Respiratory: no wheezes, no rales, no ronchi, normal chest expansion Gastrointestinal: soft, non-tender, non-distended, normal bowel sounds Extremities: no cyanosis, no edema Neurological: cranial nerve grossly intact, no new deficit Psychiatric: oriented to person Hosp A/P (1) Acute metabolic encephalopathy Code(s): G93.41 - METABOLIC ENCEPHALOPATHY Status: Acute (2) Fever Code(s): R50.9 - FEVER, UNSPECIFIED Status: Acute (3) Acute gouty arthropathy Code(s): M10.9 - GOUT, UNSPECIFIED Status: Resolved (4) Acute kidney injury superimposed on chronic kidney disease Code(s): N17.9 - ACUTE KIDNEY FAILURE, UNSPECIFIED; N18.9 - CHRONIC KIDNEY DISEASE, UNSPECIFIED Status: Resolved (5) CKD (chronic kidney disease), stage III Code(s): N18.3 - CHRONIC KIDNEY DISEASE, STAGE 3 (MODERATE) Status: Chronic (6) Chronic diastolic heart failure Code(s): I50.32 - CHRONIC DIASTOLIC (CONGESTIVE) HEART FAILURE Status: Acute (7) Gout Code(s): M10.9 - GOUT, UNSPECIFIED Status: Chronic (8) HTN (hypertension) Code(s): I10 - ESSENTIAL (PRIMARY) HYPERTENSION Status: Chronic (9) Dementia Code(s): F03.90 - UNSPECIFIED DEMENTIA WITHOUT BEHAVIORAL DISTURBANCE Status: Acute - Plan Continue supportive care HD as per Nephrology For discharge tomorrow after HD
[2019-05-01] MEDS: Famotidine 20 MG TAB PO SCH (21:46)
[2019-05-01] MEDS: Tamsulosin HCl 0.4 MG CAP PO SCH (21:46)
[2019-05-01] MEDS: Zolpidem Tartrate 5 MG TAB PO SCH (21:46)
[2019-05-01] MEDS: Acetaminophen 500 MG TAB PO PRN (21:53)
[2019-05-02] MEDS ORDERED: Vancomycin HCl 1 GM in Premix Bag 1 BAG IVPB SCH (02:00)
[2019-05-02 04:36] LABS: Hemoglobin 8.2 g/dL (14.0-18.0); Mean Corpuscular HGB CONC 32.7 g/dL (32.0-36.0); Mean Corpuscular Hemoglobin 30.5 pg (27.0-31.0); Mean Corpuscular Volume 93.3 fL (78.0-98.0); Mean Platelet Volume 6.6 fL (7.4-10.4); Platelet Count 523 thou/uL (130-400); Red Blood Cell (RBC) Count 2.67 mill/uL (4.70-6.10); White Blood Cell (WBC) Count 18.8 thou/uL (4.8-10.8)
[2019-05-02 04:56] LABS: Albumin 2.6 g/dL (3.4-4.8); Anion Gap 9 mmol/L (10-20); BUN (Urea Nitrogen) 18 mg/dL (8.4-25.7); BUN/Creatinine Ratio 3.96; Calc. Creatinine Clearance 13 mL/min (70-130); Calcium 8.2 mg/dL (7.8-10.44); Carbon Dioxide 30 mmol/L (23-31); Chloride 101 mmol/L (98-107); Estimated GFR-MDRD 13; Glucose 108 mg/dL (83-110); Phosphorus 2.8 mg/dL (2.3-4.7); Potassium 4.4 mmol/L (3.5-5.1); Sodium 136 mmol/L (136-145)
[2019-05-02] MEDS: Vit A,C & E/Lutein/Minerals Tablet PO SCH ×2 (07:57→20:55)
[2019-05-02] MEDS: Amlodipine 10 MG TAB PO SCH (07:57)
[2019-05-02] MEDS: Carvedilol 3.125 MG TAB PO SCH ×2 (07:57→20:56)
[2019-05-02] MEDS: Febuxostat 40 MG TAB PO SCH (07:57)
[2019-05-02] MEDS: Aspirin 81 mg Enteric Coated Tablet PO SCH (07:57)
[2019-05-02] MEDS: Heparin 5,000 UNITS/ML VIAL SC SCH ×2 (07:58→20:56)
--- NOTE | 2019-05-02 10:34 | PRG ---
DATE OF SERVICE: 05/02/2019 SUBJECTIVE: Patient was seen and examined at bedside and overnight events noted. Patient denies any shortness of breath or chest pain or palpitation. No history of nausea or vomiting or diarrhea or fever or chills or cramps. OBJECTIVE: GENERAL: This is an elderly male, in no acute distress. VITAL SIGNS: Temperature 98.9. Heart rate 69. Respiratory rate 20. Blood pressure 146/71. HEENT: Atraumatic, normocephalic. Oral mucosa is moist NECK: Supple. CARDIOVASCULAR: S1, S2 heard. Rate and rhythm regular. RESPIRATORY: Clear to auscultation. GASTROINTESTINAL: Abdomen is soft. MUSCULOSKELETAL: No tenderness. No edema. DERMATOLOGIC: No skin rash. NEUROLOGIC: Alert and awake and oriented X3. No focal neurologic deficits. Moving all the extremities. PSYCHIATRIC: Mood and affect normal. LABORATORY DATA: BUN 18, creatinine is 4.5. ASSESSMENT AND PLAN: 1. Acute kidney injury on chronic kidney disease. Continue on dialysis as tolerated. Remains dialysis dependent. 2. Edema, remove fluid. 3. History of hypertension. 4. History of anemia, we will monitor. Plan to monitor closely. Plan to have dialysis today and we will follow. Job ID: [id number]
[2019-05-02] MEDS ORDERED: Heparin 1,000 UNITS/ML VIAL ONE (11:11)
--- NOTE | 2019-05-02 12:38 | PDOC.HOSPP ---
- Subjective Encounter Date: 05/02/19 Encounter Time: 09:37 Subjective: 79 y/o male with multiple comorbidities including multiple CVAs with recent TPA treatment, CKD3/4, CAD s/p CABG, DM, gout and others, recently discharged to [facility] bed now readmitted due to acute increase in creat associated with confusion. Patient is now on HD for [place] on CKD. Awake and conversation. had fever last night with T max of 101.4. - Objective Vital Signs & Weight: Vital Signs (12 hours) Temp Pulse Resp BP BP BP Pulse Ox 05/02/19 12:00 98.5 F 78 14 145/65 H 94 L 05/02/19 08:00 98.9 F 69 20 156/71 H 95 05/02/19 07:57 73 156/71 H 05/02/19 04:00 98.8 F 73 18 148/66 H 95 05/02/19 01:30 99.3 F 05/02/19 00:50 99.6 F Weight Admit Weight 172 lb 8 oz Weight 163 lb 2.273 oz Most Recent Monitor Data Heart Rate from ECG 71 NIBP 141/67 Respiration from ECG 18 I&O: 05/01/19 05/02/19 05/03/19 06:59 06:59 06:59 Intake Total 940 1420 Balance 940 1420 Result Diagrams: 05/02/19 04:00 05/02/19 04:00 Additional Labs: Accuchecks 05/02/19 05/01/19 05/01/19 05:29 20:24 16:34 POC Glucose 104 128 H 137 H Hospitalist ROS - Medication Medications: Active Medications Generic Name Dose Route Start Last Admin Trade Name Freq PRN Reason Stop Dose Admin Acetaminophen 1,000 mg 04/28/19 07:19 05/01/19 21:53 Tylenol PO 1,000 mg Q6H PRN Administration Moderate to Severe Pain (6-10) Amlodipine Besylate 10 mg 04/20/19 09:00 05/02/19 07:57 Norvasc PO 10 mg DAILY ERASTO Administration Aspirin 81 mg 04/20/19 09:00 05/02/19 07:57 Ecotrin PO 81 mg DAILY ERASTO Administration Baclofen 10 mg 04/19/19 13:20 04/29/19 17:48 Lioresal PO 10 mg BIDPRN PRN Administration Muscle Spasm Carvedilol 3.125 mg 04/19/19 21:00 05/02/19 07:57 Coreg PO 3.125 mg BID ERASTO Administration Colchicine 0.3 mg 04/28/19 14:00 04/28/19 18:45 Colchicine PO Not Given Tu [facility] Epoetin Jonathan-epbx 10,000 unit 04/28/19 15:30 04/30/19 12:15 Retacrit IVP 10,000 unit TTHSA ERASTO Administration Famotidine 20 mg 04/20/19 21:00 05/01/19 21:46 Pepcid PO 20 mg QPM ERASTO Administration Febuxostat 40 mg 04/20/19 09:00 05/02/19 07:57 Uloric PO 40 mg DAILY ERASTO Administration Heparin Sodium (Porcine) 5,000 units 04/19/19 21:00 05/02/19 07:58 Heparin SC 5,000 units BID ERASTO Administration Isosorbide Mononitrate 60 mg 04/20/19 09:00 05/02/19 07:57 Imdur PO 60 mg DAILY ERASTO Administration Melatonin 3 mg 04/19/19 13:29 04/24/19 20:01 Melatonin PO 3 mg HSPRN PRN Administration Insomnia Multivitamins/Minerals 1 tab 04/19/19 21:00 05/02/19 07:57 Ocuvite With Lutein PO 1 tab BID ERASTO Administration Tamsulosin HCl 0.4 mg 04/19/19 21:00 05/01/19 21:46 Flomax PO 0.4 mg HS ERASTO Administration Zolpidem Tartrate 10 mg 04/19/19 21:00 05/01/19 21:46 Ambien PO 10 mg HS ERASTO Administration - Exam General Appearance: awake alert Eye: anicteric sclera ENT: normocephalic atraumatic, moist mucosa Neck: supple, symmetric, no JVD Heart: RRR Respiratory: no wheezes, no rales, no ronchi, normal chest expansion Gastrointestinal: soft, non-tender, non-distended, normal bowel sounds Extremities: no cyanosis, no edema Neurological: cranial nerve grossly intact, no focal deficits Neurological - other findings: awake and conversational today Psychiatric: oriented to person, oriented to place Hosp A/P (1) Fever Code(s): R50.9 - FEVER, UNSPECIFIED Status: Acute (2) Acute metabolic encephalopathy Code(s): G93.41 - METABOLIC ENCEPHALOPATHY Status: Acute (3) Acute gouty arthropathy Code(s): M10.9 - GOUT, UNSPECIFIED Status: Resolved (4) Acute kidney injury superimposed on chronic kidney disease Code(s): N17.9 - ACUTE KIDNEY FAILURE, UNSPECIFIED; N18.9 - CHRONIC KIDNEY DISEASE, UNSPECIFIED Status: Resolved (5) CKD (chronic kidney disease), stage III Code(s): N18.3 - CHRONIC KIDNEY DISEASE, STAGE 3 (MODERATE) Status: Chronic (6) Chronic diastolic heart failure Code(s): I50.32 - CHRONIC DIASTOLIC (CONGESTIVE) HEART FAILURE Status: Acute (7) Gout Code(s): M10.9 - GOUT, UNSPECIFIED Status: Chronic (8) HTN (hypertension) Code(s): I10 - ESSENTIAL (PRIMARY) HYPERTENSION Status: Chronic (9) Dementia Code(s): F03.90 - UNSPECIFIED DEMENTIA WITHOUT BEHAVIORAL DISTURBANCE Status: Acute - Plan Cancel planned discharge due to fever. Get ESR and CRP. Discussed with ID. Will get CT chest, abd and pelvis as weel as karius test. LIBRA contemplated. Continue supportive care HD as per Nephrology
--- NOTE | 2019-05-02 14:10 | CT ---
CHEST CT WITH CONTRAST ABDOMEN CT WITH CONTRAST PELVIC CT WITH CONTRAST: HISTORY: Evaluate for fever of unknown origin Correlation: None. COMPARISON: 03/27/2019. FINDINGS: Chest CT: Mediastinum: No mass, lymphadenopathy or hematoma. Aorta: Aberrant origin of the right subclavian artery. Atherosclerosis, without aneurysm or dissectio n. There does appear to be significant short segment narrowing of the infrarenal abdominal aorta due to atherosclerotic disease. Heart: Upper normal heart size. No significant pericardial fluid. There are coronary artery calcifica tions. Trachea and central bronchi: Patent. Pleural spaces: Bilateral pleural effusions. There is a component of loculated fluid in the left lung base. Right lung: Increased density i.n the dependent portion of the right lower lobe which may represent a telectasis, pneumonia or aspiration. No suspicious masses. Left lung: Increased density in the dependent portion of the left lower lobe which may represent atel ectasis, pneumonia or aspiration. No suspicious masses. Pneumothorax: None. Abdomen CT: Gallbladder: Surgically absent. Portal vein: Patent. Liver: Appropriate enhancement. Spleen: Appropriate enhancement. Pancreas: Appropriate enhancement. Adrenal glands: Appropriate enhancement. Lymphadenopathy: No gastrohepatic, retrocrural or periportal lymphadenopathy. Kidneys: Symmetric enhancement. No obstructive uropathy. Right parapelvic cysts are noted. Largest pa rapelvic cyst measures 2.4 x 1.7 cm. Mesentery: No mass, lymphadenopathy, free air or free fluid. Alimentary canal: Mucosal prominence of the gastric antrum likely due to inadequate distention. Corre late clinically for peptic ulcer disease. No obvious adjacent inflammatory change. Multiple normal caliber small bowel loops. No evidence of small bowel obstruction. Unremarkable ileocecal junction. S cattered fecal material in a nondistended, nondilated colon. Diverticulosis, without evidence of diverticulitis. Appendix is not appreciated. No obvious inflammation of the cecal apex. Pelvis CT: No mass, lymphadenopathy, free air or free fluid. Unremarkable urinary bladder. Mild hypertrophy of t he prostate gland. Osseous structures:Grade II anterolisthesis of L5 upon S1 with associated bilateral pars defects. IMPRESSION: 1. Bilateral pleural effusions with changes in the dependent lung parenchyma as described above. A co mponent of the left pleural fluid may be loculated. 2. No definite bowel obstruction. No definite acute abnormality in the abdomen or pelvis. Transcribed Date/Time: 05/02/2019 2:17 PM
[2019-05-02] MEDS ORDERED: Iopamidol-370 76% 500 ML 1 ML ONE (16:30)
--- NOTE | 2019-05-02 18:28 | PRG ---
DATE OF SERVICE: 05/02/2019 SUBJECTIVE: Mr. Ureña keeps having temperature elevations. White cell count is going up. Undergoing dialysis at this moment. His cognitive status is limited and is lowered delusional thinking process and cannot make sense of his replies to our questions. He denies any headaches. No respiratory symptoms or abdominal pain. OBJECTIVE: VITAL SIGNS: His T-max was 101.4 at midnight and it went down from there, blood pressure 135/64, pulse 78, and respirations 14. HEENT: Eye movements are conjugate. Oral cavity somewhat dry. LUNGS: Diminished breath sounds at the bases. A few crackles on the right side. HEART: S1 and S2, regular rate without murmurs. ABDOMEN: Soft. Not distended. EXTREMITIES: Kxfjcycfex-[id number]-aplipjux tender left knee. LABORATORY DATA: White cell count 18.8, hemoglobin 8.2, MCV 93, and platelets 523. Sodium 136, creatinine 4.54. CRP 20.5. The patient had a CT of abdomen, pelvis, and chest and we have no pericardial fluid. Bilateral pleural effusions with a component of loculated fluid in the left lung base. Increased density in the dependent portion of the right lower lobe and increased density in the dependent portion of the left lower lobe. No other findings of significance. Two sets of blood cultures obtained. He has a catheter in the left groin and the tunneled catheter for dialysis. ASSESSMENT AND DISCUSSION: CVA in the past, coronary artery disease, recurrent temperature elevation, gout with gouty arthritis of left knee, worsening neutrophilia and thrombocytosis, loculated effusion in left lung, possible associated pneumonia. We will consult Pulmonary to see if they think it is worthwhile to tap that effusion and to see it might be the source of this patient's recurrent fever. The worsening neutrophilia and thrombocytosis would argue for a focal inflammatory process rather than just a simple gout in the left knee. Colchicine has been started and has not helped with the process. We will start broad-spectrum antimicrobial coverage with cefepime and vancomycin. Submit Karius test to see if he has colonization of the catheter. His echocardiogram did not show any abnormalities, but technical quality was adequate. I do not think we need a LIBRA at this point in time just yet. Job ID: [id number]
[2019-05-02] MEDS: Tamsulosin HCl 0.4 MG CAP PO SCH (20:55)
[2019-05-02] MEDS: Famotidine 20 MG TAB PO SCH (20:55)
[2019-05-02] MEDS: Zolpidem Tartrate 5 MG TAB PO SCH (20:56)
--- NOTE | 2019-05-03 09:01 | PRG ---
DATE OF SERVICE: 05/03/2019 SUBJECTIVE: Patient was seen and examined at bedside and overnight events noted. Patient denies any shortness of breath or chest pain or palpitation. No history of nausea or vomiting or diarrhea or fever or chills or cramps. OBJECTIVE: GENERAL: This is an elderly male in no apparent distress. VITAL SIGNS: Temperature 99. Heart rate 76. Respiratory rate 18. Blood pressure 138/76. HEENT: Atraumatic, normocephalic. Oral mucosa is moist NECK: Supple. CARDIOVASCULAR: S1, S2 heard. Rate and rhythm regular. RESPIRATORY: Clear to auscultation. GASTROINTESTINAL: Abdomen is soft. MUSCULOSKELETAL: No tenderness. No edema. DERMATOLOGIC: No skin rash. NEUROLOGIC: Alert and awake and oriented X3. No focal neurologic deficits. Moving all the extremities. PSYCHIATRIC: Mood and affect normal. LABORATORY DATA: Not done today. ASSESSMENT AND PLAN: 1. Acute kidney injury on chronic kidney disease stage 3. Continue on dialysis as tolerated. Remains dialysis dependent for now. 2. Edema, remove fluid. 3. History of hypertension. 4. History of anemia. 5. Continue dialysis as tolerated. Monitor labs closely. Job ID: [id number]
[2019-05-03] MEDS: Febuxostat 40 MG TAB PO SCH (09:14)
[2019-05-03] MEDS: Aspirin 81 mg Enteric Coated Tablet PO SCH (09:14)
[2019-05-03] MEDS: Vit A,C & E/Lutein/Minerals Tablet PO SCH ×2 (09:14→21:35)
[2019-05-03] MEDS: Carvedilol 3.125 MG TAB PO SCH ×2 (09:14→21:35)
[2019-05-03] MEDS: Amlodipine 10 MG TAB PO SCH (09:14)
[2019-05-03] MEDS: Heparin 5,000 UNITS/ML VIAL SC SCH ×2 (09:14→21:37)
[2019-05-03] MEDS ORDERED: Lidocaine 5% Patch TD SCH (11:45)
--- NOTE | 2019-05-03 13:02 | CON ---
DATE OF CONSULTATION: 05/03/2019 The patient has been in the hospital since 04/19/2019. REASON FOR CONSULT: Thoracentesis. HISTORY OF PRESENT ILLNESS: The patient is an 79-year-old gentleman, who apparently is a DNR. He came to the hospital with weakness, dehydration, and fever. He has been seen by Infectious Disease now for the last 10 days or so including multiple other doctors including Nephrology. He has known history of coronary artery disease, CABG, and renal failure. On admission, he had worsening azotemia, weakness, and dysphagia. He is not able to give much history at this stage. He said he may be feeling somewhat better. PAST MEDICAL HISTORY: Pertinent for previous CVA, stroke, hypertension, arthritis, renal insufficiency, diabetes, macular degeneration, and BPH. PREVIOUS SURGERIES: Bypass and skin cancer. SOCIAL HISTORY: He is a former smoker, quit 20 years ago. Previous history of heavy alcohol abuse, apparently quit drinking recently. HOME MEDICATIONS: Includes; 1. Uloric. 2. Flomax 0.4. 3. Amlodipine 10. 4. Aspirin. 5. ISMO 60. 6. Coreg 3.125. 7. Zofran. 8. DuoNeb. 9. Colchicine. REVIEW OF SYSTEMS: Difficult to obtain. PHYSICAL EXAMINATION: GENERAL: He appears to be in no acute distress. VITAL SIGNS: Temperature 98 in the last 48 hours, maximum temperature 100.2, respiratory rate 20, pulse 95, and blood pressure 150/67. CHEST: Decreased breath sounds. No rhonchi. CARDIAC: Normal S1 and S2. No gallops. ABDOMEN: No masses. LABORATORY DATA: His lab from yesterday white count 18,000 H and H 8 and 24, and platelet count is normal. His chemistry shows creatinine is 4.5 and BUN is 18. X-ray several days ago shows minimal bibasilar atelectatic changes. CT of the chest shows very small pleural effusion. I doubt it is loculated. ASSESSMENT AND PLAN: Low-grade fever, advanced age, dysphagia, and small pleural effusion, not enough to be tapped. Chronic renal failure, CVA, history of gout, and diabetes. The patient's pleural effusion is too small for any meaningful thoracentesis. I doubt this is a cause of his fever. At this stage, nothing additional to offer. Continue PT and supportive care. We will discuss and follow. Job ID: [id number]
--- NOTE | 2019-05-03 13:50 | RAD ---
Exam: Chest one view HISTORY:Pleural effusion. Comparison: 04/28/2019 FINDINGS: Lines and tubes: Sternotomy wires and right-sided dialysis catheter noted Cardiac silhouette:Upper normal cardiac silhouette Aorta: Atherosclerosis of the aortic knob Pulmonary vessels: Upper normal caliber of the pulmonary vessels Costophrenic angles: Trace left-sided pleural effusion. LUNGS: Patchy interstitial opacities. Pneumothorax: None Osseous abnormalities: None IMPRESSION: Small left-sided pleural effusion. Correlate for pulmonary edema.
--- NOTE | 2019-05-03 13:51 | RAD ---
RADIOGRAPH LEFT KNEE 4VIEWS: DATE: 05/03/2019 HISTORY: 79-year-old male with left knee pain and decreased range of motion. FINDINGS: There is no evidence of fracture or dislocation. There is no evidence of periostitis, permeative lesi on, osteolytic lesion, or osteoblastic lesion. The joint spaces are maintained without erosions or significant osteophytes. Very small joint effusion. Multiple surgical clips in the soft tissues along the medial aspect of the distal femur and proximal calf. Atherosclerosis of popliteal artery and distal SFA. IMPRESSION: 1. No osseous abnormality identified. No high-grade osteoarthrosis. 2. Previous saphenous vein graft harvest. 3. Minimal joint effusion.
--- NOTE | 2019-05-03 14:45 | PDOC.HOSPP ---
- Subjective Encounter Date: 05/03/19 Encounter Time: 11:40 Subjective: 79 y/o male with multiple comorbidities including multiple CVAs with recent TPA treatment, CKD3/4, CAD s/p CABG, DM, gout and others, recently discharged to [facility] now readmitted due to acute increase in creat associated with confusion. Patient is now on HD for [place] on CKD. Awake and conversation. Afebrile in the last 24 hours. having left knee pain and decreased range of motion. - Objective Vital Signs & Weight: Vital Signs (12 hours) Temp Pulse Resp BP BP Pulse Ox 05/03/19 11:57 98.2 F 77 20 151/67 H 95 05/03/19 09:14 76 05/03/19 08:20 93 L 05/03/19 07:33 99.4 F 76 18 152/67 H 94 L 05/03/19 04:25 98.3 F 76 18 130/76 92 L Weight Admit Weight 172 lb 8 oz Weight 157 lb 6.561 oz Most Recent Monitor Data Heart Rate from ECG 71 NIBP 141/67 Respiration from ECG 18 I&O: 05/02/19 05/03/19 05/04/19 06:59 06:59 06:59 Intake Total 1420 240 Output Total 200 Balance 1420 40 Result Diagrams: 05/02/19 04:00 05/02/19 04:00 Additional Labs: Accuchecks 05/03/19 05/02/19 05/02/19 10:50 20:15 17:00 POC Glucose 152 H 104 102 Hospitalist ROS - Medication Medications: Active Medications Generic Name Dose Route Start Last Admin Trade Name Jarettq PRN Reason Stop Dose Admin Acetaminophen 1,000 mg 04/28/19 07:19 05/01/19 21:53 Tylenol PO 1,000 mg Q6H PRN Administration Moderate to Severe Pain (6-10) Amlodipine Besylate 10 mg 04/20/19 09:00 05/03/19 09:14 Norvasc PO 10 mg DAILY ERASTO Administration Aspirin 81 mg 04/20/19 09:00 05/03/19 09:14 Ecotrin PO 81 mg DAILY ERASTO Administration Baclofen 10 mg 04/19/19 13:20 04/29/19 17:48 Lioresal PO 10 mg BIDPRN PRN Administration Muscle Spasm Carvedilol 3.125 mg 04/19/19 21:00 05/03/19 09:14 Coreg PO 3.125 mg BID ERASTO Administration Colchicine 0.3 mg 04/28/19 14:00 04/28/19 18:45 Colchicine PO Not Given Tu [facility] Epoetin Jonathan-epbx 10,000 unit 04/28/19 15:30 04/30/19 12:15 Retacrit IVP 10,000 unit TTHSA [facility] Administration Famotidine 20 mg 04/20/19 21:00 05/02/19 20:55 Pepcid PO 20 mg QPM ERASTO Administration Febuxostat 40 mg 04/20/19 09:00 05/03/19 09:14 Uloric PO 40 mg DAILY ERASTO Administration Heparin Sodium (Porcine) 5,000 units 04/19/19 21:00 05/03/19 09:14 Heparin SC 5,000 units BID ERASTO Administration Isosorbide Mononitrate 60 mg 04/20/19 09:00 05/03/19 09:14 Imdur PO 60 mg DAILY ERASTO Administration Melatonin 3 mg 04/19/19 13:29 04/24/19 20:01 Melatonin PO 3 mg HSPRN PRN Administration Insomnia Multivitamins/Minerals 1 tab 04/19/19 21:00 05/03/19 09:14 Ocuvite With Lutein PO 1 tab BID [facility]STO Administration Tamsulosin HCl 0.4 mg 04/19/19 21:00 05/02/19 20:55 Flomax PO 0.4 mg HS ERASTO Administration Tramadol HCl 50 mg 04/28/19 07:19 05/02/19 14:55 Ultram PO 50 mg Q4H PRN Administration Pain Zolpidem Tartrate 10 mg 04/19/19 21:00 05/02/19 20:56 Ambien PO 10 mg HS ERASTO Administration - Exam General Appearance: awake alert Eye: anicteric sclera ENT: normocephalic atraumatic Neck: symmetric, no JVD Heart: RRR Respiratory: no wheezes, no rales, no ronchi, normal chest expansion Gastrointestinal: soft, non-tender, non-distended, normal bowel sounds Extremities: no cyanosis, no edema Neurological: cranial nerve grossly intact, no focal deficits Musculoskeletal: generalized weakness Psychiatric: oriented to person, oriented to place Psychiatric - other findings: memory lapses noted Hosp A/P (1) Fever Code(s): R50.9 - FEVER, UNSPECIFIED Status: Acute (2) Acute metabolic encephalopathy Code(s): G93.41 - METABOLIC ENCEPHALOPATHY Status: Acute (3) Acute gouty arthropathy Code(s): M10.9 - GOUT, UNSPECIFIED Status: Resolved (4) Acute kidney injury superimposed on chronic kidney disease Code(s): N17.9 - ACUTE KIDNEY FAILURE, UNSPECIFIED; N18.9 - CHRONIC KIDNEY DISEASE, UNSPECIFIED Status: Resolved (5) CKD (chronic kidney disease), stage III Code(s): N18.3 - CHRONIC KIDNEY DISEASE, STAGE 3 (MODERATE) Status: Chronic (6) Chronic diastolic heart failure Code(s): I50.32 - CHRONIC DIASTOLIC (CONGESTIVE) HEART FAILURE Status: Acute (7) Gout Code(s): M10.9 - GOUT, UNSPECIFIED Status: Chronic (8) HTN (hypertension) Code(s): I10 - ESSENTIAL (PRIMARY) HYPERTENSION Status: Chronic (9) Dementia Code(s): F03.90 - UNSPECIFIED DEMENTIA WITHOUT BEHAVIORAL DISTURBANCE Status: Acute - Plan Continue antibiotics as per ID. Awaiting repeat cultures and karius test Follow ESR and CRP with antibiotic therapy. Get X ray left knee. Start Lidocain patch for pain control Continue Other treatments and supportive care HD as per Nephrology
[2019-05-03] MEDS: Famotidine 20 MG TAB PO SCH (21:34)
[2019-05-03] MEDS: Tamsulosin HCl 0.4 MG CAP PO SCH (21:37)
[2019-05-03] MEDS: Acetaminophen 500 MG TAB PO PRN (21:37)
[2019-05-03] MEDS: Zolpidem Tartrate 5 MG TAB PO SCH (21:37)
[2019-05-04] MEDS: Lidocaine Patch Removal 1 EACH TOP SCH ×2 (01:32→22:07)
[2019-05-04 04:48] LABS: Band 1 % (5-11); Eosinophils 1 % (0-10); Hemoglobin 7.9 g/dL (14.0-18.0); Hypochromia SLIGHT = 6-15 cells (100X) (0-5/hpf); Lymphocytes 14 % (21-51); MDiff Complete? YES; Mean Corpuscular HGB CONC 32.2 g/dL (32.0-36.0); Mean Corpuscular Volume 93.3 fL (78.0-98.0); Mean Platelet Volume 6.6 fL (7.4-10.4); Monocytes 7 % (0-10); Neutrophil 77 % (42-75); Platelet Count 405 thou/uL (130-400); Platelet Morphology Comment Appears Adequate; Red Blood Cell (RBC) Count 2.64 mill/uL (4.70-6.10); White Blood Cell (WBC) Count 14.7 thou/uL (4.8-10.8)
[2019-05-04 04:51] LABS: Albumin 2.4 g/dL (3.4-4.8); Anion Gap 11 mmol/L (10-20); BUN (Urea Nitrogen) 19 mg/dL (8.4-25.7); BUN/Creatinine Ratio 3.85; Calc. Creatinine Clearance 12 mL/min (70-130); Carbon Dioxide 28 mmol/L (23-31); Chloride 101 mmol/L (98-107); Estimated GFR-MDRD 11; Glucose 103 mg/dL (83-110); Phosphorus 3.1 mg/dL (2.3-4.7); Sodium 136 mmol/L (136-145)
[2019-05-04] MEDS: Carvedilol 3.125 MG TAB PO SCH ×2 (08:30→20:56)
[2019-05-04] MEDS: Febuxostat 40 MG TAB PO SCH (08:30)
[2019-05-04] MEDS: Heparin 5,000 UNITS/ML VIAL SC SCH ×2 (08:30→20:57)
[2019-05-04] MEDS: Amlodipine 10 MG TAB PO SCH (08:30)
[2019-05-04] MEDS: Vit A,C & E/Lutein/Minerals Tablet PO SCH ×2 (08:31→20:57)
[2019-05-04] MEDS: Aspirin 81 mg Enteric Coated Tablet PO SCH (08:31)
[2019-05-04] MEDS: predniSONE 20 MG TAB PO SCH (08:31)
--- NOTE | 2019-05-04 10:01 | PRG ---
DATE OF SERVICE: 05/04/2019 SUBJECTIVE: Inocencio Ureña remains encephalopathic. OBJECTIVE: VITAL SIGNS: Temperature 99, pulse 84, blood pressure 131/61, and respiratory rate of 18. CHEST: No wheezing or crackles. CARDIAC: Normal S1 and S2. No gallops. ABDOMEN: No masses. LABORATORY DATA: Creatinine is 4.93. White count 14,000, H and H are 7 and 24, platelet count is normal. X-ray yesterday still shows not much fluid, not enough to do a thoracentesis, mainly atelectatic changes. IMPRESSION AND PLAN: Small bilateral pleural effusion, atelectatic, low-grade fever. As discussed noted before, not much effusion to tap. Continue antibiotics as per Infectious Disease. Job ID: [id number]
--- NOTE | 2019-05-04 11:48 | PRG ---
DATE OF SERVICE: 05/04/2019 SUBJECTIVE: An 79-year-old gentleman, being seen for end-stage renal disease. The patient denies any nausea, vomiting, or chest pain. OBJECTIVE: GENERAL: The patient is awake and alert. VITAL SIGNS: Afebrile, pulse 75, breathing 16, blood pressure 139/84. GENERAL APPEARANCE AND MENTAL STATUS: Fair. HEAD/NECK: Normocephalic. Atraumatic. EYES: EOMI. No deformity. EARS: Clear. No ulcers. NOSE: Intact. No lesions. MOUTH: Clear. No discharge. THROAT: Clear. No exudate. LUNGS: Clear. No crackles. CARDIAC: S1, S2. No rub. ABDOMEN: Benign. Bowel sounds positive. GENITALIA/RECTUM: Shipley absent. BACK/EXTREMITIES: Edema 0+. NEUROLOGICAL: Alert and motor intact. SKIN: LYMPHATICS: LABORATORY DATA: Reviewed. ASSESSMENT AND PLAN: 1. Stage 6 chronic kidney disease, plan dialysis. 2. Hypertension, stable. 3. Anemia, stable. Medication based on GFR, appropriate. Job ID: [id number]
[2019-05-04] MEDS: Lidocaine 5% Patch TD SCH (12:40)
[2019-05-04] MEDS: Acetaminophen 500 MG TAB PO PRN (14:28)
--- NOTE | 2019-05-04 17:21 | PDOC.HOSPP ---
- Subjective Encounter Date: 05/04/19 Encounter Time: 10:20 Subjective: 79 y/o male with multiple comorbidities including multiple CVAs with recent TPA treatment, CKD3/4, CAD s/p CABG, DM, gout and others, recently discharged to [facility] bed now readmitted due to acute increase in creat associated with confusion. Patient is now on HD for [place] on CKD. Awake and conversation. Had fever again last night with temp of 101.7. Still with left knee pain and decreased range of motion. - Objective Vital Signs & Weight: Vital Signs (12 hours) Temp Pulse Resp BP BP BP BP 05/04/19 13:15 98.6 F 77 16 145/69 H 05/04/19 12:09 99.2 F 78 18 129/61 05/04/19 08:30 84 133/61 05/04/19 08:00 98.7 F 84 18 133/61 Pulse Ox 05/04/19 13:15 96 05/04/19 12:09 94 L 05/04/19 08:30 05/04/19 08:00 95 Weight Admit Weight 172 lb 8 oz Weight 158 lb 11.725 oz Most Recent Monitor Data Heart Rate from ECG 71 NIBP 141/67 Respiration from ECG 18 I&O: 05/03/19 05/04/19 05/05/19 06:59 06:59 06:59 Intake Total 240 1200 Output Total 200 Balance 40 1200 Result Diagrams: 05/04/19 04:17 05/04/19 04:17 Additional Labs: Accuchecks 05/04/19 05/04/19 05/04/19 16:42 11:25 05:13 POC Glucose 136 H 101 118 H 05/03/19 05/03/19 05/03/19 20:13 16:42 05:52 POC Glucose 199 H 135 H 80 Hospitalist ROS - Medication Medications: Active Medications Generic Name Dose Route Start Last Admin Trade Name Freq PRN Reason Stop Dose Admin Acetaminophen 1,000 mg 04/28/19 07:19 05/04/19 14:28 Tylenol PO 1,000 mg Q6H PRN Administration Moderate to Severe Pain (6-10) Amlodipine Besylate 10 mg 04/20/19 09:00 05/04/19 08:30 Norvasc PO 10 mg DAILY ERASTO Administration Aspirin 81 mg 04/20/19 09:00 05/04/19 08:31 Ecotrin PO 81 mg DAILY ERASTO Administration Baclofen 10 mg 04/19/19 13:20 04/29/19 17:48 Lioresal PO 10 mg BIDPRN PRN Administration Muscle Spasm Carvedilol 3.125 mg 04/19/19 21:00 05/04/19 08:30 Coreg PO 3.125 mg BID ERASTO Administration Colchicine 0.3 mg 04/28/19 14:00 04/28/19 18:45 Colchicine PO Not Given Tu [facility] Docusate Sodium 100 mg 04/19/19 13:29 05/04/19 06:15 Colace PO 100 mg BIDPRN PRN Administration Constipation Epoetin Jonathan-epbx 10,000 unit 04/28/19 15:30 04/30/19 12:15 Retacrit IVP 10,000 unit TTA [facility] Administration Famotidine 20 mg 04/20/19 21:00 05/03/19 21:34 Pepcid PO 20 mg QPM [facility] Administration Febuxostat 40 mg 04/20/19 09:00 05/04/19 08:30 Uloric PO Not Given DAILY [facility] Heparin Sodium (Porcine) 5,000 units 04/19/19 21:00 05/04/19 08:30 Heparin SC 5,000 units BID [facility] Administration Isosorbide Mononitrate 60 mg 04/20/19 09:00 05/04/19 08:30 Imdur PO 60 mg DAILY [facility] Administration Lidocaine 1 patch 05/04/19 12:00 05/04/19 12:40 Lidoderm 5% Patch TD 1 patch 1200 [facility] Administration Melatonin 3 mg 04/19/19 13:29 04/24/19 20:01 Melatonin PO 3 mg HSPRN PRN Administration Insomnia Miscellaneous Medication 1 each 05/03/19 23:59 05/04/19 01:32 Lidocaine Patch Removal TOP Not Given 3031 [facility] Multivitamins/Minerals 1 tab 04/19/19 21:00 05/04/19 08:31 Ocuvite With Lutein PO 1 tab BID [facility] Administration Prednisone 40 mg 05/04/19 08:00 05/04/19 08:31 Prednisone PO 40 mg QAM-WM ERASTO Administration Tamsulosin HCl 0.4 mg 04/19/19 21:00 05/03/19 21:37 Flomax PO 0.4 mg HS ERASTO Administration Tramadol HCl 50 mg 04/28/19 07:19 05/02/19 14:55 Ultram PO 50 mg Q4H PRN Administration Pain Zolpidem Tartrate 10 mg 04/19/19 21:00 05/03/19 21:37 Ambien PO 10 mg HS ERASTO Administration - Exam General Appearance: awake alert Eye: anicteric sclera ENT: normocephalic atraumatic, moist mucosa Neck: supple, symmetric Heart: RRR, murmur present Respiratory: no wheezes, no rales, no ronchi, normal chest expansion Gastrointestinal: soft, non-tender, non-distended, normal bowel sounds Extremities: no cyanosis Extremities - other findings: left Knee mild fullness and tenderness noted Neurological: cranial nerve grossly intact, no focal deficits Neurological - other findings: memory lapses noted Musculoskeletal: generalized weakness Hosp A/P (1) Fever Code(s): R50.9 - FEVER, UNSPECIFIED Status: Acute (2) Acute metabolic encephalopathy Code(s): G93.41 - METABOLIC ENCEPHALOPATHY Status: Acute (3) Acute gouty arthropathy Code(s): M10.9 - GOUT, UNSPECIFIED Status: Resolved (4) Acute kidney injury superimposed on chronic kidney disease Code(s): N17.9 - ACUTE KIDNEY FAILURE, UNSPECIFIED; N18.9 - CHRONIC KIDNEY DISEASE, UNSPECIFIED Status: Resolved (5) CKD (chronic kidney disease), stage III Code(s): N18.3 - CHRONIC KIDNEY DISEASE, STAGE 3 (MODERATE) Status: Chronic (6) Chronic diastolic heart failure Code(s): I50.32 - CHRONIC DIASTOLIC (CONGESTIVE) HEART FAILURE Status: Acute (7) Gout Code(s): M10.9 - GOUT, UNSPECIFIED Status: Chronic (8) HTN (hypertension) Code(s): I10 - ESSENTIAL (PRIMARY) HYPERTENSION Status: Chronic (9) Dementia Code(s): F03.90 - UNSPECIFIED DEMENTIA WITHOUT BEHAVIORAL DISTURBANCE Status: Acute - Plan Start prednisone 40 mg for suspected acute gout as the cause of fever and left knee pain. Continue antibiotics as per ID. Awaiting repeat cultures and karius test Follow ESR and CRP with antibiotic therapy. Analgesic as needed Continue Other treatments and supportive care HD as per Nephrology
[2019-05-04] MEDS: Famotidine 20 MG TAB PO SCH (20:57)
[2019-05-04] MEDS: Zolpidem Tartrate 5 MG TAB PO SCH (20:57)
[2019-05-04] MEDS: Tamsulosin HCl 0.4 MG CAP PO SCH (20:57)
[2019-05-05] MEDS ORDERED: Heparin 10,000 UNITS/ 10 ML VIAL ONE (09:40)
[2019-05-05 12:27] VITALS: BMI 22.2
[2019-05-05] MEDS: predniSONE 20 MG TAB PO SCH (13:33)
[2019-05-05] MEDS: Amlodipine 10 MG TAB PO SCH (13:33)
[2019-05-05] MEDS: Carvedilol 3.125 MG TAB PO SCH ×2 (13:33→20:43)
[2019-05-05] MEDS: Aspirin 81 mg Enteric Coated Tablet PO SCH (13:33)
[2019-05-05] MEDS: Vit A,C & E/Lutein/Minerals Tablet PO SCH ×2 (13:34→20:43)
[2019-05-05] MEDS: Febuxostat 40 MG TAB PO SCH (13:34)
[2019-05-05] MEDS: Heparin 5,000 UNITS/ML VIAL SC SCH ×2 (13:34→20:43)
[2019-05-05] MEDS: Lidocaine 5% Patch TD SCH (13:58)
[2019-05-05] MEDS: Colchicine 0.6 MG TAB PO SCH (13:59)
[2019-05-05] MEDS ORDERED: Colchicine 0.3 MG TAB PO SCH (14:00)
--- NOTE | 2019-05-05 14:00 | PRG ---
DATE OF SERVICE: 05/05/2019 SUBJECTIVE: This is an 79-year-old male being seen for end-stage renal disease. The patient denied nausea, vomiting, or chest pain. OBJECTIVE: See above. The patient is awake, alert. VITAL SIGNS: Afebrile, pulse 75, breathing 16, blood pressure was 144/68. GENERAL APPEARANCE AND MENTAL STATUS: Fair. HEAD/NECK: Normocephalic. Atraumatic. EYES: EOMI. No deformity. EARS: Clear. No ulcers. NOSE: Intact. No lesions. MOUTH: Clear. No discharge. THROAT: Clear. No exudate. LUNGS: Clear. No crackles. CARDIAC: S1, S2. No rub. ABDOMEN: Benign. Bowel sounds positive. GENITALIA/RECTUM: Shipley absent. BACK/EXTREMITIES: Edema 0+. NEUROLOGICAL: Alert and motor intact. SKIN: LYMPHATICS: LABORATORY DATA: Reviewed. ASSESSMENT AND PLAN: 1. Stage 6 chronic kidney disease, plan dialysis today. 2. Hypertension, stable. 3. Anemia, stable. 4. Medication based on GFR appropriate. Job ID: [id number]
[2019-05-05] MEDS: Acetaminophen 500 MG TAB PO PRN (14:48)
[2019-05-05] MEDS: Baclofen 10 MG TAB PO PRN (14:48)
[2019-05-05] MEDS ORDERED: CEFAZOLIN 2 GM in Premix Bag 1 BAG IVPB SCH (17:00)
--- NOTE | 2019-05-05 17:03 | PRG ---
DATE OF SERVICE: 05/05/2019 SUBJECTIVE: Mr. Inocencio Ureña mentally has cleared after dialysis. Family has decided to proceed with a fistula as he wants to continue dialysis. PLAN: Right arm fistula. His left arm cephalic vein is thrombosed due to iatrogenic IV access and chronic kidney disease patient. We will plan right arm arteriovenous fistula tomorrow. Family understands risks and benefits and consents. Hemoglobin 7.9, white count 14.7. Electrolytes normal yesterday. Job ID: [id number]
--- NOTE | 2019-05-05 18:30 | PDOC.HOSPP ---
- Subjective Encounter Date: 05/05/19 Encounter Time: 10:00 Subjective: Patient seen and examined for [place]/Gout. No new complaints. Pain controlled. No overnight events - Objective Vital Signs & Weight: Vital Signs (12 hours) Temp Pulse Resp BP Pulse Ox 05/05/19 13:33 85 05/05/19 11:57 85 16 144/66 H 95 05/05/19 08:00 97 05/05/19 07:19 97.7 F 73 18 116/55 L 97 Weight Admit Weight 172 lb 8 oz Weight 158 lb 11.725 oz Most Recent Monitor Data Heart Rate from ECG 71 NIBP 141/67 Respiration from ECG 18 I&O: 05/04/19 05/05/19 05/06/19 06:59 06:59 06:59 Intake Total 1200 450 500 Output Total 200 3000 Balance 1200 250 -2500 Result Diagrams: 05/04/19 04:17 05/04/19 04:17 Additional Labs: Accuchecks 05/05/19 05/05/19 05/05/19 16:59 12:15 04:55 POC Glucose 159 H 102 176 H 05/04/19 19:25 POC Glucose 171 H Hospitalist ROS - Review of Systems Respiratory: denies: cough, dry, shortness of breath, hemoptysis, SOB with excertion, pleuritic pain, sputum, wheezing, other Cardiovascular: denies: chest pain, palpitations, orthopnea, paroxysmal noc. dyspnea, edema, light headedness, other - Medication Medications: Active Medications Generic Name Dose Route Start Last Admin Trade Name Freq PRN Reason Stop Dose Admin Acetaminophen 1,000 mg 04/28/19 07:19 05/05/19 14:48 Tylenol PO 1,000 mg Q6H PRN Administration Moderate to Severe Pain (6-10) Amlodipine Besylate 10 mg 04/20/19 09:00 05/05/19 13:33 Norvasc PO Not Given DAILY [facility] Aspirin 81 mg 04/20/19 09:00 05/05/19 13:33 Ecotrin PO Not Given DAILY [facility] Baclofen 10 mg 04/19/19 13:20 05/05/19 14:48 Lioresal PO 10 mg BIDPRN PRN Administration Muscle Spasm Carvedilol 3.125 mg 04/19/19 21:00 05/05/19 13:33 Coreg PO Not Given BID [facility] Colchicine 0.3 mg 05/05/19 14:00 05/05/19 14:45 Colcrys PO 0.3 mg Tu@1400 [facility] Administration Docusate Sodium 100 mg 04/19/19 13:29 05/04/19 06:15 Colace PO 100 mg BIDPRN PRN Administration Constipation Epoetin Jonathan-epbx 10,000 unit 04/28/19 15:30 04/30/19 12:15 Retacrit IVP 10,000 unit TTHSA [facility] Administration Famotidine 20 mg 04/20/19 21:00 05/04/19 20:57 Pepcid PO 20 mg QPM [facility] Administration Febuxostat 40 mg 04/20/19 09:00 05/05/19 13:34 Uloric PO Not Given DAILY [facility] Heparin Sodium (Porcine) 5,000 units 04/19/19 21:00 05/05/19 13:34 Heparin SC Not Given BID [facility] Insulin Human Lispro 0 units 04/19/19 17:34 05/05/19 05:57 Humalog SC 2 units .MILD SLIDING SCALE PRN Administration Mild Correctional Scale Isosorbide Mononitrate 60 mg 04/20/19 09:00 05/05/19 13:34 Imdur PO Not Given DAILY [facility] Lidocaine 1 patch 05/04/19 12:00 05/05/19 13:58 Lidoderm 5% Patch TD 1 patch 1200 [facility] Administration Melatonin 3 mg 04/19/19 13:29 04/24/19 20:01 Melatonin PO 3 mg HSPRN PRN Administration Insomnia Miscellaneous Medication 1 each 05/03/19 23:59 05/04/19 22:07 Lidocaine Patch Removal TOP Not Given 2359 [facility] Multivitamins/Minerals 1 tab 04/19/19 21:00 05/05/19 13:34 Ocuvite With Lutein PO Not Given BID [facility] Prednisone 40 mg 05/04/19 08:00 05/05/19 13:33 Prednisone PO Not Given QAM-WM [facility] Tamsulosin HCl 0.4 mg 04/19/19 21:00 05/04/19 20:57 Flomax PO 0.4 mg HS [facility] Administration Tramadol HCl 50 mg 04/28/19 07:19 05/02/19 14:55 Ultram PO 50 mg Q4H PRN Administration Pain Zolpidem Tartrate 10 mg 04/19/19 21:00 05/04/19 20:57 Ambien PO 10 mg HS ERASTO Administration - Exam General Appearance: NAD Heart: RRR, no gallops Respiratory: CTAB, no rales Gastrointestinal: soft, non-tender, normal bowel sounds Extremities: no edema Hosp A/P - Plan DVT proph w/SCDs [place] on CKD 3 Gout flare Toxic Metabolic Encephalopathy HTN Chronic diastolic HF Physical deconditioning Chronic Anemia due to CKD PLAN: Dialysis access in AM Cont Prednisone/Colchicine Cont other meds Await Placement
[2019-05-05] MEDS: Zolpidem Tartrate 5 MG TAB PO SCH (20:43)
[2019-05-05] MEDS: Famotidine 20 MG TAB PO SCH (20:43)
[2019-05-05] MEDS: Tamsulosin HCl 0.4 MG CAP PO SCH (20:43)
[2019-05-06] MEDS: Lidocaine Patch Removal 1 EACH TOP SCH ×3 (01:17→21:55)
[2019-05-06 06:05] LABS: #Basophils 0.1 thou/uL (0.0-0.2); #Eosinphils 0.5 thou/uL (0.0-0.7); #Lymphocytes 3.5 thou/uL (1.20-3.40); #Monocytes 1.6 thou/uL (0.11-0.59); #Neutrophils 5.9 thou/uL (1.40-6.50); %Basophils 0.6 % (0.0-1.0); %Eosinophils 4.2 % (0.0-10.0); %Lymphocytes 30.3 % (21.0-51.0); %Neutrophils 50.8 % (42.0-75.0); Mean Corpuscular HGB CONC 32.4 g/dL (32.0-36.0); Mean Corpuscular Hemoglobin 30.1 pg (27.0-31.0); Mean Platelet Volume 6.6 fL (7.4-10.4); Platelet Count 517 thou/uL (130-400); RBC Distribution Width 14.5 % (11.5-14.5); Red Blood Cell (RBC) Count 2.64 mill/uL (4.70-6.10); White Blood Cell (WBC) Count 11.7 thou/uL (4.8-10.8)
[2019-05-06 06:24] LABS: Anion Gap 11 mmol/L (10-20); BUN (Urea Nitrogen) 21 mg/dL (8.4-25.7); Calc. Creatinine Clearance 14 mL/min (70-130); Calcium 8.3 mg/dL (7.8-10.44); Carbon Dioxide 31 mmol/L (23-31); Chloride 102 mmol/L (98-107); Estimated GFR-MDRD 14; Glucose 86 mg/dL (83-110); Potassium 3.8 mmol/L (3.5-5.1); Sodium 140 mmol/L (136-145)
[2019-05-06] MEDS: predniSONE 20 MG TAB PO SCH (08:41)
[2019-05-06] MEDS: Carvedilol 3.125 MG TAB PO SCH ×2 (08:41→21:54)
[2019-05-06] MEDS: Febuxostat 40 MG TAB PO SCH (08:41)
[2019-05-06] MEDS: Vit A,C & E/Lutein/Minerals Tablet PO SCH ×2 (08:42→21:55)
[2019-05-06] MEDS: Aspirin 81 mg Enteric Coated Tablet PO SCH (08:42)
[2019-05-06] MEDS: Amlodipine 10 MG TAB PO SCH (08:42)
[2019-05-06] MEDS: Heparin 5,000 UNITS/ML VIAL SC SCH ×2 (08:42→21:55)
[2019-05-06] MEDS ORDERED: Iron Sucrose Complex 200 MG in Sodium Chloride 0.9% 250 ML 250 ML IVPB SCH (09:30)
[2019-05-06] MEDS ORDERED: Iron, Sodium Ferric Gluconate 250 MG in Sodium Chloride 0.9% 250 ML 250 ML IVPB SCH (09:45)
[2019-05-06] MEDS ORDERED: Ropivacaine 0.5% HCl/PF (150 MG/30 ML VIAL) ONE (10:25)
[2019-05-06 11:14] LABS: Reference Lab Name KARIUS
[2019-05-06 11:15] LABS: Ref Lab Test Ordered KARIUS TEST
--- NOTE | 2019-05-06 11:18 | PRG ---
DATE OF SERVICE: 05/06/2019 SUBJECTIVE: An 79-year-old gentleman, being seen for end-stage kidney disease. The patient denies nausea, vomiting, or chest pain. OBJECTIVE: CONSTITUTIONAL: The patient is awake and alert. VITAL SIGNS: Afebrile, pulse 75, breathing 16, and blood pressure was 122/53. GENERAL APPEARANCE AND MENTAL STATUS: Fair. HEAD/NECK: Normocephalic. Atraumatic. EYES: EOMI. No deformity. EARS: Clear. No ulcers. NOSE: Intact. No lesions. MOUTH: Clear. No discharge. THROAT: Clear. No exudate. LUNGS: Clear. No crackles. CARDIAC: S1, S2. No rub. ABDOMEN: Benign. Bowel sounds positive. GENITALIA/RECTUM: Shipley absent. BACK/EXTREMITIES: Edema 0+. NEUROLOGICAL: Alert and motor intact. SKIN: LYMPHATICS: LABORATORY DATA: Reviewed. ASSESSMENT AND PLAN: 1. Stage 6 chronic kidney disease, stable. 2. Hypertension, stable. 3. Anemia, stable. 4. Medication based on GFR appropriate. Job ID: [id number]
[2019-05-06] MEDS: Lidocaine 5% Patch TD SCH (11:42)
[2019-05-06] MEDS ORDERED: Protamine Sulfate 50 MG/5 ML VIAL ONE (16:43)
[2019-05-06] MEDS ORDERED: Heparin 5,000 UNITS/ML VIAL ONE (16:43)
--- NOTE | 2019-05-06 20:12 | PDOC.HOSPP ---
- Subjective Encounter Date: 05/06/19 Encounter Time: 11:11 Subjective: 79 y/o male with multiple comorbidities including multiple CVAs with recent TPA treatment, CKD3/4, CAD s/p CABG, DM, gout and others, recently discharged to [facility] now readmitted due to acute increase in creat associated with confusion. Patient is now on HD for [place] on CKD. Awake and conversation. Afebrile now for more than 48 hours. Left knee pain is improved. - Objective Vital Signs & Weight: Vital Signs (12 hours) Pulse BP 05/06/19 08:42 78 122/53 L Weight Admit Weight 172 lb 8 oz Weight 158 lb 11.725 oz Most Recent Monitor Data Heart Rate from ECG 71 NIBP 141/67 Respiration from ECG 18 I&O: 05/05/19 05/06/19 05/07/19 06:59 06:59 06:59 Intake Total 450 500 Output Total 200 3000 Balance 250 -2500 Result Diagrams: 05/06/19 05:28 05/06/19 05:28 Additional Labs: Accuchecks 05/06/19 05/06/19 05/05/19 11:13 05:08 19:45 POC Glucose 124 H 97 189 H Hospitalist ROS - Medication Medications: Active Medications Generic Name Dose Route Start Last Admin Trade Name Freq PRN Reason Stop Dose Admin Acetaminophen 1,000 mg 04/28/19 07:19 05/05/19 14:48 Tylenol PO 1,000 mg Q6H PRN Administration Moderate to Severe Pain (6-10) Amlodipine Besylate 10 mg 04/20/19 09:00 05/06/19 08:42 Norvasc PO Not Given DAILY ERASTO Aspirin 81 mg 04/20/19 09:00 05/06/19 08:42 Ecotrin PO Not Given DAILY ERASTO Baclofen 10 mg 04/19/19 13:20 05/05/19 14:48 Lioresal PO 10 mg BIDPRN PRN Administration Muscle Spasm Carvedilol 3.125 mg 04/19/19 21:00 05/06/19 08:41 Coreg PO 3.125 mg BID ERASTO Administration Colchicine 0.3 mg 05/05/19 14:00 05/05/19 14:45 Colcrys PO 0.3 mg Tu@1400 ERASTO Administration Docusate Sodium 100 mg 04/19/19 13:29 05/04/19 06:15 Colace PO 100 mg BIDPRN PRN Administration Constipation Epoetin Jonathan-epbx 10,000 unit 04/28/19 15:30 04/30/19 12:15 Retacrit IVP 10,000 unit TTHSA [facility] Administration Famotidine 20 mg 04/20/19 21:00 05/05/19 20:43 Pepcid PO 20 mg QPM ERASTO Administration Febuxostat 40 mg 04/20/19 09:00 05/06/19 08:41 Uloric PO 40 mg DAILY ERASTO Administration Heparin Sodium (Porcine) 5,000 units 04/19/19 21:00 05/06/19 08:42 Heparin SC Not Given BID [facility] Insulin Human Lispro 0 units 04/19/19 17:34 05/05/19 05:57 Humalog SC 2 units .MILD SLIDING SCALE PRN Administration Mild Correctional Scale Isosorbide Mononitrate 60 mg 04/20/19 09:00 05/06/19 08:41 Imdur PO 60 mg DAILY [facility] Administration Lidocaine 1 patch 05/04/19 12:00 05/06/19 11:42 Lidoderm 5% Patch TD Not Given 1200 [facility] Melatonin 3 mg 04/19/19 13:29 04/24/19 20:01 Melatonin PO 3 mg HSPRN PRN Administration Insomnia Miscellaneous Medication 1 each 05/03/19 23:59 05/06/19 01:48 Lidocaine Patch Removal TOP Not Given 2359 [facility] Multivitamins/Minerals 1 tab 04/19/19 21:00 05/06/19 08:42 Ocuvite With Lutein PO 1 tab BID [facility]ST[facility] Administration Prednisone 40 mg 05/04/19 08:00 05/06/19 08:41 Prednisone PO 40 mg QAM-WM [facility] Administration Tamsulosin HCl 0.4 mg 04/19/19 21:00 05/05/19 20:43 Flomax PO 0.4 mg HS [facility] Administration Tramadol HCl 50 mg 04/28/19 07:19 05/02/19 14:55 Ultram PO 50 mg Q4H PRN Administration Pain Zolpidem Tartrate 10 mg 04/19/19 21:00 05/05/19 20:43 Ambien PO 10 mg HS [facility] Administration - Exam General Appearance: awake alert Eye: anicteric sclera ENT: normocephalic atraumatic Neck: supple Heart: RRR, murmur present Respiratory: no wheezes, no rales, no ronchi, normal chest expansion Gastrointestinal: soft, non-tender, non-distended, normal bowel sounds Extremities: no cyanosis, no edema Neurological: cranial nerve grossly intact, no focal deficits Musculoskeletal: generalized weakness, diffuse muscle atrophy Psychiatric: A&O x 3 Hosp A/P (1) Fever Code(s): R50.9 - FEVER, UNSPECIFIED Status: Acute (2) Acute metabolic encephalopathy Code(s): G93.41 - METABOLIC ENCEPHALOPATHY Status: Acute (3) Acute gouty arthropathy Code(s): M10.9 - GOUT, UNSPECIFIED Status: Resolved (4) Acute kidney injury superimposed on chronic kidney disease Code(s): N17.9 - ACUTE KIDNEY FAILURE, UNSPECIFIED; N18.9 - CHRONIC KIDNEY DISEASE, UNSPECIFIED Status: Resolved (5) CKD (chronic kidney disease), stage III Code(s): N18.3 - CHRONIC KIDNEY DISEASE, STAGE 3 (MODERATE) Status: Chronic (6) Chronic diastolic heart failure Code(s): I50.32 - CHRONIC DIASTOLIC (CONGESTIVE) HEART FAILURE Status: Acute (7) Gout Code(s): M10.9 - GOUT, UNSPECIFIED Status: Chronic (8) HTN (hypertension) Code(s): I10 - ESSENTIAL (PRIMARY) HYPERTENSION Status: Chronic (9) Dementia Code(s): F03.90 - UNSPECIFIED DEMENTIA WITHOUT BEHAVIORAL DISTURBANCE Status: Acute - Plan For AV fistula creation today. Continue steroid. Analgesic as needed Continue Other treatments and supportive care HD as per Nephrology For discharge tomorrow.
--- NOTE | 2019-05-06 21:26 | PDOC.EVN ---
Event Note - Event Note Event Note: Called by nursing after pt apparently pulled out his R IJ tunneled HD catheter and L femoral triple lumen CVC this pm. Hemostasis obtained with direct pressure and golf ball-sized hematoma of L groin noted. Lungs clear bilat, VSS reviewed and stable. Pt comfortable and lying in bed. Continue local pressure dressings and apply ice pack to L groin. Nursing to notify Dr. Talamantes of occurrence and plans for placement of new HD catheters.
[2019-05-06] MEDS: Zolpidem Tartrate 5 MG TAB PO SCH (21:55)
[2019-05-06] MEDS: Famotidine 20 MG TAB PO SCH (21:55)
[2019-05-06] MEDS: Tamsulosin HCl 0.4 MG CAP PO SCH (21:55)
[2019-05-07] MEDS: Carvedilol 3.125 MG TAB PO SCH ×2 (05:23→20:10)
[2019-05-07] MEDS: predniSONE 20 MG TAB PO SCH (08:08)
[2019-05-07] MEDS: Amlodipine 10 MG TAB PO SCH (08:08)
[2019-05-07] MEDS: Aspirin 81 mg Enteric Coated Tablet PO SCH (08:08)
[2019-05-07] MEDS: Febuxostat 40 MG TAB PO SCH (08:08)
[2019-05-07] MEDS: Heparin 5,000 UNITS/ML VIAL SC SCH ×2 (08:08→20:10)
[2019-05-07] MEDS: Vit A,C & E/Lutein/Minerals Tablet PO SCH ×2 (08:08→20:09)
[2019-05-07] MEDS ORDERED: CEFAZOLIN 2 GM in Premix Bag 1 BAG IVPB SCH (08:45)
--- NOTE | 2019-05-07 09:24 | OP ---
DATE OF PROCEDURE: 05/06/2019 POSTOPERATIVE DIAGNOSES: End-stage renal disease, thrombosed cephalic vein, left arm, iatrogenic due to IV access antecubital in a chronic kidney disease patient. POSTOPERATIVE DIAGNOSES: End-stage renal disease, thrombosed cephalic vein, left arm, iatrogenic due to IV access antecubital in a chronic kidney disease patient. PROCEDURE PERFORMED: Right arm Rosana fistula, 4 mm coronary artery dilator radial artery. ANESTHESIA: Regional, TIVA. ESTIMATED BLOOD LOSS: Less than 15 mL. DESCRIPTION OF PROCEDURE: The patient was taken to the operating room, where underwent right arm regional anesthesia, right upper extremity was prepared with ChloraPrep and draped in routine fashion. An incision was made in the right wrist between the radial artery and cephalic vein, carried down through the skin and subcutaneous tissue. Radial artery and cephalic vein dissected free. Branches of vein divided between clips and 4-0 silk ties and stump on the hand side ligated with a 3-0 silk ties. It was transected, spatulated with Olivas scissors, and interrogated with coronary dilators, passed the coronary artery dilator without obstruction from a 2 mm to a 4 mm. It was flushed with heparinized saline solution. The patient had been given 6000 units of heparin intravenously. The atraumatic bulldog vascular clamp applied to the cephalic vein, where the radial artery clamped proximally and distally. Longitudinal arteriotomy was made sharply, elongated with the [place] scissors. A 2.5 cm anastomosis was made between the end of the cephalic vein and radial artery with continuous suture of 6-0 Prolene. Releasing the clamps noting excellent flow in the fistula, interrogated by Doppler. The patient was given 25 mg of protamine. Subcutaneous tissue was approximated with 3-0 Monocryl, skin with subdermal 4-0 Monocryl, and [place] glue applied. Job ID: [id number]
--- NOTE | 2019-05-07 10:46 | PRG ---
DATE OF SERVICE: 05/07/2019 SUBJECTIVE: This is an 79-year-old gentleman, being seen for end-stage renal disease. The patient denied nausea, vomiting, or chest pain. OBJECTIVE: CONSTITUTIONAL: The patient is awake and alert. VITAL SIGNS: Pulse 95, breathing 16, blood pressure 120/54. GENERAL APPEARANCE AND MENTAL STATUS: Fair. HEAD/NECK: Normocephalic. Atraumatic. EYES: EOMI. No deformity. EARS: Clear. No ulcers. NOSE: Intact. No lesions. MOUTH: Clear. No discharge. THROAT: Clear. No exudate. LUNGS: Clear. No crackles. CARDIAC: S1, S2. No rub. ABDOMEN: Benign. Bowel sounds positive. GENITALIA/RECTUM: Shipley absent. BACK/EXTREMITIES: Edema 0+. NEUROLOGICAL: Alert and motor intact. SKIN: LYMPHATICS: LABORATORY DATA: Hemoglobin 8. ASSESSMENT AND PLAN: 1. Stage 6 chronic kidney disease, plan dialysis. 2. Hypertension, stable. 3. Anemia, stable. 4. Medication based on GFR appropriate. Job ID: [id number]
[2019-05-07] MEDS ORDERED: Lidocaine 1% w/Epinephrine 1:100K 20 ML VIAL ONE (12:05)
[2019-05-07] MEDS ORDERED: Bupivacaine PF 0.5% 30 ML VIAL ONE (12:05)
[2019-05-07] MEDS ORDERED: Sodium Chloride 0.9% 20 ML ONE (12:05)
[2019-05-07] MEDS ORDERED: Heparin 10,000 UNITS/1 ML VIAL ONE (12:05)
[2019-05-07] MEDS: Lidocaine 5% Patch TD SCH (12:10)
[2019-05-07] MEDS ORDERED: Lidocaine 2% w/Epinephrine 1:200K 20 ML VIAL ONE (12:46)
[2019-05-07] MEDS ORDERED: Heparin 10,000 UNITS/ 10 ML VIAL ONE (13:16)
[2019-05-07] MEDS ORDERED: Iopamidol 370 76% 100 ML VIAL ONE (13:40)
[2019-05-07] MEDS ORDERED: Promethazine HCl 25 MG/ML VIAL SLOW IVP PRN (13:40)
[2019-05-07] MEDS ORDERED: Promethazine HCl 25 MG/ML VIAL IM PRN (13:40)
[2019-05-07] MEDS ORDERED: Ondansetron HCl/PF 4 MG/2 ML Vial IVP PRN (13:40)
--- NOTE | 2019-05-07 13:57 | RAD ---
Chest AP view INDICATION: History of effusion COMPARISON: May 03, 2019 FINDINGS: Lungs:The lungs are clear Cardiac silhouette:Stable cardiomegaly and post-CABG change. There is a stable right IJ dialysis cath eter. Pulmonary vasculature:Normal Pleural spaces:No pleural effusion or pneumothorax is demonstrated. Upper abdomen:No abnormality seen. Osseous structures: No acute osseous abnormality. Additional findings:None. IMPRESSION: Stable cardiomegaly. No evidence of pleural effusion.
[2019-05-07] MEDS: AMOXicillin 250 MG CAP PO SCH ×2 (14:08→18:33)
[2019-05-07] MEDS: metroNIDAZOLE 500 MG TAB PO SCH ×2 (14:54→20:09)
--- NOTE | 2019-05-07 14:56 | CT ---
POSTCONTRAST SOFT TISSUE NECK CT: HISTORY: Abnormal Karius test suggestive of anaerobic organism. COMPARISON: None. FINDINGS: Visualized brain parenchyma: Stable malacic and gliotic changes when compared to the CT from April 06, 2019. Sinuses: Adequate aeration. Nasopharynx: No mucosal abnormality. Oral cavity: Limited evaluation due to dental amalgam artifact. Epiglottis has a normal caliber. Preepiglottic fat is preserved. Symmetric attenuation of the parotid and submandibular glands. Symmetric attenuation of the superior bilateral sternomastoid muscles. There appears to be air hemato ma involving the inferior aspect of the right sternocleidomastoid muscle likely due to recent placement of a HemoSplit dialysis catheter. No evidence of lymphadenopathy by size criteria. Atherosclerosis involving both cervical carotid arteries. Limited evaluation. There may be short segm ent significant stenosis involving bilateral carotid bifurcation and proximal internal carotid arteries. Upper mediastinum and lung apices are unremarkable for acute pathology. Incidental aberrant origin of the right subclavian arteries noted. Varying degrees of central canal stenosis and foraminal narrowing on the basis of degenerative change . Cervical spine vertebral body height is maintained. There is no fracture. There are varying degrees of central canal stenosis and foraminal narrowing. IMPRESSION: Hematoma and air along the course of a right-sided HemoSplit dialysis catheter. Correlate for acute p lacement of catheter. With the catheters long-standing, the presence of air and stranding do raise the possibility of infection. Dr. Grant states that the HemoSplit dialysis catheter was placed earlier today. Results of study discussed with Dr. Grant 05/07/2019 at 4:07 PM Code CR Transcribed Date/Time: 05/07/2019 3:08 PM
[2019-05-07 15:24] LABS: Hemoglobin 6.3 g/dL (14.0-18.0)
--- NOTE | 2019-05-07 16:03 | PRG ---
DATE OF SERVICE: 05/07/2019 SUBJECTIVE: Niranjan has not had any vomiting. He is still having some pain in the left knee. No abdominal pain. OBJECTIVE: VITAL SIGNS: T-max of 98.2, blood pressure 140/60, and pulse 69. LUNGS: Clear. ABDOMEN: Soft. No bladder retention, knee tender but not as tender as before. Range of motion is not limited. LABORATORY DATA: White cell count 11.7, hemoglobin 8.0, and platelets are 517. Creatinine 4.16. Urinalysis with 7 to 10 wbc's. The Karius test showed very high levels of Prevotella, Veillonella, Rothia, and fusobacterium. This is suggestive of a mandibular periodontal space infection with bacteremia that was sub clinical. Soft tissue neck CT showed a hematoma, inferior aspect of the right sternocleidomastoid from a recently placed HemoSplit dialysis catheter. Possibility of infection is considered because of the presence of air and stranding. Catheter was originally placed earlier. ASSESSMENT AND DISCUSSION: Cerebrovascular accident, coronary artery disease, recurrent fevers; history of gout with inflammatory process, left knee; worsening neutrophilia, thrombocytosis; small loculated effusion, left lung and now the Karius findings with high levels of four different mouth anaerobes in the blood stream. This is a sort of a subclinical Lemierre's syndrome. The CT did not include mandible pictures and I am not sure what the meaning is of those catheter associated findings. I think though he still needs mandibular films to be taken to make sure that he does not have oral cavity abscess somewhere. In the meantime, I would advise Flagyl plus amoxicillin adjusted for renal function for probably 4 weeks. Job ID: [id number] [facility]
--- NOTE | 2019-05-07 19:50 | OP ---
DATE OF PROCEDURE: 05/07/2019 PREOPERATIVE DIAGNOSES: End-stage renal disease, confusion, the patient has pulled out his hemodialysis catheter in his groin central line, in need of new dialysis access. POSTOPERATIVE DIAGNOSES: End-stage renal disease, confusion, the patient has pulled out his hemodialysis catheter in his groin central line, in need of new dialysis access. PROCEDURE PERFORMED: Right IJ cuffed tunneled hemodialysis catheter. ANESTHESIA: Intravenous sedation, local, 0.5% Marcaine, 30 mL mixed with 1% Xylocaine with epinephrine 30 mL. DESCRIPTION OF PROCEDURE: The patient was taken to the operating room where under intravenous sedation, neck and chest were prepared with ChloraPrep and draped in routine fashion. Local anesthetic was infiltrated in the skin and subcutaneous tissue about the operative site. Using ultrasound, the right internal jugular vein was cannulated with a trocar catheter, J-wire threaded, trocar catheter removed. Skin was enlarged sharply. Stab incision was made over the right chest. Using the tunneling device, pre-curved [employer] cuffed-tunneled hemodialysis catheter tunneled between 2 incisions on the right, placing the fabric cuff beneath the skin exit site and catheter excessively sutured with 2-0 nylon suture to prevent dislodgement. Sterile dressing applied. Smaller and medium size dilators were placed over the J-wire into the internal jugular vein and removed. Dilator and Peel-Away sheath placed over the J-wire into the superior vena cava, and dilator and J-wire were removed. Catheter was placed with the Peel-Away sheath. Peel-Away sheath removed. Fluoroscopically, the catheter noted to be in good position. Platysma was approximated with 4-0 Monocryl, skin with subdermal 4-0 Monocryl, and [place] glue applied. Each port aspirated, blood flushed with saline solution and heparinized saline solution with 1000 units of heparin per mL indicating volume of the port. Job ID: [id number]
[2019-05-07] MEDS ORDERED: EPOETIN ALFA-EPBX (ESRD) 10,000 UNIT/ML VIAL IVP SCH (20:00)
[2019-05-07] MEDS ORDERED: EPOETIN ALFA-EPBX (ESRD) 10,000 UNIT/ML VIAL SC SCH (20:00)
[2019-05-07] MEDS: Acetaminophen 500 MG TAB PO PRN (20:10)
[2019-05-07] MEDS: Tamsulosin HCl 0.4 MG CAP PO SCH (20:10)
[2019-05-07] MEDS: Famotidine 20 MG TAB PO SCH (20:10)
[2019-05-07] MEDS: Zolpidem Tartrate 5 MG TAB PO SCH (20:11)
[2019-05-07 20:19] VITALS: BP 146/60; TEMP 98.2
--- NOTE | 2019-05-08 08:19 | DIS ---
DATE OF ADMISSION: 04/19/2019 DATE OF DISCHARGE: 05/07/2019 PRIMARY CARE PHYSICIAN: Max Burrell DO. DISCHARGE DIAGNOSES: 1. Acute metabolic encephalopathy. 2. Acute gouty arthropathy. 3. Acute on chronic renal failure, requiring hemodialysis. 4. Chronic kidney disease stage 3. 5. Sepsis. 6. Occult anaerobic infection. 7. Chronic diastolic heart failure. 8. Hypertension. 9. Dementia. 10. Chronic anemia. 11. Acute on chronic anemia due to blood loss. 12. Anemia of chronic kidney disease. 13. Metabolic acidosis. 14. Possible urinary tract infection. CONSULTS: 1. Nephrology. 2. Infectious Disease. 3. General Surgery. 4. Neurology. HOSPITAL COURSE: An 79-year-old male with multiple comorbidities including multiple CVAs with recent tPA treatment, CKD stage 3, coronary artery disease, status post CABG, diabetes, gout, and others, who was [facility], now readmitted due to acute increase in creatinine associated with mental status change of confusion. Initial impression of acute on chronic renal failure due to dehydration with possible uremic encephalopathy was made and patient was started on IV fluid and treatment by Nephrology. There was also a concern for acute gout given right knee pain and mild effusion. Renal function did not improve and actually worsened and was associated with development of fever. Urinalysis also was suggestive of urinary tract infection, hence broad-spectrum antibiotic therapy was started. The patient continued to have intermittent fever, hence Infectious Disease consult was obtained. Antibiotics were subsequently discontinued as cultures were negative and treatment of gout continued. With worsening renal function, temporary dialysis catheter was placed and patient was started on hemodialysis. However, the patient continued to have somnolence which improves occasionally. Hospital course was complicated by intermittent fevers, hence multiple blood cultures were obtained. The patient was later restarted on colchicine therapy after it was initially discontinued as he developed left knee pain and decreased range of motion as well as tenderness. Antibiotic was restarted again and due to this intermittent fever, ID was reconsulted and repeat CT scan of the abdomen and chest and pelvis with contrast was requested as well as Caris test. CT scan of the abdomen and pelvis and chest was unremarkable and antibiotics were again discontinued and the patient was worked up and prepared for discharge as mental status had improved. However, given improvement in mental status with hemodialysis, it was felt that uremic encephalopathy was pretty insignificant at first and family who initially did not want permanent fistula creation, now prefers to have that done, hence General Surgery put a tunneled dialysis catheter as well as AV fistula on the right arm. Post AV fistula creation, patient got confused and yanked off the tunneled dialysis catheter. About the same time, the Caris test sent out came back showing elevated DNA molecules for Prevotella melaninogenica, Veillonella dispar as well as Rothia mucilaginosa AND Fusobacterium periodontium, these are all anaerobes. Infectious Disease re-evaluated the patient and recommended treatment with metronidazole and amoxicillin for 4 weeks. He also recommended CT scan of the neck and mandible. However, only CT scan of the neck was done. The patient remained afebrile and in improved with appropriate mental status and was subsequently discharged to long-term facility for further restorative therapy. PROCEDURES PERFORMED: 1. Temporary dialysis catheter. 2. Central line placement. 3. Tunneled dialysis catheter. 4. Right wrist AV fistula creation. PHYSICAL EXAMINATION: VITAL SIGNS: Temperature 98.2, pulse 72, respiratory rate 16, SpO2 of 94 on room air, blood pressure is 146/60. GENERAL: Elderly male, in no obvious distress. Afebrile. Anicteric. Acyanotic. HEENT: Normocephalic, atraumatic. Oral mucosa is moist. CARDIOVASCULAR: Regular rhythm and rate with normal heart sounds 1 and 2. Soft systolic murmur noted. RESPIRATORY: Good air entry bilateral with no obvious crackle or rhonchi or use of accessory muscles. GI: Full, soft, nontender, nondistended with normal bowel sounds. EXTREMITIES: Grossly normal looking atraumatic with no edema or erythema. Left knee tenderness with mildly decreased range of motion noted. WEB PUBLISHER: Conscious, alert, oriented x3 with appropriate mental status. Memory lapse is noted. The patient moves all extremities. DISCHARGE DISPOSITION: nursing home facility. DISCHARGE CONDITION: Improved. FOLLOWUP INSTRUCTION: 1. Follow up with PCP in 7 days. 2. Follow up with Nephrology at the dialysis unit. 3. Follow up with Infectious Disease in 3 to 4 weeks. DISCHARGE MEDICATIONS: 1. Alirocumab 75 monthly. 2. Amlodipine 10 mg p.o. daily. 3. Aspirin 81 mg p.o. daily. 4. Baclofen 10 mg p.o. daily. 5. Biotin 49558 mcg p.o. daily. 6. Carvedilol 3.125 mg p.o. b.i.d. 7. Uloric 40 mg p.o. every other day. 8. Isosorbide mononitrate 60 mg p.o. daily. 9. [place]-3 fatty acids 1 g p.o. daily. 10. Flomax 0.4 mg p.o. daily at bedtime. 11. Vitamin A, C and E-Lutein and Minerals 1 tablet p.o. b.i.d. 12. Acetaminophen 1000 mg p.o. q.6 p.r.n. for pain. 13. Amoxicillin 500 mg p.o. daily for 4 weeks. 14. Colchicine 0.3 mg p.o. every Saturday. 15. Epoetin 10,000 units IV. 16. Humalog sliding scale. 17. DuoNeb 3 mL q.4 p.r.n. for shortness of breath. 18. Lidocaine patch once daily. 19. Melatonin 3 mg p.o. daily at bedtime p.r.n. for insomnia. 20. Metronidazole 500 mg p.o. t.i.d. for 4 weeks. 21. Ondansetron 4 mg q.6 p.r.n. for nausea and vomiting. This discharge took more than 43 minutes. Job ID: [id number]
[2019-05-08] MEDS ORDERED: AMOXicillin 250 MG CAP PO SCH (09:00)
[2019-05-09] MEDS ORDERED: EPOETIN ALFA-EPBX (ESRD) 10,000 UNIT/ML VIAL IVP SCH (15:30)
== END 2019-05-07 20:46 | DRG 673 ==
LOC: 2NO 11:14 → T4-B 05-04 13:39
PROVIDERS: ADMIT Internal Medicine; ATTEND Internal Medicine
PROC: 06HY33Z Insertion of Infusion Device into Lower Vein, Percutaneous Approach (ICD-10-PCS; principal; 2019-04-20)
PROC: 0JH63XZ Insertion of Tunneled Vascular Access Device into Chest Subcutaneous Tissue and Fascia, Percutaneous Approach (ICD-10-PCS; 2019-04-28)
PROC: 05HM33Z Insertion of Infusion Device into Right Internal Jugular Vein, Percutaneous Approach (ICD-10-PCS; 2019-04-28)
PROC: B543ZZA Ultrasonography of Right Jugular Veins, Guidance (ICD-10-PCS; 2019-04-28)
PROC: 06HY33Z Insertion of Infusion Device into Lower Vein, Percutaneous Approach (ICD-10-PCS; 2019-04-28)
PROC: 5A1D70Z Performance of Urinary Filtration, Intermittent, Less than 6 Hours Per Day (ICD-10-PCS; 2019-04-29)
PROC: 30233N1 Transfusion of Nonautologous Red Blood Cells into Peripheral Vein, Percutaneous Approach (ICD-10-PCS; 2019-05-01)
PROC: 031B0ZF Bypass Right Radial Artery to Lower Arm Vein, Open Approach (ICD-10-PCS; 2019-05-06)
PROC: 0JH63XZ Insertion of Tunneled Vascular Access Device into Chest Subcutaneous Tissue and Fascia, Percutaneous Approach (ICD-10-PCS; 2019-05-07)
PROC: 02HV33Z Insertion of Infusion Device into Superior Vena Cava, Percutaneous Approach (ICD-10-PCS; 2019-05-07)
PROC: B548ZZA Ultrasonography of Superior Vena Cava, Guidance (ICD-10-PCS; 2019-05-07)
DX: N17.9 Acute kidney failure, unspecified (principal); G93.41 Metabolic encephalopathy; E87.2 Acidosis; I13.2 Hypertensive heart and chronic kidney disease with heart failure and with stage 5 chronic kidney disease, or end stage renal disease; J98.11 Atelectasis; Z51.5 Encounter for palliative care; Z66 Do not resuscitate; N18.6 End stage renal disease; Z86.73 Personal history of transient ischemic attack (TIA), and cerebral infarction without residual deficits; E11.22 Type 2 diabetes mellitus with diabetic chronic kidney disease; E86.0 Dehydration; I25.10 Atherosclerotic heart disease of native coronary artery without angina pectoris; E78.5 Hyperlipidemia, unspecified; M10.9 Gout, unspecified; N40.0 Benign prostatic hyperplasia without lower urinary tract symptoms; Z95.1 Presence of aortocoronary bypass graft; Z85.828 Personal history of other malignant neoplasm of skin; Z79.899 Other long term (current) drug therapy; M19.91 Primary osteoarthritis, unspecified site; Z87.891 Personal history of nicotine dependence; N18.3 Chronic kidney disease, stage 3 (moderate); R53.81 Other malaise; D63.1 Anemia in chronic kidney disease; F03.90 Unspecified dementia, unspecified severity, without behavioral disturbance, psychotic disturbance, mood disturbance, and anxiety; D47.3 Essential (hemorrhagic) thrombocythemia; I80.8 Phlebitis and thrombophlebitis of other sites
CPT/HCPCS: 36415; 36416; 36430; 70491; 71045; 71260; 74177; 76000; 76770; 80048; 80053; 80069; 81003; 81015; 82570; 82728; 83540; 83550; 83605; 84156; 85014; 85018; 85025; 85027; 85652; 86140; 86580; 86704; 86706; 86803; 86850; 86900; 86901; 87040; 87340; 87633; 90935; 93005; 93010; 93306; 93970; C1752; C1769; G0257; G0365; J0670; J0690; J0692; J1642; J1644; J2001; J2704; J2720; J2795; J2916; J3370; J3490; J7050; J7070; J7512; P9016; Q5105; Q9967; S0020

== ENCOUNTER 2019-05-11 19:00 | Inpatient (IN) | payer MEDICARE ==
[~2019-05-11 19:00] MED LIST changes: -Heparin 10,000 UNITS/1 ML VIAL ONE; +Iopamidol-370 76% 500 ML 1 ML ONE
[2019-05-11 19:40] LABS: #Basophils 0.1 thou/uL (0.0-0.2); #Eosinphils 1.2 thou/uL (0.0-0.7); #Lymphocytes 3.7 thou/uL (1.20-3.40); #Monocytes 1.7 thou/uL (0.11-0.59); #Neutrophils 10.3 thou/uL (1.40-6.50); %Basophils 0.5 % (0.0-1.0); %Eosinophils 7.2 % (0.0-10.0); %Lymphocytes 21.8 % (21.0-51.0); %Monocytes 10.1 % (0.0-10.0); %Neutrophils 60.4 % (42.0-75.0); Hemoglobin 9.2 g/dL (14.0-18.0); Mean Corpuscular HGB CONC 33.1 g/dL (32.0-36.0); Mean Corpuscular Hemoglobin 30.2 pg (27.0-31.0); Mean Corpuscular Volume 91.1 fL (78.0-98.0); Mean Platelet Volume 5.9 fL (7.4-10.4); Platelet Count 617 thou/uL (130-400); RBC Distribution Width 16.5 % (11.5-14.5); Red Blood Cell (RBC) Count 3.05 mill/uL (4.70-6.10); White Blood Cell (WBC) Count 17.1 thou/uL (4.8-10.8)
[2019-05-11 19:57] LABS: ALT (SGPT) Less than 7 U/L (8-55); AST (SGOT) 26 U/L (5-34); Albumin 3.2 g/dL (3.4-4.8); Alkaline Phosphatase 108 U/L (40-110); Anion Gap 15 mmol/L (10-20); BUN (Urea Nitrogen) 6 mg/dL (8.4-25.7); Bilirubin, Total 0.8 mg/dL (0.2-1.2); Calc. Creatinine Clearance 0 mL/min (70-130); Calcium 8.4 mg/dL (7.8-10.44); Carbon Dioxide 25 mmol/L (23-31); Chloride 100 mmol/L (98-107); Estimated GFR-MDRD 32; Globulin 3.6 g/dL (2.4-3.5); Glucose 97 mg/dL (83-110); Potassium 3.8 mmol/L (3.5-5.1); Protein, Total 6.8 g/dL (5.8-8.1); Sodium 136 mmol/L (136-145)
[2019-05-11 20:20] LABS: CKMB 2.3 ng/mL (0-6.6)
--- NOTE | 2019-05-11 20:54 | RAD ---
CHEST ONE VIEW: HISTORY: Chest pain. Altered mental status. COMPARISON: 05/07/2019 FINDINGS: Tunneled right internal jugular vein hemodialysis catheter remains in place. Post surgical changes re lated to CABG are again noted. The cardiac silhouette and pulmonary vasculature are within normal garcia its for the portable technique of the study. No consolidation or pleural fluid is identified. There i s linear density seen adjacent to the left cardiac border, which may represent atelectasis and/or sup erimposition of structures, including vasculature. Vascular calcification is seen in the thoracic aor ta. No other interval change. IMPRESSION: No acute cardiopulmonary process. POS: OFF
--- NOTE | 2019-05-11 21:04 | CT ---
CT BRAIN WITHOUT CONTRAST: Date: 05/11/19 HISTORY: Altered mental status. FINDINGS: Comparison made with exam of 04/18/19. Changes of cortical atrophy, chronic small vessel ischemic disease, and old infarctions in the cerebe llar hemispheres and occipital lobes are again seen. The ventricular size is stable and the basilar c isterns are patent. No evidence of acute infarct, hemorrhage, midline shift, or abnormal extra-axial fluid collections ar e seen. The bony calvarium is intact. The visualized paranasal sinuses and mastoid air cells are well aerated. IMPRESSION: No CT evidence of acute intracranial process. POS: OFF
[2019-05-11] MEDS ORDERED: Piperacillin/Tazobactam 4.5 GM VIAL ONE (21:07)
[2019-05-11] MEDS ORDERED: metroNIDAZOLE 500 MG/100 ML BAG ONE (21:08)
[2019-05-11] MEDS ORDERED: Dextrose 50% Abboject 50 ML SYRINGE SLOW IVP PRN (22:43)
[2019-05-11] MEDS ORDERED: Ondansetron PF 4 MG/2 ML Vial IVP PRN (22:43)
[2019-05-11] MEDS ORDERED: Acetaminophen 325 MG TAB PO PRN (22:43)
[2019-05-11] MEDS ORDERED: Acetaminophen 650 MG Suppository PR PRN (22:43)
[2019-05-11] MEDS ORDERED: Dextrose 5% in Water 1,000 ML IV PRN (22:43)
[2019-05-11] MEDS ORDERED: HumaLOG 300 UNITS/3 ML VIAL SC PRN (22:43)
[2019-05-11 22:48] LABS: Troponin I 0.052 ng/mL (< 0.028)
[2019-05-11 23:11] LABS: Bacteria/HPF None Seen HPF (None Seen); Bilirubin Negative (Negative); Blood, Urine Negative (Negative); Clarity Clear (Clear); Glucose, Urine (Dipstick) Normal (Negative); Leukocyte Negative Leu/uL (Negative); Nitrite Negative (Negative); Protein, Urine (Dipstick) 100 mg/dL (Neg-Trace); RBC/HPF 0-3 HPF (0-3); Squamous Epithelial 0-3 HPF (0-3); Urobilinogen Normal mg/dL (Less than 2); WBC/HPF 0-3 HPF (0-3)
--- NOTE | 2019-05-11 23:33 | HP ---
PRIMARY CARE PROVIDER: Dr. Max Burrell. CHIEF COMPLAINT: Altered mental status. HISTORY OF PRESENT ILLNESS: Mr. Ureña is a pleasant 79-year-old gentleman, who was seen at [facility] on May 11, 2019. He was hospitalized at this facility from April 19 to of this year for acute metabolic encephalopathy, acute gouty arthropathy, and acute on chronic renal failure, initiated on hemodialysis during that hospitalization. He was discharged on antibiotics for suspected mandibular infection. The patient was reportedly confused at hemodialysis. He had 1.8 L of fluid removed earlier today. At this time, the patient is not accompanied by family member. His baseline mentation is unknown. The patient is making nonsensical statements, saying "I've reversed the field on everybody, so everybody is on the other side of the poison." He also reports that he is standing in a line. REVIEW OF SYSTEMS: Could not be obtained secondary to patient's confused status. PAST MEDICAL HISTORY: Coronary artery disease, hypertension, CVA, dyslipidemia, osteoarthritis, gout, end-stage renal disease needing hemodialysis, diabetes mellitus, and skin cancer excision. PAST SURGICAL HISTORY: Coronary artery bypass graft. FAMILY HISTORY: Hypertension. SOCIAL HISTORY: Former smoker, no recreational drugs, no alcohol. ALLERGIES: STATINS. CURRENT MEDICATIONS: As dictated by Dr. Grant in his discharge summary dated May 07, 2019. PHYSICAL EXAMINATION: GENERAL: On examination, Mr. Ureña is awake and alert, not in acute distress. VITAL SIGNS: Blood pressure is 122/58, pulse 86, respiratory rate 18, and oxygen saturation 99% on room air. He is afebrile. EYES: No scleral icterus, no conjunctival pallor. ENT: Moist mucosal membranes. No oropharyngeal erythema or exudates. NECK: Supple, nontender, trachea is midline. RESPIRATORY: Accessory muscles of breathing are not active. Chest wall movements are symmetric bilaterally. Lungs are clear to auscultation without wheeze, rhonchi, or crepitations. CARDIOVASCULAR: S1 and S2 are heard, regular. Peripheral pulses palpable. He has right chest wall dialysis access. LYMPHATIC: No cervical lymphadenopathy. NEUROLOGIC: Full neurologic examination not possible secondary to patient's noncooperation. No facial droop. Deep tendon reflexes 2+, plantars downgoing bilaterally. MUSCULOSKELETAL: Patient moving all 4 extremities. SKIN: No rashes. PSYCHIATRIC: Normal mood, normal affect, patient is oriented to self only, not to place or time. LABORATORY DATA: Mr. Ureña's labs and investigations were reviewed. I reviewed his electrocardiogram, which shows normal sinus rhythm, no ST changes to suggest an acute coronary syndrome. He has right bundle-branch block. I also reviewed his chest x-ray, which does not show any pulmonary infiltrates. Noncontrast CT scan of the brain did not show any acute intracranial process. He has leukocytosis with 17,100 white cells, of which 60.4% are neutrophils. Hemoglobin is decreased at 9.2, it was 8.3 earlier today and 6.3 on May 07, 2019. MCV is normal. Platelet count is elevated at 617, it was 517 on May 06. He has normal sodium, normal potassium, normal anion gap, elevated creatinine of 2.00, creatinine was 4.16 earlier today and 4.93 on May 04, 2019, indeterminate troponin-I of 0.040, it was 0.053 on April 18, 2019, decreased albumin of 3.2, otherwise unremarkable liver profile, normal lactic acid and normal ammonia level. Urinalysis and urine culture are pending. ASSESSMENT AND PLAN: Mr. Ureña is a pleasant 79-year-old gentleman, who was seen at [facility] on May 11, 2019. His problem list includes: 1. Acute metabolic encephalopathy: Etiology is unclear. Could be related to infectious causes, given the leukocytosis. We will continue him on antibiotics. He has received metronidazole and Zosyn in the emergency room, which I will continue. We will also add vancomycin until blood cultures are back. During his recent hospitalization, he was supposed to have CT scan of neck and mandible. CT scan of neck was done, but not of the mandible. We will order CT scan of the mandible to rule out abscess, etc. 2. End-stage renal disease, on dialysis: Nephrology Service will be consulted for maintenance dialysis. At this point in time, the patient is not in volume overload. He does not have other indications for emergent dialysis. 3. Hypertension: We will resume home medications, monitor vital signs and titrate antihypertensives as needed. 4. Coronary artery disease: The patient has indeterminate troponin-I. He does not endorse any chest pain at this time. We will monitor him on telemetry and recheck troponin level. 5. Diabetes mellitus: We will start him on Accu-Cheks and insulin sliding scale. Many thanks for allowing me to participate in your patient's care. Please feel free to contact me with any questions or concerns. LEVEL OF RISK: High. LEVEL OF COMPLEXITY: High. Job ID: [id number]
--- NOTE | 2019-05-11 23:38 | CT ---
CT FACIAL BONES WITH IV CONTRAST: HISTORY: Concern for abscess on mandible. FINDINGS: There is artifact from dental amalgam limiting evaluation of the maxilla, mandible and oral cavity. The facial bones appear intact. No loculated fluid collection is seen in the soft tissues to suggest abscess formation. POS: OFF
[2019-05-12 01:19] VITALS: BMI 20.5
[2019-05-12] MEDS ORDERED: Vancomycin HCl 1.25 GM in Sodium Chloride 0.9% 250 ML 250 ML IVPB SCH (01:30)
[2019-05-12 01:45] LABS: Troponin I 0.023 ng/mL (< 0.028)
[2019-05-12 04:12] LABS: #Basophils 0.1 thou/uL (0.0-0.2); #Lymphocytes 2.4 thou/uL (1.20-3.40); #Monocytes 1.8 thou/uL (0.11-0.59); #Neutrophils 8.6 thou/uL (1.40-6.50); %Basophils 0.5 % (0.0-1.0); %Eosinophils 7.3 % (0.0-10.0); %Lymphocytes 17.1 % (21.0-51.0); %Monocytes 12.7 % (0.0-10.0); %Neutrophils 62.4 % (42.0-75.0); Hemoglobin 8.4 g/dL (14.0-18.0); Mean Corpuscular HGB CONC 32.5 g/dL (32.0-36.0); Mean Corpuscular Hemoglobin 30.4 pg (27.0-31.0); Mean Corpuscular Volume 93.7 fL (78.0-98.0); Platelet Count 541 thou/uL (130-400); Red Blood Cell (RBC) Count 2.76 mill/uL (4.70-6.10); White Blood Cell (WBC) Count 13.8 thou/uL (4.8-10.8)
[2019-05-12 04:30] LABS: Anion Gap 9 mmol/L (10-20); BUN (Urea Nitrogen) 9 mg/dL (8.4-25.7); Calc. Creatinine Clearance 20 mL/min (70-130); Carbon Dioxide 30 mmol/L (23-31); Chloride 101 mmol/L (98-107); Estimated GFR-MDRD 22; Glucose 166 mg/dL (83-110); Potassium 3.7 mmol/L (3.5-5.1); Sodium 136 mmol/L (136-145)
[2019-05-12] MEDS: metroNIDAZOLE 500 MG in Premix Bag 1 BAG IVPB SCH ×3 (05:16→21:31)
[2019-05-12] MEDS: Piperacillin/Tazobactam 2.25 GM in Sodium Chloride 0.9% 100 ML IVPB SCH ×3 (06:14→21:31)
[2019-05-12] MEDS: Heparin 5,000 UNITS/ML VIAL SC SCH ×3 (10:17→21:32)
--- NOTE | 2019-05-12 17:59 | PDOC.HOSPP ---
- Subjective Encounter Date: 05/12/19 Encounter Time: 17:57 Subjective: The patient states he is in [facility]. Denies complaints, no chest pain, headache, abdominal pain, nausea, vomiting He says he was confused yesterday. Nursing staff reported he was confused this am but better now. He did not get out of bed today states patient was told to drink three bottles of water a day by Dr Yancey. thinks his wild stories and hallucinations occur when he drinks less than three bottles of water a day. No fluids given in the ER. - Objective Vital Signs & Weight: Vital Signs (12 hours) Temp Pulse Resp BP BP Pulse Ox 05/12/19 15:04 98.2 F 69 20 145/65 H 94 L 05/12/19 11:25 98.6 F 70 20 149/66 H 94 L 05/12/19 07:31 99.1 F 81 20 106/53 L 94 L Weight Admit Weight 147 lb Weight 147 lb Result Diagrams: 05/12/19 03:58 05/12/19 03:59 Additional Labs: Accuchecks 05/12/19 15:00 POC Glucose 190 H Hospitalist ROS - Review of Systems Constitutional: denies: fever, chills Eyes: denies: vision change - Medication Medications: Active Medications Generic Name Dose Route Start Last Admin Trade Name Jarettq PRN Reason Stop Dose Admin Heparin Sodium (Porcine) 5,000 units 05/12/19 09:00 05/12/19 17:24 Heparin SC 5,000 units TID ERASTO Administration Metronidazole 500 mg/ Device 100 mls @ 100 mls/hr 05/12/19 06:00 05/12/19 13: 36 IVPB 100 mls Q8HR ERASTO Administration Piperacillin Sod/Tazobactam 100 mls @ 200 mls/hr 05/12/19 06:00 05/12/19 14: 53 Sod 2.25 gm/ Sodium Chloride IVPB 100 mls Q8HR ERASTO Administration - Exam General Appearance: NAD, awake alert Eye: PERRL, anicteric sclera ENT: normocephalic atraumatic, no oropharyngeal lesions Neck: supple, symmetric, no JVD, no thyromegaly Heart: RRR, no murmur, no gallops, no rubs Respiratory: CTAB, no wheezes, no rales, no ronchi Gastrointestinal: soft, non-tender, non-distended Extremities: no cyanosis, no clubbing, no edema Skin: normal turgor, no lesions, no rashes Neurological: cranial nerve grossly intact, normal sensation to touch, no focal deficits, no new deficit Musculoskeletal: normal tone, normal strength, no muscle wasting Psychiatric: normal affect, normal behavior, A&O x 3, oriented to person Hosp A/P - Plan Consults: Palliative Care Chest X ray: no acute disease CT head: no acute disease CT facial bones: unremarkable EKG: normal sinus rhythm. RBBB, left axis deviation This is an 79 year old male with past medical history of CAD, hypertension, CVA , dyslipidemia, osteoarthritis, ESRD, diabetes wh opresented to the ER with confusion during hemodialysis. He had 1.8L of fluid removed' #Acute encephalopathy - appears to be back to baseline, possibly uremic vs sepsis? #Leukocytosis- improved #ESRD #Recent Prevotella, Veillonella, Rotha mucaliginosa and Fusobacterium periodontum infection - had some confusion during dialysis. WBC was 17, and improved to 13.8. Was on vanc, zosyn, flagyl empirically and mental status back to baseline now. Will dc vancomycin for now and evaluate for worsening. thinks this is due to inadequate water intake. Patient's mental status however improved without any fluid given - Chest Xray unremarkable. CT scan of facial bones unremarkable - . Blood cultures and urine culture are negative - will place ID consult to see if antibiotics need to be readjusted given improvement with IV antibiotics. Alternative is uremic encephalopathy Elevated troponin - resolved - EKG shows LAD and RBBB. Will obtain ECHO - patient denies chest pain Anemia of chronic disease - HB 9. Iron panel done earlier this month consistent with anemia of chronic disase - vitamin B12 in march normal - check folate level in normal Gout - continue colchicine Code status: DNR DVT prophylaxis: heparin SC
--- NOTE | 2019-05-12 23:44 | CON ---
DATE OF CONSULTATION: REASON FOR CONSULTATION: Stage 6 chronic kidney disease, for maintenance hemodialysis. HISTORY OF PRESENT ILLNESS: This is a very pleasant 79-year-old gentleman presented to the hospital yesterday night for altered mental status. The patient is on dialysis, Saturday, Saturday, Saturday, had dialysis yesterday. The patient denies any complaint. PAST MEDICAL HISTORY: Coronary artery disease, hypertension, hyperlipidemia, gout, diabetes mellitus, aortic valve surgery, CABG. FAMILY HISTORY: Negative for ESRD. ALLERGIES: REVIEWED. MEDICATIONS: Home medication list reviewed. Hospital medication list reviewed. SOCIAL HISTORY: No alcohol or drug use. REVIEW OF SYSTEMS: A 15-point review of system was performed and was negative except for positives noted above. GENERAL: HEAD: NECK: No swelling or lumps. NOSE: No epistaxis or discharge. EYES: No diplopia or pain. RESPIRATORY: CARDIOVASCULAR: GASTROINTESTINAL: /ACID CUTTER: MUSCULOSKELETAL: No joint pain. NEUROPSYCHIATIC SYSTEMS: No suicidal ideation. No ideation. SKIN: Denies any rash or ulcer. CONSTITUTIONAL: No fever or chills. OBJECTIVE: See above. CONSTITUTIONAL: The patient is awake and alert. VITAL SIGNS: Pulse 69, breathing 16, blood pressure 115/55. GENERAL APPEARANCE AND MENTAL STATUS: Fair. HEAD/NECK: Normocephalic. Atraumatic. EYES: EOMI. No deformity. EARS: Clear. No ulcers. NOSE: Intact. No lesions. MOUTH: Clear. No discharge. THROAT: Clear. No exudate. LUNGS: Clear. No crackles. CARDIAC: S1, S2. No rub. ABDOMEN: Benign. Bowel sounds positive. GENITALIA/RECTUM: Shipley absent. BACK/EXTREMITIES: Edema 0+ NEUROLOGICAL: Alert and motor intact. SKIN: LYMPHATICS: LABORATORY DATA: Reviewed. ASSESSMENT AND PLAN: 1. Stage 6 chronic kidney disease, plan dialysis Saturday, Saturday, Saturday. 2. Hypertension, stable. 3. Anemia, stable. 4. Medication based on GFR appropriate. Job ID: [id number]
[2019-05-13] MEDS ORDERED: Vancomycin HCl 750 MG in Sodium Chloride 0.9% 250 ML 250 ML IVPB SCH (02:00)
[2019-05-13 04:56] LABS: Hemoglobin 8.3 g/dL (14.0-18.0); Mean Corpuscular Hemoglobin 31.3 pg (27.0-31.0); Mean Corpuscular Volume 94.6 fL (78.0-98.0); Mean Platelet Volume 6.2 fL (7.4-10.4); Platelet Count 526 thou/uL (130-400); RBC Distribution Width 17.1 % (11.5-14.5); Red Blood Cell (RBC) Count 2.65 mill/uL (4.70-6.10)
[2019-05-13 05:16] LABS: Anion Gap 8 mmol/L (10-20); BUN (Urea Nitrogen) 15 mg/dL (8.4-25.7); Calc. Creatinine Clearance 15 mL/min (70-130); Carbon Dioxide 29 mmol/L (23-31); Chloride 102 mmol/L (98-107); Estimated GFR-MDRD 16; Glucose 80 mg/dL (83-110); Potassium 3.4 mmol/L (3.5-5.1); Sodium 136 mmol/L (136-145)
[2019-05-13] MEDS: Piperacillin/Tazobactam 2.25 GM in Sodium Chloride 0.9% 100 ML IVPB SCH ×3 (06:23→20:35)
[2019-05-13] MEDS: metroNIDAZOLE 500 MG in Premix Bag 1 BAG IVPB SCH ×3 (06:24→20:33)
[2019-05-13] MEDS ORDERED: Potassium Chloride 20 MEQ TAB PO SCH (07:45)
[2019-05-13] MEDS: Heparin 5,000 UNITS/ML VIAL SC SCH ×3 (08:44→20:35)
--- NOTE | 2019-05-13 11:35 | PRG ---
DATE OF SERVICE: 05/13/2019 SUBJECTIVE: An 79-year-old gentleman, being seen for end-stage renal disease. The patient denied nausea, vomiting, or chest pain. OBJECTIVE: CONSTITUTIONAL: The patient is awake and alert. VITAL SIGNS: Afebrile, pulse 70, breathing 16, and blood pressure 152/69. GENERAL APPEARANCE AND MENTAL STATUS: Fair. HEAD/NECK: Normocephalic. Atraumatic. EYES: EOMI. No deformity. EARS: Clear. No ulcers. NOSE: Intact. No lesions. MOUTH: Clear. No discharge. THROAT: Clear. No exudate. LUNGS: Clear. No crackles. CARDIAC: S1, S2. No rub. ABDOMEN: Benign. Bowel sounds positive. GENITALIA/RECTUM: Shipley absent. BACK/EXTREMITIES: Edema 0+. NEUROLOGICAL: Alert and motor intact. SKIN: LYMPHATICS: LABORATORY DATA: Reviewed. ASSESSMENT AND PLAN: 1. Stage 6 chronic kidney disease. Plan dialysis. 2. Hypertension, stable. 3. Anemia, stable. 4. Medication based on GFR appropriate. Job ID: [id number]
--- NOTE | 2019-05-13 14:20 | CON ---
DATE OF CONSULTATION: 05/13/2019 REASON FOR CONSULTATION: Altered mental status. HISTORY OF PRESENT ILLNESS: An 79-year-old patient, whom I had seen recently at the beginning of this month when he presented with a history of coronary artery disease, prior CVA, gout, and end-stage renal disease. He developed worsening renal function and ended up starting the hemodialysis through a right groin catheter, which was eventually transitioned to a right internal jugular tunneled hemodialysis catheter. Initially, there was a concern with CVA. He was given tPA, but no conclusive evidence of CVA was found. He did have fever on arrival, and CT of chest showed patchy bibasilar densities. There was no evidence of deep vein thrombosis. We were asked to see the patient because of fever. The patient did have recurrent episodes of fever throughout the hospital stay, and initially, we felt that uric acid deposition with gouty arthropathy in the left knee was the likely culprit, but he continued to have fever despite colchicine. We submitted Karius test, and the results showed Prevotella melaninogenica, Veillonella, Rothia, and Fusobacterium periodonticum in large amounts. We ordered imaging studies, which did not show any obvious inflammatory process in the neck and facial area, and the decision was made to treat him with oral antimicrobial therapy geared towards those organisms including Flagyl and amoxicillin. The idea was to treat him for about 4 weeks approximately. He was transferred back to a shelter in [place] , and in dialysis before admission, he was noticed to have encephalopathy, and he was transferred over for admission. In the emergency room, the patient had recovered his mental state, and the exam showed mild scrotal erythema, but no other abnormalities noted. He was afebrile. BP was 170/78. Currently, Mr. Ureña is awake. He is much more oriented than what he had been before. He follows commands and pleasant. Denies any headaches. No back pain. No shortness of breath. No abdominal pain. Although, sometimes, he would state that he did have some tenderness, but could not reproduce the finding. PAST MEDICAL HISTORY: Hypertension, coronary artery disease, CVA, dyslipidemia, type 2 diabetes, gout, polyarticular involvement, renal insufficiency, and macular degeneration. ALLERGIES: STATINS. FAMILY HISTORY: Renal insufficiency and type 2 diabetes. SOCIAL HISTORY: Never smoker. Lives in a shelter in [place]. No alcoholic beverages of significance. CURRENT MEDICATIONS: 1. Tylenol. 2. Dextrose. 3. Glucagon. 4. Heparin. 5. Insulin. 6. Flagyl. 7. Zofran. 8. Zosyn. 9. Vancomycin. PHYSICAL EXAMINATION: VITAL SIGNS: Temperature has been normal. BP 160/72, pulse 65, respirations 16 , O2 saturation 93. SKIN: With no areas of skin breakdown. The patient has a tunneled catheter in the right IJ position. Does not have a urine catheter. LYMPHATICS: No lymphadenopathy. HEENT: Ocular movements are conjugate. Sclerae are white. Pupils are equal. Oral cavity with still quite a few teeth in place, fairly decent shape. NECK: Supple. No jugular vein distention. LUNGS: With faint crackles at the right base. HEART: S1 and S2. Regular rate. No S3 or S4. ABDOMEN: Soft. Not distended or tender. No ascites. : No bladder distention. MUSCULOSKELETAL: No joint inflammatory activity. EXTREMITIES: The left knee is much improved. He is able to move extremities on command, but is diffusely weak. NEUROLOGIC: He is awake, oriented, follows commands. LABORATORY DATA: White cell count was 17, now is 12,000; hemoglobin 8.3; platelets 526, which is improved. Creatinine and sodium are as expected. Urinalysis, normal. Two sets of blood cultures, no growth. PREVIOUS IMAGING STUDIES: Soft tissue neck, brain, and facial bone CT was not remarkable. CT abdomen, pelvis, and chest with bilateral pleural effusions. No definite bowel obstruction. This was with contrast study. No inflammatory changes noted. There was increased density in the dependent portion of right lower lobe. ASSESSMENT: End-stage renal disease secondary to type 2 diabetes mellitus, on hemodialysis recently started through a tunneled catheter; episodes of fever, initially unexplained with Karius test demonstrating polymicrobial anaerobic bacteremia as the likely culprit behind the febrile episodes. This is likely due to aspiration pneumonia with the markie from the periodontal tissues. This type of markie can also be seen in the gastrointestinal area below the stomach, but the Ct of abdomen did not show any abnormalities. So, I would think that this probably represents pneumonia with aspiration from the oral cavity. We would continue previously recommended regimen with Flagyl and amoxicillin. Instead of 4 weeks, probably curtail to total of 2 weeks of therapy. Job ID: [id number] [facility]
--- NOTE | 2019-05-13 21:01 | PDOC.HOSPP ---
- Subjective Encounter Date: 05/13/19 Encounter Time: 20:59 Subjective: The patient is doing well, he denies fevers, chills, cough, runny nose, sore throat. His only complaint is weakness in his legs. He is frustrated that he is not able to get out of bed without alerting nurse. He is asking to use a walker so that he doesn't have to ring the faustin. - Objective Vital Signs & Weight: Vital Signs (12 hours) Temp Pulse Resp BP BP Pulse Ox 05/13/19 19:45 98.9 F 76 16 165/75 H 96 05/13/19 15:27 99.0 F 79 16 114/53 L 98 05/13/19 12:28 98.6 F 65 16 165/72 H 93 L Weight Admit Weight 147 lb Weight 147 lb I&O: 05/12/19 05/13/19 05/14/19 06:59 06:59 06:59 Intake Total 1120 Output Total 2200 Balance -1080 Result Diagrams: 05/13/19 04:31 05/13/19 04:31 Additional Labs: Accuchecks 05/13/19 05/13/19 05/13/19 20:18 17:04 10:57 POC Glucose 87 90 116 H 05/13/19 05:25 POC Glucose 71 Hospitalist ROS - Review of Systems Eyes: denies: pain Gastrointestinal: denies: nausea, vomiting, abdominal pain - Medication Medications: Active Medications Generic Name Dose Route Start Last Admin Trade Name Freq PRN Reason Stop Dose Admin Heparin Sodium (Porcine) 5,000 units 05/12/19 09:00 05/13/19 20:35 Heparin SC 5,000 units TID ERASTO Administration Metronidazole 500 mg/ Device 100 mls @ 100 mls/hr 05/12/19 06:00 05/13/19 20: 33 IVPB 100 mls Q8HR ERASTO Administration Piperacillin Sod/Tazobactam 100 mls @ 200 mls/hr 05/12/19 06:00 05/13/19 20: 35 Sod 2.25 gm/ Sodium Chloride IVPB 100 mls Q8HR ERASTO Administration Sodium Chloride 10 ml 05/13/19 09:00 05/13/19 20:34 Flush - Normal Saline IVF 10 ml Q12HR ERASTO Administration - Exam General Appearance: NAD, awake alert Eye: PERRL, anicteric sclera ENT: normocephalic atraumatic, no oropharyngeal lesions Neck: supple, symmetric, no JVD, no thyromegaly Heart: RRR, no murmur, no gallops, no rubs Respiratory: CTAB, no wheezes, no rales, no ronchi Gastrointestinal: soft, non-tender, non-distended, normal bowel sounds Extremities: no cyanosis, no clubbing, no edema Skin: normal turgor, no lesions, no rashes Neurological: cranial nerve grossly intact, normal sensation to touch, no focal deficits, no new deficit Musculoskeletal: normal tone, normal strength, no muscle wasting Psychiatric: normal affect, normal behavior, A&O x 3, oriented to person, oriented to place, oriented to time Hosp A/P - Plan Chest X ray: no acute disease CT head: no acute disease CT facial bones: unremarkable EKG: normal sinus rhythm. RBBB, left axis deviation This is an 79 year old male with past medical history of CAD, hypertension, CVA , dyslipidemia, osteoarthritis, ESRD, diabetes wh opresented to the ER with confusion during hemodialysis. He had 1.8L of fluid removed' #Acute encephalopathy - appears to be back to baseline, possibly uremic vs sepsis? #Leukocytosis- improved #ESRD #Recent Prevotella, Veillonella, Rotha mucaliginosa and Fusobacterium periodontum infection - had some confusion during dialysis. WBC was 17, and improved to 13.8. Was on vanc, zosyn, flagyl empirically and mental status back to baseline now. - vancomycin discontinued. ID recommended switching back to amoxicillin and flagyl and source likely aspiration pneumonia. Recommended two additional weeks of antibiotics. Chest Xray unremarkable. CT scan of facial bones unremarkable - . Blood cultures and urine culture are negative Weakness - PT evaluation Elevated troponin - resolved - EKG shows LAD and RBBB. ECHO pending and not read yet - patient denies chest pain Anemia of chronic disease - HB 9. Iron panel done earlier this month consistent with anemia of chronic disase - vitamin B12 in march normal - check folate level in normal Gout - continue colchicine Code status: DNR DVT prophylaxis: heparin SC
[2019-05-14 01:24] LABS: Vancomycin, Trough 27.4 ug/mL
[2019-05-14] MEDS: Piperacillin/Tazobactam 2.25 GM in Sodium Chloride 0.9% 100 ML IVPB SCH (05:26)
[2019-05-14] MEDS: metroNIDAZOLE 500 MG in Premix Bag 1 BAG IVPB SCH (05:26)
[2019-05-14] MEDS ORDERED: Melatonin 3 MG TAB PO PRN (07:38)
[2019-05-14] MEDS ORDERED: Acetaminophen 500 MG TAB PO PRN (07:38)
[2019-05-14] MEDS ORDERED: Ondansetron ODT 4 MG TAB PO PRN (07:38)
[2019-05-14] MEDS ORDERED: Febuxostat 40 MG TAB PO SCH (09:00)
[2019-05-14] MEDS ORDERED: PATIENT'S HOME MEDICATION (Biotin [Biotin] 10,000 MCG) PO SCH (09:00)
[2019-05-14] MEDS: Amlodipine 10 MG TAB PO SCH (09:25)
[2019-05-14] MEDS: AMOXicillin 250 MG CAP PO SCH (09:25)
[2019-05-14] MEDS: metroNIDAZOLE 500 MG TAB PO SCH ×3 (09:26→19:56)
[2019-05-14] MEDS: Heparin 5,000 UNITS/ML VIAL SC SCH ×3 (09:26→19:57)
[2019-05-14] MEDS: Aspirin 81 mg Enteric Coated Tablet PO SCH (09:26)
[2019-05-14] MEDS: Vit A,C & E/Lutein/Minerals Tablet PO SCH ×2 (09:26→20:00)
[2019-05-14] MEDS: Carvedilol 3.125 MG TAB PO SCH ×2 (09:26→20:00)
[2019-05-14] MEDS: Baclofen 10 MG TAB PO SCH (09:26)
[2019-05-14] MEDS: Fish Oil 1,000 MG CAP PO SCH (09:26)
--- NOTE | 2019-05-14 12:03 | PRG ---
DATE OF SERVICE: 05/14/2019 SUBJECTIVE: An 79-year-old gentleman, being seen for end-stage kidney disease. The patient denied any nausea, vomiting, or chest pain. The patient wants to get off dialysis. OBJECTIVE: See above. Awake, alert, in no acute distress. VITAL SIGNS: Afebrile, pulse 94, breathing 16, and blood pressure 136/66. GENERAL APPEARANCE AND MENTAL STATUS: Fair. HEAD/NECK: Normocephalic. Atraumatic. EYES: EOMI. No deformity. EARS: Clear. No ulcers. NOSE: Intact. No lesions. MOUTH: Clear. No discharge. THROAT: Clear. No exudate. LUNGS: Clear. No crackles. CARDIAC: S1, S2. No rub. ABDOMEN: Benign. Bowel sounds positive. GENITALIA/RECTUM: Shipley absent. BACK/EXTREMITIES: Edema 0+. NEUROLOGICAL: Alert and motor intact. SKIN: LYMPHATICS: LABORATORY DATA: Hemoglobin is 8.3. ASSESSMENT AND PLAN: 1. Stage 6 chronic kidney disease. The patient has refused dialysis, wants to go on hospice, so we will consult Hospice. 2. Hypertension, stable. 3. Anemia, stable. 4. Medication based on GFR appropriate. Job ID: [id number]
--- NOTE | 2019-05-14 12:54 | PDOC.HOSPP ---
- Subjective Encounter Date: 05/14/19 Encounter Time: 11:00 Subjective: The patient is doing well today. He says he feel short of breath and difficulty getting air inside. Explained that he may have had pneumonia. Patient has no other complaints. He says that he is thinking about stopping dialysis because its not consistent with his quality of life. Dr. Yancey was in the room at the time, stated that he would support his wishes. Patient has made up his mind that he wishes to go back to snf and not do dialysis. They would be interested in setting up hospice in the house and having home health. Patient was told that if he stops dialysis, he could live anywhere from ten days to a few months because his renal function was not that bad and he is probably making some urine. - Objective Vital Signs & Weight: Vital Signs (12 hours) Temp Pulse Pulse Pulse Resp BP BP 05/14/19 11:43 98.0 F 60 16 05/14/19 08:30 75 90 169/78 H 190/84 H 05/14/19 07:25 98.9 F 74 16 05/14/19 03:12 99.4 F 74 18 BP BP Pulse Ox 05/14/19 11:43 164/70 H 95 05/14/19 08:30 05/14/19 07:25 148/64 H 94 L 05/14/19 03:12 136/66 92 L Weight Admit Weight 147 lb Weight 147 lb I&O: 05/13/19 05/14/19 05/15/19 06:59 06:59 06:59 Intake Total 1120 Output Total 2200 Balance -1080 Result Diagrams: 05/13/19 04:31 05/13/19 04:31 Additional Labs: Accuchecks 05/14/19 05/14/19 05/13/19 10:34 05:34 20:18 POC Glucose 125 H 73 87 05/13/19 17:04 POC Glucose 90 Hospitalist ROS - Review of Systems Constitutional: denies: fever, chills Respiratory: denies: cough, dry Cardiovascular: denies: chest pain, palpitations - Medication Medications: Active Medications Generic Name Dose Route Start Last Admin Trade Name Freq PRN Reason Stop Dose Admin Amlodipine Besylate 10 mg 05/14/19 09:00 05/14/19 09:25 Norvasc PO 10 mg DAILY ERASTO Administration Amoxicillin 500 mg 05/14/19 09:00 05/14/19 09:25 Amoxil PO 06/10/19 09:01 500 mg DAILY ERASTO Administration Aspirin 81 mg 05/14/19 09:00 05/14/19 09:26 Ecotrin PO 81 mg DAILY ERASTO Administration Baclofen 10 mg 05/14/19 09:00 05/14/19 09:26 Lioresal PO 10 mg DAILY ERASTO Administration Carvedilol 3.125 mg 05/14/19 09:00 05/14/19 09:26 Coreg PO 3.125 mg BID ERASTO Administration Febuxostat 40 mg 05/14/19 09:00 05/14/19 09:26 Uloric PO 40 mg Q2D ERASTO Administration Fish Oil 1,000 mg 05/14/19 09:00 05/14/19 09:26 Fish Oil PO 1,000 mg DAILY ERASTO Administration Heparin Sodium (Porcine) 5,000 units 05/12/19 09:00 05/14/19 09:26 Heparin SC 5,000 units TID ERASTO Administration Metronidazole 500 mg 05/14/19 09:00 05/14/19 09:26 Flagyl PO 06/10/19 21:01 500 mg TID ERASTO Administration Multivitamins/Minerals 1 tab 05/14/19 09:00 05/14/19 09:26 Ocuvite With Lutein PO 1 tab BID ERASTO Administration Sodium Chloride 10 ml 05/13/19 09:00 05/14/19 09:26 Flush - Normal Saline IVF 10 ml Q12HR ERASTO Administration - Exam General Appearance: NAD, awake alert Eye: PERRL, anicteric sclera ENT: normocephalic atraumatic, no oropharyngeal lesions Neck: supple, symmetric, no JVD, no thyromegaly Heart: RRR, no murmur, no gallops, no rubs Respiratory: CTAB, no wheezes, no rales, no ronchi Gastrointestinal: soft, non-tender, non-distended, normal bowel sounds Extremities: no cyanosis, no clubbing, no edema Skin: normal turgor, no lesions, no rashes Neurological: cranial nerve grossly intact, normal sensation to touch, no focal deficits, no new deficit Musculoskeletal: normal tone, normal strength, no muscle wasting Hosp A/P - Plan Chest X ray: no acute disease CT head: no acute disease CT facial bones: unremarkable EKG: normal sinus rhythm. RBBB, left axis deviation This is an 79 year old male with past medical history of CAD, hypertension, CVA , dyslipidemia, osteoarthritis, ESRD, diabetes wh opresented to the ER with confusion during hemodialysis. He had 1.8L of fluid removed' #Acute encephalopathy - appears to be back to baseline, possibly uremic vs sepsis? #Leukocytosis- improved #Recent Prevotella, Veillonella, Rotha mucaliginosa and Fusobacterium periodontum infection - had some confusion during dialysis. WBC was 17, and improved to 12. . Was on vanc, zosyn, flagyl empirically and now back on amoxicillin and flagyl. Needs two more weeks of antibiotics - Chest Xray unremarkable. CT scan of facial bones unremarkable - . Blood cultures and urine culture are negative #ESRD - patient got dialysis on 05/13 with 3L fluid removed. He no longer wants dialysis. Palliative care consult and hospice Weakness - PT walked with the patient and felt he was independent with walker Elevated troponin - resolved - EKG shows LAD and RBBB. ECHO showed EF 55-60% with mild diastolic dysfunction - mild MR, mild TR Anemia of chronic disease - HB 9. Iron panel done earlier this month consistent with anemia of chronic disease - vitamin B12 in march normal - folate normal Gout - continue colchicine Code status: DNR DVT prophylaxis: heparin SC
[2019-05-14] MEDS ORDERED: Tamsulosin HCl 0.4 MG CAP PO SCH (21:00)
[2019-05-15] MEDS: Fish Oil 1,000 MG CAP PO SCH (11:32)
[2019-05-15] MEDS: Aspirin 81 mg Enteric Coated Tablet PO SCH (11:32)
[2019-05-15] MEDS: Carvedilol 3.125 MG TAB PO SCH (11:32)
[2019-05-15] MEDS: Baclofen 10 MG TAB PO SCH (11:32)
[2019-05-15] MEDS: Amlodipine 10 MG TAB PO SCH (11:32)
[2019-05-15] MEDS: metroNIDAZOLE 500 MG TAB PO SCH ×2 (11:32→14:58)
[2019-05-15] MEDS: AMOXicillin 250 MG CAP PO SCH (11:32)
[2019-05-15] MEDS: Vit A,C & E/Lutein/Minerals Tablet PO SCH (11:32)
[2019-05-15] MEDS: Heparin 5,000 UNITS/ML VIAL SC SCH ×2 (11:33→14:58)
[2019-05-15 12:18] VITALS: BP 142/70; TEMP 97.5
--- NOTE | 2019-05-15 12:25 | PDOC.PALCO ---
Palliative Care Consult - Consult Details Requesting Physician: Dr Triana Reason for Consult: goals of care, family support Family Members Present: and daughter - Pertinent HPI 79 year old male who was discharged from this facility after a stay of almost three weeks for metabolic encephalopathy, acute gouty arthropathy, and renal failure where dialysis was initiated during course of stay. Patient was discharged home to continue dialysis on outpatient basis and antibiotics for suspected mandibular infection. Increase in confusion at dialysis on 05/11 and was transferred to [facility] emergency room for evaluation. Ad[facility] secondary to acute metabolic encephalopathy, renal disease requiring dialysis. - Pertinent PMH CAD, Hypertension, CVA, dislipidemia, gout, end state renal disease, DM II - Social History Smoking Status: Former smoker Smoking: quit greater than 1 year Alcohol Use: none Drug Use History: none Living Situation: (lives independently with his ) - Allergies Allergies/Adverse Reactions: Allergies Allergy/AdvReac Type Severity Reaction Status Date / Time [id number] Reductase Allergy Severe Verified 05/12/19 01:25 Inhibitor asparagus AdvReac Verified 05/12/19 01:25 Beef Containing Products AdvReac Verified 05/12/19 01:25 Pork/Porcine Containing AdvReac Verified 05/12/19 01:25 Products shellfish derived AdvReac Verified 05/12/19 01:25 shrimp AdvReac Verified 05/12/19 01:25 turkey AdvReac Verified 05/12/19 01:25 pork AdvReac Uncoded 05/12/19 01:25 - ROS Constitutional: alert, weakness Eyes: other (denies pain, itching to eyes or blurry vision) ENT: change in hearing (Wears hearing aids) Respiratory: shortness of breath with extertion Cardiology: other (Denies chest pain, discomfort) Gastrointestinal: other (Denies constipation, diarrhea, abdominal pain) Genitourinary: hesitancy Musculoskeletal: limited mobility Neurological: other Skin: other - Objective Vital Signs: Vital Signs - Most Recent Temp Pulse Resp BP Pulse Ox 97.5 F L 70 18 142/70 H 97 05/15/19 12:16 05/15/19 12:16 05/15/19 12:16 05/15/19 12:16 05/15/19 12:16 Palliative Performance Scale: 30 - Physical Exam Constitutional: confusion, ill appearing HEENT: moist MMs Respiratory: clear to auscultation bilateral Cardiovascular: RRR Musculoskeletal: no clubbing, no edema, pulses present Neurology: moves all 4 limbs Skin: cap refill <2 seconds, no rash Psychiatric: normal mood - Problem List (1) Acute renal failure on dialysis Code(s): N17.9 - ACUTE KIDNEY FAILURE, UNSPECIFIED; Z99.2 - DEPENDENCE ON RENAL DIALYSIS Current Visit: Yes Status: Acute (2) Palliative care encounter Code(s): Z51.5 - ENCOUNTER FOR PALLIATIVE CARE Current Visit: No Status: Acute (3) Physical deconditioning Code(s): R53.81 - OTHER MALAISE Current Visit: No Status: Chronic (4) Acute gouty arthropathy Code(s): M10.9 - GOUT, UNSPECIFIED Current Visit: No Status: Resolved - Plan/Recommendations Plan: Patient and family have opted to cease dialysis and return home on comfort measures. Last hospitalization the decision had been made to "try dialysis and see how patient tolerated". Therapeutic listening. Teaching in relation to hospice care in the home setting, answered questions. Discussed grief and goal for a good day today. *Home with [facility] *Teaching in relation to symptom management in the home setting of chronic illness *discussion of end of life. Communicated with Dr Triana [[id number]] minutes spent on this encounter with >50% of the time in counseling and coordination of care. Thank you for this very appropriate consult.
--- NOTE | 2019-05-15 16:38 | DIS ---
DATE OF ADMISSION: 05/11/2019 DATE OF DISCHARGE: 05/15/2019 DISCHARGE DIAGNOSES: Acute encephalopathy, possibly secondary to uremia versus sepsis from aspiration pneumonia in the setting of recent Prevotella, Veillonella, Rothia mucilaginosa, and Fusobacterium periodonticum infection, elevated troponin, anemia of chronic disease, end-stage renal disease. CONSULTATIONS: 1. Infectious Disease with Dr. Andrew Evans. 2. Nephrology with Dr. Hasmukh Yancey. 3. Palliative Care with TALIA Mondragon. BRIEF HISTORY OF PRESENT ILLNESS: This is an 79-year-old male with a past medical history of ESRD, who was recently [facility] from this facility on [facility]. The patient at that time was discharged on amoxicillin and Flagyl for suspected mandibular infection with Prevotella, Veillonella, Rothia mucilaginosa, and Fusobacterium. According to the , the patient was confused at hemodialysis and was not at his baseline. He was having hallucinations and making nonsensical statements. The patient was admitted for further workup. Upon arrival to the ER, the patient was noted to have a white blood cell count of 17.1. Vital signs were otherwise unremarkable. The patient had a UA done, which was negative for infection. A CT scan of his head was done in the ER, which showed no acute disease. Chest x-ray showed no acute cardiopulmonary process. The patient was placed on IV vancomycin, Zosyn, and metronidazole empirically. HOSPITAL COURSE: Acute encephalopathy secondary to possible sepsis from periodontal infection versus aspiration pneumonia: As mentioned above, the patient was started empirically on vancomycin, Zosyn, and Flagyl. Blood cultures came back negative. Chest x-ray was unremarkable. The patient underwent dialysis on the . He had an improvement in his white blood cell count to 13.8 the following day, and his mental status was close to baseline. CT scan of the facial bones showed no abscess. Blood and urine cultures were negative. Infectious Disease was consulted with regard to the source of leukocytosis. They felt that he most likely had an aspiration event from his periodontal infection. He did recommend that the antibiotics can be tapered to 2 additional weeks instead of 4. The patient will be discharged on 2 more weeks of amoxicillin and Flagyl. ESRD: The patient got dialysis on the with 2 L of fluid removed. He had a significant improvement in his mental status. However, he stated on the that he no longer wanted to have dialysis. Hospice was consulted, and the patient is going to be discharged with [facility]. Elevated troponin: The patient had a slightly elevated troponin of 0.040 on admission, which improved to 0.023 on the . An echocardiogram done showed an EF of 55% to 60% with mild diastolic dysfunction. EKG showed right bundle-branch block and left axis deviation. The patient denied any chest pain. This may have been secondary to his ESRD. Anemia of chronic disease: The patient has a hemoglobin of around 9. He has a normal iron panel, vitamin B12, and folate. The patient will be discharged to hospice. Further followup will be at the discretion of the family members. Hypertension: The patient was thus switched to Imdur 30 mg daily since his blood pressure was 142/70. The patient was not receiving his Imdur in the hospital. DISCHARGE PHYSICAL EXAMINATION: VITAL SIGNS: Temperature 97.5, heart rate 70, respiratory rate 18, O2 saturation 97% on room air, blood pressure 142/70. GENERAL: The patient is alert, awake, oriented x3. CVS: Regular rate and rhythm with no murmurs, rubs, or gallops. LUNGS: Clear to auscultation bilaterally. ABDOMEN: Positive bowel sounds, soft, nontender, nondistended. EXTREMITIES: No edema. GAIT: The patient was evaluated by Physical Therapy and felt to be independent with his walker. PERTINENT LABORATORY DATA: CBC on 05/13: he has a white count of 12.0, hemoglobin of 8.3/25, platelets of 526. BMP on 05/13: shows sodium of 136, potassium of 3.4, creatinine of 3.72. LFTs on the : AST 26, ALT less than 7, alkaline phosphatase 108. Troponin I 0.052, which improved to 0.023. Folate :11.80. CT brain on 05/11, : no acute disease. Chest x-ray on 05/11: shows no acute disease. CT facial bones :shows no loculated fluid collection to suggest abscess. DISCHARGE CONDITION/DISPOSITION: The patient is stable to be discharged to home with [facility]. ACTIVITY: The patient ambulates with a walker. DIET: Dialysis diet. The patient was advised to not drink more than two quarts of water a day. This was verified with Dr. Yancey. DISCHARGE MEDICATIONS: New prescriptions: Amoxicillin 500 mg p.o. daily for 12 days, Imdur 30 mg p.o. daily for 30 days, Flagyl 500 mg p.o. t.i.d. for 12 days. All other home medications were resumed except for Imdur was decreased to 30 mg daily. DISCHARGE INSTRUCTIONS: The patient will be discharged to home with [facility]. He should follow up with his PCP in a week. Job ID: [id number] [facility]
[2019-05-19] MEDS ORDERED: Colchicine 0.6 MG TAB PO SCH (09:00)
== END 2019-05-15 15:45 | disposition hospice, home (50) | DRG 177 ==
LOC: ERS 19:00 → 2NO 22:14
PROVIDERS: ADMIT Internal Medicine; ATTEND Internal Medicine
PROC: 5A1D70Z Performance of Urinary Filtration, Intermittent, Less than 6 Hours Per Day (ICD-10-PCS; principal; 2019-05-11)
DX: J69.0 Pneumonitis due to inhalation of food and vomit (principal); A41.9 Sepsis, unspecified organism; N18.6 End stage renal disease; G93.41 Metabolic encephalopathy; N17.9 Acute kidney failure, unspecified; I25.10 Atherosclerotic heart disease of native coronary artery without angina pectoris; Z66 Do not resuscitate; Z51.5 Encounter for palliative care; E78.5 Hyperlipidemia, unspecified; E78.00 Pure hypercholesterolemia, unspecified; M19.90 Unspecified osteoarthritis, unspecified site; M10.9 Gout, unspecified; E11.22 Type 2 diabetes mellitus with diabetic chronic kidney disease; I45.10 Unspecified right bundle-branch block; D63.1 Anemia in chronic kidney disease; H35.30 Unspecified macular degeneration; K05.6 Periodontal disease, unspecified; Z95.2 Presence of prosthetic heart valve; Z99.2 Dependence on renal dialysis; Z95.5 Presence of coronary angioplasty implant and graft; Z95.1 Presence of aortocoronary bypass graft; Z86.73 Personal history of transient ischemic attack (TIA), and cerebral infarction without residual deficits; I25.2 Old myocardial infarction; Z88.8 Allergy status to other drugs, medicaments and biological substances; Z79.899 Other long term (current) drug therapy; Z87.891 Personal history of nicotine dependence
CPT/HCPCS: 36415; 36416; 51701; 70450; 70487; 71045; 80048; 80053; 80202; 81003; 81015; 82140; 82553; 82746; 83605; 84484; 85025; 85027; 87040; 87086; 93005; 93306; 94760; 96365; 96367; J1644; J2543; J3370; J3490; J7050; Q9967